=== PATIENT | female | born 1925 | race Caucasian/White ===

== ENCOUNTER 2016-11-10 02:08 | Inpatient (IN) | payer MEDICARE, BC ==
[2016-11-10] VITALS (24 sets, daily range): BP systolic 90–127; BP diastolic 39–74
[~2016-11-10] VITALS: Ht 172.7 cm; Wt 70.4 kg
[2016-11-10] MEDS ORDERED: MULT-974 PO (02:39)
[2016-11-10] MEDS ORDERED: ATOR40TA70 PO (02:39)
[2016-11-10] MEDS ORDERED: ASPI-586 PO (02:39)
[2016-11-10] MEDS ORDERED: METO-333 PO (02:39)
[2016-11-10] MEDS ORDERED: OMG1KC PO (02:39)
--- NOTE | 2016-11-10 02:42 | ED Cardiac General ---
History of Present Illness General Chief Complaint: Chest Pain Stated Complaint: SOB,LOW TEMP Nursing Triage Note: Patient c/o chest pain starting at 2200. Source: patient (SOMEWHAT LIMITED HISTORIAN), EMS, long-term records History of Present Illness Time seen by provider: 02:09 Initial Comments PT ARRIVES VIA EMS FROM [facility] PT IS FROM [place], [place], AND HAD STEMI AND EMERGENT 3 VESSEL CABG ON 11/03/16 AT [facility] IN [place]. PT WAS DISMISSED FROM THERE TODAY AND ADMITTED TO [facility], DAUGHTER LIVES HERE. PT STATES SHE BEGAN TO HAVE SHORTNESS OF BREATH "AND ALL THE SAME THINGS" WHEN SHE HAD [place] LAST WEEK C/O CHEST PRESSURE C/O GENERALIZED WEAKNESS NO SWEATS NO NAUSEA/VOMITING PER CARE HOME RECORDS/DISCHARGE SUMMARY FROM [facility], PT HAD INTERMITTENT EPISODES OF ATRIAL FIBRILLATION AND DOSE OF METOPROLOL WAS INCREASED. PT IS NOT ON ANTICOAGULANTS OR ANTI-ARRHYTHMICS. PT WAS ONLY ON 81 MG ASPIRIN, FISH OIL AND MULTIVITAMIN PRIOR TO STEMI. HAS HAD ATORVASTATIN AND METOPROLOL ADDED TO THOSE MEDICATIONS AT DISMISSAL FROM HOSPITAL. EMS GAVE NTG X 1 WITH DROP IN BP, FLUIDS GIVEN BY EMS PT STATES PAIN HAS EASED AFTER NTG. NTG SL ED TEACHER: Yes (0.4mg SL) ASA po ED TEACHER: Yes (324mg) Allergies and Home Medications Allergies Coded Allergies: No Known Drug Allergies (Unverified , 11/10/16) Home Medications Aspirin 81 Mg Tablet.dr, 81 MG PO, (Reported) Atorvastatin Calcium 40 Mg Tablet, 40 MG PO, (Reported) Metoprolol Tartrate 25 Mg Tablet, 25 MG PO BID, (Reported) Multivitamin 1 Each Tablet, 1 EACH PO, (Reported) [place] 3 Polyunsat Fatty Acids 1,000 Mg Cap, 1,000 MG PO, (Reported) Review of Systems Constitutional: No diaphoresis, malaise, weakness Respiratory: See HPI, Orthopnea, Shortness of Air Cardiovascular: See HPI, Chest Pain, Denies Edema, Denies Lightheadedness, Denies Palpitations, Denies Syncope Gastrointestinal: No Symptoms Reported Genitourinary: No Symptoms Reported Musculoskeletal: no symptoms reported Skin: no symptoms reported Psychiatric/Neurological: No Symptoms Reported Endocrine: No Symptoms Reported Hematologic/Lymphatic: No Symptoms Reported Past Zhhwshy-Vprxyo-Ntbeww Hx Patient Social History Alcohol Use: Denies Use Recreational Drug Use: No Smoking Status: Never a Smoker Recent Foreign Travel: No Contact w/Someone Who Travel: No Recent Infectious Disease Expo: No Recent Hopitalizations: No Surgeries HX Surgeries: Yes (RIGHT LUMPECTOMY FOR CANCER; CARDIAC CATH AND EMERGENT CABG 11/03/16) Surgeries: Breast, Cardiac, CABG Respiratory Hx Respiratory Disorders: No Cardiovascular Hx Cardiac Disorders: Yes Cardiac Disorders: Atrial Fibrillation, Coronary Artery Disease, Heart Attack, Hypertension Neurological Hx Neurological Disorders: No Genitourinary Hx Genitourinary Disorders: No Gastrointestinal Hx Gastrointestinal Disorders: No Musculoskeletal Hx Musculoskeletal Disorders: No Endocrine Hx Endocrine Disorders: No HEENT HX ENT Disorders: No Cancer Hx Cancer: Yes (RIGHT BREAST LUMPECTOMY) Cancer: Breast Psychosocial Hx Psychiatric Problems: No Integumentary HX Skin/Integumentary Disorder: No Blood Transfusions Hx Blood Disorders: No Physical Exam Vital Signs Vital Sign - Last 12Hours Capillary Refill : Less Than 3 Seconds General Appearance: Other (MILDLY DYSPNEIC AT REST) Neck: Normal Inspection Respiratory: Rales (IN BASES BILATERALLY), Other (MILDLY DYSPNEIC) Cardiovascular: No JVD, Normal Peripheral Pulses, Irregularly Irregular, Other (SURGICAL WOUND TO CHEST IS HEALING WITHOUT SIGNS IF INFECTION, IS CLEAN, DRY AND INTACT) Gastrointestinal: Non Tender, Soft Extremity: No Calf Tenderness, Other (SURGICAL WOUNDS TO RIGHT LEG HEALING WITHOUT SIGNS OF INFECTION AND ARE CLEAN, DRY AND INTACT. MODERATE BRUISING TO RIGHT LOWER LEG/CALF. TRACE EDEMA TO LEFT LOWER LEG. 1+ EDEMA TO RIGHT LOWER LEG. ) Neurologic/Psychiatric: Alert, Oriented x3 (LIMITED MEMORY), No Motor/Sensory Deficits, Normal Mood/Affect, dredge pipeman II-XII Norm as Tested Skin: Normal Color, Warm/Dry, Ecchymosis (AROUND SURGICAL SITES. ) Progress/Results/Core Measures Results/Orders Lab Results Laboratory Tests Test 11/10/16 02:57 Range/Units White Blood Count 10.3 4.3-11.0 10^3/uL Red Blood Count 3.17 L 4.35-5.85 10^6/uL Hemoglobin 9.7 L 11.5-16.0 G/DL Hematocrit 30 L 35-52 % Mean Corpuscular Volume 96 80-99 FL Mean Corpuscular Hemoglobin 31 25-34 PG Mean Corpuscular Hemoglobin Concent 32 32-36 G/DL Red Cell Distribution Width 14.7 H 10.0-14.5 % Platelet Count 239 130-400 10^3/uL Mean Platelet Volume 10.8 H 7.4-10.4 FL Neutrophils (%) (Auto) 73 42-75 % Lymphocytes (%) (Auto) 10 L 12-44 % Monocytes (%) (Auto) 13 H 0-12 % Eosinophils (%) (Auto) 4 0-10 % Basophils (%) (Auto) 0 0-10 % Neutrophils # (Auto) 7.5 1.8-7.8 X 10^3 Lymphocytes # (Auto) 1.0 1.0-4.0 X 10^3 Monocytes # (Auto) 1.4 H 0.0-1.0 X 10^3 Eosinophils # (Auto) 0.4 H 0.0-0.3 10^3/uL Basophils # (Auto) 0.0 0.0-0.1 10^3/uL Prothrombin Time 13.5 12.2-14.7 SEC INR Comment 1.1 0.8-1.4 Activated Partial Thromboplast Time 31 24-35 SEC Sodium Level 137 135-145 MMOL/L Potassium Level 4.2 3.6-5.0 MMOL/L Chloride Level 103 98-107 MMOL/L Carbon Dioxide Level 23 21-32 MMOL/L Anion Gap 11 5-14 MMOL/L Blood Urea Nitrogen 47 H 7-18 MG/DL Creatinine 1.07 0.60-1.30 MG/DL Estimat Glomerular Filtration Rate 48 BUN/Creatinine Ratio 44 Glucose Level 142 H 70-105 MG/DL Calcium Level 8.0 L 8.5-10.1 MG/DL Magnesium Level 2.1 1.8-2.4 MG/DL Total Bilirubin 1.2 H 0.1-1.0 MG/DL Aspartate Amino Transf (AST/SGOT) 46 H 5-34 U/L Alanine Aminotransferase (ALT/SGPT) 38 0-55 U/L Alkaline Phosphatase 69 40-136 U/L Total Creatine Kinase 136 29-168 U/L Creatine Kinase MB 3.2 <6.6 NG/ML Troponin I 6.59 *H <0.30 NG/ML B-Type Natriuretic Peptide 1868.9 H <100.0 PG/ML Total Protein 5.1 L 6.4-8.2 GM/DL Albumin 2.8 L 3.2-4.5 GM/DL Amylase Level 334 H 25-125 U/L Lipase 60 8-78 U/L TSH [place] Testing 2.65 0.35-4.94 UIU/ML My Orders Orders - MERCEDES PRICE DO Amylase (11/10/16 02:17) Cbc With Automated Diff (11/10/16 02:17) Comprehensive Metabolic Panel (11/10/16 02:17) Creatine Kinase (11/10/16 02:17) Creatine Kinase Mb (11/10/16 02:17) Lipase (11/10/16 02:17) Partial Thromboplastin Time (11/10/16 02:17) Protime With Inr (11/10/16 02:17) Troponin I (11/10/16 02:17) Chest 1 View, Ap/Pa Only (11/10/16 02:17) O2 (11/10/16 02:17) Ekg Tracing (11/10/16 02:17) BNP (11/10/16 02:17) Monitor-Rhythm Ecg Trace Only (11/10/16 02:17) Saline Lock/Iv-Start (11/10/16 02:17) Magnesium (11/10/16 02:17) Enoxaparin Injection (Lovenox Injection) (11/10/16 02:45) Thyroid Analyzer (11/10/16 02:34) Furosemide Injection (Lasix Injection) (11/10/16 03:30) Catheter(Urinary) Insert & Ass 03,15 (11/10/16 03:24) Medications Given in ED Current Medications Medications Dose Ordered Sig/Tanisha Route Start Time Stop Time Status Last Admin Dose Admin Enoxaparin Sodium 70 mg ONCE ONCE SC 11/10/16 02:45 11/10/16 02:46 DC 11/10/16 02:43 70 MG Furosemide 80 mg ONCE ONCE IVP 11/10/16 03:30 11/10/16 03:31 DC 11/10/16 04:15 80 MG Vital Signs/I&O Vital Sign - Last 12Hours 11/10/16 11/10/16 11/10/16 02:20 02:20 02:20 Temp 98.7 Pulse 108 Resp 19 B/P (MAP) 119/77 Pulse Ox 98 93 O2 Delivery Nasal Cannula Nasal Cannula Nasal Cannula O2 Flow Rate 2.00 2.00 2.0 Blood Pressure Mean: 91 Progress Note : Progress Note CHEST PAIN IS GONE AND SHORTNESS OF BREATH IS MUCH IMPROVED O2 SATS IN MID TO UPPER 90'S NO DETERIORATION IN PT'S CONDITION DURING ER STAY PT IN PERSISTENT ATRIAL FIBRILLATION, PT HAS NO SENSATION OF IRREGULAR HEART BEAT IN REVIEW OF CARE HOME RECORDS--ONLY THE H&P AND DISCHARGE SUMMARY FROM RECENT ADMIT AT [facility], THERE IS NO EKG PRESENT, AND ONLY LAB IS FROM HER FIRST TROPONIN WHEN SHE PRESENTED WITH ACUTE STEMI, WHICH WAS 0.04. FAMILY REPORTS THAT ON Sunday11/07/16 SHE HAD 3 LBS OF FLUID DRAWN OFF HER LUNGS AND WAS DOING BETTER ECG Initial ECG Impression Time: 02:24 Initial ECG Rate: 112 Initial ECG Rhythm: A Fib/Flutter (SLIGHT ST ELEVATION IN V2, V3) Initial ECG Comparisson: No Previous ECG Available Diagnostic Imaging Comments CXR --SIGNIFICANT CHF WITH BILATERAL EFFUSIONS Reviewed: Reviewed by Me Departure Communication Progress Notes [id number]--SPOKE WITH DR. DUDLEY, ADVISES JEAN FOWLER AND [facility], AND WILL SEE PT IN AM 0355--SPOKE WITH DR. Tereso CUI, ACCEPTS PT FOR ADMIT. Impression Impression: Primary Impression: CHF (congestive heart failure) Additional Impressions: Atrial fibrillation and flutter Recent heart attack RECENT CABG Disposition: 09 ADMITTED INPATIENT Condition: Improved Admissions Decision to Admit Reason: Admit from ER (General) Decision to Admit/Date: Nov 10, 2016 Time/Decision to Admit Time: 03:50 Departure-Patient Inst. Referrals: BELKYS CUI MD (PCP) Primary Care Physician MERCEDES PRICE DO Nov 10, 2016 02:42
[2016-11-10] MEDS ORDERED: ENOXAPARIN 80 MG/0.8 ML (LOVENOX) SYR SC ONE (02:45)
[2016-11-10 03:11] LABS: BASOPHILS % (AUTO) 0 % (0-10); EOSINOPHILS # (AUTO) 0.4 10^3/uL (0.0-0.3); EOSINOPHILS % (AUTO) 4 % (0-10); LYMPHOCYTES % (AUTO) 10 % (12-44); MEAN CORPUSCULAR HEMOGLOBIN 31 PG (25-34); MEAN CORPUSCULAR HGB CONC 32 G/DL (32-36); MEAN CORPUSCULAR VOLUME 96 FL (80-99); MEAN PLATELET VOLUME 10.8 FL (7.4-10.4); MONOCYTES # (AUTO) 1.4 X 10^3 (0.0-1.0); MONOCYTES % (AUTO) 13 % (0-12); NEUTROPHILS # (AUTO) 7.5 X 10^3 (1.8-7.8); NEUTROPHILS % (AUTO) 73 % (42-75); PLATELET COUNT 239 10^3/uL (130-400); RED BLOOD COUNT 3.17 10^6/uL (4.35-5.85); RED CELL DISTRIBUTION WIDTH 14.7 % (10.0-14.5); WHITE BLOOD COUNT 10.3 10^3/uL (4.3-11.0)
[2016-11-10 03:15] LABS: INR 1.1 (0.8-1.4); PROTHROMBIN TIME PATIENT 13.5 SEC (12.2-14.7)
[2016-11-10 03:26] LABS: CREATININE SERUM 1.07 MG/DL (0.60-1.30); POTASSIUM 4.2 MMOL/L (3.6-5.0)
[2016-11-10 03:27] LABS: ALBUMIN 2.8 GM/DL (3.2-4.5); BILIRUBIN,TOTAL 1.2 MG/DL (0.1-1.0); MAGNESIUM 2.1 MG/DL (1.8-2.4); TOTAL PROTEIN 5.1 GM/DL (6.4-8.2)
[2016-11-10] MEDS ORDERED: FUROSEMIDE 40 MG/4 ML INJ (LASIX) IVP ONE (03:30)
[2016-11-10 03:48] LABS: TROPONIN I 6.59 NG/ML (<0.30)
[2016-11-10] MEDS ORDERED: DILTIAZEM DRIP 100 MG in SODIUM CHLORIDE (ADD-VANTAGE) 100 ML IV SCH (04:15)
[2016-11-10] MEDS ORDERED: morphine INJ 4 MG/ML 1 ML (VIAL/SYRINGE) IV PRN (05:30)
[2016-11-10] MEDS ORDERED: NITROGLYCERIN SUBLINGUAL 0.4 MG TAB (NITROSTAT) SL PRN (05:30)
[2016-11-10] MEDS: DILTIAZEM DRIP 100 MG/NS 100 ML IV SCH ×4 (05:52→10:12)
--- NOTE | 2016-11-10 06:40 | Diagnostic Imaging Report ---
INDICATION: Congestive heart failure EXAMINATION: Portable chest 2:45 AM There are postop changes from a median sternotomy. There are small bilateral pleural effusions. There are no consolidating alveolar infiltrates. IMPRESSION: Postsurgical changes in the chest. There are small bilateral pleural effusions present. Dictated by: Dictated on workstation # [id number]
[2016-11-10 08:08] LABS: BASOPHILS % (AUTO) 0 % (0-10); EOSINOPHILS # (AUTO) 0.3 10^3/uL (0.0-0.3); EOSINOPHILS % (AUTO) 3 % (0-10); LYMPHOCYTES # (AUTO) 1.1 X 10^3 (1.0-4.0); LYMPHOCYTES % (AUTO) 11 % (12-44); MEAN CORPUSCULAR HEMOGLOBIN 31 PG (25-34); MEAN CORPUSCULAR HGB CONC 32 G/DL (32-36); MEAN CORPUSCULAR VOLUME 96 FL (80-99); MEAN PLATELET VOLUME 10.6 FL (7.4-10.4); MONOCYTES # (AUTO) 1.1 X 10^3 (0.0-1.0); MONOCYTES % (AUTO) 11 % (0-12); NEUTROPHILS # (AUTO) 7.2 X 10^3 (1.8-7.8); NEUTROPHILS % (AUTO) 74 % (42-75); PLATELET COUNT 267 10^3/uL (130-400); RED BLOOD COUNT 3.28 10^6/uL (4.35-5.85); RED CELL DISTRIBUTION WIDTH 14.8 % (10.0-14.5); WHITE BLOOD COUNT 9.7 10^3/uL (4.3-11.0)
[2016-11-10 08:24] LABS: ALBUMIN 2.9 GM/DL (3.2-4.5); BILIRUBIN,TOTAL 1.1 MG/DL (0.1-1.0); CALCIUM 8.1 MG/DL (8.5-10.1); CREATININE SERUM 1.07 MG/DL (0.60-1.30); POTASSIUM 4.1 MMOL/L (3.6-5.0); TOTAL PROTEIN 5.3 GM/DL (6.4-8.2)
[2016-11-10 08:31] LABS: MYOGLOBIN SERUM 214.2 NG/ML (10.0-92.0)
--- NOTE | 2016-11-10 09:13 | History & Physical ---
History of Present Illness History of Present Illness Reason for visit/HPI 89 yo F admitted overnight to ICU for acute chest pain and shortness of breath. She had just been admitted to [facility] earlier in the day from [facility] in [place]. She underwent a 3 vessel CABG- FAIRCHILD->LAD, saphenous vein graft aorta to 1st obtuse marginal and aorta to posterior descending artery on November 03, 2016 due to severe L main stenosis and severe RCA stenosis. Prior to arrival at [facility] pt was given 325mg ASA, NTG, IVF. Patient reports she was chest pain free from the time she left [facility] until last evening at [facility]. She feels like she felt when she had the initial heart attack on Nov 03. Leading up to these events pt denies any cardiac history. Pt was found to be in Afib with RVR, elevated BNP, ST elevation in V1-4, troponin 6.59 (repeat pending)- she was given 80mg lasix and cardizem gtts with pulse controlled down to 90s. Pt also started on therapeutic lovenox. Dr. Gomez was contacted for cardiology. This AM still has some chest discomfort across her chest- no radiation of pain or nausea or vomiting. She feels short of breath still. But overall pt reports she feels much better. Pt is DNR. Date of Admission Nov 10, 2016 at 03:50 Date Seen by Provider: Nov 10, 2016 Time Seen by Provider: 09:08 I consulted on this patient on 11/10/16 09:08 Attending Physician Fredy Gomez MD Admitting Physician Michele Cui MD Consult Allergies and Home Medications Allergies Coded Allergies: No Known Drug Allergies (Unverified , 11/10/16) Home Medications Aspirin 81 Mg Tablet.dr, 81 MG PO DAILY, (Reported) Atorvastatin Calcium 40 Mg Tablet, 40 MG PO HS, (Reported) Metoprolol Tartrate 25 Mg Tablet, 25 MG PO BID, (Reported) Multivitamin 1 Each Tablet, 1 TAB PO DAILY, (Reported) [place] 3 Polyunsat Fatty Acids 1,000 Mg Cap, 1,000 MG PO DAILY, (Reported) Past Xexntnn-Julkzb-Jsueov Hx Patient Social History Alcohol Use: Denies Use Recreational Drug Use: No Smoking Status: Never a Smoker Physical Abuse Screen: No Sexual Abuse: No Recent Foreign Travel: No Contact w/other who traveled: No Recent Hopitalizations: Yes (CABG) Recent Infectious Disease Expo: No Seasonal Allergies Seasonal Allergies: No Surgeries HX Surgeries: Yes (RIGHT LUMPECTOMY FOR CANCER; CARDIAC CATH AND EMERGENT CABG 11/03/16) Surgeries: Breast, Cardiac, CABG Respiratory Hx Respiratory Disorders: No Cardiovascular Hx Cardiovascular Disorders: Yes Cardiac Disorders: Atrial Fibrillation, Coronary Artery Disease, Heart Attack, Hypertension Neurological Hx Neurological Disorders: No Genitourinary Hx Genitourinary Disorders: No Gastrointestinal Hx Gastrointestinal Disorders: No Musculoskeletal Hx Musculoskeletal Disorders: No Endocrine Hx Endocrine Disorders: No HEENT HX ENT Disorders: No Loss of Vision: Denies Hearing Impairment: Hard of Hearing Cancer Hx Cancer: Yes (RIGHT BREAST LUMPECTOMY) Cancer: Breast Psychosocial Hx Psychiatric Problems: No Integumentary HX Skin/Integumentary Disorder: No Blood Transfusions Hx Blood Disorders: No Review of Systems Review of Systems General: No Chills, No Night Sweats HEENT: No Head Aches, No Visual Changes Pulmonary: Dyspnea, No Cough Cardiovascular: Chest Pain, No: Orthopnea, Palpitations Gastrointestinal: No: Abdominal Pain, Nausea, Vomiting Genitourinary: No Dysuria, No Frequency Musculoskeletal: No: neck pain, shoulder pain Neurological: Weakness Physical Exam Vital Signs Vital Sign - Last 12Hours General Appearance: WD/WN, Mild Distress HEENT: PERRL/EOMI Neck: Full Range of Motion Respiratory: Crackles (quiet in bases, wet upper lung bruno) Cardiovascular: Other (atrial fibrillation) Gastrointestinal: Normal Bowel Sounds, Non Tender, Soft Rectal: Deferred Back: Normal Inspection Extremity: Non Tender, No Calf Tenderness, No Pedal Edema, Other (bruising on legs- R>L due to saphenous vein removal) Neurologic/Psychiatric: Alert, Oriented x3, No Motor/Sensory Deficits, Normal Mood/Affect Skin: Warm/Dry Assessment/Plan Assessment/Plan Assessment/Plan 89 yo F Acute on chronic systolic congestive heart failure- diuresed with 80mg lasix Atrial fibrillation with RVR- normal rate currently on diltiazem gtts shortness of breath- due to cardiac etiology chest pain with CAD- s/p 3v CABG FAIRCHILD --> LAD, saphenous vein graft aorta to 1st obtuse marginal, posterior descending artery 11/03/16 ECHO prior to CABG- LVEF 30-35% HTN- on cardizem gtts Z95.1 presence of aortocoronary bypass graft- 11/03/16 chronic pain- monitor, has morphine ordered per chest pain protocol other hyperlipidemia- statin when not npo acute blood loss anemia- from CABG 11/03/16- stable hgb 10- needs to stay around 10 due to CAD DVT ppx: on therapeutic lovenox Dispo: repeating troponin, BNP elevated- diuresing- rate controlling Afib. ECHOcardiogram ordered. Dr. Gomez to see pt today. Problems: Clinical Quality Measures AMI/AHF: ASA po Prior to arrival: Yes (324mg) DVT/VTE Risk/Contraindication: Risk Factor Score Per Nursin RFS Level Per Nursing on Admit: 4+=Very High MICHELE CUI MD Nov 10, 2016 09:13
--- NOTE | 2016-11-10 12:14 | Consultation-Cardiology ---
HPI-Cardiology Cardiology Consultation Date of Consultation 11/10/16 Date of Admission Time Seen by Provider: 11:50 Indication: coronary artery disease, chest pain, shortness of breath HPI 89 years old lady with history of coronary artery disease, had a myocardial infarction last week in [facility], patient expressed that she had a cardiac catheterization done and then she underwent urgent CABG 3 using FAIRCHILD to LAD, vein graft to the first obtuse marginal branch and vein graft to the posterior descending artery on November 03, 2016 2 to severe left main coronary artery stenosis and severe right coronary artery stenosis, patient stayed in the hospital for about a week and she was transferred to [facility] she was felt better initially and then last night after arriving to [facility] she started having increasing shortness of breath and noted to have atrial fibrillation with rapid ventricular response with elevated troponin and BNP with signs of subacute myocardial infarction with persistent injury with Q waves in the anterior leads with residual ST elevation, her troponin is elevated probably due to the recent myocardial infarction and it is still trending down. Patient reporting improvement in her chest pain, feeling better at this time, she denied any palpitation, syncope or near syncopal episodes Home Medications & Allergies Allergies: Coded Allergies: No Known Drug Allergies (Unverified , 11/10/16) Home Medication List Reviewed: Yes LWH-Lolidw-Pcutas Hx Patient Social History Alcohol Use: Denies Use Recreational Drug Use: No Smoking Status: Never a Smoker Recent Foreign Travel: No Recent Infectious Disease Expo: No Recent Hopitalizations: Yes (CABG) Physical Abuse Screen: No Sexual Abuse: No Past Medical History past medical history as discussed below Family Medical History Family Medical Hx noncontributory to her current condition she is 89 years old with multiple comorbid condition Constitutional: see HPI, malaise, weakness EENTM: no symptoms reported, see HPI Respiratory: see HPI, No cough, dyspnea on exertion, No hemoptysis, orthopnea, No phlegm, short of breath, No stridor, No wheezing, No other Cardiovascular: see HPI, chest pain, edema, No Hx of Intervention, No palpitations, No syncope, No vascular heart diseas, No other Gastrointestinal: no symptoms reported, see HPI Genitourinary: no symptoms reported, see HPI Musculoskeletal: no symptoms reported, see HPI Skin: no symptoms reported, see HPI Psychiatric/Neurological: No Symptoms Reported, See HPI Reviewed Test Results Reviewed Test Results Lab Laboratory Tests Test 8/11/17 02:57 11/10/16 07:57 Range/Units White Blood Count 10.3 9.7 4.3-11.0 10^3/uL Red Blood Count 3.17 L 3.28 L 4.35-5.85 10^6/uL Hemoglobin 9.7 L 10.0 L 11.5-16.0 G/DL Hematocrit 30 L 31 L 35-52 % Mean Corpuscular Volume 96 96 80-99 FL Mean Corpuscular Hemoglobin 31 31 25-34 PG Mean Corpuscular Hemoglobin Concent 32 32 32-36 G/DL Red Cell Distribution Width 14.7 H 14.8 H 10.0-14.5 % Platelet Count 239 267 130-400 10^3/uL Mean Platelet Volume 10.8 H 10.6 H 7.4-10.4 FL Neutrophils (%) (Auto) 73 74 42-75 % Lymphocytes (%) (Auto) 10 L 11 L 12-44 % Monocytes (%) (Auto) 13 H 11 0-12 % Eosinophils (%) (Auto) 4 3 0-10 % Basophils (%) (Auto) 0 0 0-10 % Neutrophils # (Auto) 7.5 7.2 1.8-7.8 X 10^3 Lymphocytes # (Auto) 1.0 1.1 1.0-4.0 X 10^3 Monocytes # (Auto) 1.4 H 1.1 H 0.0-1.0 X 10^3 Eosinophils # (Auto) 0.4 H 0.3 0.0-0.3 10^3/uL Basophils # (Auto) 0.0 0.0 0.0-0.1 10^3/uL Prothrombin Time 13.5 12.2-14.7 SEC INR Comment 1.1 0.8-1.4 Activated Partial Thromboplast Time 31 24-35 SEC Sodium Level 137 138 135-145 MMOL/L Potassium Level 4.2 4.1 3.6-5.0 MMOL/L Chloride Level 103 102 98-107 MMOL/L Carbon Dioxide Level 23 25 21-32 MMOL/L Anion Gap 11 11 5-14 MMOL/L Blood Urea Nitrogen 47 H 45 H 7-18 MG/DL Creatinine 1.07 1.07 0.60-1.30 MG/DL Estimat Glomerular Filtration Rate 48 48 BUN/Creatinine Ratio 44 42 Glucose Level 142 H 134 H 70-105 MG/DL Calcium Level 8.0 L 8.1 L 8.5-10.1 MG/DL Magnesium Level 2.1 1.8-2.4 MG/DL Total Bilirubin 1.2 H 1.1 H 0.1-1.0 MG/DL Aspartate Amino Transf (AST/SGOT) 46 H 46 H 5-34 U/L Alanine Aminotransferase (ALT/SGPT) 38 38 0-55 U/L Alkaline Phosphatase 69 71 40-136 U/L Total Creatine Kinase 136 29-168 U/L Creatine Kinase MB 3.2 <6.6 NG/ML Troponin I 6.59 *H 5.85 *H <0.30 NG/ML B-Type Natriuretic Peptide 1868.9 H 2349.4 H <100.0 PG/ML Total Protein 5.1 L 5.3 L 6.4-8.2 GM/DL Albumin 2.8 L 2.9 L 3.2-4.5 GM/DL Amylase Level 334 H 25-125 U/L Lipase 60 8-78 U/L TSH [place] Testing 2.65 0.35-4.94 UIU/ML Myoglobin 214.2 H 10.0-92.0 NG/ML Physical Exam Vital Signs Vital Sign - Last 12Hours Capillary Refill : Less Than 3 Seconds General Appearance: WD/WN, Mild Distress Eyes: Bilateral Eye EOMI, Bilateral Eye Normal Inspection, Bilateral Eye PERRL HEENT: PERRL/EOMI, TMs Normal, Normal ENT Inspection, Pharynx Normal Neck: Full Range of Motion, Normal Inspection, Non Tender, Supple Respiratory: Chest Non Tender, No Accessory Muscle Use, No Respiratory Distress , Crackles, Decreased Breath Sounds Cardiovascular: Regular Rate, Rhythm, No Edema, No JVD, Normal Peripheral Pulses, Systolic Murmur, Gallop/S3, Irregularly Irregular Gastrointestinal: Normal Bowel Sounds, No Organomegaly, No Pulsatile Mass, Non Tender, Soft Back: Normal Inspection, No CVA Tenderness, No Vertebral Tenderness Extremity: Normal Capillary Refill, Normal Inspection, Normal Range of Motion, Non Tender, No Calf Tenderness, Pedal Edema Neurologic/Psychiatric: Alert, Oriented x3, No Motor/Sensory Deficits, Normal Mood/Affect Skin: Normal Color, Warm/Dry Lymphatic: No Adenopathy A/P-Cardiology Admission Diagnosis Atrial fibrillation Non-ST elevation myocardial infarction Congestive heart failure, acute left ventricular systolic dysfunction, ischemic cardiomyopathy Coronary artery disease hypotension Hyperlipidemia Assessment/Plan Atrial fibrillation with rapid ventricular response, unknown duration, started on Cardizem drip, borderline hypotensive at this time, I will add digoxin and monitor her closely. Evaluate 2-D echocardiogram, planning to evaluate MARION and electrical cardioversion in the morning if patient did not convert after digoxin. Subacute myocardial infarction, non-ST elevation myocardial infarction, patient had elevated troponin that is trending down. There is residual Q waves in the anterior leads suggestive of anterior wall injury, probably occurred during her myocardial infarction and her bypass surgery, I will obtain copy of the record and review it. Congestive heart failure, acute left ventricular systolic dysfunction, decompensated with pulmonary edema. Responded to Lasix, I will continue on gentle diuretics and monitor her blood pressure closely. Evaluate 2-D echocardiogram. Hyperlipidemia, restart statin and monitor Hypertension. Currently hypotensive. Monitor blood pressure Clinical Quality Measures AMI/AHF: ASA po Prior to arrival: Yes (324mg) DVT/VTE Risk/Contraindication: Risk Factor Score Per Nursin RFS Level Per Nursing on Admit: 4+=Very High CAROL DUDLEY MD Nov 10, 2016 12:13
[2016-11-10] MEDS ORDERED: DIGOXIN 0.25 MG/ML (LANOXIN) 2 ML AMP IV NR (12:15)
[2016-11-10] MEDS ORDERED: FUROSEMIDE 40 MG/4 ML INJ (LASIX) IVP NR (12:15)
[2016-11-10] MEDS: inSUlin (REGULAR) HUMAN 1 UNIT/0.01 ML (CHARGE PER UNIT) SC SCH ×2 (12:44→18:50)
[2016-11-10] MEDS: ASPIRIN E.C. 325 MG (ECOTRIN) TABLET PO SCH (12:49)
[2016-11-10] MEDS: ENOXAPARIN 80 MG/0.8 ML (LOVENOX) SYR SC SCH (16:49)
[2016-11-10] MEDS ORDERED: AMIODARONE FOR BOLUS 150 MG in D5W 100 ML IVPB 100 ML IV NR (18:32)
[2016-11-10] MEDS: AMIODARONE IV SOLUTION 200 ML IV SCH (18:45)
[2016-11-10] MEDS: ATORVASTATIN 40 MG (LIPITOR) TABLET PO SCH (20:34)
[2016-11-10] MEDS: meTOprolol TARTRATE 25 MG (LOPRESSOR) TABLET PO SCH (20:40)
[2016-11-11] VITALS (24 sets, daily range): BP systolic 90–138; BP diastolic 36–71
[2016-11-11] MEDS: inSUlin (REGULAR) HUMAN 1 UNIT/0.01 ML (CHARGE PER UNIT) SC SCH ×2 (01:11→05:41)
[2016-11-11] MEDS: AMIODARONE IV SOLUTION 200 ML IV SCH (01:12)
[2016-11-11 04:10] LABS: BASOPHILS % (AUTO) 0 % (0-10); EOSINOPHILS # (AUTO) 0.4 10^3/uL (0.0-0.3); EOSINOPHILS % (AUTO) 5 % (0-10); LYMPHOCYTES # (AUTO) 1.2 X 10^3 (1.0-4.0); LYMPHOCYTES % (AUTO) 13 % (12-44); MEAN CORPUSCULAR HEMOGLOBIN 30 PG (25-34); MEAN CORPUSCULAR HGB CONC 32 G/DL (32-36); MEAN CORPUSCULAR VOLUME 96 FL (80-99); MEAN PLATELET VOLUME 11.1 FL (7.4-10.4); MONOCYTES # (AUTO) 1.1 X 10^3 (0.0-1.0); MONOCYTES % (AUTO) 12 % (0-12); NEUTROPHILS # (AUTO) 6.5 X 10^3 (1.8-7.8); NEUTROPHILS % (AUTO) 70 % (42-75); PLATELET COUNT 251 10^3/uL (130-400); RED BLOOD COUNT 3.07 10^6/uL (4.35-5.85); RED CELL DISTRIBUTION WIDTH 14.9 % (10.0-14.5); WHITE BLOOD COUNT 9.2 10^3/uL (4.3-11.0)
[2016-11-11 04:53] LABS: ALBUMIN 2.7 GM/DL (3.2-4.5); BILIRUBIN,TOTAL 1.1 MG/DL (0.1-1.0); CREATININE SERUM 1.04 MG/DL (0.60-1.30); PHOSPHORUS 3.7 MG/DL (2.3-4.7); POTASSIUM 3.8 MMOL/L (3.6-5.0); TOTAL PROTEIN 4.9 GM/DL (6.4-8.2)
[2016-11-11 05:00] LABS: DIGOXIN 1.59 NG/ML (0.80-2.00)
[2016-11-11 05:05] LABS: TROPONIN I 4.11 NG/ML (<0.30)
[2016-11-11 05:22] LABS: CHOLESTEROL 86 MG/DL (< 200); DIRECT LDL 52 MG/DL (1-129); TRIGLYCERIDES 107 MG/DL (<150); VLDL CHOLESTEROL 21 MG/DL (5-40)
[2016-11-11] MEDS: ENOXAPARIN 80 MG/0.8 ML (LOVENOX) SYR SC SCH (05:41)
--- NOTE | 2016-11-11 07:41 | Progress Note (SOAP) ---
Subjective Time Seen by Provider: 07:30 Subjective/Events-last exam chest pain. CHF. A. fib with RVR. Coronary artery disease. Non-ST elevated SC. Weakness. Recent CABG. Patient feeling weak today. Patient in sinus rhythm. Patient age 89 nondiabetic . No history of diabetes Objective Exam Vital Signs Date Time Temp Pulse Resp B/P (MAP) Pulse Ox O2 Delivery O2 Flow Rate FiO2 11/11/16 06:00 83 30 121/57 97 Nasal Cannula 1.00 11/11/16 05:41 97.6 11/11/16 05:00 78 17 120/65 94 Nasal Cannula 1.00 11/11/16 04:00 79 26 121/56 98 Nasal Cannula 1.00 11/11/16 04:00 98 Nasal Cannula 1.00 11/11/16 03:00 77 18 121/57 96 Nasal Cannula 1.00 11/11/16 02:00 79 19 121/47 98 Nasal Cannula 1.00 11/11/16 01:00 79 24 111/44 97 Nasal Cannula 1.00 11/11/16 01:00 77 11/11/16 00:00 98 Nasal Cannula 1.00 11/11/16 00:00 79 20 110/45 97 Nasal Cannula 1.00 11/10/16 23:00 80 27 104/52 97 Nasal Cannula 1.00 11/10/16 22:00 80 35 103/48 96 Nasal Cannula 1.00 11/10/16 21:00 87 8 113/63 95 Nasal Cannula 1.00 11/10/16 20:00 98 Nasal Cannula 1.00 11/10/16 20:00 87 26 120/47 94 Nasal Cannula 1.00 11/10/16 19:30 Nasal Cannula 1.00 11/10/16 19:00 84 26 105/39 97 Nasal Cannula 1.00 11/10/16 19:00 87 11/10/16 19:00 97.6 11/10/16 18:00 93 20 108/45 98 Nasal Cannula 1.00 11/10/16 17:00 97 21 102/51 96 Nasal Cannula 1.00 11/10/16 16:40 98 Nasal Cannula 1.00 11/10/16 16:00 95 26 123/55 95 Nasal Cannula 1.00 11/10/16 15:00 99 23 111/47 96 Nasal Cannula 1.00 11/10/16 14:00 99 25 123/55 97 Nasal Cannula 1.00 11/10/16 13:00 92 11/10/16 13:00 93 21 124/49 97 Nasal Cannula 1.00 11/10/16 12:15 98 Nasal Cannula 1.00 11/10/16 12:00 98.1 Nasal Cannula 1.00 11/10/16 11:00 84 25 97/54 96 Nasal Cannula 1.00 11/10/16 10:12 85 21 109/70 97 1.00 11/10/16 10:00 80 28 95/47 96 Nasal Cannula 1.00 11/10/16 09:00 92 27 127/60 96 Nasal Cannula 1.00 11/10/16 08:07 98 Nasal Cannula 2.00 11/10/16 08:00 97.2 Nasal Cannula 1.00 11/10/16 08:00 89 22 90/44 97 Nasal Cannula 2.00 I & O 11/11/16 07:00 Intake Total 1048 ml Output Total 2060 ml Balance -1012 ml Capillary Refill : Less Than 3 Seconds General Appearance: No Apparent Distress, WD/WN HEENT: Normal ENT Inspection Neck: Full Range of Motion, Normal Inspection Respiratory: Chest Non Tender, Normal Breath Sounds, No Accessory Muscle Use, No Respiratory Distress Cardiovascular: Regular Rate, Rhythm, No Murmur Gastrointestinal: non tender, soft Results Lab Laboratory Tests 11/10/16 07:57 11/11/16 03:43 Laboratory Tests 11/10/16 07:57: White Blood Count 9.7, Red Blood Count 3.28L, Hemoglobin 10.0L, Hematocrit 31L, Mean Corpuscular Volume 96, Mean Corpuscular Hemoglobin 31, Mean Corpuscular Hemoglobin Concent 32, Red Cell Distribution Width 14.8H, Platelet Count 267, Mean Platelet Volume 10.6H, Neutrophils (%) (Auto) 74, Lymphocytes (%) (Auto) 11L, Monocytes (%) (Auto) 11, Eosinophils (%) (Auto) 3, Basophils (%) (Auto) 0, Neutrophils # (Auto) 7.2, Lymphocytes # (Auto) 1.1, Monocytes # (Auto) 1.1H, Eosinophils # (Auto) 0.3, Basophils # (Auto) 0.0, Sodium Level 138, Potassium Level 4.1, Chloride Level 102, Carbon Dioxide Level 25, Anion Gap 11, Blood Urea Nitrogen 45H, Creatinine 1.07, Estimat Glomerular Filtration Rate 48, BUN/ Creatinine Ratio 42, Glucose Level 134H, Calcium Level 8.1L, Total Bilirubin 1.1H, Aspartate Amino Transf (AST/SGOT) 46H, Alanine Aminotransferase (ALT/SGPT ) 38, Alkaline Phosphatase 71, Myoglobin 214.2H, Troponin I 5.85*H, B-Type Natriuretic Peptide 2349.4H, Total Protein 5.3L, Albumin 2.9L 11/10/16 12:42: Glucometer 142H 11/10/16 14:22: Troponin I 5.42*H 11/10/16 19:28: Glucometer 181H 11/11/16 03:43: White Blood Count 9.2, Red Blood Count 3.07L, Hemoglobin 9.3L, Hematocrit 30L, Mean Corpuscular Volume 96, Mean Corpuscular Hemoglobin 30, Mean Corpuscular Hemoglobin Concent 32, Red Cell Distribution Width 14.9H, Platelet Count 251, Mean Platelet Volume 11.1H, Neutrophils (%) (Auto) 70, Lymphocytes (%) (Auto) 13 , Monocytes (%) (Auto) 12, Eosinophils (%) (Auto) 5, Basophils (%) (Auto) 0, Neutrophils # (Auto) 6.5, Lymphocytes # (Auto) 1.2, Monocytes # (Auto) 1.1H, Eosinophils # (Auto) 0.4H, Basophils # (Auto) 0.0, Sodium Level 138, Potassium Level 3.8, Chloride Level 101, Carbon Dioxide Level 25, Anion Gap 12, Blood Urea Nitrogen 40H, Creatinine 1.04, Estimat Glomerular Filtration Rate 50, BUN/ Creatinine Ratio 38, Glucose Level 125H, Calcium Level 8.0L, Phosphorus Level 3.7, Magnesium Level 2.0, Total Bilirubin 1.1H, Aspartate Amino Transf (AST/SGOT ) 42H, Alanine Aminotransferase (ALT/SGPT) 33, Alkaline Phosphatase 69, Troponin I 4.11*H, B-Type Natriuretic Peptide 1244.4H, Total Protein 4.9L, Albumin 2.7L, Triglycerides Level 107, Cholesterol Level 86, LDL Cholesterol Direct 52, VLDL Cholesterol 21, HDL Cholesterol 23L, Digoxin Level 1.59 Radiology NAME: [facility] REC#: [id number] PT STATUS: ADM IN : 1925 PHYSICIAN: MERCEDES PRICE DO ADMIT DATE: 11/10/16/ICU Signed Date of Exam: 11/10/16 CHEST 1 VIEW, AP/PA ONLY INDICATION: Congestive heart failure EXAMINATION: Portable chest 2:45 AM There are postop changes from a median sternotomy. There are small bilateral pleural effusions. There are no consolidating alveolar infiltrates. IMPRESSION: Postsurgical changes in the chest. There are small bilateral pleural effusions present. Dictated by: Dictated on workstation # [id number] Dict: 11/10/16 0620 Trans: 11/10/16 1113 Interpreted by: HITESH BELTRAN Electronically signed by: HITESH BELTRAN 11/10/16 1113 Assessment/Plan Assessment/Plan Assess & Plan/Chief Complaint chest pain. CHF. A. fib with RVR. CAD. Recent history of CABG. Patient not having any chest pain. Patient in sinus rhythm. Patient improving Clinical Quality Measures AMI/AHF: ASA po Prior to arrival: Yes (324mg) DVT/VTE Risk/Contraindication: Risk Factor Score Per Nursin RFS Level Per Nursing on Admit: 4+=Very High MANOHAR BRIGHT DO Nov 11, 2016 07:41
[2016-11-11] MEDS: meTOprolol TARTRATE 25 MG (LOPRESSOR) TABLET PO SCH ×2 (08:21→20:06)
[2016-11-11] MEDS: OMEGA 3 (FISH OIL) 1000 MG CAP PO SCH (08:21)
[2016-11-11] MEDS: FUROSEMIDE 40 MG/4 ML INJ (LASIX) IVP SCH (08:21)
[2016-11-11] MEDS: ASPIRIN E.C. 325 MG (ECOTRIN) TABLET PO SCH (08:21)
--- NOTE | 2016-11-11 08:45 | Diagnostic Imaging Report ---
INDICATION: Shortness of breath. Comparison is made with prior examination from 11/10/16. FINDINGS: There is cardiomegaly. There is moderate central pulmonary venous congestion. There are bibasilar infiltrates and small bilateral pleural effusions. There is no pneumothorax. Mediastinum is unremarkable. There has been a previous median sternotomy. IMPRESSION: Bibasilar infiltrates and bilateral pleural effusions. Cardiomegaly and some central pulmonary venous congestion. Dictated by: Dictated on workstation # [id number]
--- NOTE | 2016-11-11 09:42 | Cardiology Progress Note ---
Subjective Date Seen by Provider: Nov 11, 2016 Time Seen by Provider: 09:37 Subjective/Events-last exam patient is laying down in bed, feeling better, denied any chest pain, having leg pain at the surgical site, denied any palpitation. Converted to sinus rhythm last night. Review of Systems General: No Chills, No Night Sweats, No Fatigue, No Malaise, No Appetite, No Other HEENT: No Head Aches, No Visual Changes, No Eye Pain, No Ear Pain, No Dysphasia , No Sinus Congestion, No Post Nasal Drip, No Sore Throat, No Other Pulmonary: Dyspnea, No Cough, No Pleuritic Chest Pain, No Other Cardiovascular: No: Chest Pain, Edema, Lt Headedness, Orthopnea, Other, Palpitations, Paroxysmal Noc. Dyspnea Objective-Cardiology Exam Last Set of Vital Signs Vital Signs 11/11/16 11/11/16 11/11/16 06:00 07:00 08:15 Temp 97.6 Pulse 80 Resp 30 B/P (MAP) 121/57 Pulse Ox 98 O2 Delivery Nasal Cannula O2 Flow Rate 1.00 Capillary Refill : Less Than 3 Seconds I&O Bad tableGeneral: Alert, Oriented X3, Cooperative HEENT: Atraumatic, PERRLA Neck: Supple, No JVD, No Thyromegaly Lungs: Normal Air Movement, Other (bilateral rhonchi) Heart: Regular Rate, Normal S1, Normal S2, No Murmurs, Other (S3 is present) Abdomen: Normal Bowel Sounds, Soft, No Tenderness, No Hepatosplenomegaly, No Masses Extremities: No Clubbing, No Cyanosis, No Edema, Normal Pulses, No Tenderness/ Swelling Skin: No Rashes, No Significant Lesion, Other (surgical site is healing well) Neuro: Normal Speech, Normal Tone, Sensation Intact Psych/Mental Status: Mental Status NL, Mood NL Results Lab Laboratory Tests 11/11/16 03:43 A/P-Cardiology Admission Diagnosis Atrial fibrillation Non-ST elevation myocardial infarction Congestive heart failure, acute left ventricular systolic dysfunction, ischemic cardiomyopathy Coronary artery disease hypotension Hyperlipidemia Assessment/Plan Paroxysmal atrial fibrillation, converted to sinus rhythm, review of her records from [facility] showed episode of atrial fibrillation and consideration for anticoagulation which was not done, currently converted to sinus rhythm after receiving Cardizem drip and digoxin, I stopped both medication and started her on amiodarone, I will continue on amiodarone and monitor her tolerance and response [id number] score of 7, yearly risk of stroke without oral anticoagulation is 9.6 percent, I will start on Eliquis 2.5 mg twice daily and evaluate her tolerance and response Subacute myocardial infarction, non-ST elevation myocardial infarction, patient had elevated troponin that is trending down, patient have acute ST elevation myocardial infarction last week at [facility] required CABG 3, probably trending down from the resulting injury, had massive anterior wall injury according to the record. Congestive heart failure, acute left ventricular systolic dysfunction, decompensated with pulmonary edema, echocardiogram showed anterior wall, anterior septum, anteroapex akinesia, diffuse left ventricular hypokinesia with ejection fraction 30-35 percent persistent compared to the echo from last week at [facility], started on beta blockers and I will add lisinopril and evaluate her tolerance and response Hyperlipidemia, continue on Lipitor 40 mg and monitor. Hypertension, was hypotensive on Cardizem, I will evaluate her tolerance to the current medication Diabetes mellitus, patient was on insulin drip at [facility] Clinical Quality Measures AMI/AHF: ASA po Prior to arrival: Yes (324mg) DVT/VTE Risk/Contraindication: Risk Factor Score Per Nursin RFS Level Per Nursing on Admit: 4+=Very High CAROL DUDLEY MD Nov 11, 2016 09:42
[2016-11-11] MEDS ORDERED: PANTOPRAZOLE 40 MG (PROTONIX) TAB PO ONE (09:45)
[2016-11-11] MEDS: lisINopril 5 MG (PRINIVIL) TABLET PO SCH (12:12)
[2016-11-11] MEDS: AMIODARONE 200 MG (CORDARONE) TAB PO SCH ×2 (13:10→20:06)
[2016-11-11] MEDS ORDERED: DIGOXIN 0.25 MG (LANOXIN) TAB PO SCH (18:00)
[2016-11-11] MEDS: DILTIAZEM DRIP 100 MG/NS 100 ML IV SCH ×2 (20:06)
[2016-11-11] MEDS: ATORVASTATIN 40 MG (LIPITOR) TABLET PO SCH (20:06)
[2016-11-11] MEDS: APIXABAN 2.5 MG (ELIQUIS) TABLET PO SCH (20:06)
[2016-11-12] VITALS (14 sets, daily range): BP systolic 96–129; BP diastolic 40–89
[2016-11-12 04:55] LABS: BASOPHILS % (AUTO) 0 % (0-10); EOSINOPHILS # (AUTO) 0.3 10^3/uL (0.0-0.3); EOSINOPHILS % (AUTO) 4 % (0-10); LYMPHOCYTES # (AUTO) 1.1 X 10^3 (1.0-4.0); LYMPHOCYTES % (AUTO) 14 % (12-44); MEAN CORPUSCULAR HEMOGLOBIN 31 PG (25-34); MEAN CORPUSCULAR HGB CONC 32 G/DL (32-36); MEAN CORPUSCULAR VOLUME 95 FL (80-99); MEAN PLATELET VOLUME 10.9 FL (7.4-10.4); MONOCYTES # (AUTO) 0.8 X 10^3 (0.0-1.0); MONOCYTES % (AUTO) 10 % (0-12); NEUTROPHILS # (AUTO) 5.4 X 10^3 (1.8-7.8); NEUTROPHILS % (AUTO) 71 % (42-75); PLATELET COUNT 258 10^3/uL (130-400); RED BLOOD COUNT 3.07 10^6/uL (4.35-5.85); RED CELL DISTRIBUTION WIDTH 14.8 % (10.0-14.5); WHITE BLOOD COUNT 7.6 10^3/uL (4.3-11.0)
[2016-11-12 05:12] LABS: CALCIUM 7.9 MG/DL (8.5-10.1); CREATININE SERUM 0.98 MG/DL (0.60-1.30); PHOSPHORUS 3.1 MG/DL (2.3-4.7); POTASSIUM 3.5 MMOL/L (3.6-5.0)
[2016-11-12 05:24] LABS: TROPONIN I 3.02 NG/ML (<0.30)
[2016-11-12] MEDS ORDERED: KCL 20 MEQ TAB (K-DUR) PO ONE (07:00)
--- NOTE | 2016-11-12 07:31 | Progress Note (SOAP) ---
Subjective Time Seen by Provider: 07:20 Subjective/Events-last exam patient feeling better today. Patient converted to sinus rhythm. Troponin trending down still elevated at 3.02. BNP 1210 trending down but not much. Proximal atrial fibrillation. Non-ST elevated [place]. CHF. CAD. Anemia. Hypotension. Hyperlipidemia Objective Exam Vital Signs Date Time Temp Pulse Resp B/P (MAP) Pulse Ox O2 Delivery O2 Flow Rate FiO2 11/12/16 06:00 83 25 101/48 98 Nasal Cannula 1.00 11/12/16 05:00 82 36 126/59 100 Nasal Cannula 1.00 11/12/16 04:00 97.0 Nasal Cannula 1.00 11/12/16 04:00 87 25 108/51 98 Nasal Cannula 1.00 11/12/16 04:00 98 Nasal Cannula 1.00 11/12/16 03:00 87 24 118/54 99 Nasal Cannula 1.00 11/12/16 02:00 91 28 129/60 98 Nasal Cannula 1.00 11/12/16 01:00 81 17 104/43 98 Nasal Cannula 1.00 11/12/16 01:00 81 11/12/16 00:00 83 20 96/40 97 Nasal Cannula 1.00 11/12/16 00:00 98 Nasal Cannula 1.00 11/12/16 00:00 97.0 20 94 Nasal Cannula 1.00 11/11/16 23:00 88 22 112/59 96 Room Air 11/11/16 22:00 88 20 115/54 97 Room Air 11/11/16 21:00 81 9 113/51 94 Room Air 11/11/16 20:00 98 Nasal Cannula 1.00 11/11/16 20:00 85 23 98/42 93 Room Air 11/11/16 19:00 82 11/11/16 19:00 82 20 90/36 93 Room Air 11/11/16 18:00 81 20 131/68 97 Room Air 11/11/16 17:00 73 17 138/71 97 Room Air 11/11/16 16:13 97.0 79 21 103/52 92 Room Air 11/11/16 16:11 98 Nasal Cannula 1.00 11/11/16 15:00 79 23 106/53 96 Nasal Cannula 1.00 11/11/16 14:00 79 27 104/51 97 Nasal Cannula 1.00 11/11/16 13:00 80 18 122/53 98 Nasal Cannula 1.00 11/11/16 13:00 80 11/11/16 12:10 98 Nasal Cannula 1.00 11/11/16 12:00 78 23 100/41 99 Nasal Cannula 1.00 11/11/16 11:00 75 28 122/51 99 Nasal Cannula 1.00 11/11/16 10:00 75 26 126/49 97 Nasal Cannula 1.00 11/11/16 09:00 93 29 103/49 97 Nasal Cannula 1.00 11/11/16 08:15 97.6 Nasal Cannula 1.00 11/11/16 08:15 98 Nasal Cannula 1.00 11/11/16 08:00 88 23 120/67 98 Nasal Cannula 1.00 I & O 11/12/16 07:00 Intake Total 865 ml Output Total 1035 ml Balance -170 ml Capillary Refill : Less Than 3 Seconds General Appearance: No Apparent Distress, WD/WN HEENT: Normal ENT Inspection Neck: Full Range of Motion, Normal Inspection, Non Tender Respiratory: Chest Non Tender, Normal Breath Sounds, No Accessory Muscle Use, No Respiratory Distress Cardiovascular: Regular Rate, Rhythm, No Murmur Gastrointestinal: normal bowel sounds, non tender Results Lab Laboratory Tests 11/12/16 04:25 11/12/16 04:46 Laboratory Tests 11/12/16 04:25: White Blood Count 7.6, Red Blood Count 3.07L, Hemoglobin 9.5L, Hematocrit 29L, Mean Corpuscular Volume 95, Mean Corpuscular Hemoglobin 31, Mean Corpuscular Hemoglobin Concent 32, Red Cell Distribution Width 14.8H, Platelet Count 258, Mean Platelet Volume 10.9H, Neutrophils (%) (Auto) 71, Lymphocytes (%) (Auto) 14 , Monocytes (%) (Auto) 10, Eosinophils (%) (Auto) 4, Basophils (%) (Auto) 0, Neutrophils # (Auto) 5.4, Lymphocytes # (Auto) 1.1, Monocytes # (Auto) 0.8, Eosinophils # (Auto) 0.3, Basophils # (Auto) 0.0, B-Type Natriuretic Peptide 1210.5H 11/12/16 04:46: Sodium Level 136, Potassium Level 3.5L, Chloride Level 99, Carbon Dioxide Level 25, Anion Gap 12, Blood Urea Nitrogen 32H, Creatinine 0.98, Estimat Glomerular Filtration Rate 53, BUN/Creatinine Ratio 33, Glucose Level 109H, Calcium Level 7.9L, Phosphorus Level 3.1, Magnesium Level 2.0, Troponin I 3.02*H Microbiology 11/10/16 MRSA Screen - Final, Complete MRSA not isolated Radiology NAME: ADDIE [facility]EROS [facility] REC#: [id number] PT STATUS: ADM IN : 1925 PHYSICIAN: CAROL DUDLEY MD ADMIT DATE: 11/10/16/ICU Signed Date of Exam: 11/11/16 CHEST 1 VIEW, AP/PA ONLY INDICATION: Shortness of breath. Comparison is made with prior examination from 11/10/16. FINDINGS: There is cardiomegaly. There is moderate central pulmonary venous congestion. There are bibasilar infiltrates and small bilateral pleural effusions. There is no pneumothorax. Mediastinum is unremarkable. There has been a previous median sternotomy. IMPRESSION: Bibasilar infiltrates and bilateral pleural effusions. Cardiomegaly and some central pulmonary venous congestion. Dictated by: Dictated on workstation # [id number] Dict: 11/11/16 0658 Trans: 11/11/16 1010 Interpreted by: KIARA DALLSA Electronically signed by: KIARA DALLAS 11/11/16 1010 Assessment/Plan Assessment/Plan Assess & Plan/Chief Complaint chest pain. CHF. A. fib with RVR. CAD. Recent history of CABG. Patient not having any chest pain. Patient in sinus rhythm. Patient improving. . 11/12/16. Chest pain no chest pain just has heaviness a little improved CHF BNP trending down. A. fib with RVR patient converted to sinus rhythm. Recent history of CABG. Patient feels better Patient constipated put on milk of magnesia and prune juice Clinical Quality Measures AMI/AHF: ASA po Prior to arrival: Yes (324mg) DVT/VTE Risk/Contraindication: Risk Factor Score Per Nursin RFS Level Per Nursing on Admit: 4+=Very High MANOHAR BRIGHT DO Nov 12, 2016 07:31
[2016-11-12] MEDS ORDERED: KCL 10 MEQ TAB (MICRO K) PO NR (08:45)
[2016-11-12] MEDS: meTOprolol TARTRATE 25 MG (LOPRESSOR) TABLET PO SCH (08:46)
[2016-11-12] MEDS: PANTOPRAZOLE 40 MG (PROTONIX) TAB PO SCH (08:46)
[2016-11-12] MEDS: AMIODARONE 200 MG (CORDARONE) TAB PO SCH ×2 (08:46→20:14)
[2016-11-12] MEDS: lisINopril 5 MG (PRINIVIL) TABLET PO SCH (08:46)
[2016-11-12] MEDS: OMEGA 3 (FISH OIL) 1000 MG CAP PO SCH (08:47)
[2016-11-12] MEDS: APIXABAN 2.5 MG (ELIQUIS) TABLET PO SCH ×2 (08:47→20:14)
[2016-11-12] MEDS: FUROSEMIDE 40 MG/4 ML INJ (LASIX) IVP SCH (08:47)
[2016-11-12] MEDS: MAGNESIUM 1 GM/D5W 100 ML IVPB IV SCH ×2 (08:47→08:48)
--- NOTE | 2016-11-12 10:07 | Diagnostic Imaging Report ---
EXAMINATION: Portable erect AP chest at 5:24 AM. INDICATION: Congestive failure. FINDINGS: The cardiomegaly, pulmonary congestion and bibasilar atelectasis/infiltrate and bilateral pleural effusions seen on the prior exam of 11/11/2016 are again evident. The density in the left lung base does seem somewhat greater than noted on the prior exam. The right lung base is essentially no different. The upper lungs remain clear. The mediastinum is not widened. The osseous structures are intact. IMPRESSION: The appearance of the chest has worsened somewhat since the prior exam as there has been a slight increase in the atelectasis/infiltrate and fluid involving the left lower lobe. A followup study would be recommended for continued evaluation. Dictated by: Dictated on workstation # [id number]
--- NOTE | 2016-11-12 10:53 | Cardiology Progress Note ---
Subjective Date Seen by Provider: Nov 12, 2016 Time Seen by Provider: 10:52 Subjective/Events-last exam patient is laying down in bed, feeling better, breathing better, denied any chest pain. Heart rate is stable. Review of Systems General: No Chills, No Night Sweats, No Fatigue, No Malaise, No Appetite, No Other HEENT: No Head Aches, No Visual Changes, No Eye Pain, No Ear Pain, No Dysphasia , No Sinus Congestion, No Post Nasal Drip, No Sore Throat, No Other Pulmonary: No Dyspnea, No Cough, No Pleuritic Chest Pain, No Other Cardiovascular: No: Chest Pain, Edema, Lt Headedness, Orthopnea, Other, Palpitations, Paroxysmal Noc. Dyspnea Objective-Cardiology Exam Last Set of Vital Signs Vital Signs 11/12/16 11/12/16 11/12/16 11/12/16 06:00 07:00 08:00 08:15 Temp 97.6 Pulse 84 Resp 25 B/P (MAP) 101/48 Pulse Ox 98 O2 Delivery Nasal Cannula O2 Flow Rate 1.00 Capillary Refill : Less Than 3 Seconds I&O Intake and Output 11/12/16 00:00 Intake Total 875 ml Output Total 985 ml Balance -110 ml Intake Oral 675 ml IV Total 200 ml Output Urine Total 985 ml General: Alert, Oriented X3, Cooperative HEENT: Atraumatic, PERRLA Neck: Supple, No JVD, No Thyromegaly Lungs: Clear to Auscultation, Normal Air Movement Heart: Regular Rate, Normal S1, Normal S2, No Murmurs, Other (S3 is present) Abdomen: Normal Bowel Sounds, Soft, No Tenderness, No Hepatosplenomegaly, No Masses Extremities: No Clubbing, No Cyanosis, No Edema, Normal Pulses, No Tenderness/ Swelling Skin: No Rashes, No Significant Lesion, Other (surgical site is healing well) Neuro: Normal Speech, Normal Tone, Sensation Intact Psych/Mental Status: Mental Status NL, Mood NL Results Lab Laboratory Tests 11/12/16 04:25 11/12/16 04:46 A/P-Cardiology Admission Diagnosis Atrial fibrillation Non-ST elevation myocardial infarction Congestive heart failure, acute left ventricular systolic dysfunction, ischemic cardiomyopathy Coronary artery disease hypotension Hyperlipidemia Assessment/Plan Paroxysmal atrial fibrillation, converted to sinus rhythm, review of her records from [facility] showed episode of atrial fibrillation and consideration for anticoagulation which was not done, currently converted to sinus rhythm after receiving Cardizem drip and digoxin, I stopped both medication and started her on amiodarone, I will continue on amiodarone and monitor her tolerance and response [id number] score of 7, yearly risk of stroke without oral anticoagulation is 9.6 percent, tolerating Eliquis 2.5 mg twice daily well. Continue to monitor Atelectasis, I'll start on incentive spirometry and encouraged deep breathing. Start physical therapy as soon as possible Subacute myocardial infarction, non-ST elevation myocardial infarction, patient had elevated troponin that is trending down, patient have acute ST elevation myocardial infarction last week at [facility] required CABG 3, probably trending down from the resulting injury, had massive anterior wall injury according to the record. Congestive heart failure, acute left ventricular systolic dysfunction, decompensated with pulmonary edema, echocardiogram showed anterior wall, anterior septum, anteroapex akinesia, diffuse left ventricular hypokinesia with ejection fraction 30-35 percent persistent compared to the echo from last week at [facility], tolerating beta blockers and AMOS inhibitor well. Continue to monitor Hyperlipidemia, continue on Lipitor 40 mg and monitor. Hypertension, was hypotensive on Cardizem, I will evaluate her tolerance to the current medication Diabetes mellitus, patient was on insulin drip at [facility] Clinical Quality Measures AMI/AHF: ASA po Prior to arrival: Yes (324mg) DVT/VTE Risk/Contraindication: Risk Factor Score Per Nursin RFS Level Per Nursing on Admit: 4+=Very High CAROL DUDLEY MD Nov 12, 2016 10:53
[2016-11-12] MEDS: DILTIAZEM DRIP 100 MG/NS 100 ML IV SCH ×2 (17:43)
[2016-11-12] MEDS: ATORVASTATIN 40 MG (LIPITOR) TABLET PO SCH (20:14)
[2016-11-13] VITALS (7 sets, daily range): BP systolic 98–120; BP diastolic 43–56
[2016-11-13 05:46] LABS: BASOPHILS % (AUTO) 0 % (0-10); EOSINOPHILS # (AUTO) 0.3 10^3/uL (0.0-0.3); EOSINOPHILS % (AUTO) 4 % (0-10); LYMPHOCYTES # (AUTO) 0.9 X 10^3 (1.0-4.0); LYMPHOCYTES % (AUTO) 13 % (12-44); MEAN CORPUSCULAR HEMOGLOBIN 30 PG (25-34); MEAN CORPUSCULAR HGB CONC 32 G/DL (32-36); MEAN CORPUSCULAR VOLUME 96 FL (80-99); MEAN PLATELET VOLUME 10.5 FL (7.4-10.4); MONOCYTES # (AUTO) 0.7 X 10^3 (0.0-1.0); MONOCYTES % (AUTO) 10 % (0-12); NEUTROPHILS # (AUTO) 4.8 X 10^3 (1.8-7.8); NEUTROPHILS % (AUTO) 72 % (42-75); PLATELET COUNT 290 10^3/uL (130-400); RED BLOOD COUNT 3.27 10^6/uL (4.35-5.85); WHITE BLOOD COUNT 6.6 10^3/uL (4.3-11.0)
[2016-11-13 05:58] LABS: CALCIUM 8.1 MG/DL (8.5-10.1); CREATININE SERUM 1.05 MG/DL (0.60-1.30); MAGNESIUM 2.3 MG/DL (1.8-2.4); PHOSPHORUS 2.9 MG/DL (2.3-4.7); POTASSIUM 3.8 MMOL/L (3.6-5.0)
--- NOTE | 2016-11-13 07:16 | Diagnostic Imaging Report ---
INDICATION: CHF. EXAMINATION: Chest, 11/13/16. COMPARISON: 11/12/16. FINDINGS: There is cardiomegaly and mild pulmonary venous congestion. Infiltrate at the bases left greater than right with left-sided pleural effusion similar to previous imaging. Tiny right effusion also noted. There is linear density in the right midlung which is stable perhaps calcified pleural plaque. Calcified granulomata is seen in both lungs as well. No pneumothorax is seen. There are clips in the right axilla or lateral chest region. There is mild pulmonary vascular congestion. IMPRESSION: 1. Mild pulmonary edema with bibasilar atelectasis or infiltrate as well as effusions left worse than right other changes as above. Dictated by: Dictated on workstation # [id number]
--- NOTE | 2016-11-13 08:50 | Progress Note (SOAP) ---
Subjective Subjective Date Seen by Provider: Nov 13, 2016 Time Seen by Provider: 08:44 89 yo F with CAD, afib with RVR- pt reports she is feeling better- chest pain is better- now just from her sternotomy. Her right ear feels full and decreased hearing - has history of wax build up. Denies nausea/vomiting Denies fever, thinks she may be getting a headache. Converted out of afib with diltiazem, digoxin. Review of Systems General: No Chills, No Night Sweats HEENT: No Head Aches, No Visual Changes Pulmonary: Dyspnea, No Cough Cardiovascular: Chest Pain, No: Orthopnea, Palpitations Gastrointestinal: No: Abdominal Pain, Nausea, Vomiting Genitourinary: No Dysuria, No Frequency Musculoskeletal: No: neck pain, shoulder pain Neurological: Weakness Objective Exam Vital Signs Vital Signs Date Time Temp Pulse Resp B/P (MAP) Pulse Ox O2 Delivery O2 Flow Rate FiO2 11/13/16 07:19 98 Nasal Cannula 1.00 11/13/16 07:00 86 11/13/16 04:00 98.0 94 18 120/54 99 Nasal Cannula 2.00 11/13/16 01:00 84 11/13/16 00:00 98.0 88 16 102/43 92 Room Air 11/12/16 21:00 92 Room Air 11/12/16 20:09 83 11/12/16 20:00 98.2 85 18 112/51 92 Room Air 11/12/16 19:19 94 Room Air 11/12/16 15:30 Nasal Cannula 1.00 11/12/16 13:00 74 11/12/16 12:00 76 30 110/51 98 Nasal Cannula 1.00 11/12/16 11:19 Nasal Cannula 1.00 11/12/16 11:00 71 29 99/46 99 Nasal Cannula 1.00 11/12/16 10:00 65 24 103/43 100 Nasal Cannula 1.00 11/12/16 09:00 85 26 113/51 99 Nasal Cannula 1.00 I & O 11/13/16 07:00 Intake Total 675 ml Output Total 900 ml Balance -225 ml General Appearance: No Apparent Distress, WD/WN Eyes: Bilateral Eye EOMI, Bilateral Eye Normal Inspection, Bilateral Eye PERRL HEENT: PERRL/EOMI, Other (right ear cerumen impaction) Neck: Full Range of Motion Respiratory: Crackles (improved), Decreased Breath Sounds (bases) Cardiovascular: Regular Rate, Rhythm (close to tachy in 90s) Gastrointestinal: Normal Bowel Sounds, Non Tender, Soft Rectal: Deferred Back: Normal Inspection Extremity: No Calf Tenderness, Pedal Edema (trace), Other (bruising on legs- R >L due to saphenous vein removal) Neurologic/Psychiatric: Alert, Oriented x3, No Motor/Sensory Deficits, Normal Mood/Affect Skin: Warm/Dry Lymphatic: No Adenopathy Results Lab Laboratory Tests 11/13/16 05:20: White Blood Count 6.6, Red Blood Count 3.27L, Hemoglobin 9.9L, Hematocrit 31L, Mean Corpuscular Volume 96, Mean Corpuscular Hemoglobin 30, Mean Corpuscular Hemoglobin Concent 32, Red Cell Distribution Width 15.0H, Platelet Count 290, Mean Platelet Volume 10.5H, Neutrophils (%) (Auto) 72, Lymphocytes (%) (Auto) 13 , Monocytes (%) (Auto) 10, Eosinophils (%) (Auto) 4, Basophils (%) (Auto) 0, Neutrophils # (Auto) 4.8, Lymphocytes # (Auto) 0.9L, Monocytes # (Auto) 0.7, Eosinophils # (Auto) 0.3, Basophils # (Auto) 0.0, Sodium Level 136, Potassium Level 3.8, Chloride Level 98, Carbon Dioxide Level 27, Anion Gap 11, Blood Urea Nitrogen 28H, Creatinine 1.05, Estimat Glomerular Filtration Rate 49, BUN/ Creatinine Ratio 27, Glucose Level 110H, Calcium Level 8.1L, Phosphorus Level 2.9, Magnesium Level 2.3 Microbiology 11/10/16 MRSA Screen - Final, Complete MRSA not isolated Assessment/Plan Assessment/Plan Assessment/Plan 89 yo F Acute on chronic systolic congestive heart failure- Echo 11/10/16- LVEF 30-35% - lisinopril, furosemide- Dr. Gomez consulted BNP trending down. Atrial fibrillation with RVR- NSR now- eliquis 2.5mg BID shortness of breath- improved due to cardiac etiology chest pain with CAD- improved- s/p 3v CABG FAIRCHILD --> LAD, saphenous vein graft aorta to 1st obtuse marginal, posterior descending artery 11/03/16 STEMI ECHO prior to CABG- LVEF 30-35% -Troponin trending down. HTN- normtensive to low BP - on low dose lisinopril daily, metoprolol BID Z95.1 presence of aortocoronary bypass graft- 11/03/16 chronic pain- monitor, has morphine ordered per chest pain protocol other hyperlipidemia- resume statin acute blood loss anemia- from CABG 11/03/16- stable hgb 10- needs to stay around 10 due to CAD DVT ppx: on eliquis 2.5mg BID Dispo: checking hga1c to evaluate if pt has diabetes. Pt close to returning to [facility]- will await cardiology recommendations. Problems: Clinical Quality Measures AMI/AHF: ASA po Prior to arrival: Yes (324mg) DVT/VTE Risk/Contraindication: Risk Factor Score Per Nursin RFS Level Per Nursing on Admit: 4+=Very High BELKYS CUI MD Nov 13, 2016 08:50
--- NOTE | 2016-11-13 08:54 | Cardiology Progress Note ---
Subjective Time Seen by Provider: 08:49 Subjective/Events-last exam Patient is in bed, complaining of some tailbone pain. Denies any CP or dyspnea. Review of Systems General: No Night Sweats, No Fatigue, No Malaise HEENT: No Visual Changes, No Dysphasia, No Sore Throat Pulmonary: No Dyspnea, No Cough, No Pleuritic Chest Pain Cardiovascular: Edema, No: Chest Pain, Palpitations, Paroxysmal Noc. Dyspnea Gastrointestinal: No: Abdominal Pain, Nausea, Vomiting Genitourinary: No Dysuria, No Frequency Musculoskeletal: No: back pain, neck pain Neurological: No: Change in speech, Confusion, Numbness, Weakness Objective-Cardiology Exam Last Set of Vital Signs Vital Signs 11/13/16 11/13/16 11/13/16 04:00 07:00 07:19 Temp 98.0 Pulse 86 Resp 18 B/P (MAP) 120/54 Pulse Ox 98 O2 Delivery Nasal Cannula O2 Flow Rate 1.00 Capillary Refill : Less Than 3 Seconds I&O Intake and Output 11/13/16 00:00 Intake Total 890 ml Output Total 960 ml Balance -70 ml Intake Oral 690 ml IV Total 200 ml Output Urine Total 960 ml # Bowel Movements 1 General: Alert, Oriented X3, Cooperative HEENT: Atraumatic, PERRLA Neck: Supple, No JVD, No Thyromegaly Lungs: Clear to Auscultation, Normal Air Movement Heart: Regular Rate, Normal S1, Normal S2, No Murmurs, Other (S3 is present) Abdomen: Normal Bowel Sounds, Soft, No Tenderness, No Hepatosplenomegaly, No Masses Extremities: No Clubbing, No Cyanosis, Normal Pulses, No Tenderness/Swelling, Other (trace edema BLE) Skin: No Rashes, No Significant Lesion, Other (surgical site is healing well) Neuro: Normal Speech, Normal Tone, Sensation Intact Psych/Mental Status: Mental Status NL, Mood NL Results Lab Laboratory Tests 11/13/16 05:20 A/P-Cardiology Admission Diagnosis Atrial fibrillation Non-ST elevation myocardial infarction Congestive heart failure, acute left ventricular systolic dysfunction, ischemic cardiomyopathy Coronary artery disease hypotension Hyperlipidemia Assessment/Plan Paroxysmal atrial fibrillation, converted to sinus rhythm, review of her records from [facility] showed episode of atrial fibrillation and consideration for anticoagulation which was not done, currently converted to sinus rhythm after receiving Cardizem drip and digoxin, started on amiodarone. I will continue on amiodarone and monitor her tolerance and response. Telemetry this morning reveals sinus rhythm. [id number] score of 7, yearly risk of stroke without oral anticoagulation is 9.6 percent, tolerating Eliquis 2.5 mg twice daily well. Continue to monitor Atelectasis, continue incentive spirometry and encouraged deep breathing. Start physical therapy as soon as possible Subacute myocardial infarction, non-ST elevation myocardial infarction, patient had elevated troponin that is trending down, patient have acute ST elevation myocardial infarction last week at [facility] required CABG 3, probably trending down from the resulting injury, had massive anterior wall injury according to the record. Congestive heart failure, acute left ventricular systolic dysfunction, decompensated with pulmonary edema, echocardiogram showed anterior wall, anterior septum, anteroapex akinesia, diffuse left ventricular hypokinesia with ejection fraction 30-35 percent persistent compared to the echo from last week at [facility], tolerating beta blockers and AMOS inhibitor well. Continue to monitor Hyperlipidemia, continue on Lipitor 40 mg and monitor. Hypertension, was hypotensive on Cardizem, tolerating current medication. Continue to monitor BP/HR Diabetes mellitus, patient was on insulin drip at [facility], management per PCP. Clinical Quality Measures AMI/AHF: ASA po Prior to arrival: Yes (324mg) DVT/VTE Risk/Contraindication: Risk Factor Score Per Nursin RFS Level Per Nursing on Admit: 4+=Very High SERENA LEE Nov 13, 2016 08:54
--- NOTE | 2016-11-13 09:10 | Cardiology Progress Note ---
Subjective Date Seen by Provider: Nov 13, 2016 Time Seen by Provider: 09:08 Subjective/Events-last exam Patient is in bed, no new complaint, feeling better, still in sinus rhythm, no chest pain Review of Systems General: No Chills, No Night Sweats, No Fatigue, No Malaise, No Appetite, No Other HEENT: No Head Aches, No Visual Changes, No Eye Pain, No Ear Pain, No Dysphasia , No Sinus Congestion, No Post Nasal Drip, No Sore Throat, No Other Pulmonary: No Dyspnea, No Cough, No Pleuritic Chest Pain, No Other Cardiovascular: No: Chest Pain, Edema, Lt Headedness, Orthopnea, Other, Palpitations, Paroxysmal Noc. Dyspnea Objective-Cardiology Exam Last Set of Vital Signs Vital Signs 11/13/16 11/13/16 11/13/16 04:00 07:00 07:19 Temp 98.0 Pulse 86 Resp 18 B/P (MAP) 120/54 Pulse Ox 98 O2 Delivery Nasal Cannula O2 Flow Rate 1.00 Capillary Refill : Less Than 3 Seconds I&O Intake and Output 11/13/16 00:00 Intake Total 890 ml Output Total 960 ml Balance -70 ml Intake Oral 690 ml IV Total 200 ml Output Urine Total 960 ml # Bowel Movements 1 General: Alert, Oriented X3, Cooperative HEENT: Atraumatic, PERRLA Neck: Supple, No JVD, No Thyromegaly Lungs: Clear to Auscultation, Normal Air Movement Heart: Regular Rate, Normal S1, Normal S2, No Murmurs, Other (S3 is present) Abdomen: Normal Bowel Sounds, Soft, No Tenderness, No Hepatosplenomegaly, No Masses Extremities: No Clubbing, No Cyanosis, Normal Pulses, No Tenderness/Swelling, Other (trace edema BLE) Skin: No Rashes, No Significant Lesion, Other (surgical site is healing well) Neuro: Normal Speech, Normal Tone, Sensation Intact Psych/Mental Status: Mental Status NL, Mood NL Results Lab Laboratory Tests 11/13/16 05:20 A/P-Cardiology Admission Diagnosis Atrial fibrillation Non-ST elevation myocardial infarction Congestive heart failure, acute left ventricular systolic dysfunction, ischemic cardiomyopathy Coronary artery disease hypotension Hyperlipidemia Assessment/Plan Paroxysmal atrial fibrillation, converted to sinus rhythm, review of her records from [facility] showed episode of atrial fibrillation and consideration for anticoagulation which was not done, currently converted to sinus rhythm after receiving Cardizem drip and digoxin, tolerating oral amiodarone. Continue to monitor [id number] score of 7, yearly risk of stroke without oral anticoagulation is 9.6 percent, tolerating Eliquis 2.5 mg twice daily well. Continue to monitor Atelectasis, continue incentive spirometry and encouraged deep breathing, starting physical therapy. Subacute myocardial infarction, non-ST elevation myocardial infarction, patient had elevated troponin that is trending down, patient have acute ST elevation myocardial infarction last week at [facility] required CABG 3, probably trending down from the resulting injury, had massive anterior wall injury according to the record. Congestive heart failure, acute left ventricular systolic dysfunction, decompensated with pulmonary edema, echocardiogram showed anterior wall, anterior septum, anteroapex akinesia, diffuse left ventricular hypokinesia with ejection fraction 30-35 percent persistent compared to the echo from last week at [facility], tolerating beta blockers and AMOS inhibitor well. Continue to monitor Hyperlipidemia, continue on Lipitor 40 mg and monitor. Hypertension, was hypotensive on Cardizem, tolerating current medication. Continue to monitor BP/HR Diabetes mellitus, patient was on insulin drip at [facility], management per PCP. Clinical Quality Measures AMI/AHF: ASA po Prior to arrival: Yes (324mg) DVT/VTE Risk/Contraindication: Risk Factor Score Per Nursin RFS Level Per Nursing on Admit: 4+=Very High CAROL DUDLEY MD Nov 13, 2016 09:10
[2016-11-13] MEDS: OMEGA 3 (FISH OIL) 1000 MG CAP PO SCH (09:30)
[2016-11-13] MEDS: lisINopril 5 MG (PRINIVIL) TABLET PO SCH (09:30)
[2016-11-13] MEDS: PANTOPRAZOLE 40 MG (PROTONIX) TAB PO SCH (09:30)
[2016-11-13] MEDS: meTOprolol TARTRATE 25 MG (LOPRESSOR) TABLET PO SCH ×2 (09:31→20:43)
[2016-11-13] MEDS: AMIODARONE 200 MG (CORDARONE) TAB PO SCH ×2 (09:31→20:43)
[2016-11-13] MEDS: FUROSEMIDE 20 MG (LASIX) TAB PO SCH (09:31)
[2016-11-13] MEDS: APIXABAN 2.5 MG (ELIQUIS) TABLET PO SCH ×2 (09:31→20:42)
--- NOTE | 2016-11-13 12:51 | Physical Therapy Evaluation ---
PT Evaluation-General Medical Diagnosis Admission Date Nov 10, 2016 at 03:50 Medical Diagnosis: CHF/AFib Onset Date: Nov 10, 2016 Therapy Diagnosis Therapy Diagnosis: general debility/weakness Height/Weight Height (Feet): 5 Height (Inches): 8.00 Weight (Pounds): 155 Weight (Ounces): 9.0 Precautions Precautions/Isolations: Fall Prevention, Standard Precautions Referral Physician: Matheus Reason for Referral: Evaluation/Treatment Medical History Pertinent Medical History: Atrial Fib, CABG, CAD, HTN, CT Additional Medical History s/p CABG 11/03/16 Current History to ED from [place] with c/o SOB and CP recent dismissal from a hospital in [place] s/o CABG will return to [place] per family and patient Reviewed History: Yes Social History Home: [facility] Prior/[facility] Prior Level of Function Functional [place] Measure 0=Not Assessed/NA 4=Minimal Assistance 1=Total Assistance 5=Supervision or Setup 2=Maximal Assistance 6=Modified [place] 3=Moderate Assistance 7=Complete [place] Bed Mobility: 6 Transfers (B,C,W/C) (FIM): 6 Gait: 7 PT Evaluation-Current Subjective Patient agrees to PT. Patient c/o fatigue. Pain Numeric Pain Scale: 5-Moderate Pain Location: Medial Location Body Site: Chest (s/p CABG) Pain Description: Pressure, Acute Pt/Family Goals return to [place] Objective Patient Orientation: Normal For Age Problem Solving: Good Attachments: Rollins Catheter ROM/Strength ROM Lower Extremities bilateral LE WNL Strenght Lower Extremities bilateral LE WNL Integumentary/Posture Integumentary refer to nursing notes Bowel Incontinence: No Bladder Incontinence: Rollins Cath Posture kyphotic Neuromuscular (Tone, Coordination, Reflexes) grossly diminished due to weakness Sensory Vision: Functional Hearing: Functional Sensation Right Lower Extremit: Intact Sensation Left Lower Extremity: Intact Transfers Functional [place] Measure 0=Not Assessed/NA 4=Minimal Assistance 1=Total Assistance 5=Supervision or Setup 2=Maximal Assistance 6=Modified [place] 3=Moderate Assistance 7=Complete [place] Transfers (B, C, W/C) (FIM): 5 Scootin Sit to/from Stand: 5 Gait Mode of Locomotion: Walk Anticipated Mode of Locomotion: Walk Gait (FIM): 2 Distance (FIM): 7=653-08 ft Distance: 75' Gait Level of Assist: 5 Gait Persons Needed: 1 Gait Assistive Device: FWW Comments/Gait Description slow, steady 2 recovery periods due to SOA Balance Sitting Static: Normal Sitting Dynamic: Normal Standing Static: Normal Standing Dynamic: Normal Assessment/Needs 89 y.o. female, will benefit from short term skilled PT to address functional strength and mobility to improve current LOF and to safely return to [place] at maximum LOF for continued care. Rehab Potential: Fair Post Rehab Potential-Barriers: medical issues PT Alf Goals Fire Chief Deputy Goals PT Alf Goals Time Frame: Nov 17, 2016 Transfers (B,C,W/C) (FIM): 6 Gait (FIM): 2 Gait distance (FIM): 5=400-14 ft Distance: 125' Gait Level of Assist: 5 Gait Assistive Device: FWW PT Plan Problem List Problem List: Activity Tolerance, Functional Strength Treatment/Plan Treatment Plan: Continue Plan of Care Treatment Plan: Bed Mobility, Education, Functional Activity Florinda, Functional Strength, Gait, Safety, Therapeutic Exercise, Transfers Treatment Duration: Nov 17, 2016 Frequency: 5 times per week Estimated Hrs Per Day: .25 hour per day Patient and/or Family Agrees t: Yes Discharge Recommendations Therapy D/C Recommendations: Usp Placement Time/GCodes Time In: 1135 Time Out: 1145 Total Billed Treatment Time: 10 Total Billed Treatment 1 visit EVLowC 10 min G Codes Necessary: No ROX KAYE PT Nov 13, 2016 12:51
[2016-11-13] MEDS: ATORVASTATIN 40 MG (LIPITOR) TABLET PO SCH (20:42)
[2016-11-14 04:00] VITALS: BP 104/61
[2016-11-14 05:23] LABS: BASOPHILS % (AUTO) 0 % (0-10); EOSINOPHILS # (AUTO) 0.4 10^3/uL (0.0-0.3); EOSINOPHILS % (AUTO) 4 % (0-10); LYMPHOCYTES # (AUTO) 1.2 X 10^3 (1.0-4.0); LYMPHOCYTES % (AUTO) 13 % (12-44); MEAN CORPUSCULAR HEMOGLOBIN 31 PG (25-34); MEAN CORPUSCULAR HGB CONC 32 G/DL (32-36); MEAN CORPUSCULAR VOLUME 95 FL (80-99); MEAN PLATELET VOLUME 10.8 FL (7.4-10.4); MONOCYTES # (AUTO) 0.9 X 10^3 (0.0-1.0); MONOCYTES % (AUTO) 10 % (0-12); NEUTROPHILS # (AUTO) 6.4 X 10^3 (1.8-7.8); NEUTROPHILS % (AUTO) 73 % (42-75); PLATELET COUNT 289 10^3/uL (130-400); RED BLOOD COUNT 3.18 10^6/uL (4.35-5.85); WHITE BLOOD COUNT 8.9 10^3/uL (4.3-11.0)
[2016-11-14 05:42] LABS: CALCIUM 7.8 MG/DL (8.5-10.1); MAGNESIUM 2.2 MG/DL (1.8-2.4); PHOSPHORUS 3.3 MG/DL (2.3-4.7)
[2016-11-14] MEDS: PANTOPRAZOLE 40 MG (PROTONIX) TAB PO SCH (06:51)
[2016-11-14 08:00] VITALS: BP 110/40
[2016-11-14] MEDS: OMEGA 3 (FISH OIL) 1000 MG CAP PO SCH (08:19)
[2016-11-14] MEDS: APIXABAN 2.5 MG (ELIQUIS) TABLET PO SCH (08:19)
[2016-11-14] MEDS: FUROSEMIDE 20 MG (LASIX) TAB PO SCH (08:19)
[2016-11-14] MEDS: lisINopril 5 MG (PRINIVIL) TABLET PO SCH (08:19)
[2016-11-14] MEDS: meTOprolol TARTRATE 25 MG (LOPRESSOR) TABLET PO SCH (08:19)
[2016-11-14] MEDS: AMIODARONE 200 MG (CORDARONE) TAB PO SCH (08:21)
--- NOTE | 2016-11-14 08:29 | Cardiology Progress Note ---
Subjective Time Seen by Provider: 08:25 Subjective/Events-last exam Patient up in chair. Complaining of generalized fatigue.Denies any CP or dyspnea. Review of Systems General: No Night Sweats, Fatigue, Malaise HEENT: No Visual Changes, No Dysphasia, No Sore Throat Pulmonary: No Dyspnea, No Cough Cardiovascular: No: Chest Pain, Edema, Palpitations, Paroxysmal Noc. Dyspnea Gastrointestinal: No: Abdominal Pain, Nausea, Vomiting Genitourinary: No Dysuria, No Frequency Musculoskeletal: No: back pain, neck pain Neurological: No: Change in speech, Confusion, Numbness, Weakness Objective-Cardiology Exam Last Set of Vital Signs Vital Signs 11/14/16 11/14/16 04:00 06:27 Temp 97.6 Pulse 82 Resp 22 B/P (MAP) 104/61 Pulse Ox 98 O2 Delivery Nasal Cannula O2 Flow Rate 2.00 Capillary Refill : Less Than 3 Seconds I&O Intake and Output 11/14/16 00:00 Intake Total 600 ml Output Total 850 ml Balance -250 ml Intake Oral 600 ml Output Urine Total 850 ml # Bowel Movements 3 General: Alert, Oriented X3, Cooperative HEENT: Atraumatic, PERRLA Neck: Supple, No JVD, No Thyromegaly Lungs: Clear to Auscultation, Normal Air Movement Heart: Regular Rate, Normal S1, Normal S2, No Murmurs, Other (S3 is present) Abdomen: Normal Bowel Sounds, Soft, No Tenderness, No Hepatosplenomegaly, No Masses Extremities: No Clubbing, No Cyanosis, Normal Pulses, No Tenderness/Swelling, Other (trace edema BLE) Skin: No Rashes, No Significant Lesion, Other (surgical site is healing well) Neuro: Normal Speech, Normal Tone, Sensation Intact Psych/Mental Status: Mental Status NL, Mood NL Results Lab Laboratory Tests 11/14/16 04:40 A/P-Cardiology Admission Diagnosis Atrial fibrillation Non-ST elevation myocardial infarction Congestive heart failure, acute left ventricular systolic dysfunction, ischemic cardiomyopathy Coronary artery disease hypotension Hyperlipidemia Assessment/Plan Paroxysmal atrial fibrillation, converted to sinus rhythm, review of her records from [facility] showed episode of atrial fibrillation and consideration for anticoagulation which was not done, currently converted to sinus rhythm after receiving Cardizem drip and digoxin, tolerating oral amiodarone. Continue to monitor. Continue on Amiodarone 200mg BID x 2 weeks, then planning to decrease to 200mg daily. [id number] score of 7, yearly risk of stroke without oral anticoagulation is 9.6 percent, tolerating Eliquis 2.5 mg twice daily well. Continue to monitor Atelectasis, continue incentive spirometry and encouraged deep breathing, starting physical therapy. Subacute myocardial infarction, non-ST elevation myocardial infarction, patient had elevated troponin that is trending down, patient have acute ST elevation myocardial infarction last week at [facility] required CABG 3, probably trending down from the resulting injury, had massive anterior wall injury according to the record. Congestive heart failure, acute left ventricular systolic dysfunction, decompensated with pulmonary edema, echocardiogram showed anterior wall, anterior septum, anteroapex akinesia, diffuse left ventricular hypokinesia with ejection fraction 30-35 percent persistent compared to the echo from last week at [facility], tolerating beta blockers and AMOS inhibitor well. Continue to monitor Hyperlipidemia, continue on Lipitor 40 mg and monitor. Hypertension, was hypotensive on Cardizem, tolerating current medication. Continue to monitor BP/HR Diabetes mellitus, patient was on insulin drip at [facility], management per PCP. Clinical Quality Measures AMI/AHF: ASA po Prior to arrival: Yes (324mg) DVT/VTE Risk/Contraindication: Risk Factor Score Per Nursin RFS Level Per Nursing on Admit: 4+=Very High SERENA LEE Nov 14, 2016 08:29
--- NOTE | 2016-11-14 09:05 | Physical Therapy Daily Note ---
PT Daily Note-Current Subjective Pt was seated in recliner upon arrival to room. Pt was agreeable to therapy. Pt was left with all needs in reach post-tx. Pain Numeric Pain Scale: 0-No Pain Location: No Pain Reported Mental Status Patient Orientation: Normal For Age Attachments: Oxygen, Rollins Catheter Transfers Functional [place] Measure 0=Not Assessed/NA 4=Minimal Assistance 1=Total Assistance 5=Supervision or Setup 2=Maximal Assistance 6=Modified [place] 3=Moderate Assistance 7=Complete IndependenceIRFPAI Quality Coding Scale 6 Independent with activity with or without an assistive device 5 Patient requires set up or clean up by helper. Patient completes activity by themselves 4 Supervision or touching assist (CGA). [place] provide cues , steadying assist 3 The helper provides less than half the effort to complete the activity 2 The helper provides more than half the effort to complete the activity 1 Dependent. The helper does all the effort to complete an activity 7 Patient refused to complete or attempt activity 9 The patient did not perform the activity before the current illness or injury 88 Not attempted due to Medical conditions or safety concerns Transfers (B, C, W/C) (FIM): 4 Scootin Sit to/from Stand: 4 required minimal assist with use of gait belt for safety with sit to stand transfers Gait Training Gait (FIM): 2 Distance (FIM): 4=965-53 ft Distance: 80 ft Gait Level of Assist: 4 Gait Persons Needed: 1 Gait Assistive Device: FWW slow, steady, close CGA for safety due to weakness Exercises Seated Therapy Exercises: Ankle pumps, Long arc quads Seated Reps: 20 Assessment Pt had slow delma and hunched posture with gait training. Pt was instructed to straighten back and look forward. Pt reports weakness. Patient appears fatigues with minimal activity. Exercise and ambulation to improve functional mobility to return to maximum LOF. Patient returning to [facility] for continued care. PT Jail Goals Blow Up Operator Goals PT Blow Up Operator Goals Time Frame: Nov 17, 2016 Transfers (B,C,W/C) (FIM): 6 Gait (FIM): 2 Gait distance (FIM): 3=250-13 ft Distance: 125' Gait Level of Assist: 5 Gait Assistive Device: FWW PT Plan Problem List Problem List: Activity Tolerance, Functional Strength, Safety, Balance, Gait, Transfer, Bed Mobility Treatment/Plan Treatment Plan: Discontinue PT (to NH) Treatment Plan: Bed Mobility, Education, Functional Activity Florinda, Functional Strength, Gait, Safety, Therapeutic Exercise, Transfers Treatment Duration: Nov 17, 2016 Frequency: 5 times per week Estimated Hrs Per Day: .25 hour per day Patient and/or Family Agrees t: Yes Safety Risks/Education Patient Education: Transfer Techniques Teaching Recipient: Patient Teaching Methods: Demonstration Response to Teaching: Verbalize Understanding, Reinforcement Needed Pt was instructed not to "plop" down into seat on stand<>sit transfer. Discharge Recommendations Therapy D/C Recommendations: Fdc (TCU/NH) Time/GCodes Time In: 831 Time Out: 846 Total Billed Treatment Time: 15 Total Billed Treatment 1 visit FA 15min ROX KAYE PT Nov 14, 2016 09:05
--- NOTE | 2016-11-14 09:07 | Diagnostic Imaging Report ---
Portable erect AP chest at 5:51 AM. INDICATION: Respiratory distress. The appearance of the chest has worsened somewhat since 11/13/2016, as there does seem to be slightly greater involvement of both lung bases by atelectasis/infiltrate and fluid. The heart remains enlarged, and the central pulmonary vascularity also seems somewhat more conspicuous than on the prior exam. The lung apices are clear. The mediastinum is not widened. The osseous structures are intact. IMPRESSION: The appearance of the chest has worsened somewhat since the prior study as there is slightly greater involvement of both lung bases by atelectasis/infiltrate and fluid. There also appears to be somewhat greater pulmonary congestion than noted on the prior exam. A followup study would be recommended for continued evaluation. Dictated by: Dictated on workstation # [id number]
[2016-11-14 12:00] VITALS: BP 104/41
[2016-11-14] MEDS ORDERED: APIX2.5T PO (12:51)
[2016-11-14] MEDS ORDERED: AMIO200T2 PO ×2 (12:51)
[2016-11-14] MEDS ORDERED: FURO20TA4 PO (12:51)
--- NOTE | 2016-11-14 12:59 | Discharge Inst-Skilled Nursing ---
Discharge Inst-Skilled NF Patient Instructions Patient Problems: CAD s/p 3v CABG atrial fibrillation HTN hypoxia Consult/Follow Up/Orders Follow Up Appt.: Contact Dr. Gomez office for follow up Follow up at [facility] in 2 weeks Skilled NF Admit to: [facility] ([facility]) I certify that SNF services are required to be given on an inpatient basis because of the above named patient's need for retirement care on a continuing basis for the conditions(s) for which he/she was receiving inpatient hospital services prior to his/her transfer to the SNF. [facility] Facility Order: Nursing Services, Preventive Maintenance Coordinator-Evaluate & Treat, Physical Therapy-Evaluate & Treat Discharge Diet: Cardiac Diet Daily Activity as Tolerated: Yes New & Resume Previous Orders New & Resume Previous Orders Resume previous orders - starting eliquis -starting amiodarone- will be on 200mg BID for 2 weeks then 200mg daily thereafter -PT/OT ordered and are significant in her care. -Oxygen 2L via Nasal Cannula Michele Jarvis Nov 14, 2016 12:53 MICHELE JARVIS MD Nov 14, 2016 12:59
--- NOTE | 2016-11-14 13:06 | Discharge Summary ---
Diagnosis/Chief Complaint Date of Admission Nov 10, 2016 at 03:50 Date of Discharge Nov 14, 2016 Admission Diagnosis Admission Diagnosis Acute on chronic systolic congestive heart failure- Atrial fibrillation with RVR- shortness of breath- chest pain with CAD- HTN- Z95.1 presence of aortocoronary bypass graft- chronic pain- other hyperlipidemia- acute blood loss anemia Discharge Diagnosis Acute on chronic systolic congestive heart failure- Atrial fibrillation with RVR- shortness of breath- chest pain with CAD- HTN- Z95.1 presence of aortocoronary bypass graft- chronic pain- other hyperlipidemia- acute blood loss anemia hypoxia- acute respiratory failure Reason Hospital Visit 89 yo F admitted overnight to ICU for acute chest pain and shortness of breath. She had just been admitted to [facility] earlier in the day from [facility] in [place]. She underwent a 3 vessel CABG- FAIRCHILD->LAD, saphenous vein graft aorta to 1st obtuse marginal and aorta to posterior descending artery on November 03, 2016 due to severe L main stenosis and severe RCA stenosis. Prior to arrival at [facility] pt was given 325mg ASA, NTG, IVF. Patient reports she was chest pain free from the time she left [facility] until last evening at [facility]. She feels like she felt when she had the initial heart attack on Nov 03. Leading up to these events pt denies any cardiac history. Pt was found to be in Afib with RVR, elevated BNP, ST elevation in V1-4, troponin 6.59 (repeat pending)- she was given 80mg lasix and cardizem gtts with pulse controlled down to 90s. Pt also started on therapeutic lovenox. Dr. Gomez was contacted for cardiology. This AM still has some chest discomfort across her chest- no radiation of pain or nausea or vomiting. She feels short of breath still. But overall pt reports she feels much better. Pt is DNR. Discharge Summary Hospital Course Hospital Course 89 yo F admitted for acute onset chest pain- Acute on chronic systolic congestive heart failure- Echo 11/10/16- LVEF 30-35% - continue lisinopril, furosemide- Dr. Gomez consulted BNP trending down. Atrial fibrillation with RVR- NSR now- eliquis 2.5mg BID shortness of breath- improved due to cardiac etiology chest pain with CAD- improved- s/p 3v CABG FAIRCHILD --> LAD, saphenous vein graft aorta to 1st obtuse marginal, posterior descending artery 11/03/16 STEMI ECHO prior to CABG- LVEF 30-35% -Troponin trending down. HTN- normtensive to low BP - on low dose lisinopril daily, metoprolol BID Z95.1 presence of aortocoronary bypass graft- 11/03/16 chronic pain- monitor, has morphine ordered per chest pain protocol other hyperlipidemia- resumed patient's statin acute blood loss anemia- from CABG 11/03/16- stable hgb 10- needs to stay around 10 due to CAD DVT ppx: on eliquis 2.5mg BID Patient was deemed stable for discharge on October-as her chest pain resolved with conversion back into normal sinus rhythm- as for new medications she was started on eliquis 2.5mg BID for her Afib and lisinopril for her congestive heart failure. She will follow up with Dr. Gomez as well as DANIELM. Labs Procedures None. Consultations Dr. Gomez Discharge Physical Examination Allergies: Coded Allergies: No Known Drug Allergies (Unverified , 11/10/16) Vitals & I&Os Vital Signs Date Time Temp Pulse Resp B/P (MAP) Pulse Ox O2 Delivery O2 Flow Rate FiO2 11/14/16 14:35 11/14/16 13:00 73 11/14/16 12:00 98.4 16 98 Nasal Cannula 2.00 General Appearance: Alert, Oriented X3, Cooperative HEENT: Atraumatic, PERRLA Respiratory: Clear to Auscultation, Other (decreased in bases- pt using IS) Cardiovascular: Regular Rate Abdominal: Normal Bowel Sounds, Soft Extremities: No Clubbing, No Cyanosis Skin: Other (bruises on legs) Neuro: Normal Speech, Sensation Intact, Other (strength 4/5) Psych/Mental Status: Mental Status NL, Mood NL Discharge Home Medications Reviewed and agree with Discharge Medication list on patient's Discharge Instruction sheet Condition at Discharge stable Instructions to Patient/Family Please see electronic discharge instructions given to patient. Clinical Quality Measures AMI/AHF: ASA po Prior to arrival: Yes (324mg) DVT/VTE Risk/Contraindication: Risk Factor Score Per Nursin RFS Level Per Nursing on Admit: 4+=Very High BELKYS CUI MD Nov 14, 2016 13:06
[2016-11-14] MEDS ORDERED: LISI-556 PO (14:18)
--- NOTE | 2016-11-16 08:33 | Physician Query Clarification ---
PQ-Further Specificity Admission/Discharge Admission Date: Nov 10, 2016 at 03:50 Discharge Date: Nov 14, 2016 at 14:35 The medical record reflects the following clinical scenario: History/Risk Factors: IN 11/03/16, Acute on chronic systolic CHF, Paroxysmal Atrial Fibrillation Clinical Findings: Chest Pain, Troponin 6.59, BNP 2349.4 Treatment: 80 mg IV lasix, Diltiazem HCL 100 ml @ 5 mls/her IV Question: Can you further specify if the patient had a recurrent IN (IN not listed in your final discharge summary) per the clinical indicators above? Please document below. 1. subsequent NSTEMI 2. Acute on chronic systolic CHF 3. Other, with explanation of the clinical findings. 4. Clinically undetermined, no explanation for the clinical findings. PHYSICIAN RESPONSE Can you specify per above: 2 Explanation/Clinical Findings I do not think she had a subsequent NSTEMI- the elevated troponin is likely trending down from her recent hospitalization for a STEMI- we do not have a troponin to compare to though. her chest pain/discomfort resolved once she went back into normal sinus rhythm. In responding to this query, please exercise your independent professional judgment. The purpose of this communication is to more accurately reflect the complexity of your patients condition. The fact that a question is asked does not imply that any particular answer is desired or expected. Thank you for your timely response to this clarification. Requestors name: Cesilia THIS PHYSICIAN QUERY FORM IS A PERMANENT PART OF THE MEDICAL RECORD CESILIA MUNSON Nov 16, 2016 08:33 BELKYS CUI MD Nov 18, 2016 16:11
--- NOTE | 2016-11-20 08:16 | Physician Query Clarification ---
PQ-Uncertain Diagnosis Admission/Discharge Admission Date: Nov 10, 2016 at 03:50 Discharge Date: Nov 14, 2016 at 14:35 The medical record reflects the following clinical scenario: History/Risk Factors: Paroxysmal Atrial Fibrillation Acute on chronic systolic congestive heart failure Recent STEMI Clinical Findings: Resp 19 on arrival and up to 27 at 04:48 in ED. Respirations fluctuated during stay up to 35 on 11/10. Treatment: Oxygen on 2 liters nasal cannula Question: Is Acute Respiratory Failure with hypoxia a clinically valid diagnosis? Acute Respiratory Failure with hypoxia was documented in the Discharge Summary with no further documentation in the medical record. Please document a response below. If it is a clinically valid diagnosis, please indicate whether the condition was present on admission or developed later during the stay. Thank you! PHYSICIAN RESPONSE Diagnosis clinically valid: No, conditon ruled out Explanation of clincal finding It should be : hypoxia- chronic respiratory failure- due to chronic congestive heart failure -present on admission. In responding to this query, please exercise your independent professional judgment. The purpose of this communication is to more accurately reflect the complexity of your patients condition. The fact that a question is asked does not imply that any particular answer is desired or expected. Thank you for your timely response to this clarification. Requestors name: Abi Mathis [facility] Phone # [phone] or [phone] THIS PHYSICIAN QUERY FORM IS A PERMANENT PART OF THE MEDICAL RECORD ABI MATHIS Nov 20, 2016 08:16 BELKYS CUI MD Nov 23, 2016 08:27
== END 2016-11-14 14:35 | DRG 280 ==
LOC: ER 02:14 → ICU 03:50
PROVIDERS: ADMIT Family Medicine; ATTEND Family Medicine
DX: I48.0 Paroxysmal atrial fibrillation (principal); I21.09 ST elevation (STEMI) myocardial infarction involving other coronary artery of anterior wall; I11.0 Hypertensive heart disease with heart failure; I50.23 Acute on chronic systolic (congestive) heart failure; J96.11 Chronic respiratory failure with hypoxia; J98.11 Atelectasis; D62 Acute posthemorrhagic anemia; I25.10 Atherosclerotic heart disease of native coronary artery without angina pectoris; Z66 Do not resuscitate; I25.5 Ischemic cardiomyopathy; E11.9 Type 2 diabetes mellitus without complications; E78.5 Hyperlipidemia, unspecified; I95.9 Hypotension, unspecified; G89.29 Other chronic pain; K59.00 Constipation, unspecified; Z95.1 Presence of aortocoronary bypass graft; Z85.3 Personal history of malignant neoplasm of breast
CPT/HCPCS: 36415; 71010; 80048; 80053; 80061; 80162; 82150; 82550; 82553; 82962; 83036; 83690; 83735; 83874; 83880; 84100; 84443; 84484; 85025; 85027; 85610; 85730; 87081; 93005; 93041; 93306; 94640; 94664; 96365; 96372; 96375

== ENCOUNTER 2016-11-24 | Inpatient (IN) | payer MEDICARE ==
[~2016-11-24] VITALS: Ht 172.7 cm; Wt 54.9 kg
[~2016-11-24] MED LIST: AMIO200T2 PO; APIX2.5T PO; ASPI-586 PO; ATOR40TA70 PO; FURO20TA4 PO; LISI-556 PO; METO-333 PO; MULT-974 PO; OMG1KC PO
--- NOTE | 2016-11-24 01:19 | ED Respiratory ---
General Chief Complaint: Respiratory Problems Stated Complaint: SOB Nursing Triage Note: PT WAS BROUGHT INTO ROOM BY WHEELCHAIR. PT COMPLAINS OF SOB FOR A COUPLE DAYS NOW. PT STATES SHE JUST HAD A TRIPLE BIPASS SURGERY October. Source: patient Exam Limitations: no limitations History of Present Illness Time seen by provider: 01:13 Initial Comments Patient presents ER with chief complaint of shortness of breath. She says she's been short of breath ever since her CABG on the and she's been in rehabilitation that the past 2 days has gotten progressively worse. She has had also some right leg swelling and pain with some weeping for which they have wrapped her leg. She says she had to take Tylenol for the pain last night but is okay right now. The right leg is also the site where she had her vein grafts. She says she was told her latest echocardiogram showed an ejection fraction of 30%. She is had a very rare cough that is nonproductive. She's used oxygen at about 2-3 L/m by nasal cannula and rehabilitation still feels very dry and short of breath. 2 days ago she said she was told she had fluid backing up around her heart so they increased her Lasix dose. She has not had any fevers or chills or rash. She denies nausea numbness or chest pain or palpitations. Allergies and Home Medications Allergies Coded Allergies: No Known Drug Allergies (Unverified , 11/10/16) Home Medications Amiodarone HCl 200 Mg Tablet, 200 MG PO BID for 12 Days, #24 Prescribed by: MICHELE CUI on 11/14/16 1251 Amiodarone HCl 200 Mg Tablet, 200 MG PO DAILY, #30 Ref 5 to start after she completes 2 weeks of 200mg BID Prescribed by: MICHELE CUI on 11/14/16 1251 Apixaban 2.5 Mg Tablet, 2.5 MG PO BID for 30 Days, #60 Prescribed by: MICHELE CUI on 11/14/16 1251 Aspirin 81 Mg Tablet.dr, 81 MG PO DAILY, (Reported) Atorvastatin Calcium 40 Mg Tablet, 40 MG PO HS, (Reported) Furosemide 20 Mg Tablet, 20 MG PO DAILY for 30 Days, #30 Prescribed by: MICHELE CUI on 11/14/16 1251 Lisinopril 5 Mg Tablet, 5 MG PO DAILY, #30 Prescribed by: MICHELE CUI on 11/14/16 1418 Metoprolol Tartrate 25 Mg Tablet, 25 MG PO BID, (Reported) Multivitamin 1 Each Tablet, 1 TAB PO DAILY, (Reported) [place] 3 Polyunsat Fatty Acids 1,000 Mg Cap, 1,000 MG PO DAILY, (Reported) Constitutional: No chills, No diaphoresis, No fever, No malaise, weakness EENTM: No hearing loss, No ear pain Respiratory: see HPI, cough (occasional), dyspnea on exertion, orthopnea, short of breath, No wheezing Cardiovascular: No chest pain, Hx of Intervention Gastrointestinal: No abdominal pain, No nausea, No vomiting Genitourinary: No dysuria, No frequency Musculoskeletal: No back pain, No joint pain Skin: No pruritus, No rash Psychiatric/Neurological: Denies Headache, Denies Numbness, Denies Paresthesia Past Vngmysm-Rmgtsc-Nejsty Hx Patient Social History Alcohol Use: Denies Use Recreational Drug Use: No Smoking Status: Never a Smoker 2nd Hand Smoke Exposure: No Recent Foreign Travel: No Contact w/Someone Who Travel: No Recent Infectious Disease Expo: No Recent Hopitalizations: Yes (TRIPLE BIPASS SURGERY October) Physical Abuse: No Sexual Abuse: No Immunizations Up To Date PED Vaccines UTD: No Seasonal Allergies Seasonal Allergies: No Surgeries History of Surgeries: Yes (RIGHT LUMPECTOMY FOR CANCER; CARDIAC CATH AND EMERGENT CABG 11/03/16) Surgeries: Breast, Cardiac, CABG Respiratory History of Respiratory Disorde: No Cardiovascular History of Cardiac Disorders: Yes Cardiac Disorders: Atrial Fibrillation, Coronary Artery Disease, Heart Attack, Hypertension Neurological History of Neurological Disord: No Genitourinary History of Genitourinary Disor: No Gastrointestinal History of Gastrointestinal Di: No Musculoskeletal History of Musculoskeletal Dis: No Endocrine History of Endocrine Disorders: No HEENT History of HEENT Disorders: Yes Loss of Vision: Denies Hearing Impairment: Hard of Hearing Cancer History 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 Did You Recieve Any Treatments: Yes Type of Tx Receive: Surgical Intervention Psychosocial History of Psychiatric Problem: No Suicide Risk Score: 0 Integumentary History of Skin or Integumenta: No Blood Transfusions History of Blood Disorders: No Physical Exam Vital Signs Vital Sign - Last 12Hours 11/24/16 00:30 Temp 96.7 Pulse 85 Resp 20 B/P (MAP) 114/51 Pulse Ox 100 O2 Delivery Nasal Cannula O2 Flow Rate 3.00 FiO2 100 Capillary Refill : Less Than 3 Seconds General Appearance: WD/WN, mild distress Eyes: Bilateral Eye Normal Inspection, Bilateral Eye PERRL, Bilateral Eye EOMI HEENT: PERRL/EOMI, normal ENT inspection, pharynx normal Neck: supple, normal inspection Respiratory: no respiratory distress, no accessory muscle use, crackles ( bilateral) Cardiovascular: normal peripheral pulses, regular rate, rhythm Gastrointestinal: normal bowel sounds, non tender, soft Extremities: normal range of motion, normal capillary refill, other (right leg is red, hot, swollen, tender left calf tenderness) Neurologic/Psychiatric: alert, oriented x 3 Skin: normal color, warm/dry, other (C right leg) Focused Exam Evaluation Lactate Level Laboratory Tests 11/24/16 01:35: Lactic Acid Level 1.10 Lactic Acid Level Laboratory Tests Test 11/24/16 01:35 Lactic Acid Level 1.10 MMOL/L (0.50-2.00) Progress/Results/Core Measures Results/Orders Lab Results Laboratory Tests Test 11/24/16 01:35 11/24/16 02:24 Range/Units White Blood Count 9.3 4.3-11.0 10^3/uL Red Blood Count 3.35 L 4.35-5.85 10^6/uL Hemoglobin 9.8 L 11.5-16.0 G/DL Hematocrit 33 L 35-52 % Mean Corpuscular Volume 97 80-99 FL Mean Corpuscular Hemoglobin 29 25-34 PG Mean Corpuscular Hemoglobin Concent 30 L 32-36 G/DL Red Cell Distribution Width 14.9 H 10.0-14.5 % Platelet Count 267 130-400 10^3/uL Mean Platelet Volume 10.2 7.4-10.4 FL Neutrophils (%) (Auto) 83 H 42-75 % Lymphocytes (%) (Auto) 7 L 12-44 % Monocytes (%) (Auto) 9 0-12 % Eosinophils (%) (Auto) 2 0-10 % Basophils (%) (Auto) 0 0-10 % Neutrophils # (Auto) 7.7 1.8-7.8 X 10^3 Lymphocytes # (Auto) 0.6 L 1.0-4.0 X 10^3 Monocytes # (Auto) 0.8 0.0-1.0 X 10^3 Eosinophils # (Auto) 0.2 0.0-0.3 10^3/uL Basophils # (Auto) 0.0 0.0-0.1 10^3/uL Prothrombin Time 17.2 H 12.2-14.7 SEC INR Comment 1.4 0.8-1.4 Activated Partial Thromboplast Time 36 H 24-35 SEC Sodium Level 139 135-145 MMOL/L Potassium Level 4.2 3.6-5.0 MMOL/L Chloride Level 99 98-107 MMOL/L Carbon Dioxide Level 28 21-32 MMOL/L Anion Gap 12 5-14 MMOL/L Blood Urea Nitrogen 57 H 7-18 MG/DL Creatinine 1.59 H 0.60-1.30 MG/DL Estimat Glomerular Filtration Rate 31 BUN/Creatinine Ratio 36 Glucose Level 116 H 70-105 MG/DL Lactic Acid Level 1.10 0.50-2.00 MMOL/L Calcium Level 8.6 8.5-10.1 MG/DL Phosphorus Level 4.0 2.3-4.7 MG/DL Magnesium Level 2.2 1.8-2.4 MG/DL Total Bilirubin 0.9 0.1-1.0 MG/DL Aspartate Amino Transf (AST/SGOT) 77 H 5-34 U/L Alanine Aminotransferase (ALT/SGPT) 47 0-55 U/L Alkaline Phosphatase 102 40-136 U/L Troponin I < 0.30 <0.30 NG/ML C-Reactive Protein High Sensitivity 13.05 H 0.00-0.50 MG/DL B-Type Natriuretic Peptide 2018.9 H <100.0 PG/ML Total Protein 6.0 L 6.4-8.2 GM/DL Albumin 3.0 L 3.2-4.5 GM/DL My Orders Orders - MEKA KIM BNP (11/24/16 01:14) Cbc With Automated Diff (11/24/16 01:14) Comprehensive Metabolic Panel (11/24/16 01:14) Hs C Reactive Protein (11/24/16 01:14) Lactic Acid Analyzer (11/24/16 01:14) Magnesium (11/24/16 01:14) Troponin I (11/24/16 01:14) Ua Culture If Indicated (11/24/16 01:14) Phosphorus (11/24/16 01:14) Chest 1 View, Ap/Pa Only (11/24/16 01:14) Us Venous Lower Ext Rt (11/24/16 01:14) Ekg Tracing (11/24/16 01:14) Saline Lock/Iv-Start (11/24/16 01:14) Monitor-Rhythm Ecg Trace Only (11/24/16 01:14) O2 (11/24/16 01:14) Protime With Inr (11/24/16 01:19) Partial Thromboplastin Time (11/24/16 01:19) Vital Signs/I&O Vital Sign - Last 12Hours 11/24/16 11/24/16 00:30 00:30 Temp 96.7 Pulse 85 Resp 20 B/P (MAP) 114/51 Pulse Ox 100 100 O2 Delivery Nasal Cannula Nasal Cannula O2 Flow Rate 3.00 3.00 FiO2 100 Blood Pressure Mean: 72 Progress Note : Time: 02:36 Progress Note Despite the patient being on Eliquis she has a hot red swollen right calf so we' ll get a ultrasound of the leg. She appears to have a CHF exacerbation given the recent history of increased Lasix. ECG Initial ECG Impression Date: Nov 24, 2016 Initial ECG Impression Time: 01:43 Initial ECG Rate: 73 Initial ECG Rhythm: Normal Sinus Initial ECG Intervals: CA (220) Initial ECG Impression: 1st Degree AV Block Initial ECG Comparisson: No Previous ECG Available Comment No ST elevation or depression Diagnostic Imaging Diagonstic Imaging: Xray Plain Films/CT/US/NM/MRI: chest Comments Bilateral pleural effusion right worse than left. This is progressively worse than the last x-ray on 11/14/2016. Reviewed: Reviewed by Me Diagonstic Imaging: Ultrasound Plain Films/CT/US/NM/MRI: leg (right) Comments No evidence of a deep vein thrombosis. Reviewed: [facility], Reviewed by Me Departure Communication Time/Spoke to Admitting Phy: 03:[address] Michele Cui and discussed the case as well as the plan to treat her with 20 mg IV Lasix twice a day. Patient is stable and will have her consult Dr. Gomez in the morning. Impression Impression: Primary Impression: Acute congestive heart failure Qualified Codes: I50.21 - Acute systolic (congestive) heart failure Additional Impressions: Acute kidney injury Pressure ulcer of sacral region, stage 3 Cellulitis of right lower extremity Disposition: ADMITTED INPATIENT Condition: Stable Admissions Decision to Admit Reason: Admit from ER (General) Decision to Admit/Date: Nov 24, 2016 Time/Decision to Admit Time: 03:05 Departure-Patient Inst. Referrals: MICHELE CIU MD (PCP/Family) Primary Care Physician Copy Copies To 1: MICHELE CUI MD, TITUS J Nov 24, 2016 01:19
[2016-11-24 01:44] LABS: BASOPHILS % (AUTO) 0 % (0-10); EOSINOPHILS # (AUTO) 0.2 10^3/uL (0.0-0.3); EOSINOPHILS % (AUTO) 2 % (0-10); LYMPHOCYTES # (AUTO) 0.6 X 10^3 (1.0-4.0); LYMPHOCYTES % (AUTO) 7 % (12-44); MEAN CORPUSCULAR HEMOGLOBIN 29 PG (25-34); MEAN CORPUSCULAR HGB CONC 30 G/DL (32-36); MEAN CORPUSCULAR VOLUME 97 FL (80-99); MEAN PLATELET VOLUME 10.2 FL (7.4-10.4); MONOCYTES # (AUTO) 0.8 X 10^3 (0.0-1.0); MONOCYTES % (AUTO) 9 % (0-12); NEUTROPHILS # (AUTO) 7.7 X 10^3 (1.8-7.8); NEUTROPHILS % (AUTO) 83 % (42-75); PLATELET COUNT 267 10^3/uL (130-400); RED BLOOD COUNT 3.35 10^6/uL (4.35-5.85); RED CELL DISTRIBUTION WIDTH 14.9 % (10.0-14.5); WHITE BLOOD COUNT 9.3 10^3/uL (4.3-11.0)
[2016-11-24 01:54] LABS: INR 1.4 (0.8-1.4); PROTHROMBIN TIME PATIENT 17.2 SEC (12.2-14.7)
[2016-11-24 02:03] LABS: ALANINE AMINOTRANSFERASE 47 U/L (0-55); ANION GAP 12 MMOL/L (5-14); ASPARTATE AMINO TRANSFERASE 77 U/L (5-34); BILIRUBIN,TOTAL 0.9 MG/DL (0.1-1.0); BLOOD UREA NITROGEN 57 MG/DL (7-18); BUN/CREATININE RATIO 36; CALCIUM 8.6 MG/DL (8.5-10.1); CARBON DIOXIDE 28 MMOL/L (21-32); CHLORIDE 99 MMOL/L (98-107); CREATININE SERUM 1.59 MG/DL (0.60-1.30); GFR ESTIMATED 31; GLUCOSE 116 MG/DL (70-105); MAGNESIUM 2.2 MG/DL (1.8-2.4); POTASSIUM 4.2 MMOL/L (3.6-5.0); SODIUM 139 MMOL/L (135-145); hs C REACTIVE PROTEIN 13.05 MG/DL (0.00-0.50)
[2016-11-24 02:09] LABS: TROPONIN I < 0.30 NG/ML (<0.30)
[2016-11-24 02:37] LABS: BILIRUBIN,URINE NEGATIVE (NEGATIVE); KETONES,URINE NEGATIVE (NEGATIVE); LEUKOCYTE ESTERASE ,URINE 3+ (NEGATIVE); NITRITE,URINE NEGATIVE (NEGATIVE); PH,URINE 5 (5-9); PROTEIN,URINE 1+ (NEGATIVE); UROBILINOGEN,URINE NORMAL (NORMAL)
[2016-11-24] MEDS ORDERED: FUROSEMIDE 40 MG/4 ML INJ (LASIX) IVP ONE (03:15)
[2016-11-24] MEDS ORDERED: morphine INJ 10 MG/ML 1ML (SYR OR VIAL) IVP PRN (04:45)
[2016-11-24] MEDS ORDERED: NITROGLYCERIN SUBLINGUAL 0.4 MG TAB (NITROSTAT) SL PRN (04:45)
[2016-11-24] MEDS ORDERED: morphine INJ 4 MG/ML 1 ML (VIAL/SYRINGE) IV PRN (05:15)
[2016-11-24 07:04] LABS: BASOPHILS % (AUTO) 0 % (0-10); EOSINOPHILS # (AUTO) 0.2 10^3/uL (0.0-0.3); EOSINOPHILS % (AUTO) 2 % (0-10); LYMPHOCYTES # (AUTO) 0.7 X 10^3 (1.0-4.0); LYMPHOCYTES % (AUTO) 11 % (12-44); MEAN CORPUSCULAR HEMOGLOBIN 29 PG (25-34); MEAN CORPUSCULAR HGB CONC 30 G/DL (32-36); MEAN CORPUSCULAR VOLUME 98 FL (80-99); MEAN PLATELET VOLUME 10.1 FL (7.4-10.4); MONOCYTES # (AUTO) 0.6 X 10^3 (0.0-1.0); MONOCYTES % (AUTO) 9 % (0-12); NEUTROPHILS # (AUTO) 5.4 X 10^3 (1.8-7.8); NEUTROPHILS % (AUTO) 78 % (42-75); PLATELET COUNT 232 10^3/uL (130-400); RED BLOOD COUNT 3.09 10^6/uL (4.35-5.85); RED CELL DISTRIBUTION WIDTH 14.9 % (10.0-14.5); WHITE BLOOD COUNT 6.9 10^3/uL (4.3-11.0)
[2016-11-24 07:25] LABS: ALANINE AMINOTRANSFERASE 44 U/L (0-55); ALBUMIN 2.9 GM/DL (3.2-4.5); ANION GAP 10 MMOL/L (5-14); ASPARTATE AMINO TRANSFERASE 71 U/L (5-34); BILIRUBIN,TOTAL 0.9 MG/DL (0.1-1.0); BLOOD UREA NITROGEN 55 MG/DL (7-18); BUN/CREATININE RATIO 36; CALCIUM 8.4 MG/DL (8.5-10.1); CARBON DIOXIDE 30 MMOL/L (21-32); CHLORIDE 100 MMOL/L (98-107); CREATININE SERUM 1.54 MG/DL (0.60-1.30); GFR ESTIMATED 32; GLUCOSE 114 MG/DL (70-105); POTASSIUM 4.1 MMOL/L (3.6-5.0); SODIUM 140 MMOL/L (135-145); TOTAL PROTEIN 5.7 GM/DL (6.4-8.2)
[2016-11-24 07:31] LABS: TROPONIN I < 0.30 NG/ML (<0.30)
[2016-11-24 08:00] VITALS: BP 111/51
--- NOTE | 2016-11-24 08:25 | Diagnostic Imaging Report ---
INDICATION: Shortness of breath Frontal chest obtained at 1:39 hours am, and compared to 11/14/16. There is cardiomegaly and post sternotomy change. There is central vascular congestion. There is a large amount of pleural fluid on the right side which is increased compared to the prior study. There is decreased left pleural fluid compared to the prior study. IMPRESSION: Cardiomegaly and post sternotomy change with central vascular congestion. Bilateral pleural effusions are present, increased on the right-side and decreased on the left side compared to the prior study. There is some passive atelectasis versus infiltrate in both lung bases. Dictated by: Dictated on workstation # [id number]
--- NOTE | 2016-11-24 08:36 | Diagnostic Imaging Report ---
PROCEDURE: US right lower extremity venous. TECHNIQUE: Multiple real-time grayscale images were obtained over the right lower extremity in various projections. Additional duplex Doppler and color Doppler images were also obtained. INDICATION: Right leg pain and swelling, recent knee surgery. COMPARISON: None. TECHNIQUE: The right lower extremity deep venous system was interrogated from the common femoral vein through the popliteal vein. These images were assessed for grayscale appearance, color and spectral Doppler blood flow, compression, and augmentation. FINDINGS: There is no evidence of intraluminal filling defect. Normal compression and augmentation is noted throughout. Soft tissues are unremarkable. IMPRESSION: 1. No sonographic evidence of deep venous thrombosis in the right lower extremity. 2. Agree with preliminary report. Dictated by: Dictated on workstation # [id number]
[2016-11-24] MEDS ORDERED: MULT-166 PO (08:39)
[2016-11-24] MEDS ORDERED: LISI2.5T PO (08:39)
[2016-11-24] MEDS ORDERED: HYDR-3812 PO (08:39)
[2016-11-24] MEDS ORDERED: BUSP5TAB59 PO (08:39)
[2016-11-24] MEDS ORDERED: FURO40TA4 PO (08:39)
[2016-11-24] MEDS ORDERED: NITR-68 PO (08:39)
[2016-11-24] MEDS ORDERED: AMIO200T2 PO (08:39)
[2016-11-24] MEDS ORDERED: APIX2.5T PO (08:39)
[2016-11-24] MEDS ORDERED: ACET-2267 PO (08:39)
[2016-11-24] MEDS ORDERED: CEPHALEXIN 250 MG (KEFLEX) CAP PO SCH (09:00)
[2016-11-24] MEDS ORDERED: ASPIRIN E.C. 81 MG (ECOTRIN) TAB PO SCH (09:00)
[2016-11-24] MEDS ORDERED: lisINopril 5 MG (PRINIVIL) TABLET PO SCH (09:00)
[2016-11-24] MEDS ORDERED: meTOprolol TARTRATE 25 MG (LOPRESSOR) TABLET PO SCH (09:00)
[2016-11-24] MEDS ORDERED: ASPIRIN E.C. 325 MG (ECOTRIN) TABLET PO SCH (09:00)
[2016-11-24] MEDS ORDERED: AMIODARONE 200 MG (CORDARONE) TAB PO SCH ×2 (09:00→09:25)
[2016-11-24] MEDS ORDERED: APIXABAN 2.5 MG (ELIQUIS) TABLET PO SCH (09:25)
--- NOTE | 2016-11-24 09:31 | History & Physical ---
History of Present Illness History of Present Illness Reason for visit/HPI 89 yo F admitted for congestive heart failure exacerbation- onset: yesterday per nursing staff at [facility]- pt reports her breathing has been an issue for the last week and she has not ate as much. She feels weak. She denies any fevers. She thinks she has been more anxious at [facility] and I started her on buspar but she does not think it is helping much. She is on 3L oxygen- her baseline oxygen need is 2L. Pt is status post 3v CABG 11/03/2016; denies chest pain. Pt also reports a blister on her right lower foot. Date of Admission Nov 24, 2016 at 03:00 Date Seen by Provider: Nov 24, 2016 Time Seen by Provider: 09:20 I consulted on this patient on 11/24/16 09:21 Attending Physician Michele Cui MD Admitting Physician Michele Cui MD Consult Dr. Gomez Allergies and Home Medications Allergies Coded Allergies: No Known Drug Allergies (Unverified , 11/10/16) Home Medications Acetaminophen 500 Mg Tablet, 500 MG PO Q8H PRN for PAIN-MILD, (Reported) Amiodarone HCl 200 Mg Tablet, 200 MG PO DAILY, (Reported) Apixaban 2.5 Mg Tablet, 2.5 MG PO BID for 30 Days, (Reported) START DATE 11-14-16 STOP DATE 12-17-16 Aspirin 81 Mg Tablet.dr, 81 MG PO DAILY, (Reported) Atorvastatin Calcium 40 Mg Tablet, 40 MG PO HS, (Reported) Buspirone HCl 5 Mg Tablet, 5 MG PO HS, (Reported) Furosemide 40 Mg Tablet, 40 MG PO DAILY, (Reported) Furosemide 40 Mg Tablet, 40 MG PO DAILY PRN for SWELLING/SOB, (Reported) 1 TABLET MAY BE TAKING IN ADDITION TO DAILY SCHEDULED DOSE NEEDED FOR INCREASED SWELLING AND SOB. Hydrocodone/Acetaminophen 1 Each Tablet, 1 TAB PO Q8H PRN for PAIN-MODERATE, ( Reported) Lisinopril 2.5 Mg Tablet, 2.5 MG PO DAILY, (Reported) Metoprolol Tartrate 25 Mg Tablet, 12.5 MG PO BID, (Reported) TAKES 1/2 (25MG) TABLET Multivitamin with Minerals 1 Each Tablet, 1 TAB PO DAILY, (Reported) Nitrofurantoin Macrocrystal 100 Mg Capsule, 100 MG PO BID for 7 Days, (Reported) 7 DAY THERAPY START DATE 11-18-16 END DATE 11-25-16 [place] 3 Polyunsat Fatty Acids 1,000 Mg Cap, 1,000 MG PO DAILY, (Reported) Past [id number]-Hlgrll Hx Patient Social History Alcohol Use: Denies Use Recreational Drug Use: No Smoking Status: Never a Smoker 2nd Hand Smoke Exposure: No Physical Abuse Screen: No Sexual Abuse: No Recent Foreign Travel: No Contact w/other who traveled: No Recent Hopitalizations: Yes Recent Infectious Disease Expo: No Immunizations Up To Date Pediatric: No Seasonal Allergies Seasonal Allergies: No Surgeries Yes Breast, Cardiac, CABG Respiratory No Cardiovascular Yes Atrial Fibrillation, Coronary Artery Disease, Heart Attack, Hypertension Neurological No Genitourinary No Gastrointestinal No Musculoskeletal No Endocrine History of Endocrine Disorders: No HEENT History of HEENT Disorders: Yes Loss of Vision: Denies Hearing Impairment: Hard of Hearing Cancer No Breast Did You Recieve Any Treatments: Yes Type of Treatment: Surgical Intervention Psychosocial History of Psychiatric Problem: No Integumentary History of Skin or Integumenta: No Blood Transfusions History of Blood Disorders: No Adverse Reaction to a Blood Tr: No Family Medical History Family Hx: Patient reports no known family medical history. Review of Systems Review of Systems General: No Chills, No Night Sweats, Fatigue HEENT: No Head Aches, No Visual Changes Pulmonary: Dyspnea, No Cough Cardiovascular: No: Chest Pain, Palpitations, Orthopnea Gastrointestinal: No: Nausea, Vomiting, Abdominal Pain Genitourinary: No Dysuria Musculoskeletal: No: neck pain, shoulder pain Neurological: Weakness Physical Exam Vital Signs Vital Sign - Last 12Hours 11/24/16 00:30 Temp 96.7 Pulse 85 Resp 20 B/P (MAP) 114/51 Pulse Ox 100 O2 Delivery Nasal Cannula O2 Flow Rate 3.00 FiO2 100 Capillary Refill : Less Than 3 Seconds General Appearance: No Apparent Distress HEENT: PERRL/EOMI Neck: Full Range of Motion, Non Tender Respiratory: Chest Non Tender, Lungs Clear (left lung bruno), Crackles (wet sounding right lung) Cardiovascular: Regular Rate, Rhythm Gastrointestinal: Non Tender, Soft Rectal: Deferred Back: No Vertebral Tenderness Extremity: No Calf Tenderness, Pedal Edema Neurologic/Psychiatric: Alert, Oriented x3, Depressed Affect (anxious, sad) Skin: Warm/Dry, Other Assessment/Plan Assessment/Plan Assessment/Plan 89 yo F Acute on chronic systolic congestive heart failure- diuresing with lasix- Dr. Gomez consulted; checking BNP in AM. acute on chronic respiratory distress- on 3L oxygen , baseline 2L - due to CHF, CXR pleural effusion right worse than left - on rocephin for now- - consider right side pneumonia- CAD- s/p 3v CABG [facility] --> LAD, saphenous vein graft aorta to 1st obtuse marginal, posterior descending artery 11/03/16 ECHO prior to CABG- LVEF 30-35% Acute kidney failure- improved- will repeat bmp in am. HTN- normotensive ,continue lisinopril 2.5mg chronic pain- monitor other hyperlipidemia- stati Chronic Anemia- due to multiple co-morbidities- monitor hgb currently 9 Right lower leg cellulitis- cover with rocephin Paroxysmal Atrial fibrillation - occurred status post CABG - continue eliquis, asa DVT ppx: on eliquis, aspirin Dispo: diuresing, repeat CXR tomorrow- Problems: Clinical Quality Measures DVT/VTE Risk/Contraindication: Risk Factor Score Per Nursin RFS Level Per Nursing on Admit: 4+=Very High MICHELE CUI MD Nov 24, 2016 09:31
[2016-11-24] MEDS: FUROSEMIDE 40 MG/4 ML INJ (LASIX) IV SCH ×2 (11:10→21:45)
[2016-11-24] MEDS: APIXABAN 2.5 MG (ELIQUIS) TABLET PO SCH ×2 (11:11→21:46)
[2016-11-24] MEDS: LACTOBACILLUS Acidoph/Bulgar (LACTINEX/FLORANEX) TAB PO SCH ×2 (11:11→21:45)
[2016-11-24] MEDS: OMEGA 3 (FISH OIL) 1000 MG CAP PO SCH (11:11)
[2016-11-24] MEDS: lisINopril 5 MG (PRINIVIL) TABLET PO SCH (11:11)
[2016-11-24] MEDS: cefTRIAXone INJECTION 1,000 MG in NS (IVPB) 50 ML IV SCH (11:12)
[2016-11-24 12:00] VITALS: BP 108/53
--- NOTE | 2016-11-24 12:58 | Consultation-Cardiology ---
HPI-Cardiology Cardiology Consultation Date of Consultation 11/24/16 Date of Admission Time Seen by Provider: 12:55 Indication: shortness of breath HPI 89 years old lady with history of coronary artery disease had myocardial infarction and CABG, anterior wall infarction, postop had atrial fibrillation, admitted to our facility recently for atrial fibrillation with left ventricular response and congestive heart failure. Patient was discharged to the halfway, she started having worsening pedal edema and shortness of breath which progressed to the point that she came to the emergency room for evaluation. Upper my evaluation she was feeling better, still having rhonchi. Still having shortness of breath while laying down in bed using oxygen. Denied any chest pain. Home Medications & Allergies Allergies: Coded Allergies: No Known Drug Allergies (Unverified , 11/10/16) Home Medication List Reviewed: Yes EFM-Hnsulm-Vpsyjs Hx Patient Social History Marital Status: Employed/Student: retired Alcohol Use: Denies Use Recreational Drug Use: No Smoking Status: Never a Smoker 2nd Hand Smoke Exposure: No Recent Foreign Travel: No Recent Infectious Disease Expo: No Recent Hopitalizations: Yes Physical Abuse Screen: No Sexual Abuse: No Past Medical History family history is discussed below Family Medical History Family Medical Hx noncontributory to her current condition Family History: Patient reports no known family medical history. Constitutional: see HPI, malaise, weakness EENTM: see HPI, no symptoms reported Respiratory: see HPI, No cough, dyspnea on exertion, No hemoptysis, orthopnea, No phlegm, short of breath, No stridor, No wheezing, No other Cardiovascular: see HPI, No chest pain, edema, No Hx of Intervention, No palpitations, No syncope, No vascular heart diseas, No other Gastrointestinal: no symptoms reported, see HPI Genitourinary: no symptoms reported, see HPI Musculoskeletal: see HPI, back pain, joint pain Skin: no symptoms reported, see HPI Psychiatric/Neurological: No Symptoms Reported, See HPI Reviewed Test Results Reviewed Test Results Lab Laboratory Tests Test 11/24/16 01:35 11/24/16 02:24 11/24/16 06:56 Range/Units White Blood Count 9.3 6.9 4.3-11.0 10^3/uL Red Blood Count 3.35 L 3.09 L 4.35-5.85 10^6/uL Hemoglobin 9.8 L 9.1 L 11.5-16.0 G/DL Hematocrit 33 L 30 L 35-52 % Mean Corpuscular Volume 97 98 80-99 FL Mean Corpuscular Hemoglobin 29 29 25-34 PG Mean Corpuscular Hemoglobin Concent 30 L 30 L 32-36 G/DL Red Cell Distribution Width 14.9 H 14.9 H 10.0-14.5 % Platelet Count 267 232 130-400 10^3/uL Mean Platelet Volume 10.2 10.1 7.4-10.4 FL Neutrophils (%) (Auto) 83 H 78 H 42-75 % Lymphocytes (%) (Auto) 7 L 11 L 12-44 % Monocytes (%) (Auto) 9 9 0-12 % Eosinophils (%) (Auto) 2 2 0-10 % Basophils (%) (Auto) 0 0 0-10 % Neutrophils # (Auto) 7.7 5.4 1.8-7.8 X 10^3 Lymphocytes # (Auto) 0.6 L 0.7 L 1.0-4.0 X 10^3 Monocytes # (Auto) 0.8 0.6 0.0-1.0 X 10^3 Eosinophils # (Auto) 0.2 0.2 0.0-0.3 10^3/uL Basophils # (Auto) 0.0 0.0 0.0-0.1 10^3/uL Prothrombin Time 17.2 H 12.2-14.7 SEC INR Comment 1.4 0.8-1.4 Activated Partial Thromboplast Time 36 H 24-35 SEC Sodium Level 139 140 135-145 MMOL/L Potassium Level 4.2 4.1 3.6-5.0 MMOL/L Chloride Level 99 100 98-107 MMOL/L Carbon Dioxide Level 28 30 21-32 MMOL/L Anion Gap 12 10 5-14 MMOL/L Blood Urea Nitrogen 57 H 55 H 7-18 MG/DL Creatinine 1.59 H 1.54 H 0.60-1.30 MG/DL Estimat Glomerular Filtration Rate 31 32 BUN/Creatinine Ratio 36 36 Glucose Level 116 H 114 H 70-105 MG/DL Lactic Acid Level 1.10 0.50-2.00 MMOL/L Calcium Level 8.6 8.4 L 8.5-10.1 MG/DL Phosphorus Level 4.0 2.3-4.7 MG/DL Magnesium Level 2.2 1.8-2.4 MG/DL Total Bilirubin 0.9 0.9 0.1-1.0 MG/DL Aspartate Amino Transf (AST/SGOT) 77 H 71 H 5-34 U/L Alanine Aminotransferase (ALT/SGPT) 47 44 0-55 U/L Alkaline Phosphatase 102 96 40-136 U/L Troponin I < 0.30 < 0.30 <0.30 NG/ML C-Reactive Protein High Sensitivity 13.05 H 0.00-0.50 MG/DL B-Type Natriuretic Peptide 2018.9 H <100.0 PG/ML Total Protein 6.0 L 5.7 L 6.4-8.2 GM/DL Albumin 3.0 L 2.9 L 3.2-4.5 GM/DL Urine Color YELLOW Urine Clarity CLEAR Urine pH 5 5-9 Urine Specific [place] 1.020 1.016-1.022 Urine Protein 1+ H NEGATIVE Urine Glucose (UA) NEGATIVE NEGATIVE Urine Ketones NEGATIVE NEGATIVE Urine Nitrite NEGATIVE NEGATIVE Urine Bilirubin NEGATIVE NEGATIVE Urine Urobilinogen NORMAL NORMAL MG/DL Urine Leukocyte Esterase 3+ H NEGATIVE Urine RBC (Auto) 1+ H NEGATIVE Urine RBC 0-2 /HPF Urine WBC 10-25 H /HPF Urine Crystals NONE /LPF Urine Bacteria LARGE H /HPF Urine Casts NONE /LPF Urine Mucus NEGATIVE /LPF Urine Culture Indicated YES Physical Exam Vital Signs Vital Sign - Last 12Hours 11/24/16 00:30 Temp 96.7 Pulse 85 Resp 20 B/P (MAP) 114/51 Pulse Ox 100 O2 Delivery Nasal Cannula O2 Flow Rate 3.00 FiO2 100 Capillary Refill : Less Than 3 Seconds General Appearance: WD/WN, Moderate Distress Eyes: Bilateral Eye Normal Inspection, Bilateral Eye PERRL, Bilateral Eye EOMI HEENT: PERRL/EOMI, TMs Normal, Normal ENT Inspection, Pharynx Normal Neck: Full Range of Motion, Normal Inspection, Non Tender, Supple Respiratory: Chest Non Tender, No Accessory Muscle Use, No Respiratory Distress , Crackles, Decreased Breath Sounds Cardiovascular: Regular Rate, Rhythm, Normal Peripheral Pulses, Systolic Murmur , Gallop/S3, JVD Gastrointestinal: Normal Bowel Sounds, No Organomegaly, No Pulsatile Mass, Non Tender, Soft Back: Normal Inspection, No CVA Tenderness, Other (pain in the lower back) Extremity: Normal Capillary Refill, Pedal Edema, Other (blister on the right foot) Neurologic/Psychiatric: Alert, Oriented x3, No Motor/Sensory Deficits, Normal Mood/Affect Skin: Normal Color, Warm/Dry, Damp, Erythema Lymphatic: No Adenopathy A/P-Cardiology Admission Diagnosis Shortness of breath Congestive heart failure Acute renal insufficiency Coronary artery disease Assessment/Plan Shortness of breath, increasing dyspnea, pulmonary edema, started on Lasix and reporting improvement. Next Congestive heart failure, acute on chronic left ventricular systolic dysfunction , ischemic cardiomyopathy, peripheral edema, ejection fraction 30-35 percent per echocardiogram done earlier this month. Patient was in halfway, compliant with medication but deterioration in condition. Paroxysmal atrial fibrillation, converted to sinus rhythm, mainly postoperatively, I will decrease amiodarone to 200 mg once daily. [id number] score of 7, yearly risk of stroke without oral anticoagulation is 9.6 percent, tolerating Eliquis 2.5 mg twice daily well. Continue to monitor Coronary artery disease, had acute ST elevation myocardial infarction at [facility] required CABG 3, continue to monitor Worsening renal function, acute renal insufficiency, continue to monitor renal function while on diuretics. Hyperlipidemia, continue on Lipitor 40 mg and monitor. Hypertension, was hypotensive on Cardizem, tolerating current medication. Continue to monitor BP/HR Diabetes mellitus, patient was on insulin drip at [facility], management per PCP. Clinical Quality Measures DVT/VTE Risk/Contraindication: Risk Factor Score Per Nursin RFS Level Per Nursing on Admit: 4+=Very High CAROL DUDLEY MD Nov 24, 2016 12:58
[2016-11-24 16:00] VITALS: BP 115/56
--- NOTE | 2016-11-24 16:03 | Physical Therapy Progress Note ---
Therapy Progress Note Order received, chart reviewed. Evaluation attempted but patient states she is extremely tired and that her doctor today had told her that she would be getting up tomorrow. She agrees to participate in the evaluation tomorrow. JOSELITO PERRIN PT Nov 24, 2016 16:03
[2016-11-24 20:00] VITALS: BP 102/54
[2016-11-24] MEDS ORDERED: ATORVASTATIN 40 MG (LIPITOR) TABLET PO SCH (21:00)
[2016-11-24] MEDS: busPIRone 5 MG (BUSPAR) TAB PO SCH (21:45)
[2016-11-24] MEDS: ATORVASTATIN 40 MG (LIPITOR) TABLET PO SCH (21:45)
[2016-11-25 00:01] VITALS: BP 102/55
[2016-11-25 04:00] VITALS: BP 113/62
[2016-11-25 06:14] LABS: BASOPHILS % (AUTO) 0 % (0-10); EOSINOPHILS # (AUTO) 0.2 10^3/uL (0.0-0.3); EOSINOPHILS % (AUTO) 5 % (0-10); LYMPHOCYTES # (AUTO) 0.7 X 10^3 (1.0-4.0); LYMPHOCYTES % (AUTO) 14 % (12-44); MEAN CORPUSCULAR HEMOGLOBIN 30 PG (25-34); MEAN CORPUSCULAR HGB CONC 30 G/DL (32-36); MEAN CORPUSCULAR VOLUME 99 FL (80-99); MEAN PLATELET VOLUME 9.9 FL (7.4-10.4); MONOCYTES # (AUTO) 0.5 X 10^3 (0.0-1.0); MONOCYTES % (AUTO) 10 % (0-12); NEUTROPHILS # (AUTO) 3.6 X 10^3 (1.8-7.8); NEUTROPHILS % (AUTO) 71 % (42-75); PLATELET COUNT 212 10^3/uL (130-400); RED BLOOD COUNT 2.98 10^6/uL (4.35-5.85); RED CELL DISTRIBUTION WIDTH 14.9 % (10.0-14.5)
[2016-11-25 06:39] LABS: ALANINE AMINOTRANSFERASE 38 U/L (0-55); ALBUMIN 2.7 GM/DL (3.2-4.5); ANION GAP 12 MMOL/L (5-14); ASPARTATE AMINO TRANSFERASE 56 U/L (5-34); BILIRUBIN,TOTAL 0.7 MG/DL (0.1-1.0); BLOOD UREA NITROGEN 41 MG/DL (7-18); BUN/CREATININE RATIO 33; CALCIUM 8.5 MG/DL (8.5-10.1); CARBON DIOXIDE 28 MMOL/L (21-32); CHLORIDE 102 MMOL/L (98-107); CREATININE SERUM 1.26 MG/DL (0.60-1.30); GFR ESTIMATED 40; GLUCOSE 97 MG/DL (70-105); SODIUM 142 MMOL/L (135-145); TOTAL PROTEIN 5.5 GM/DL (6.4-8.2)
[2016-11-25 06:45] LABS: TROPONIN I < 0.30 NG/ML (<0.30)
[2016-11-25 08:20] VITALS: BP 106/55
--- NOTE | 2016-11-25 08:56 | Diagnostic Imaging Report ---
EXAM: CHEST 1 VIEW, AP/PA ONLY INDICATION: Pleural effusion COMPARISON: Chest radiograph 11/24/2016. FINDINGS: Increasing large right pleural effusion. The cardiac silhouette is obscured but appears enlarged. There is nodular consolidation in the right lateral lung along the edge of the pleural effusion. Sternotomy. Small left pleural effusion. No acute osseous findings. IMPRESSION: Interval progression of the large right pleural effusion. Nodular consolidation in the lateral right lung may be due to atelectasis. Persistent small left pleural effusion. Dictated by: Dictated on workstation # [id number]
--- NOTE | 2016-11-25 08:57 | Cardiology Progress Note ---
Subjective Date Seen by Provider: Nov 25, 2016 Time Seen by Provider: 08:54 Subjective/Events-last exam patient is laying down in bed, breathing better, feeling better, denied any chest pain, still using oxygen but overall reporting improvement. Review of Systems General: No Chills, No Night Sweats, No Fatigue, No Malaise, No Appetite, No Other HEENT: No Head Aches, No Visual Changes, No Eye Pain, No Ear Pain, No Dysphasia , No Sinus Congestion, No Post Nasal Drip, No Sore Throat, No Other Pulmonary: Dyspnea, No Cough, No Pleuritic Chest Pain, No Other Cardiovascular: Edema, No: Chest Pain, Palpitations, Orthopnea, Paroxysmal Noc. Dyspnea, Lt Headedness, Other Objective-Cardiology Exam Last Set of Vital Signs Vital Signs 11/24/16 11/25/16 00:30 08:20 Temp 97.3 Pulse 88 Resp 18 B/P (MAP) 106/55 Pulse Ox 100 O2 Delivery Nasal Cannula O2 Flow Rate 2.00 FiO2 100 Capillary Refill : Less Than 3 Seconds I&O Intake and Output 11/26/16 00:00 Intake Total 120 ml Output Total 500 ml Balance -380 ml Intake Oral 120 ml Output Urine Total 500 ml General: Alert, Oriented X3, Cooperative HEENT: Atraumatic, PERRLA Neck: Supple, No JVD, No Thyromegaly Lungs: Normal Air Movement, Other (diminished breathing sounds, with rales at the bases) Heart: Regular Rate, Normal S1, Normal S2, No Murmurs Abdomen: Normal Bowel Sounds, Soft, No Tenderness, No Hepatosplenomegaly, No Masses Extremities: No Clubbing, No Cyanosis, Normal Pulses, No Tenderness/Swelling, Other (mild pedal edema) Skin: No Rashes, No Significant Lesion, Other (blister on the right ankle) Neuro: Normal Speech, Normal Tone, Sensation Intact Psych/Mental Status: Mental Status NL, Mood NL Results Lab Laboratory Tests 11/25/16 06:00 A/P-Cardiology Admission Diagnosis Shortness of breath Congestive heart failure Acute renal insufficiency Coronary artery disease Assessment/Plan Shortness of breath, pulmonary edema, reporting improvement, on Lasix and antibiotics. Congestive heart failure, acute on chronic left ventricular systolic dysfunction , ischemic cardiomyopathy, peripheral edema, ejection fraction 30-35 percent per echocardiogram done earlier this month, continue with diuretics and monitor. Paroxysmal atrial fibrillation, converted to sinus rhythm, mainly postoperatively, continue on amiodarone 200 mg daily and monitor [id number] score of 7, yearly risk of stroke without oral anticoagulation is 9.6 percent, tolerating Eliquis 2.5 mg twice daily well, anemia is worse. Monitor H&H Coronary artery disease, had acute ST elevation myocardial infarction at [facility] required CABG 3, continue to monitor Acute renal insufficiency, creatinine level is better today. Continue to monitor Hyperlipidemia, continue on Lipitor 40 mg and monitor. Hypertension, was hypotensive on Cardizem, tolerating current medication. Continue to monitor BP/HR Diabetes mellitus, patient was on insulin drip at [facility], management per PCP. Clinical Quality Measures DVT/VTE Risk/Contraindication: Risk Factor Score Per Nursin RFS Level Per Nursing on Admit: 4+=Very High CAROL DUDLEY MD Nov 25, 2016 08:56
[2016-11-25] MEDS: OMEGA 3 (FISH OIL) 1000 MG CAP PO SCH (09:52)
[2016-11-25] MEDS: LACTOBACILLUS Acidoph/Bulgar (LACTINEX/FLORANEX) TAB PO SCH ×2 (09:52→21:32)
[2016-11-25] MEDS: lisINopril 5 MG (PRINIVIL) TABLET PO SCH (09:53)
[2016-11-25] MEDS: cefTRIAXone INJECTION 1,000 MG in NS (IVPB) 50 ML IV SCH (09:53)
[2016-11-25] MEDS: APIXABAN 2.5 MG (ELIQUIS) TABLET PO SCH ×2 (09:53→21:32)
[2016-11-25] MEDS: AMIODARONE 200 MG (CORDARONE) TAB PO SCH (09:53)
[2016-11-25] MEDS: FUROSEMIDE 40 MG/4 ML INJ (LASIX) IV SCH ×2 (09:53→21:33)
--- NOTE | 2016-11-25 09:53 | Progress Note (SOAP) ---
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 SHE REPORTS THAT SHE FEELS IF SHE IS BREATHING BETTER EVERY DAY. SHE REPORTS THAT HER LEG SWELLING IS IMPROVED. Review of Systems General: Fatigue HEENT: No Head Aches Pulmonary: No Dyspnea, No Cough Cardiovascular: Edema, No: Chest Pain, Palpitations Gastrointestinal: No: Nausea, Abdominal Pain Neurological: Weakness, No: Confusion Objective Exam Vital Signs Date Time Temp Pulse Resp B/P (MAP) Pulse Ox O2 Delivery O2 Flow Rate FiO2 11/25/16 08:20 97.3 88 18 106/55 100 Nasal Cannula 2.00 11/25/16 07:00 86 11/25/16 04:00 97.6 86 20 113/62 96 Nasal Cannula 2.00 11/25/16 01:00 83 11/25/16 00:01 97.4 84 22 102/55 99 Nasal Cannula 3.00 11/24/16 20:00 97.5 84 22 102/54 99 Nasal Cannula 3.00 11/24/16 20:00 Nasal Cannula 3.00 11/24/16 19:00 87 11/24/16 16:00 97.9 85 18 115/56 98 Nasal Cannula 3.00 11/24/16 12:00 96.3 82 20 108/53 100 Nasal Cannula 3.00 Capillary Refill : Less Than 3 Seconds General Appearance: No Apparent Distress, WD/WN HEENT: PERRL/EOMI, Pharynx Normal Neck: Full Range of Motion, Supple Respiratory: Chest Non Tender, Crackles (FAINT), Decreased Breath Sounds (IN BASES BILATERALLY) Cardiovascular: Regular Rate, Rhythm Gastrointestinal: normal bowel sounds, non tender, soft, no organomegaly Extremity: Pedal Edema Neurologic/Psychiatric: Alert, Oriented x3, No Motor/Sensory Deficits, Normal Mood/Affect Lymphatic: No Adenopathy Results Lab Laboratory Tests 11/24/16 14:00: Troponin I < 0.30 11/25/16 06:00: Troponin I < 0.30, White Blood Count 5.0, Red Blood Count 2.98L, Hemoglobin 8.8L , Hematocrit 29L, Mean Corpuscular Volume 99, Mean Corpuscular Hemoglobin 30, Mean Corpuscular Hemoglobin Concent 30L, Red Cell Distribution Width 14.9H, Platelet Count 212, Mean Platelet Volume 9.9, Neutrophils (%) (Auto) 71, Lymphocytes (%) (Auto) 14, Monocytes (%) (Auto) 10, Eosinophils (%) (Auto) 5, Basophils (%) (Auto) 0, Neutrophils # (Auto) 3.6, Lymphocytes # (Auto) 0.7L, Monocytes # (Auto) 0.5, Eosinophils # (Auto) 0.2, Basophils # (Auto) 0.0, Sodium Level 142, Potassium Level 4.0, Chloride Level 102, Carbon Dioxide Level 28, Anion Gap 12, Blood Urea Nitrogen 41H, Creatinine 1.26, Estimat Glomerular Filtration Rate 40, BUN/Creatinine Ratio 33, Glucose Level 97, Calcium Level 8.5 , Magnesium Level 2.0, Total Bilirubin 0.7, Aspartate Amino Transf (AST/SGOT) 56H, Alanine Aminotransferase (ALT/SGPT) 38, Alkaline Phosphatase 98, B-Type Natriuretic Peptide 1111.0H, Total Protein 5.5L, Albumin 2.7L Microbiology 11/24/16 Urine Culture - Final, Complete Klebsiella Pneumoniae Assessment/Plan Assessment/Plan Assess & Plan/Chief Complaint ACUTE ON CHRONIC SYSTOLIC CONGESTIVE HEART FAILURE ACUTE ON CHRONIC RESPIRATORY DISTRESS CORONARY ARTERY DISEASE ARF HYPERTENSION CHRONIC PAIN SYNDROME PAROXYSMAL ATRIAL FIBRILLATION CHRONIC ANEMIA - DUE TO CHRONIC DISEASE, RENAL INSUFFICIENCY RIGHT LEG CELLULITIS HYPERLIPIDEMIA ACUTE ON CHRONIC SYSTOLIC CONGESTIVE HEART FAILURE - DIURESIS WITH LASIX - MONITOR SYMPTOMS- CONTINUE WITH CURRENT THERAPY SINCE LASIX IS IMPROVING HER SYMPTOMS. - SERIAL BNP'S. ACUTE ON CHRONIC RESPIRATORY DISTRESS - IMPROVED WITH LASIX CORONARY ARTERY DISEASE - RECENT CABG - ECHO SHOWED EF OF 30-35% - SUPPORTIVE CARE - BNP IS IMPROVED. ARF - IMPROVING - CONTINUE TO MONITOR WHILE PT IS ON LASIX HYPERTENSION - ON LISINOPRIL CHRONIC PAIN SYNDROME - MONITOR SYMPTOMS PAROXYSMAL ATRIAL FIBRILLATION - ON ELIQUIS, ASPIRIN, RATE CONTROLLED CHRONIC ANEMIA - DUE TO CHRONIC DISEASE, RENAL INSUFFICIENCY - MONITOR H AND H RIGHT LEG CELLULITIS - ON ROCEPHIN HYPERLIPIDEMIA - ON STATIN THERAPY, CONTINUE WITH TREATMENT. DVT PROPHYLAXIS - ON ELIQUIS AND ASPIRIN - NO SCD'S DUE TO CELLULITIS GI PROPHYLAXIS - Clinical Quality Measures DVT/VTE Risk/Contraindication: Risk Factor Score Per Nursin RFS Level Per Nursing on Admit: 4+=Very High NEISHA ORLANDO MD Nov 25, 2016 09:53
[2016-11-25 12:00] VITALS: BP 105/50
--- NOTE | 2016-11-25 14:19 | Physical Therapy Evaluation ---
PT Evaluation-General Medical Diagnosis Admission Date Nov 24, 2016 at 03:00 Medical Diagnosis: CHF Onset Date: Nov 24, 2016 Therapy Diagnosis Therapy Diagnosis: weakness Height/Weight Height (Feet): 5 Height (Inches): 8.00 Weight (Pounds): 159 Weight (Ounces): 0.0 Precautions Precautions/Isolations: Fall Prevention, Standard Precautions Referral Physician: Michele Suarez Reason for Referral: Evaluation/Treatment Medical History Pertinent Medical History: Atrial Fib, CABG, CAD, HTN, MO Current History Patient currently resides a [facility] retirement. She was admitted through the ER with SOB and progressive weakness. Reviewed History: Yes Social History Home: Long Term Pt plans to return to living with her children. Prior/Core FIM Prior Level of Function Functional Mcdonald Measure 0=Not Assessed/NA 4=Minimal Assistance 1=Total Assistance 5=Supervision or Setup 2=Maximal Assistance 6=Modified Mcdonald 3=Moderate Assistance 7=Complete Mcdonald Bed Mobility: 6 Transfers (B,C,W/C) (FIM): 6 Gait: 6 Locomotion: 6 Since having open heart surgery October of 2016 she has required assist with all mobility. PT Evaluation-Current Subjective Pt reports she is weak and is having trouble regaining her strength since open heart surgery earlier this month. Pt/Family Goals Gain sufficient strength to return to living with her daughter. Objective Patient Orientation: Normal For Age Problem Solving: Good Attachments: Oxygen ROM/Strength ROM Upper Extremities normal ROM ROM Lower Extremities WFL Strength Upper Extremities gross 4/5 throughout the UEs Strenght Lower Extremities 3+/5 throughout Integumentary/Posture Integumentary pressure ulcer on the coccyx Sensory Vision: Functional Hearing: Functional Sensation Right Lower Extremit: Impaired Sensation Left Lower Extremity: Impaired Sensation Lower Extremities altered sense of light and deep pressure; c/o her feet feeling "thick" Transfers Functional Mcdonald Measure 0=Not Assessed/NA 4=Minimal Assistance 1=Total Assistance 5=Supervision or Setup 2=Maximal Assistance 6=Modified Mcdonald 3=Moderate Assistance 7=Complete Mcdonald Transfers (B, C, W/C) (FIM): 3 Scootin Rollin Supine to/from Sit: 3 Sit to/from Stand: 3 Needs assist to move both legs into and out of bed and assist to scoot to the edge of bed. Pt motor plans accordingly but has insufficient strength to complete tasks. Gait Mode of Locomotion: Walk Distance (FIM): 0=780-22 ft Distance: 50 Gait Level of Assist: 4 Gait Persons Needed: 1 Gait Assistive Device: FWW Comments/Gait Description slow gait with forward flexed posture Balance Sitting Static: Good Sitting Dynamic: Good Standing Static: Fair Standing Dynamic: Fair Special Test Comments needs hands on walker or other furniture for standing balance Assessment/Needs Pt has weakness in the LEs and trunk from prolonged bed rest and illness. Her primary limitation is weakness followed by SOB. She has good ROM and initiation of task. She has potential to improve function through skilled therapy intervention. 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 Goals Time Frame: Nov 30, 2016 Transfers (B,C,W/C) (FIM): 5 Gait (FIM): 4 Gait distance (FIM): 3=150 ft Distance: 150 Gait Level of Assist: 4 Gait Assistive Device: FWW PT Plan Problem List Problem List: Activity Tolerance, Functional Strength, Safety, Gait, Bed Mobility Treatment/Plan Treatment Plan: Continue Plan of Care Treatment Plan: Bed Mobility, Functional Activity Florinda, Functional Strength, Gait, Therapeutic Exercise, Transfers Treatment Duration: Nov 30, 2016 Frequency: Twice Daily Estimated Hrs Per Day: .25 hour per day Patient and/or Family Agrees t: Yes Safety Risks/Education Patient Education: Gait Training, Safety Issues Teaching Recipient: Patient Teaching Methods: Demonstration, Discussion Discharge Recommendations Therapy D/C Recommendations: Acute Rehab, Residential (TCU/NH) Time/GCodes Time In: 1215 Time Out: 1245 Total Billed Treatment Time: 30 Total Billed Treatment visit, eval high complexity 30 minutes G Codes Necessary: No ANUPAMA JIMENEZ PT Nov 25, 2016 14:19
[2016-11-25] MEDS: ACETAMINOPHEN 500 MG TAB (TYLENOL) PO PRN ×2 (15:42→23:52)
[2016-11-25 17:40] VITALS: BP 99/46
[2016-11-25 19:35] VITALS: BP 110/55
[2016-11-25] MEDS: busPIRone 5 MG (BUSPAR) TAB PO SCH (21:32)
[2016-11-25] MEDS: ATORVASTATIN 40 MG (LIPITOR) TABLET PO SCH (21:32)
[2016-11-26] VITALS (7 sets, daily range): BP systolic 95–121; BP diastolic 49–70
[2016-11-26 05:14] LABS: MEAN PLATELET VOLUME 10.4 FL (7.4-10.4); RED BLOOD COUNT 3.03 10^6/uL (4.35-5.85); RED CELL DISTRIBUTION WIDTH 14.8 % (10.0-14.5); WHITE BLOOD COUNT 5.2 10^3/uL (4.3-11.0)
[2016-11-26 05:33] LABS: CALCIUM 8.1 MG/DL (8.5-10.1); CREATININE SERUM 1.28 MG/DL (0.60-1.30); POTASSIUM 3.9 MMOL/L (3.6-5.0)
[2016-11-26] MEDS: PANTOPRAZOLE 40 MG (PROTONIX) TAB PO SCH (06:22)
--- NOTE | 2016-11-26 08:55 | Progress Note (SOAP) ---
Subjective Date Seen by Provider: Nov 26, 2016 Time Seen by Provider: 09:00 Subjective/Events-last exam PT REPORTS THAT SHE IS FEELING BETTER TODAY. SHE STATES THAT SHE HAS NOT HAD A BOWEL MOVEMENT AND WOULD LIKE SOMETHING TO HELP HER HAVE A BOWEL MOVEMENT TODAY. SHE ALSO COMPLAINS OF PAIN ON HER RIGHT FOOT ON THE TOP DUE TO A BLISTER. Review of Systems General: No Chills HEENT: No Head Aches Pulmonary: No Dyspnea, No Cough Cardiovascular: Edema, No: Chest Pain Gastrointestinal: Constipation, No: Nausea Genitourinary: No Dysuria Musculoskeletal: leg pain (ON RIGHT) Neurological: Weakness, No: Confusion Objective Exam Vital Signs Date Time Temp Pulse Resp B/P (MAP) Pulse Ox O2 Delivery O2 Flow Rate FiO2 11/26/16 04:10 97.8 74 22 95/56 96 Nasal Cannula 2.00 11/26/16 01:00 85 11/25/16 23:50 Nasal Cannula 2.00 11/25/16 19:35 98.8 83 18 110/55 97 Nasal Cannula 2.00 11/25/16 19:01 86 11/25/16 17:40 97.6 88 18 99/46 97 Nasal Cannula 2.00 11/25/16 14:53 Nasal Cannula 2.00 11/25/16 12:00 97.7 85 22 105/50 98 Nasal Cannula 2.00 11/25/16 09:00 Nasal Cannula 2.00 Capillary Refill : Less Than 3 Seconds General Appearance: No Apparent Distress, WD/WN HEENT: PERRL/EOMI Neck: Full Range of Motion, Supple Respiratory: Chest Non Tender, Lungs Clear, Normal Breath Sounds Cardiovascular: Regular Rate, Rhythm Gastrointestinal: normal bowel sounds, non tender, soft Extremity: Pedal Edema (BILATERAL LOWER LEGS - WITH A BLISTER ON DORSUM OF FOOT ON RIGHT) Neurologic/Psychiatric: Alert, Oriented x3, No Motor/Sensory Deficits, Normal Mood/Affect Skin: Erythema, Other (BLISTER ON DORSUM OF FOOT ON RIGHT) Lymphatic: No Adenopathy Results Lab Laboratory Tests 11/26/16 03:55: White Blood Count 5.2, Red Blood Count 3.03L, Hemoglobin 8.9L, Hematocrit 30L, Mean Corpuscular Volume 98, Mean Corpuscular Hemoglobin 29, Mean Corpuscular Hemoglobin Concent 30L, Red Cell Distribution Width 14.8H, Platelet Count 191, Mean Platelet Volume 10.4, Sodium Level 142, Potassium Level 3.9, Chloride Level 102, Carbon Dioxide Level 29, Anion Gap 11, Blood Urea Nitrogen 37H, Creatinine 1.28, Estimat Glomerular Filtration Rate 39, BUN/Creatinine Ratio 29 , Glucose Level 91, Calcium Level 8.1L, Magnesium Level 2.0 Microbiology 11/24/16 Urine Culture - Final, Complete Klebsiella Pneumoniae Assessment/Plan Assessment/Plan Assess & Plan/Chief Complaint ACUTE ON CHRONIC SYSTOLIC CONGESTIVE HEART FAILURE URINARY TRACT INFECTION ACUTE ON CHRONIC RESPIRATORY DISTRESS CORONARY ARTERY DISEASE ARF HYPERTENSION CHRONIC PAIN SYNDROME PAROXYSMAL ATRIAL FIBRILLATION CHRONIC ANEMIA - DUE TO CHRONIC DISEASE, RENAL INSUFFICIENCY RIGHT LEG CELLULITIS BLISTER ON DORSUM OF FOOT ON RIGHT HYPERLIPIDEMIA ACUTE ON CHRONIC SYSTOLIC CONGESTIVE HEART FAILURE - DIURESIS WITH LASIX - MONITOR SYMPTOMS- CONTINUE WITH CURRENT THERAPY SINCE LASIX IS IMPROVING HER SYMPTOMS. - SERIAL BNP'S. URINARY TRACT INFECTION - KLEBSIELLA PNEUMONIAE - ON ROCEPHIN, CONTINUE WITH TREATMENT. ACUTE ON CHRONIC RESPIRATORY DISTRESS - IMPROVED WITH LASIX CORONARY ARTERY DISEASE - RECENT CABG - ECHO SHOWED EF OF 30-35% - SUPPORTIVE CARE - BNP IS IMPROVED. ARF - IMPROVING - CONTINUE TO MONITOR WHILE PT IS ON LASIX HYPERTENSION - ON LISINOPRIL CHRONIC PAIN SYNDROME - MONITOR SYMPTOMS PAROXYSMAL ATRIAL FIBRILLATION - ON ELIQUIS, ASPIRIN, RATE CONTROLLED CHRONIC ANEMIA - DUE TO CHRONIC DISEASE, RENAL INSUFFICIENCY - MONITOR H AND H RIGHT LEG CELLULITIS - ON ROCEPHIN BLISTER ON DORSUM OF FOOT ON RIGHT - SUPPORTIVE CARE HYPERLIPIDEMIA - ON STATIN THERAPY, CONTINUE WITH TREATMENT. DVT PROPHYLAXIS - ON ELIQUIS AND ASPIRIN - NO SCD'S DUE TO CELLULITIS GI PROPHYLAXIS - Clinical Quality Measures DVT/VTE Risk/Contraindication: Risk Factor Score Per Nursin RFS Level Per Nursing on Admit: 4+=Very High NEISHA ORLANDO MD Nov 26, 2016 08:54
[2016-11-26] MEDS: AMIODARONE 200 MG (CORDARONE) TAB PO SCH (09:23)
[2016-11-26] MEDS: FUROSEMIDE 40 MG/4 ML INJ (LASIX) IV SCH ×2 (09:23→21:57)
[2016-11-26] MEDS: APIXABAN 2.5 MG (ELIQUIS) TABLET PO SCH ×2 (09:24→21:56)
[2016-11-26] MEDS: lisINopril 5 MG (PRINIVIL) TABLET PO SCH (09:24)
[2016-11-26] MEDS: cefTRIAXone INJECTION 1,000 MG in NS (IVPB) 50 ML IV SCH (09:24)
[2016-11-26] MEDS: LACTOBACILLUS Acidoph/Bulgar (LACTINEX/FLORANEX) TAB PO SCH ×2 (09:24→21:56)
[2016-11-26] MEDS: OMEGA 3 (FISH OIL) 1000 MG CAP PO SCH (09:24)
--- NOTE | 2016-11-26 09:50 | Cardiology Progress Note ---
Subjective Date Seen by Provider: Nov 26, 2016 Time Seen by Provider: 09:48 Subjective/Events-last exam patient is laying down in bed, still having mild dyspnea but overall reporting improvement. Denied any chest pain. Denied any palpitation. Review of Systems General: No Chills, No Night Sweats, No Fatigue, No Malaise, No Appetite, No Other HEENT: No Head Aches, No Visual Changes, No Eye Pain, No Ear Pain, No Dysphasia , No Sinus Congestion, No Post Nasal Drip, No Sore Throat, No Other Pulmonary: Dyspnea, No Cough, No Pleuritic Chest Pain, No Other Cardiovascular: No: Chest Pain, Palpitations, Orthopnea, Paroxysmal Noc. Dyspnea, Edema, Lt Headedness, Other Objective-Cardiology Exam Last Set of Vital Signs Vital Signs 11/24/16 11/26/16 00:30 08:00 Temp 98.8 Pulse 89 Resp 18 B/P (MAP) 118/55 Pulse Ox 99 O2 Delivery Nasal Cannula O2 Flow Rate 2.00 FiO2 100 Capillary Refill : Less Than 3 Seconds I&O Intake and Output 11/27/16 00:00 Intake Total 200 ml Output Total 600 ml Balance -400 ml Intake Oral 200 ml Output Urine Total 600 ml General: Alert, Oriented X3, Cooperative HEENT: Atraumatic, PERRLA Neck: Supple, No JVD, No Thyromegaly Lungs: Normal Air Movement, Other (diminished breathing sounds, with rales at the bases) Heart: Regular Rate, Normal S1, Normal S2, No Murmurs Abdomen: Normal Bowel Sounds, Soft, No Tenderness, No Hepatosplenomegaly, No Masses Extremities: No Clubbing, No Cyanosis, Normal Pulses, No Tenderness/Swelling, Other (mild pedal edema) Skin: No Rashes, No Significant Lesion, Other (blister on the right ankle) Neuro: Normal Speech, Normal Tone, Sensation Intact Psych/Mental Status: Mental Status NL, Mood NL Results Lab Laboratory Tests 11/26/16 03:55 A/P-Cardiology Admission Diagnosis Shortness of breath Congestive heart failure Acute renal insufficiency Coronary artery disease Assessment/Plan Shortness of breath, pulmonary edema, reporting improvement, chest x-ray showed moderate to large right-sided pleural effusion, I will continue diuretics, repeat chest x-ray PA and lateral in the morning. Congestive heart failure, acute on chronic left ventricular systolic dysfunction , ischemic cardiomyopathy, peripheral edema, ejection fraction 30-35 percent per echocardiogram done earlier this month, continue with diuretics and monitor. Paroxysmal atrial fibrillation, converted to sinus rhythm, mainly postoperatively, continue on amiodarone 200 mg daily and monitor [id number] score of 7, yearly risk of stroke without oral anticoagulation is 9.6 percent, tolerating Eliquis 2.5 mg twice daily well, anemia is stable. Continue to monitor Coronary artery disease, had acute ST elevation myocardial infarction at [facility] required CABG 3, continue to monitor Acute renal insufficiency, creatinine level improved, continue to monitor Hyperlipidemia, continue on Lipitor 40 mg and monitor. Hypertension, was hypotensive on Cardizem, tolerating current medication. Continue to monitor BP/HR Diabetes mellitus, patient was on insulin drip at [facility], management per PCP. Clinical Quality Measures DVT/VTE Risk/Contraindication: Risk Factor Score Per Nursin RFS Level Per Nursing on Admit: 4+=Very High CAROL DUDLEY MD Nov 26, 2016 09:50
[2016-11-26] MEDS ORDERED: BISACODYL 10 MG SUPP (DULCOLAX) PR ONE (10:15)
[2016-11-26] MEDS ORDERED: BISACODYL 10 MG SUPP (DULCOLAX) PR PRN (10:15)
[2016-11-26] MEDS: ATORVASTATIN 40 MG (LIPITOR) TABLET PO SCH (21:56)
[2016-11-26] MEDS: busPIRone 5 MG (BUSPAR) TAB PO SCH (21:56)
[2016-11-27 03:45] VITALS: BP 104/54
[2016-11-27 06:30] LABS: CALCIUM 8.2 MG/DL (8.5-10.1); CREATININE SERUM 1.25 MG/DL (0.60-1.30); POTASSIUM 3.6 MMOL/L (3.6-5.0)
[2016-11-27] MEDS: PANTOPRAZOLE 40 MG (PROTONIX) TAB PO SCH (06:41)
[2016-11-27 08:02] VITALS: BP 110/74
--- NOTE | 2016-11-27 08:28 | Cardiology Progress Note ---
Subjective Time Seen by Provider: 08:10 Subjective/Events-last exam Patient is sitting up in chair, eating breakfast. Reports dyspnea has improved. Denies any CP or dizziness. Review of Systems General: No Night Sweats, No Fatigue, No Malaise HEENT: No Visual Changes, No Dysphasia, No Sore Throat Pulmonary: No Dyspnea, No Cough Cardiovascular: Orthopnea, Edema, No: Chest Pain, Palpitations, Paroxysmal Noc. Dyspnea Gastrointestinal: No: Nausea, Vomiting, Abdominal Pain Genitourinary: No Dysuria, No Frequency Musculoskeletal: No: neck pain, back pain Neurological: No: Weakness, Numbness, Change in speech, Confusion Objective-Cardiology Exam Last Set of Vital Signs Vital Signs 11/24/16 11/27/16 00:30 03:45 Temp 98.1 Pulse 89 Resp 20 B/P (MAP) 104/54 Pulse Ox 97 O2 Delivery Nasal Cannula O2 Flow Rate 2.00 FiO2 100 Capillary Refill : Less Than 3 Seconds I&O Intake and Output 11/28/16 00:00 Intake Total 300 ml Output Total 450 ml Balance -150 ml Intake Oral 300 ml Output Urine Total 450 ml General: Alert, Oriented X3, Cooperative HEENT: Atraumatic, PERRLA Neck: Supple, No JVD, No Thyromegaly Lungs: Normal Air Movement, Other (diminished breathing sounds, with rales at the bases) Heart: Regular Rate, Normal S1, Normal S2, No Murmurs Abdomen: Normal Bowel Sounds, Soft, No Tenderness, No Hepatosplenomegaly, No Masses Extremities: No Clubbing, No Cyanosis, Normal Pulses, No Tenderness/Swelling, Other (mild pedal edema) Skin: No Rashes, No Significant Lesion, Other (blister on the right dorsal foot ) Neuro: Normal Speech, Normal Tone, Sensation Intact Psych/Mental Status: Mental Status NL, Mood NL Results Lab Laboratory Tests 11/27/16 06:00 A/P-Cardiology Admission Diagnosis Shortness of breath Congestive heart failure Acute renal insufficiency Coronary artery disease Assessment/Plan Shortness of breath, pulmonary edema, reporting improvement, chest x-ray showed moderate to large right-sided pleural effusion, continue diuretics, repeat chest x-ray PA and lateral this morning. Congestive heart failure, acute on chronic left ventricular systolic dysfunction , ischemic cardiomyopathy, peripheral edema, ejection fraction 30-35 percent per echocardiogram done earlier this month, continue with diuretics and monitor. Maintained on lisinopril. Lopressor currently on hold secondary to hypotension. I will restart Lopressor 12.5mg BID with parameters. Continue to monitor. Paroxysmal atrial fibrillation, converted to sinus rhythm, mainly postoperatively, continue on amiodarone 200 mg daily and monitor [id number] score of 7, yearly risk of stroke without oral anticoagulation is 9.6 percent, tolerating Eliquis 2.5 mg twice daily well, anemia is stable. Continue to monitor Coronary artery disease, had acute ST elevation myocardial infarction at [facility] required CABG 3, continue to monitor Acute renal insufficiency, creatinine level improved, continue to monitor Hyperlipidemia, continue on Lipitor 40 mg and monitor. Hypertension, was hypotensive on Cardizem, tolerating current medication. Restart Lopressor and continue to monitor. Diabetes mellitus, patient was on insulin drip at [facility], management per PCP. Clinical Quality Measures DVT/VTE Risk/Contraindication: Risk Factor Score Per Nursin RFS Level Per Nursing on Admit: 4+=Very High SERENA LEE Nov 27, 2016 08:28
[2016-11-27] MEDS: FUROSEMIDE 40 MG/4 ML INJ (LASIX) IV SCH (08:57)
[2016-11-27] MEDS: LACTOBACILLUS Acidoph/Bulgar (LACTINEX/FLORANEX) TAB PO SCH (08:57)
[2016-11-27] MEDS: cefTRIAXone INJECTION 1,000 MG in NS (IVPB) 50 ML IV SCH (08:57)
[2016-11-27] MEDS: OMEGA 3 (FISH OIL) 1000 MG CAP PO SCH (08:58)
[2016-11-27] MEDS: AMIODARONE 200 MG (CORDARONE) TAB PO SCH (08:58)
[2016-11-27] MEDS: lisINopril 5 MG (PRINIVIL) TABLET PO SCH (08:58)
[2016-11-27] MEDS: APIXABAN 2.5 MG (ELIQUIS) TABLET PO SCH (08:58)
--- NOTE | 2016-11-27 09:09 | Diagnostic Imaging Report ---
INDICATION: Dyspnea. CHF. COMPARISON: 11/25/2016 FINDINGS: Single frontal and lateral radiographic views of the chest were obtained and again demonstrate bilateral effusions, right greater than left. Effusion on the right may be slightly improved. There is suggestion of a 3.4 x 3.7 cm masslike opacity in the lateral right midlung field. Rounded atelectasis is favored, as corresponding opacity is not identified on recent exams. No pneumothorax is seen on either side. Cardiac silhouette is partially obscured, but does appear to be stable. Pulmonary vasculature is slightly prominent. Sternotomy wires are noted. Osseous structures are stable. IMPRESSION: 1. Perhaps slight improvement of right-sided pleural effusion. 2. Persistent bibasilar effusions, right greater than left. 3. Probable rounded atelectasis in the lateral right midlung. Round pneumonia cannot be excluded. Mass is felt to be less likely. Continued followup to resolution is recommended. Dictated by: Dictated on workstation # [id number]
--- NOTE | 2016-11-27 09:26 | Cardiology Progress Note ---
Subjective Date Seen by Provider: Nov 27, 2016 Time Seen by Provider: 09:23 Subjective/Events-last exam Patient is in bed, feeling better, BNP is worse, no chest pain, still co fatigue Review of Systems General: No Chills, No Night Sweats, Fatigue, Malaise, No Appetite, No Other HEENT: No Head Aches, No Visual Changes, No Eye Pain, No Ear Pain, No Dysphasia , No Sinus Congestion, No Post Nasal Drip, No Sore Throat, No Other Pulmonary: Dyspnea, Cough, No Pleuritic Chest Pain, No Other Cardiovascular: No: Chest Pain, Palpitations, Orthopnea, Paroxysmal Noc. Dyspnea, Edema, Lt Headedness, Other Objective-Cardiology Exam Last Set of Vital Signs Vital Signs 11/24/16 11/27/16 00:30 03:45 Temp 98.1 Pulse 89 Resp 20 B/P (MAP) 104/54 Pulse Ox 97 O2 Delivery Nasal Cannula O2 Flow Rate 2.00 FiO2 100 Capillary Refill : Less Than 3 Seconds I&O Intake and Output 11/28/16 00:00 Intake Total 300 ml Output Total 450 ml Balance -150 ml Intake Oral 300 ml Output Urine Total 450 ml General: Alert, Oriented X3, Cooperative HEENT: Atraumatic, PERRLA Neck: Supple, No JVD, No Thyromegaly Lungs: Normal Air Movement, Other (diminished breathing sounds, with rales at the bases) Heart: Regular Rate, Normal S1, Normal S2, No Murmurs Abdomen: Normal Bowel Sounds, Soft, No Tenderness, No Hepatosplenomegaly, No Masses Extremities: No Clubbing, No Cyanosis, Normal Pulses, No Tenderness/Swelling, Other (mild pedal edema) Skin: No Rashes, No Significant Lesion, Other (blister on the right dorsal foot ) Neuro: Normal Speech, Normal Tone, Sensation Intact Psych/Mental Status: Mental Status NL, Mood NL Results Lab Laboratory Tests 11/27/16 06:00 A/P-Cardiology Admission Diagnosis Shortness of breath Congestive heart failure Acute renal insufficiency Coronary artery disease Assessment/Plan Shortness of breath, pulmonary edema, reporting improvement, chest x-ray showed moderate to large right-sided pleural effusion, continue diuretics, repeat chest x-ray showed persistent pleural effusion, suspicious area on the right middle lobe, awaiting official radiology report. Consider pulmonary consultation. Congestive heart failure, acute on chronic left ventricular systolic dysfunction , ischemic cardiomyopathy, peripheral edema, ejection fraction 30-35 percent per echocardiogram done earlier this month, continue with diuretics and monitor. Maintained on lisinopril. I will increase Lasix to 40 mg twice a day and monitor BNP. Lopressor currently on hold secondary to hypotension. I will restart Lopressor 6.25mg BID with parameters, continue to monitor blood pressure closely Paroxysmal atrial fibrillation, converted to sinus rhythm, mainly postoperatively, continue on amiodarone 200 mg daily and monitor [id number] score of 7, yearly risk of stroke without oral anticoagulation is 9.6 percent, tolerating Eliquis 2.5 mg twice daily well, anemia is stable. Continue to monitor Coronary artery disease, had acute ST elevation myocardial infarction at [facility] required CABG 3, continue to monitor Acute renal insufficiency, creatinine level improved, continue to monitor Hyperlipidemia, continue on Lipitor 40 mg and monitor. Hypertension, was hypotensive on Cardizem, tolerating current medication. Restart Lopressor and continue to monitor. Diabetes mellitus, patient was on insulin drip at [facility], management per PCP. Clinical Quality Measures DVT/VTE Risk/Contraindication: Risk Factor Score Per Nursin RFS Level Per Nursing on Admit: 4+=Very High CAROL DUDLEY MD Nov 27, 2016 09:26
[2016-11-27] MEDS ORDERED: CEFDINIR 300 MG (OMNICEF) CAP PO SCH (09:30)
--- NOTE | 2016-11-27 09:33 | Pulmonary Consultation ---
History of Present Illness History of Present Illness Date of Consultation 11/27/16 09:31 Date of Admission Reason for Visit: shortness of breath Allergies and Home Medications Allergies Coded Allergies: No Known Drug Allergies (Unverified , 11/10/16) Home Medications Acetaminophen 500 Mg Tablet, 500 MG PO Q8H PRN for PAIN-MILD, (Reported) Amiodarone HCl 200 Mg Tablet, 200 MG PO DAILY, (Reported) Apixaban 2.5 Mg Tablet, 2.5 MG PO BID for 30 Days, (Reported) START DATE 11-14-16 STOP DATE 12-17-16 Aspirin 81 Mg Tablet.dr, 81 MG PO DAILY, (Reported) Atorvastatin Calcium 40 Mg Tablet, 40 MG PO HS, (Reported) Buspirone HCl 5 Mg Tablet, 5 MG PO HS, (Reported) Furosemide 40 Mg Tablet, 40 MG PO DAILY, (Reported) Furosemide 40 Mg Tablet, 40 MG PO DAILY PRN for SWELLING/SOB, (Reported) 1 TABLET MAY BE TAKING IN ADDITION TO DAILY SCHEDULED DOSE NEEDED FOR INCREASED SWELLING AND SOB. Hydrocodone/Acetaminophen 1 Each Tablet, 1 TAB PO Q8H PRN for PAIN-MODERATE, ( Reported) Lisinopril 2.5 Mg Tablet, 2.5 MG PO DAILY, (Reported) Metoprolol Tartrate 25 Mg Tablet, 12.5 MG PO BID, (Reported) TAKES 1/2 (25MG) TABLET Multivitamin with Minerals 1 Each Tablet, 1 TAB PO DAILY, (Reported) Nitrofurantoin Macrocrystal 100 Mg Capsule, 100 MG PO BID for 7 Days, (Reported) 7 DAY THERAPY START DATE 11-18-16 END DATE 11-25-16 Starlight 3 Polyunsat Fatty Acids 1,000 Mg Cap, 1,000 MG PO DAILY, (Reported) Past [id number] Hx Patient Social History Alcohol Use: Denies Use Recreational Drug Use: No Smoking Status: Never a Smoker 2nd Hand Smoke Exposure: No Recent Foreign Travel: No Contact w/Someone Who Travel: No Recent Infectious Disease Expo: No Recent Hopitalizations: Yes Physical Abuse: No Sexual Abuse: No Immunizations Up To Date PED Vaccines UTD: No Seasonal Allergies Seasonal Allergies: No Surgeries History of Surgeries: Yes Surgeries: Breast, Cardiac, CABG Respiratory History of Respiratory Disorde: No Cardiovascular History of Cardiac Disorders: Yes Cardiac Disorders: Atrial Fibrillation, Coronary Artery Disease, Heart Attack, Hypertension Neurological History of Neurological Disord: No Genitourinary History of Genitourinary Disor: No Gastrointestinal History of Gastrointestinal Di: No Musculoskeletal History of Musculoskeletal Dis: No Endocrine History of Endocrine Disorders: No HEENT History of HEENT Disorders: Yes Loss of Vision: Denies Hearing Impairment: Hard of Hearing Cancer History of Cancer: No Cancer: Breast Did You Recieve Any Treatments: Yes Type of Tx Receive: Surgical Intervention Psychosocial History of Psychiatric Problem: No Suicide Risk Score: 0 Integumentary History of Skin or Integumenta: No Blood Transfusions History of Blood Disorders: No Adverse Reaction to a Blood Tr: No Family Medical History Family Medial History: Patient reports no known family medical history. Exam Exam Vital Signs Date Time Temp Pulse Resp B/P (MAP) Pulse Ox O2 Delivery O2 Flow Rate FiO2 11/27/16 03:45 98.1 89 20 104/54 97 Nasal Cannula 2.00 11/27/16 01:00 91 11/26/16 23:25 98.7 86 18 101/49 99 Nasal Cannula 2.00 11/26/16 20:20 Nasal Cannula 2.00 11/26/16 19:43 98.5 88 18 112/66 95 Nasal Cannula 2.00 11/26/16 19:00 85 11/26/16 16:00 98.0 85 20 120/64 92 Nasal Cannula 2.00 11/26/16 14:37 Nasal Cannula 2.00 11/26/16 12:00 97.8 90 20 121/70 Nasal Cannula 2.00 General Appearance: No Apparent Distress, WD/WN HEENT: PERRL/EOMI Neck: Full Range of Motion, Supple Respiratory: Chest Non Tender, Lungs Clear, Normal Breath Sounds Cardiovascular: Regular Rate, Rhythm Capillary Refill: Less Than 3 Seconds Gastrointestinal: normal bowel sounds, non tender, soft Extremity: Pedal Edema (BILATERAL LOWER LEGS - WITH A BLISTER ON DORSUM OF FOOT ON RIGHT) Neurologic/Psychiatric: Alert, Oriented x3, No Motor/Sensory Deficits, Normal Mood/Affect Skin: Erythema, Other (BLISTER ON DORSUM OF FOOT ON RIGHT) Lymphatic: No Adenopathy Results Lab Laboratory Tests 11/26/16 03:55 11/27/16 06:00 Assessment/Plan Assessment/Plan CHF with pulmonary edema and pleural effusion R>L -CXR and labs reviewed -Continue and increase lasix SOB Paroxysmal Afib SUSHANT - monitor Clinical Quality Measures DVT/VTE Risk/Contraindication: Risk Factor Score Per Nursin RFS Level Per Nursing on Admit: 4+=Very High JACQUELINE AMBROCIO DO Nov 27, 2016 09:33
[2016-11-27] MEDS ORDERED: FUROSEMIDE 40 MG (LASIX) TAB PO SCH (10:30)
--- NOTE | 2016-11-27 10:57 | Physical Therapy Daily Note ---
PT Daily Note-Current Subjective Patient agrees to PT. Patient continues to c/o fatigue. Pain Numeric Pain Scale: 5-Moderate Pain Location: Soft Tissue Location Body Site: Sacrum Pain Description: Pressure Mental Status Patient Orientation: Normal For Age Attachments: Oxygen (2L) Transfers Functional [place] Measure 0=Not Assessed/NA 4=Minimal Assistance 1=Total Assistance 5=Supervision or Setup 2=Maximal Assistance 6=Modified [place] 3=Moderate Assistance 7=Complete IndependenceIRFPAI Quality Coding Scale 6 Independent with activity with or without an assistive device 5 Patient requires set up or clean up by helper. Patient completes activity by themselves 4 Supervision or touching assist (CGA). [place] provide cues , steadying assist 3 The helper provides less than half the effort to complete the activity 2 The helper provides more than half the effort to complete the activity 1 Dependent. The helper does all the effort to complete an activity 7 Patient refused to complete or attempt activity 9 The patient did not perform the activity before the current illness or injury 88 Not attempted due to Medical conditions or safety concerns Transfers (B, C, W/C) (FIM): 3 Scootin Rollin Supine to/from Sit: 3 Sit to/from Stand: 4 Bed to/from Chair: 4 patient required assistance due to weakness. Gait Training Gait (FIM): 2 Distance (FIM): 9=031-15 ft Distance: 100' Gait Level of Assist: 4 Gait Persons Needed: 1 Gait Assistive Device: FWW kyphotic posture with FWW use; slow gait sequence with 1 episode of LOB with assist to correct Exercises Supine Ex: Ankle pumps, Quad Set, Heel Slides, Straight leg raise Supine Reps: 20 (recovery periods between exercises due to increase SOA) Seated Therapy Exercises: Long arc quads Seated Reps: 20 Assessment Patient requires time to complete all functional tasks due to weakness and SOA. Patient will benefit from continued therapy to address needs. PT Assisted Goals Inspector Casing Goals PT Inspector Casing Goals Time Frame: Nov 30, 2016 Transfers (B,C,W/C) (FIM): 5 Gait (FIM): 4 Gait distance (FIM): 3=150 ft Distance: 150 Gait Level of Assist: 4 Gait Assistive Device: FWW PT Plan Treatment/Plan Treatment Plan: Continue Plan of Care Treatment Plan: Bed Mobility, Functional Activity Florinda, Functional Strength, Gait, Therapeutic Exercise, Transfers Treatment Duration: Nov 30, 2016 Frequency: Twice Daily Estimated Hrs Per Day: .25 hour per day Patient and/or Family Agrees t: Yes Time/GCodes Time In: 1025 Time Out: 1050 Total Billed Treatment Time: 25 Total Billed Treatment 1 visit EX 15 min GT 10 min ROX KAYE PT Nov 27, 2016 10:57
[2016-11-27 12:00] VITALS: BP 108/65
[2016-11-27] MEDS ORDERED: CEFD300C3 PO (13:50)
[2016-11-27] MEDS ORDERED: LISI-556 PO (13:50)
[2016-11-27] MEDS ORDERED: FURO10VI IV (13:50)
--- NOTE | 2016-11-27 13:53 | Discharge Inst-Simple/Standard ---
Discharge Inst-Standard Discharge Medications New, Converted or Re-Newed RX: RX on Chart Patient Instructions/Follow Up Plan of Care/Instructions/FU: Transfer to second Floor Inpatient Rehab Unit -pt to complete cefdinir for her Klebsiella UTI -increased lasix to 40mg IV BID Activity as Tolerated: Yes Discharge Diet: Cardiac Diet BELKYS CUI MD Nov 27, 2016 13:53
[2016-11-27 14:17] VITALS: BP 108/65
[2016-11-27] MEDS ORDERED: FURO40TA4 PO (15:33)
[2016-11-27] MEDS ORDERED: LISI2.5T PO (15:33)
[2016-11-27] MEDS ORDERED: FUROSEMIDE 40 MG/4 ML INJ (LASIX) IV SCH (21:00)
--- NOTE | 2016-11-28 14:37 | Discharge Summary ---
Diagnosis/Chief Complaint Date of Admission Nov 24, 2016 at 03:00 Date of Discharge Nov 27, 2016 at 14:05 Admission Diagnosis Admission Diagnosis Acute on chronic systolic congestive heart failure- acute on chronic respiratory distress- CAD- Acute kidney failure HTN- chronic pain other hyperlipidemia- Chronic Anemia- Right lower leg cellulitis- Paroxysmal Atrial fibrillation - Discharge Diagnosis Acute on chronic systolic congestive heart failure- urinary tract infection without hematuria- due to klebsiella. acute on chronic respiratory distress- CAD- Acute kidney failure HTN- chronic pain other hyperlipidemia- Chronic Anemia- Right lower leg cellulitis- Paroxysmal Atrial fibrillation - Right pleural effusion Reason Hospital Visit 89 yo F admitted for congestive heart failure exacerbation- onset: yesterday per nursing staff at [facility]- pt reports her breathing has been an issue for the last week and she has not ate as much. She feels weak. She denies any fevers. She thinks she has been more anxious at [facility] and I started her on buspar but she does not think it is helping much. She is on 3L oxygen- her baseline oxygen need is 2L. Pt is status post 3v CABG 11/03/2016; denies chest pain. Pt also reports a blister on her right lower foot. Discharge Summary Hospital Course Hospital Course 89 yo F admitted for Acute on chronic systolic congestive heart failure- diuresed with lasix- Dr. Gomez consulted; BNP improved urinary tract infection without hematuria- due to klebsiella was treated with rocephin and transitioned to po cefdinir. As for her acute on chronic respiratory distress- on 3L oxygen , baseline 2L - due to CHF,CXR pleural effusion right worse than left - Her oxygen requirement was stable. She also has CAD- s/p 3v CABG [facility] --> LAD, saphenous vein graft aorta to 1st obtuse marginal, posterior descending artery 11/03/16 ECHO prior to CABG and 2 weeks ago- LVEF 30-35% Acute kidney failure- resolved with fluid rehydration HTN- normotensive ,continued on lisinopril 2.5mg Chronic Anemia- due to multiple co-morbidities- monitor hgb- stable Right lower leg cellulitis- cover with rocephin- now on cefdinir. Paroxysmal Atrial fibrillation - occurred status post CABG - continue eliquis, asa- Normal sinus rhythm during this hospitalization. Dr. Mckeon was consulted for recommendation on her right pleural effusion. [facility]/27/16- as she is declining from a physical standpoint of not rehabilitating status post the CABG. She will benefit a great deal from the 3hour of therapy. It will be difficult task but worth the effort. Patient agreeable. She may return to [facility] on discharge or assisted living vs home with her daughter. DVT ppx: on eliquis, aspirin Labs Laboratory Tests 11/26/16 03:55: Red Blood Count 3.03L, Hemoglobin 8.9L, Hematocrit 30L, Mean Corpuscular Hemoglobin Concent 30L, Red Cell Distribution Width 14.8H, Blood Urea Nitrogen 37H, Calcium Level 8.1L, B-Type Natriuretic Peptide 824.8H 11/27/16 06:00: Blood Urea Nitrogen 31H, Calcium Level 8.2L, B-Type Natriuretic Peptide 1075.2H Procedures None. Consultations Dr. Patricia Mckeon Discharge Physical Examination Allergies: Coded Allergies: No Known Drug Allergies (Unverified , 11/27/16) Vitals & I&Os Vital Signs Date Time Temp Pulse Resp B/P (MAP) Pulse Ox O2 Delivery O2 Flow Rate FiO2 11/27/16 14:17 67 18 108/65 93 Nasal Cannula 2.00 100 11/27/16 12:00 96.4 General Appearance: Alert, Oriented X3, Cooperative HEENT: Atraumatic, PERRLA Respiratory: Clear to Auscultation Cardiovascular: Regular Rate Abdominal: Normal Bowel Sounds, Soft Psych/Mental Status: Mental Status NL, Mood NL Discharge Home Medications Reviewed and agree with Discharge Medication list on patient's Discharge Instruction sheet Condition at Discharge improved Instructions to Patient/Family Please see electronic discharge instructions given to patient- Pt transferred to inpatient Rehab Clinical Quality Measures DVT/VTE Risk/Contraindication: Risk Factor Score Per Nursin RFS Level Per Nursing on Admit: 4+=Very High BELKYS CUI MD Nov 28, 2016 2:37 pm
== END 2016-11-27 14:05 | DRG 291 ==
LOC: EDUNIT# → ER 00:02 → 4TH 03:00
PROVIDERS: ADMIT Family Medicine; ATTEND Family Medicine
DX: I11.0 Hypertensive heart disease with heart failure (principal); I50.23 Acute on chronic systolic (congestive) heart failure; N17.9 Acute kidney failure, unspecified; L89.153 Pressure ulcer of sacral region, stage 3; L03.116 Cellulitis of left lower limb; N39.0 Urinary tract infection, site not specified; I25.10 Atherosclerotic heart disease of native coronary artery without angina pectoris; E78.5 Hyperlipidemia, unspecified; Z66 Do not resuscitate; D64.9 Anemia, unspecified; I48.0 Paroxysmal atrial fibrillation; I25.2 Old myocardial infarction; H91.90 Unspecified hearing loss, unspecified ear; G89.29 Other chronic pain; B96.1 Klebsiella pneumoniae [K. pneumoniae] as the cause of diseases classified elsewhere; Z95.1 Presence of aortocoronary bypass graft; Z85.3 Personal history of malignant neoplasm of breast
CPT/HCPCS: 36415; 71010; 71020; 80048; 80053; 81000; 83605; 83735; 83880; 84100; 84484; 85025; 85027; 85610; 85730; 86141; 87088; 87186; 93005; 93041; 96374

== ENCOUNTER 2016-11-27 10:58 | Inpatient (IN) | payer MEDICARE, BC ==
[~2016-11-27] VITALS: Ht 172.7 cm; Wt 63.0 kg
[~2016-11-27 10:58] MED LIST changes: +ACET-2267 PO; +BUSP5TAB59 PO; +FURO40TA4 PO; +HYDR-3812 PO; +LISI2.5T PO; +MULT-166 PO; +NITR-68 PO
[2016-11-27] MEDS ORDERED: CEFD300C3 PO (13:50)
[2016-11-27] MEDS ORDERED: FURO10VI IV (13:50)
[2016-11-27] MEDS ORDERED: LISI-556 PO (13:50)
[2016-11-27 14:10] VITALS: BP 109/67
--- NOTE | 2016-11-27 15:23 | Physical Therapy Evaluation ---
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 She was transferred to ARU for aggressive therapy services Reviewed History: Yes Social History Pt has most recently been living at [facility]. Prior to that, she was home alone living in [place]. She was planning to move to [place] to be closer to her daughter when she had the [place] and subsequent CABG. She was at [facility] receiving skilled PT intervention. Prior/Core FIM Prior Level of Function Functional [place] Measure 0=Not Assessed/NA 4=Minimal Assistance 1=Total Assistance 5=Supervision or Setup 2=Maximal Assistance 6=Modified [place] 3=Moderate Assistance 7=Complete [place] Prior to the [place] and CABG, she was indep with self care and mobility. She has not driven for some time. PT Evaluation-Current Subjective Pt and daughter report she will either discharge to an assisted living or return to [facility]. They both verbalize the the Dr told them that after the [place], "too much damage had been done" and she "would not be able to live alone". Pt agreeable to PT services this date. Pt expressed at initiation of evaluation, "I'm tired." Pain Numeric Pain Scale: 2 Location: Right Location Body Site: Calf (lower leg) Pain Description: Heavy Pt/Family Goals Her goal is to get stronger and be able to walk better Objective Patient Orientation: Person, Place, Time, Situation Problem Solving: Fair Attachments: Oxygen (2 l/min) ROM/Strength ROM Lower Extremities wFL Strenght Lower Extremities B LE strength is grossly 4-/5 throughout. Integumentary/Posture Integumentary refer to nursing notes. A few areas have been identified. Bladder Incontinence: Yes (stress; uses depends) Posture Tends to stand and sit with rounded shoulders. Able to come upright with skilled cues. Neuromuscular (Tone, Coordination, Reflexes) functional Sensory Vision: Functional Hearing: Impaired Sensation Right Lower Extremit: Impaired (reports her skin feels "thick" on the lower leg) Sensation Left Lower Extremity: Intact Transfers Functional [place] Measure 0=Not Assessed/NA 4=Minimal Assistance 1=Total Assistance 5=Supervision or Setup 2=Maximal Assistance 6=Modified [place] 3=Moderate Assistance 7=Complete IndependenceIRFPAI Quality Coding Scale 6 Independent with activity with or without an assistive device 5 Patient requires set up or clean up by helper. Patient completes activity by themselves 4 Supervision or touching assist (CGA). [place] provide cues , steadying assist 3 The helper provides less than half the effort to complete the activity 2 The helper provides more than half the effort to complete the activity 1 Dependent. The helper does all the effort to complete an activity 7 Patient refused to complete or attempt activity 9 The patient did not perform the activity before the current illness or injury 88 Not attempted due to Medical conditions or safety concerns Transfers (B, C, W/C) (FIM): 2 Scootin Rollin Roll Left to Right (QC): 4 Supine to/from Sit: 3 (assist with both legs into bed; assist to lift trunk to sit up) Sit to/from Stand: 3 (mod asssit to stand with verbal cues for sequencing. ) bed t/f WC(FIM only if WC use): 4 Sit to Lying (QC): 3 Lying to Sitting/Side of Bed(Q: 3 Sit to Stand (QC): 3 Chair/Hvv-ni-Tkwrv Xfer(QC): 4 Car Transfer (QC): 88 slow with transfers and needs extra time to complete Gait Does the Patient Walk?: Yes Mode of Locomotion: Walk Anticipated Mode of Locomotion: Walk Gait (FIM): 2 Distance (FIM): 9=213-56 ft Walk 10 feet (QC): 4 Walk 50 ft with 2 Turns(QC): 4 Walk 150 ft (QC): 88 (unable to ambulate that distance) Walking 10ft/uneven surface-QC: 88 Gait Assistive Device: FWW Comments/Gait Description rounded shoulders with head down, decreased step length and foot clearance. Wheelchair Training Does the Pt Use a Wheelchair?: No Stairs Stairs (FIM): 1 #of Steps: 1 Level of Assist: 4 1 Step (curb) (QC): 4 4 Steps (QC): 88 Assistive Device: Walker 12 Steps (QC): 88 Balance Sitting Static: Fair Sitting Dynamic: Fair Standing Static: Fair Standing Dynamic: Fair Picking up an Object (QC): 88 (unsafe to attempt) Treatment Co treat with OT; worked on functional tasks such as toileting--OT addressed clothing management and sean care while PT addressed functional transfers with sequencing and safety; seated EOB and standing EOB functional dynamic balance activity while OT addressed dressing tasks PT worked on safe trunk control, hand placement with transfers and maintaing balance/safety while completing the skill. Monitored oxygen saturation level as well. Pt maintained 95% saturation with activity and even completed a trial without oxygen for 5 minutes with light activity and she still remained at 95%. However, oxygen was replaced due to recent medical issues. Assessment/Needs Pt presents with a significant decline in her overall functional mobility primarily since her [place] and post CABG. She was indep prior to these events and now requires significant asssit with transfers, bed mobility , functional gait and activity tolerance. She will benefit from skilled PT to work on her functional strength, mobility and activity tolerance to allow her to care for herself and participate in the environment as her highest possible level. Initial evaluation, pt presentation as well as patient age, we will strive to achieve a level of function appropriate for JAIL placement, however, noting the recent decline and recent medical complications, I feel it may be likely that she discharges to a prison. She is pleasant and cooperative with therapy this date. Rehab Potential: Guarded Post Rehab Potential-Barriers: age; recent medical issues PT Short Term Goals Short Term Goals Time Frame: Dec 06, 2016 Transfers (B,C,W/C) (FIM): 4 Gait (FIM): 4 Distance (FIM): 3=150 ft Gait Assistive Device: FWW PT Senior Living Goals Senior Living Goals PT Senior Living Goals Time Frame: Dec 22, 2016 Transfers (B,C,W/C) (FIM): 6 Sit to Lying (QC): 6 Lying-Sitting on Side/Bed(QC): 6 Sit to Stand (QC): 6 Roll Left to Right (QC): 6 Chair/Mol-yt-Lrtxn Xfer(QC): 6 Car Transfer (QC): 5 Does the Patient Walk: Yes Gait (FIM): 6 Gait distance (FIM): 3=150 ft Walk 10 feet (QC): 6 Walk 10ft-Uneven Surface(QC): 6 Walk 50ft with 2 Turns (QC): 6 Walk 150 ft (QC): 6 Gait Level of Assist: 6 Gait Assistive Device: FWW Stairs (FIM): 2 # of Steps: 4 1 Step (curb) (QC): 4 4 Steps (QC): 4 12 Steps (QC): 88 Picking up an Object (QC): 88 All goals set so that patient is at maximum potential to interact as she desires with her environment. PT Plan Problem List Problem List: Activity Tolerance, Functional Strength, Safety, Balance, Gait, Transfer, Bed Mobility Treatment/Plan Treatment Plan: Continue Plan of Care Treatment Plan: Bed Mobility, Education, Functional Activity Florinda, Functional Strength, Group Therapy, Gait, Safety, Therapeutic Exercise, Transfers Treatment Duration: Dec 22, 2016 Frequency: At least 5 to 7 days/Wk (IRF) Estimated Hrs Per Day: 1.5 hours per day Patient and/or Family Agrees t: Yes Safety Risks/Education Patient Education: Transfer Techniques, Safety Issues Teaching Recipient: Patient Teaching Methods: Demonstration, Discussion Response to Teaching: Verbalize Understanding Discharge Recommendations Plan Progress functional strength and mobility as able. Time/GCodes Time In: 1405 (1430) Time Out: 1420 (1505) Total Billed Treatment Time: 50 Total Billed Treatment visit x 2 EVM 15 FA 35 DARIANA CASPER PT Nov 27, 2016 15:23
[2016-11-27] MEDS ORDERED: LISI2.5T PO (15:33)
[2016-11-27] MEDS ORDERED: FURO40TA4 PO ×2 (15:33)
--- NOTE | 2016-11-27 15:53 | Physical Therapy Daily Note ---
PT Daily Note-Current Subjective Patient c/o fatigue with minimal activity. Pain Numeric Pain Scale: 3 Location: Right Location Body Site: Foot Pain Description: Pressure Mental Status Patient Orientation: Normal For Age Transfers Functional [place] Measure 0=Not Assessed/NA 4=Minimal Assistance 1=Total Assistance 5=Supervision or Setup 2=Maximal Assistance 6=Modified [place] 3=Moderate Assistance 7=Complete IndependenceIRFPAI Quality Coding Scale 6 Independent with activity with or without an assistive device 5 Patient requires set up or clean up by helper. Patient completes activity by themselves 4 Supervision or touching assist (CGA). [place] provide cues , steadying assist 3 The helper provides less than half the effort to complete the activity 2 The helper provides more than half the effort to complete the activity 1 Dependent. The helper does all the effort to complete an activity 7 Patient refused to complete or attempt activity 9 The patient did not perform the activity before the current illness or injury 88 Not attempted due to Medical conditions or safety concerns Transfers (B, C, W/C) (FIM): 4 Scootin Sit to/from Stand: 4 Sit to Stand (QC): 3 minimal assist from low surface with patient utilizing bilateral arm rests on chair Gait Training Does the Patient Walk?: Yes Gait (FIM): 2 Distance (FIM): 6=203-20 ft Distance: 50' x 2; 75' x 2 Walk 10 feet (QC): 3 Walk 50 ft with 2 Turns(QC): 3 Gait Level of Assist: 4 Gait Persons Needed: 1 Gait Assistive Device: FWW slow, shuffle gait sequence requires recovery periods due to SOA and fatigue Exercises Seated Therapy Exercises: Ankle pumps, Long arc quads, Hip flexion, Hip abd/add Seated Reps: 20 Treatments Co Treat with OT to monitor HR and SAO2 on RA and with O2. Patient SAO2 with O2 is 95% with HR in the 80's Assessment Patient tolerated treatment well and is up in recliner with needs met. PT to increase activity as tolerated by patient. PT Short Term Goals Short Term Goals Time Frame: Dec 06, 2016 Transfers (B,C,W/C) (FIM): 4 Gait (FIM): 4 Distance (FIM): 3=150 ft Gait Assistive Device: FWW PT Fruit Harvester Machine Operator Goals Fruit Harvester Machine Operator Goals PT Fruit Harvester Machine Operator Goals Time Frame: Dec 22, 2016 Transfers (B,C,W/C) (FIM): 6 Sit to Lying (QC): 6 Lying-Sitting on Side/Bed(QC): 6 Sit to Stand (QC): 6 Rollin Roll Left to Right (QC): 6 Chair/Sqs-rm-Ygujh Xfer(QC): 6 Car Transfer (QC): 5 Does the Patient Walk: Yes Gait (FIM): 6 Gait distance (FIM): 3=150 ft Walk 10 feet (QC): 6 Walk 10ft-Uneven Surface(QC): 6 Walk 50ft with 2 Turns (QC): 6 Walk 150 ft (QC): 6 Gait Level of Assist: 6 Gait Assistive Device: FWW Stairs (FIM): 2 # of Steps: 4 1 Step (curb) (QC): 4 4 Steps (QC): 4 12 Steps (QC): 88 Picking up an Object (QC): 88 PT Plan Treatment/Plan Treatment Plan: Continue Plan of Care Treatment Plan: Bed Mobility, Education, Functional Activity Florinda, Functional Strength, Group Therapy, Gait, Safety, Therapeutic Exercise, Transfers Treatment Duration: Dec 22, 2016 Frequency: At least 5 to 7 days/Wk (IRF) Estimated Hrs Per Day: 1.5 hours per day Patient and/or Family Agrees t: Yes Time/GCodes Time In: 1505 Time Out: 1540 Total Billed Treatment Time: 35 Total Billed Treatment 1 visit 10 min (cotreat with OT) EX 10 min GT 15 min ROX KAYE PT Nov 27, 2016 15:53
--- NOTE | 2016-11-27 16:01 | ST Cognitive Linguistic Eval ---
Speech Evaluation-General Medical Diagnosis CHF exac Onset Date: Nov 24, 2016 Therapy Diagnosis Therapy Diagnosis: Cognitive Linguistic Skills WNL Precautions Precautions/Isolations: Standard Precautions Referral Referring Physician: Dr. Colton Main Reason for Referral: Evaluation/Treatment Cognitive Evaluation Medical History Pertinent Medical History: Atrial Fib, CABG, CAD, HTN, [place] Reviewed History: Yes Speech PLF-Current Status Prior Level of Function The patient denied challenges with cognition, speech, or language prior to admission. Subjective The patient was recently admitted to [facility] Floor with exacerbation of COPD. The patient greeted the clinician appropriately and was agreeable to participation in the cognitive assessment. Language Eval: Auditory Comprehends Simple Yes/No Ques: Functional Indent/Objects Multiple Mehta: Functional Ident/Pics in Multiple Mehta: Functional Follows 1-Step Commands: Functional Follows Complex Directions: Functional Follows General Conversations: Functional Language Eval: Verbal Language Completes Spontaneous Greeting: Functional Produces Auto, Serial Info: Functional Imitates Simple Words/Phrases: Functional Word Finding: Functional Requests Basic Needs: Functional States Basic Personal Info: Functional Expresses Complex Ideas: Functional Cognitive Patient Orientation The patient was independently oriented to month, day of week, date, and year. Objective Cognitive Domain Attention: WNL Memory: WNL Problem Solving: Functional Objective Impression The patient displayed cognitive linguistic skills WNL and appropriate for completion of ADL's. Communication/Social Cognition Comprehension: 5 Expression: 6 Social Interaction: 6 Problem Solvin Memory: 5 Speech Patient Assess Expression of Ideas/Wants: Expression (4) Understanding [place] Content: Understands (4) Brief Interview-Mental Status: Yes Repetition of Three Words: Three (3) Temporal Orientation: Year: Correct (3) Temporal Orientation: Month: Accurate within 5 days(2) Temporal Orientation: Day: Correct (1) Recall : Wear to say "Sock": Yes, no cue required (2) Recall : Color: Yes, no cue required (2) Recall : Bed: Yes, no cue required (2) Speech-Plan Treatment Plan Speech Therapy Treatment Plan: Discontinue ST Evaluation, only. Frequency: Modified Program (IRF) Estimated Hrs Per Day: Other (Evaluation, only.) Rehab Potential: Guarded Safety Risks/Education Teaching Recipient: Patient Teaching Methods: Discussion Response to Teaching: Verbalize Understanding Education Topics Provided: Results, Recommendations, Plan of Care Time Speech Therapy Time In: 15:40 Speech Therapy Time Out: 15:55 Total Billed Time: 15 Billed Treatment Time 1, NADIRA DC Nov 27, 2016 16:01
[2016-11-27] MEDS ORDERED: HYDROcodone/APAP 5 MG/325 MG (LORTAB) TAB PO PRN (16:15)
[2016-11-27] MEDS ORDERED: NITROGLYCERIN SUBLINGUAL 0.4 MG TAB (NITROSTAT) SL PRN (16:15)
[2016-11-27] MEDS ORDERED: BISACODYL 10 MG SUPP (DULCOLAX) PR PRN (16:15)
--- NOTE | 2016-11-27 16:46 | Occupational Therapy Eval ---
OT Evaluation-General/PLF Medical Diagnosis Admission Date Nov 27, 2016 at 14:05 Medical Diagnosis: CHF exac Onset Date: Nov 24, 2016 Therapy Diagnosis Therapy Diagnosis: weakness, decr activity tolerance, decr self care, decr funct mobility Height/Weight Height (Feet): 5 Height (Inches): 8.00 Weight (Pounds): 156 Weight (Ounces): 6.0 Precautions Precautions/Isolations: Standard Precautions Comments sternal precautions Referral Physician: Jose David Referral Reason: Evaluation/Treatment Medical History Pertinent Medical History: Atrial Fib, Arthritis, CABG, CAD, HTN, LA Additional Medical History Chronic anemia, chronic pain syndrome, lumpectomy on R for breast CA. Hard of hearing Current History Pt was admitted to acute care with acute CHF and respiratory distress. She has a stage 3 small sacral pressure ulcer that her daughter said was present when she moved to [place]. Pt was scheduled to move here to live near her daughter when she had an LA and subsequent CABG x 3 on 11-03-16. She has been a recent resident at [facility] and has been receiving skilled OT there. Reviewed History: Yes Social History Home: Group Home Entry Into Home: Level Entry ADL-Prior Level of Function ADL PLOF Comments Pt reported that, prior to her LA and CABG, she was independent or modified independent with her basic ADLs and work around the house. She gave up driving last fall. 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 Pain rated 2/10 and in her R lower leg - she reported it throbbed. Mental Status/Objective Patient Orientation: Person, Place, Time (knew year and month and close on date ), Situation Attachments: Oxygen, Telemetry Current Glasses/Contacts: Yes Hearing Aids: No Dentures/Partials: Yes Hand Dominance: Right Upper Extremity ROM Grossly WFL bilat except L index has limited flexion (pt reported from arthritis ). Does not raise arms above about 90 degrees shoulder flex/abd due to sternal precautions Upper Extremity Sensation Pt reported no problems Upper Extremity Strength Grossly 3+/5 bilat and did not apply resistance at shoulders due to sternal precautions ADL-Treatment ADL-Current Co tx with PT due to decreased activity tolerance and monitoring O2 sats. PT looked at transfers and trunk control while OT looked at ADLs. Pt stood CGA, FWW at sink to wash hands. O2 sats were difficult to measure because her fingers were cold. Sats generally ran about 95%. Trial with oxygen off during activity showed sats about 95% but hear rate fluctuating. Sats may also have recovered after activity but not identified due to long time to get sats to register on pulse oximeter. Functional [place] Measure 0=Not Assessed/NA 4=Minimal Assistance 1=Total Assistance 5=Supervision or Setup 2=Maximal Assistance 6=Modified [place] 3=Moderate Assistance 7=Complete IndependenceIRFPAI Quality Coding Scale 6 Independent with activity with or without an assistive device 5 Patient requires set up or clean up by helper. Patient completes activity by themselves 4 Supervision or touching assist (CGA). [place] provide cues , steadying assist 3 The helper provides less than half the effort to complete the activity 2 The helper provides more than half the effort to complete the activity 1 Dependent. The helper does all the effort to complete an activity 7 Patient refused to complete or attempt activity 9 The patient did not perform the activity before the current illness or injury 88 Not attempted due to Medical conditions or safety concerns Eating (FIM): 5 (Setup. Pt reported that there are foods she cannot eat unless she has her dentures in. Able to get drink of water.) Eating (QC): 5 (setup) Upper Body Dressing (FIM): 4 (Help to manage oxygen tubing) Upper Body Dressing (QC): 4 Lower Body Dressing (FIM): 2 (Help to get feet into Depends and pajama bottoms. Min assist sit to stand to pull pants up from EOB that is raised up. CGA to SBA when standing with FWW to pull pants up. Unable to reach feet to get slipper socks off or on. ) Lower Body Dressing (QC): 2 On/Off Footwear (QC): 1 Toileting (FIM): 4 (CGA standing to manage clothing. Able to wipe with setup. BSC over toilet so that she has arm resist on both sides to help with getting on /off toilet) Toileting Hygiene (QC): 4 Toilet/Commode Transfer (FIM): 3 (Mod-min assist to get off BSC, with arm rests , FWW. Skilled cues for hand placement) Toilet Transfer (QC): 3 Other Treatments Pt was able to walk to bathroom and out in abdul, then sats measured. Care transferred to PT. Education OT Patient Education: Modified ADL techniques, Purpose of tx/functional activities, Rehab process, Safety issues, Transfer techniques, Use of adapted equipment Teaching Recipient: Patient Teaching Methods: Demonstration, Discussion Response to Teaching: Verbalize Understanding, Return Demonstration, Reinforcement Needed OT Short Term Goals Short Term Goals Time Frame: Dec 08, 2016 Grooming(FIM): 5 Lower Body Dressing(FIM): 3 Toileting(FIM): 5 Toilet/Commode Transfer(FIM): 4 Additional Short Term Goals: 2-Verbalize Understanding, 3-ImproveStrength/Florinda 1=Demonstrate adherence to instructed precautions during ADL tasks. 2=Patient will verbalize/demonstrate understanding of assistive devices/ modifications for ADL. 3=Patient will improve strength/tolerance for activity to enable patient to perform ADL's. OT Smog Technician Goals Smog Technician Goals Time Frame: Dec 22, 2016 Eating (FIM): 6 Eating (QC): 6 Groomin Oral Hygiene (QC): 6 Bathing(FIM): 5 Shower/Bathe Self (QC): 5 Upper Body Dressing(FIM): 6 Upper Body Dressing (QC): 6 Lower Body Dressing(FIM): 6 Lower Body Dressing (QC): 6 On/Off Footwear (QC): 6 Toileting(FIM): 6 Toileting Hygiene (QC): 6 Toilet/Commode Transfer(FIM): 6 Toilet/Commode Transfer (QC): 6 Shower Transfer(FIM): 5 Additional Goals: 2-Verbalize Understanding, 3-ImproveStrength/Florinda 1=Demonstrate adherence to instructed precautions during ADL tasks. 2=Patient will verbalize/demonstrate understanding of assistive devices/ modifications for ADL. 3=Patient will improve strength/tolerance for activity to enable patient to perform ADL's. OT Education/Plan Problem List/Assessment Assessment: Decreased Activ Tolerance, Decreased UE Strength, Dependent Transfers, Impaired Funct Balance, Impaired Self-Care Skills Pt would benefit from skilled OT to increase her independence and activity tolerance for basic ADLs to allow her to return to an USP or skilled care and to decrease caregiver burden Discharge Recommendations Plan/Recommendations: Continue POC Target Placement Depending on progress, pt's daughter said that her mother could be discharged to residential or assisted living but physician had said her mother's heart was too damaged for her to live on her own. Treatment Plan/Plan of Care Treatment,Training & Education: Yes Patient would benefit from OT for education, treatment and training to promote independence in ADL's, mobility, safety and/or upper extremity function for ADL' s. Plan of Care: ADL Retraining, Functional Mobility, Group Exercise/Act as Ind ( education, exercise, activty tolerance, funct mobility, socialization), UE Funct Exercise/Act, UE Neuromus Re-Ed/Coord Treatment Duration: Dec 22, 2016 Frequency: At least 5 to 7 days/Wk (IRF) Estimated Hrs Per Day: 1.5 hours per day Agreement: Yes Rehab Potential: Fair Time/GCodes Start Time: 14:20 Stop Time: 15:15 Total Time Billed (hr/min): 55 Billed Treatment Time visit, 10 minutes evaluation moderate intensity (1420 to 1430), 45 minutes ADL ( co tx with PT 1430 to 1515) SOPHIE WARE OT Nov 27, 2016 16:46
[2016-11-27] MEDS: FUROSEMIDE 20 MG (LASIX) TAB PO SCH (16:51)
--- NOTE | 2016-11-27 17:15 | Occupational Ther Daily Note ---
OT Current Status-Daily Note Subjective Pt seen in room, up in recliner, agreeable to OT but fatigued. Mental Status/Objective Functional [place] Measure 0=Not Assessed/NA 4=Minimal Assistance 1=Total Assistance 5=Supervision or Setup 2=Maximal Assistance 6=Modified [place] 3=Moderate Assistance 7=Complete [place] ADL-Treatment Functional [place] Measure 0=Not Assessed/NA 4=Minimal Assistance 1=Total Assistance 5=Supervision or Setup 2=Maximal Assistance 6=Modified [place] 3=Moderate Assistance 7=Complete IndependenceIRFPAI Quality Coding Scale 6 Independent with activity with or without an assistive device 5 Patient requires set up or clean up by helper. Patient completes activity by themselves 4 Supervision or touching assist (CGA). [place] provide cues , steadying assist 3 The helper provides less than half the effort to complete the activity 2 The helper provides more than half the effort to complete the activity 1 Dependent. The helper does all the effort to complete an activity 7 Patient refused to complete or attempt activity 9 The patient did not perform the activity before the current illness or injury 88 Not attempted due to Medical conditions or safety concerns Other Treatment Pt was able to get up from recliner with mod assist and walk a few feet to sit EOB. She needed mod assist to left both legs into bed. Once in bed, she was able to do 10 reps bilat UE AROM with no additional resistance applied to her arms, working on shoulders, elbows, forearms, wrists and fingers, as needed to help with transfers and ADLs. She self limited at about 90 degrees shoulder flex/abd to follow sternal precautions. She was also reluctant to pull herself up in bed with her arms but did bend at knees and hips to help lift bottom up in bed. Pt was left with 4 rails up, jacket on, blankets on, all needs met. Education OT Patient Education: Exercise program, Purpose of tx/functional activities OT Short Term Goals Short Term Goals Time Frame: Dec 08, 2016 Grooming(FIM): 5 Lower Body Dressing(FIM): 3 Toileting(FIM): 5 Toilet/Commode Transfer(FIM): 4 Additional Short Term Goals: 2-Verbalize Understanding, 3-ImproveStrength/Florinda 1=Demonstrate adherence to instructed precautions during ADL tasks. 2=Patient will verbalize/demonstrate understanding of assistive devices/ modifications for ADL. 3=Patient will improve strength/tolerance for activity to enable patient to perform ADL's. OT Form Worker Goals Form Worker Goals Time Frame: Dec 22, 2016 Eating (FIM): 6 Eating (QC): 6 Groomin Oral Hygiene (QC): 6 Bathing(FIM): 5 Shower/Bathe Self (QC): 5 Upper Body Dressing(FIM): 6 Upper Body Dressing (QC): 6 Lower Body Dressing(FIM): 6 Lower Body Dressing (QC): 6 On/Off Footwear (QC): 6 Toileting(FIM): 6 Toileting Hygiene (QC): 6 Toilet/Commode Transfer(FIM): 6 Toilet/Commode Transfer (QC): 6 Shower Transfer(FIM): 5 Additional Goals: 2-Verbalize Understanding, 3-ImproveStrength/Florinda 1=Demonstrate adherence to instructed precautions during ADL tasks. 2=Patient will verbalize/demonstrate understanding of assistive devices/ modifications for ADL. 3=Patient will improve strength/tolerance for activity to enable patient to perform ADL's. OT Education/Plan Problem List/Assessment Pt would benefit from skilled OT to increase her independence and activity tolerance for basic ADLs to allow her to return to an USP or skilled care and to decrease caregiver burden Discharge Recommendations Plan/Recommendations: Continue POC Treatment Plan/Plan of Care Patient would benefit from OT for education, treatment and training to promote independence in ADL's, mobility, safety and/or upper extremity function for ADL' s. Plan of Care: ADL Retraining, Functional Mobility, Group Exercise/Act as Ind ( education, exercise, activty tolerance, funct mobility, socialization), UE Funct Exercise/Act, UE Neuromus Re-Ed/Coord Treatment Duration: Dec 22, 2016 Frequency: At least 5 to 7 days/Wk (IRF) Estimated Hrs Per Day: 1.5 hours per day Agreement: Yes Rehab Potential: Fair Time/GCodes Start Time: 15:55 Stop Time: 16:20 Total Time Billed (hr/min): 25 Billed Treatment Time visit, 25 minutes exercise SOPHIE WARE OT Nov 27, 2016 17:15
[2016-11-27 17:59] VITALS: BP 115/62
[2016-11-27] MEDS: busPIRone 5 MG (BUSPAR) TAB PO SCH (20:41)
[2016-11-27] MEDS: CEFDINIR 300 MG (OMNICEF) CAP PO SCH (20:41)
[2016-11-27] MEDS: LACTOBACILLUS Acidoph/Bulgar (LACTINEX/FLORANEX) TAB PO SCH (20:41)
[2016-11-27] MEDS: APIXABAN 2.5 MG (ELIQUIS) TABLET PO SCH (20:41)
[2016-11-27] MEDS: meTOprolol TARTRATE 25 MG (LOPRESSOR) TABLET PO SCH (20:41)
[2016-11-27] MEDS: ATORVASTATIN 40 MG (LIPITOR) TABLET PO SCH (20:41)
[2016-11-28 05:44] VITALS: BP 93/53
[2016-11-28 05:50] LABS: MEAN PLATELET VOLUME 9.9 FL (7.4-10.4); RED BLOOD COUNT 3.03 10^6/uL (4.35-5.85); RED CELL DISTRIBUTION WIDTH 14.7 % (10.0-14.5); WHITE BLOOD COUNT 4.6 10^3/uL (4.3-11.0)
[2016-11-28 06:10] LABS: ALBUMIN 2.6 GM/DL (3.2-4.5); BILIRUBIN,TOTAL 0.6 MG/DL (0.1-1.0); CALCIUM 8.1 MG/DL (8.5-10.1); CREATININE SERUM 1.29 MG/DL (0.60-1.30); POTASSIUM 3.7 MMOL/L (3.6-5.0); TOTAL PROTEIN 4.9 GM/DL (6.4-8.2)
[2016-11-28] MEDS: MULTIVIT W/MINERALS TAB (THERAGRAN M) PO SCH (06:16)
[2016-11-28] MEDS: PANTOPRAZOLE 40 MG (PROTONIX) TAB PO SCH (06:16)
[2016-11-28] MEDS: FUROSEMIDE 20 MG (LASIX) TAB PO SCH (06:16)
--- NOTE | 2016-11-28 08:31 | PM&R Post Admission Assessment ---
Post Admission Physician Asses The preadmission screen agrees with the post admission assessment that the patient is a good candidate for inpatient rehabilitation. The patient will have a comprehensive program of inpatient rehabilitation with a goal of maximizing level of functional independence prior to discharge home with family or to an INTERMEDIATE. The patient will have PT/OT ninety minutes per day , each discipline, five days a week for gait, strengthening, conditioning, balance, ADLs, any patient/family/caregiver training as necessary. Speech therapy to do cognitive assessment and treat as indicated. Rehabilitation nursing to assist with bowel, bladder, skin, wound care, medication administration, pain management. Computer Networker to assist with discharge planning, community reentry. SCD's contraindicatedfor DVT prophylaxis due to Cellulitis Left leg. She appears to be well motivated to participate in three hours of therapy a day. She should be able to tolerate three hours of therapy a day from a medical and surgical standpoint. She should benefit from the three hours of therapy a day. She has a reasonable discharge plan, reasonable discharge rehabilitation goals and a supportive family. She has various comorbidities that need to be closely monitored with medications and treatments adjusted on a daily basis as needed. These include: Cellulitis PAF HLP CHF HTN Respiratory failure Barriers to discharge for this patient who had been independent prior to this are for her to be modified independent to supervision for ADLs and mobility skills prior to discharge home with [family], so as to lessen the burden of the caregivers. Risks for this patient include: 1. Fall 2. Fracture 3. DVT 4. Pulmonary embolism 5. Wound infection 6. Skin breakdown 7. Contractures 8. Poorly controlled pain 9. Urinary retention 10. UTI 11. Respiratory infection 12. Aspiration 13. Recurrent CHF 14. Poorly controlled HTN 15. Recurrent Cellulitis 16. Worsening respiratory insufficency Estimated Length of Stay: 17 days Prognosis: Rehab prognosis appears good for goal of discharge home with family or to an [place] modified independent to supervision for ADLs and mobility skills. [facility] code-03.9 Etiologic Dx: Disuse myopathy DORIS QUIGLEY MD Nov 28, 2016 08:31
[2016-11-28] MEDS: OMEGA 3 (FISH OIL) 1000 MG CAP PO SCH (08:43)
[2016-11-28] MEDS: meTOprolol TARTRATE 25 MG (LOPRESSOR) TABLET PO SCH ×2 (08:43→20:10)
[2016-11-28] MEDS: LACTOBACILLUS Acidoph/Bulgar (LACTINEX/FLORANEX) TAB PO SCH ×2 (08:44→20:58)
[2016-11-28] MEDS: ASPIRIN 81 MG CHEW (CHILDREN'S ASA) PO SCH (08:44)
[2016-11-28] MEDS: APIXABAN 2.5 MG (ELIQUIS) TABLET PO SCH ×2 (08:44→20:58)
[2016-11-28] MEDS: CEFDINIR 300 MG (OMNICEF) CAP PO SCH ×2 (08:44→20:58)
[2016-11-28] MEDS: AMIODARONE 200 MG (CORDARONE) TAB PO SCH (08:44)
[2016-11-28] MEDS ORDERED: lisINopril 5 MG (PRINIVIL) TABLET PO SCH (09:00)
--- NOTE | 2016-11-28 09:14 | Occupational Ther Daily Note ---
OT Current Status-Daily Note Subjective Pt seen in room, up in bed, agreeable to OT. No pain mentioned Appearance Alert, cooperative "I might as well get started". Flat affect Mental Status/Objective Functional [place] Measure 0=Not Assessed/NA 4=Minimal Assistance 1=Total Assistance 5=Supervision or Setup 2=Maximal Assistance 6=Modified [place] 3=Moderate Assistance 7=Complete [place] ADL-Treatment She needed just a little help to get up out of bed (elevated) and then walked CGA, FWW to bathroom to groom. Needed mod help to get out of chair with arms to walk back to recliner in room, Pt was left up in recliner, O2 in place at 2L/min , all needs met. Functional [place] Measure 0=Not Assessed/NA 4=Minimal Assistance 1=Total Assistance 5=Supervision or Setup 2=Maximal Assistance 6=Modified [place] 3=Moderate Assistance 7=Complete IndependenceIRFPAI Quality Coding Scale 6 Independent with activity with or without an assistive device 5 Patient requires set up or clean up by helper. Patient completes activity by themselves 4 Supervision or touching assist (CGA). [place] provide cues , steadying assist 3 The helper provides less than half the effort to complete the activity 2 The helper provides more than half the effort to complete the activity 1 Dependent. The helper does all the effort to complete an activity 7 Patient refused to complete or attempt activity 9 The patient did not perform the activity before the current illness or injury 88 Not attempted due to Medical conditions or safety concerns Grooming (FIM): 5 (Pt was able to sit at sink and wash face and hands, soak and brush dentures, brush hair, all with SBA, with some verbal requests for what to do next. ) Transfers (B, C, W/C) (FIM): 3 (Min assist lifting help to get out of chair with arms. ) Education OT Patient Education: Modified ADL techniques, Progress toward Goal/Update tx plan, Safety issues, Transfer techniques Teaching Recipient: Patient Teaching Methods: Discussion Response to Teaching: Verbalize Understanding OT Short Term Goals Short Term Goals Time Frame: Dec 08, 2016 Grooming(FIM): 5 Lower Body Dressing(FIM): 3 Toileting(FIM): 5 Toilet/Commode Transfer(FIM): 4 Additional Short Term Goals: 2-Verbalize Understanding, 3-ImproveStrength/Florinda 1=Demonstrate adherence to instructed precautions during ADL tasks. 2=Patient will verbalize/demonstrate understanding of assistive devices/ modifications for ADL. 3=Patient will improve strength/tolerance for activity to enable patient to perform ADL's. OT Mcc Goals Keyboard Instrument Tuner Goals Time Frame: Dec 22, 2016 Eating (FIM): 6 Eating (QC): 6 Groomin Oral Hygiene (QC): 6 Bathing(FIM): 5 Shower/Bathe Self (QC): 5 Upper Body Dressing(FIM): 6 Upper Body Dressing (QC): 6 Lower Body Dressing(FIM): 6 Lower Body Dressing (QC): 6 On/Off Footwear (QC): 6 Toileting(FIM): 6 Toileting Hygiene (QC): 6 Toilet/Commode Transfer(FIM): 6 Toilet/Commode Transfer (QC): 6 Shower Transfer(FIM): 5 Additional Goals: 2-Verbalize Understanding, 3-ImproveStrength/Florinda 1=Demonstrate adherence to instructed precautions during ADL tasks. 2=Patient will verbalize/demonstrate understanding of assistive devices/ modifications for ADL. 3=Patient will improve strength/tolerance for activity to enable patient to perform ADL's. OT Education/Plan Problem List/Assessment Pt would benefit from skilled OT to increase her independence and activity tolerance for basic ADLs to allow her to return to an INTERMEDIATE or skilled care and to decrease caregiver burden Discharge Recommendations Plan/Recommendations: Continue POC Treatment Plan/Plan of Care Patient would benefit from OT for education, treatment and training to promote independence in ADL's, mobility, safety and/or upper extremity function for ADL' s. Plan of Care: ADL Retraining, Functional Mobility, Group Exercise/Act as Ind ( education, exercise, activty tolerance, funct mobility, socialization), UE Funct Exercise/Act, UE Neuromus Re-Ed/Coord Treatment Duration: Dec 22, 2016 Frequency: At least 5 to 7 days/Wk (IRF) Estimated Hrs Per Day: 1.5 hours per day Agreement: Yes Rehab Potential: Fair Time/GCodes Start Time: 08:40 Stop Time: 09:10 Total Time Billed (hr/min): 30 Billed Treatment Time visit, 30 min ADL SOPHIE WARE OT Nov 28, 2016 09:14
--- NOTE | 2016-11-28 12:03 | Physical Therapy Daily Note ---
PT Daily Note-Current Subjective Pt was sitting in recliner prior to tx and agreeable to tx. Pt was lying on side with nurse call, tray, phone, all needs in reach post tx. Pain Numeric Pain Scale: 0-No Pain Location: No Pain Reported Mental Status Patient Orientation: Normal For Age Attachments: Oxygen Pt on 2L of oxygen Transfers Functional [place] Measure 0=Not Assessed/NA 4=Minimal Assistance 1=Total Assistance 5=Supervision or Setup 2=Maximal Assistance 6=Modified [place] 3=Moderate Assistance 7=Complete IndependenceIRFPAI Quality Coding Scale 6 Independent with activity with or without an assistive device 5 Patient requires set up or clean up by helper. Patient completes activity by themselves 4 Supervision or touching assist (CGA). [place] provide cues , steadying assist 3 The helper provides less than half the effort to complete the activity 2 The helper provides more than half the effort to complete the activity 1 Dependent. The helper does all the effort to complete an activity 7 Patient refused to complete or attempt activity 9 The patient did not perform the activity before the current illness or injury 88 Not attempted due to Medical conditions or safety concerns Transfers (B, C, W/C) (FIM): 4 Scootin Rollin Roll Left to Right (QC): 4 Supine to/from Sit: 4 Sit to/from Stand: 4 Sit to Lying (QC): 3 Sit to Stand (QC): 3 Pt is min assist with supine to sit transfer and needs support with lifting legs to bed. Pt requires min assist with sit to stand transfers and requires verbal cues for hand and walker placement and safety. Patient also required assist with toileting due to weakness and fatigue. Gait Training Does the Patient Walk?: Yes Gait (FIM): 1 Distance (FIM): 1=up to 49 ft Distance: 30'x4 Walk 10 feet (QC): 3 Gait Level of Assist: 4 Gait Persons Needed: 1 Gait Assistive Device: FWW Pt ambulates with FWW and CGA for safety. Pt walks with a hunched posture and is verbally cued to bring shoulders and head up and look ahead. Exercises Standing: Hamstring curls, 3 way Ex=Flex, Abd, Ext, Marching Standing Reps: 10 Treatments Pt completes standing exercises to increase functional LE strengthening and gait training to increase functional mobility. Assessment Current Status: Good Progress Pt fatigues quickly with tx and reports shortness of breath and requires multiple recovery periods due to SOA. Pt's O2 saturation was monitored throughout treatment and was measured at 95% consistently. PT Short Term Goals Short Term Goals Time Frame: Dec 06, 2016 Gait (FIM): 4 Distance (FIM): 3=150 ft Gait Assistive Device: FWW PT Fpc Goals Nurse Sitter Goals PT Nurse Sitter Goals Time Frame: Dec 22, 2016 Transfers (B,C,W/C) (FIM): 6 Sit to Lying (QC): 6 Lying-Sitting on Side/Bed(QC): 6 Sit to Stand (QC): 6 Rollin Roll Left to Right (QC): 6 Chair/Cog-ar-Sovky Xfer(QC): 6 Car Transfer (QC): 5 Does the Patient Walk: Yes Gait (FIM): 6 Gait distance (FIM): 3=150 ft Walk 10 feet (QC): 6 Walk 10ft-Uneven Surface(QC): 6 Walk 50ft with 2 Turns (QC): 6 Walk 150 ft (QC): 6 Gait Level of Assist: 6 Gait Assistive Device: FWW Stairs (FIM): 2 # of Steps: 4 1 Step (curb) (QC): 4 4 Steps (QC): 4 12 Steps (QC): 88 Picking up an Object (QC): 88 PT Plan Problem List Problem List: Activity Tolerance, Functional Strength, Safety, Balance, Gait, Transfer, Bed Mobility, ROM Treatment/Plan Treatment Plan: Continue Plan of Care Treatment Plan: Bed Mobility, Education, Functional Activity Flor[place], Functional Strength, Group Therapy, Gait, Safety, Therapeutic Exercise, Transfers Treatment Duration: Dec 22, 2016 Frequency: At least 5 to 7 days/Wk (IRF) Estimated Hrs Per Day: 1.5 hours per day Patient and/or Family Agrees t: Yes Safety Risks/Education Patient Education: Gait Training, Transfer Techniques, Reviewed Precautions, Correct Positioning, Safety Issues Teaching Recipient: Patient Teaching Methods: Demonstration, Discussion Response to Teaching: Verbalize Understanding, Reinforcement Needed Time/GCodes Time In: 1100 Time Out: 1200 Total Billed Treatment Time: 60 Total Billed Treatment 1 visit GT x 2 30 min EX 15 min FA 15 min ROX KAYE PT Nov 28, 2016 12:03
--- NOTE | 2016-11-28 12:32 | Cardiology Progress Note ---
Subjective Date Seen by Provider: Nov 28, 2016 Time Seen by Provider: 12:30 Subjective/Events-last exam Patient is in bed, feeling better. Breathing better. Receiving rehabilitation. Denied any chest pain. Review of Systems General: No Chills, No Night Sweats, No Fatigue, No Malaise, No Appetite, No Other HEENT: No Head Aches, No Visual Changes, No Eye Pain, No Ear Pain, No Dysphasia , No Sinus Congestion, No Post Nasal Drip, No Sore Throat, No Other Pulmonary: No Dyspnea, No Cough, No Pleuritic Chest Pain, No Other Cardiovascular: No: Chest Pain, Palpitations, Orthopnea, Paroxysmal Noc. Dyspnea, Edema, Lt Headedness, Other Objective-Cardiology Exam Last Set of Vital Signs Vital Signs 11/28/16 11/28/16 05:44 09:00 Temp 97.9 Pulse 89 Resp 18 B/P (MAP) 93/53 Pulse Ox 93 O2 Delivery Nasal Cannula O2 Flow Rate 2.00 Capillary Refill : I&O Intake and Output 11/29/16 00:00 Intake Total 150 ml Balance 150 ml Intake Oral 150 ml # Voids 10 General: Alert, Oriented X3, Cooperative HEENT: Atraumatic, PERRLA Neck: Supple, No JVD, No Thyromegaly Lungs: Normal Air Movement, Other Heart: Regular Rate, Normal S1, Normal S2, Gallops (bilateral rhonchi), Other ( systolic murmur at the left sternal border) Abdomen: Normal Bowel Sounds, Soft, No Tenderness, No Hepatosplenomegaly, No Masses Extremities: No Clubbing, No Cyanosis, No Edema, Normal Pulses, No Tenderness/ Swelling Skin: No Rashes, No Breakdown, No Significant Lesion Neuro: Normal Gait, Normal Speech, Strength at 5/5 X4 Ext, Normal Tone, Sensation Intact Psych/Mental Status: Mental Status NL, Mood NL Results Lab Laboratory Tests 11/28/16 05:30 A/P-Cardiology Admission Diagnosis CHF CAD HTN PAF Assessment/Plan Shortness of breath, pulmonary edema, reporting improvement, chest x-ray showed moderate to large right-sided pleural effusion, improving slowly, borderline hypotensive, I we'll decrease Lasix to 40 mg twice a day and consider decreasing the dose to 20 mg twice a day if patient continued to tolerate the dose. Congestive heart failure, acute on chronic left ventricular systolic dysfunction , ischemic cardiomyopathy, peripheral edema, ejection fraction 30-35 percent per echocardiogram done earlier this month, continue with diuretics and monitor. Maintained on lisinopril, lopressor. Continue to monitor. Paroxysmal atrial fibrillation, converted to sinus rhythm, mainly postoperatively, continue on amiodarone 200 mg daily and monitor [id number] score of 7, yearly risk of stroke without oral anticoagulation is 9.6 percent, tolerating Eliquis 2.5 mg twice daily well, anemia is stable. Continue to monitor Coronary artery disease, had acute ST elevation myocardial infarction at [facility] required CABG 3, continue to monitor Acute renal insufficiency, creatinine level improved, continue to monitor Hyperlipidemia, continue on Lipitor 40 mg and monitor. Hypertension, borderline hypotensive, I will decrease lisinopril to 2.5 mg daily and continue to monitor blood pressure Diabetes mellitus, patient was on insulin drip at [facility], management per PCP. Clinical Quality Measures DVT/VTE Risk/Contraindication: Risk Factor Score Per Nursin RFS Level Per Nursing on Admit: 4+=Very High Contraindications-Mechi: Other *list below* Other: CELLULITIS OF RIGHT LEG CAROL DUDLEY MD Nov 28, 2016 12:32
--- NOTE | 2016-11-28 13:47 | Occupational Ther Daily Note ---
OT Current Status-Daily Note Subjective Pt seen in room, up in recliner, agreeable to OT. No pain mentioned. Appearance Alert, cooperative, flat affect Mental Status/Objective Functional [place] Measure 0=Not Assessed/NA 4=Minimal Assistance 1=Total Assistance 5=Supervision or Setup 2=Maximal Assistance 6=Modified [place] 3=Moderate Assistance 7=Complete [place] ADL-Treatment O2 was in place throughout ADLs unless pt took it off to don shirt or wash hair. Foam ear protectors taped so that they would stay on tubing. Functional [place] Measure 0=Not Assessed/NA 4=Minimal Assistance 1=Total Assistance 5=Supervision or Setup 2=Maximal Assistance 6=Modified [place] 3=Moderate Assistance 7=Complete IndependenceIRFPAI Quality Coding Scale 6 Independent with activity with or without an assistive device 5 Patient requires set up or clean up by helper. Patient completes activity by themselves 4 Supervision or touching assist (CGA). [place] provide cues , steadying assist 3 The helper provides less than half the effort to complete the activity 2 The helper provides more than half the effort to complete the activity 1 Dependent. The helper does all the effort to complete an activity 7 Patient refused to complete or attempt activity 9 The patient did not perform the activity before the current illness or injury 88 Not attempted due to Medical conditions or safety concerns Grooming (FIM): 5 (Brushed hair with setup. Washed face and hands in shower) Bathing (FIM): 4 (Pt washed and dried all parts except back but needed CGA when standing. SHower bench, grab bars, hand held shower. help needed to turn water on and off, some skilled cues for process. Pt washed her own hair) Shower/Bathe Self (QC): 4 (CGA) Upper Body (FIM): 5 (Pt donned shirt with setup, recalling to take O2 off first.) Lower Body Dressing (FIM): 3 (Lifting help needed to get up out of recliner. Pt educ modified techniques for dressing lower body. Used dressing stick and sock aid and was able to get pants on over feet with just a little help and dressing stick. Able to pull pants up when standing with FWW for balance, CGA) Toileting (FIM): 4 (CGA when standing to pull pants up and down. Initiation cues to manage clothing. Managed hygiene. BSC over toilet, grab bar, FWW) Toilet/Commode Transfer (FIM): 4 (CGA, getting on and off BSC. BSC was tall enough that she was able to push off with CGA for safety. Grab bar, FWW) Shower Transfer(FIM): 3 (Lifting help from shower seat, min-mod assist. Also used grab bar. CGA when transitioning from grab bars to FWW. ) At end of tx, pt left up in recliner, sitting on pillow. Adjusted foot rest so that she didn't have pressure on sore on sacrum. Blister on top if R foot oozing so nursing notified and covered it, All needs met, O2 in place Education OT Patient Education: Modified ADL techniques, Purpose of tx/functional activities, Safety issues, Transfer techniques, Use of adapted equipment Teaching Recipient: Patient Teaching Methods: Demonstration, Discussion Response to Teaching: Verbalize Understanding, Return Demonstration, Reinforcement Needed OT Short Term Goals Short Term Goals Time Frame: Dec 08, 2016 Grooming(FIM): 5 Lower Body Dressing(FIM): 3 Toileting(FIM): 5 Toilet/Commode Transfer(FIM): 4 Additional Short Term Goals: 2-Verbalize Understanding, 3-ImproveStrength/Florinda 1=Demonstrate adherence to instructed precautions during ADL tasks. 2=Patient will verbalize/demonstrate understanding of assistive devices/ modifications for ADL. 3=Patient will improve strength/tolerance for activity to enable patient to perform ADL's. OT Fpc Goals Fpc Goals Time Frame: Dec 22, 2016 Eating (FIM): 6 Eating (QC): 6 Groomin Oral Hygiene (QC): 6 Bathing(FIM): 5 Shower/Bathe Self (QC): 5 Upper Body Dressing(FIM): 6 Upper Body Dressing (QC): 6 Lower Body Dressing(FIM): 6 Lower Body Dressing (QC): 6 On/Off Footwear (QC): 6 Toileting(FIM): 6 Toileting Hygiene (QC): 6 Toilet/Commode Transfer(FIM): 6 Toilet/Commode Transfer (QC): 6 Shower Transfer(FIM): 5 Additional Goals: 2-Verbalize Understanding, 3-ImproveStrength/Florinda 1=Demonstrate adherence to instructed precautions during ADL tasks. 2=Patient will verbalize/demonstrate understanding of assistive devices/ modifications for ADL. 3=Patient will improve strength/tolerance for activity to enable patient to perform ADL's. OT Education/Plan Problem List/Assessment Pt would benefit from skilled OT to increase her independence and activity tolerance for basic ADLs to allow her to return to an SNF or skilled care and to decrease caregiver burden Discharge Recommendations Plan/Recommendations: Continue POC Treatment Plan/Plan of Care Patient would benefit from OT for education, treatment and training to promote independence in ADL's, mobility, safety and/or upper extremity function for ADL' s. Plan of Care: ADL Retraining, Functional Mobility, Group Exercise/Act as Ind ( education, exercise, activty tolerance, funct mobility, socialization), UE Funct Exercise/Act, UE Neuromus Re-Ed/Coord Treatment Duration: Dec 22, 2016 Frequency: At least 5 to 7 days/Wk (IRF) Estimated Hrs Per Day: 1.5 hours per day Agreement: Yes Rehab Potential: Fair Time/GCodes Start Time: 10:00 Stop Time: 11:00 Total Time Billed (hr/min): 60 Billed Treatment Time visit, 60 minutes ADL SOPHIE WARE OT Nov 28, 2016 13:47
--- NOTE | 2016-11-28 15:21 | Physical Therapy Daily Note ---
PT Daily Note-Current Subjective Patient agrees to PT. She does c/o fatigue. Pain Numeric Pain Scale: 5-Moderate Pain Location Body Site: Sacrum Pain Description: Throbbing Mental Status Patient Orientation: Normal For Age Attachments: Oxygen Transfers Functional [place] Measure 0=Not Assessed/NA 4=Minimal Assistance 1=Total Assistance 5=Supervision or Setup 2=Maximal Assistance 6=Modified [place] 3=Moderate Assistance 7=Complete IndependenceIRFPAI Quality Coding Scale 6 Independent with activity with or without an assistive device 5 Patient requires set up or clean up by helper. Patient completes activity by themselves 4 Supervision or touching assist (CGA). [place] provide cues , steadying assist 3 The helper provides less than half the effort to complete the activity 2 The helper provides more than half the effort to complete the activity 1 Dependent. The helper does all the effort to complete an activity 7 Patient refused to complete or attempt activity 9 The patient did not perform the activity before the current illness or injury 88 Not attempted due to Medical conditions or safety concerns Transfers (B, C, W/C) (FIM): 5 Scootin Rollin Roll Left to Right (QC): 4 Supine to/from Sit: 5 Sit to/from Stand: 5 Sit to Lying (QC): 4 Sit to Stand (QC): 4 Gait Training Does the Patient Walk?: Yes Gait (FIM): 2 Distance (FIM): 7=687-83 ft Distance: 50' x 6 Walk 10 feet (QC): 4 Walk 50 ft with 2 Turns(QC): 4 Gait Level of Assist: 5 Gait Persons Needed: 1 Gait Assistive Device: FWW skilled verbal instruction for body placement in FWW Assessment Current Status: Good Progress Patient progressing with treatment plan. PT to increase activity as tolerated by patient. Gait training with FWW to increase cardiopulmonary function. PT Short Term Goals Short Term Goals Time Frame: Dec 06, 2016 Gait (FIM): 4 Distance (FIM): 3=150 ft Gait Assistive Device: FWW PT Director Of Undergraduate Admissions Goals Director Of Undergraduate Admissions Goals PT Assisted Goals Time Frame: Dec 22, 2016 Transfers (B,C,W/C) (FIM): 6 Sit to Lying (QC): 6 Lying-Sitting on Side/Bed(QC): 6 Sit to Stand (QC): 6 Rollin Roll Left to Right (QC): 6 Chair/Psg-tw-Joezj Xfer(QC): 6 Car Transfer (QC): 5 Does the Patient Walk: Yes Gait (FIM): 6 Gait distance (FIM): 3=150 ft Walk 10 feet (QC): 6 Walk 10ft-Uneven Surface(QC): 6 Walk 50ft with 2 Turns (QC): 6 Walk 150 ft (QC): 6 Gait Level of Assist: 6 Gait Assistive Device: FWW Stairs (FIM): 2 # of Steps: 4 1 Step (curb) (QC): 4 4 Steps (QC): 4 12 Steps (QC): 88 Picking up an Object (QC): 88 PT Plan Treatment/Plan Treatment Plan: Continue Plan of Care Treatment Plan: Bed Mobility, Education, Functional Activity Florinda, Functional Strength, Group Therapy, Gait, Safety, Therapeutic Exercise, Transfers Treatment Duration: Dec 22, 2016 Frequency: At least 5 to 7 days/Wk (IRF) Estimated Hrs Per Day: 1.5 hours per day Patient and/or Family Agrees t: Yes Time/GCodes Time In: 1445 Time Out: 1515 Total Billed Treatment Time: 30 Total Billed Treatment 1 visit GT x 2 30 min ROX KAYE PT Nov 28, 2016 15:21
[2016-11-28] MEDS: FUROSEMIDE 40 MG (LASIX) TAB PO SCH (16:41)
--- NOTE | 2016-11-28 16:50 | Wound Care Progress Note ---
Subjective Subjective Subjective/Events-last exam The patient is a pleasant 89-year-old female, with an unstageable pressure ulcer of the sacral area and cellulitis of the right lower leg. 3 weeks previously the patient was admitted with acute myocardial infarction, underwent open heart surgery with bypass grafting, and has developed a pressure ulcer and cellulitis as noted consequent to the previous operation. The patient was admitted with the ulcer on her sacrum. It is improving. The cellulitis of the right leg developed in the last week. The patient states her leg is been much more swollen than it currently is. The patient has a large blister on the dorsum of the right foot. Past Medical History: History of congestive heart failure, coronary artery disease, recent myocardial infarction, hypertension, paroxysmal atrial fibrillation, chronic renal failure. During the perioperative period, and [place] when she had the surgery, the patient was on an insulin drip. She however denies a history of diabetes mellitus. Family History: Noncontributory. 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 Review of Systems Date Seen by Provider: Nov 28, 2016 Time Seen by Provider: 16:00 General: No Chills, Fatigue Pulmonary: No Dyspnea Cardiovascular: No: Chest Pain Objective Exam Last Set of Vital Signs Vital Signs Date Time Temp Pulse Resp B/P (MAP) Pulse Ox O2 Delivery O2 Flow Rate FiO2 11/28/16 09:00 Nasal Cannula 2.00 11/28/16 05:44 97.9 89 18 93/53 93 Capillary Refill : I&O Intake and Output 11/29/16 00:00 Intake Total 150 ml Balance 150 ml Intake Oral 150 ml # Voids 10 General: Alert, Mild Distress Lungs: Normal Air Movement Extremities: Other (cellulitis with warmth and erythema of the right calf extending from ankle to upper calf. No open area associated with this.) Skin: Other (Sacral wound0.7 x 0.4 x 0.3 cm. Base 100% slough. Drainage moderate serosanguineous.Clear blister dorsum right foot 3.8 x 6.8 cm. This is not ruptured.) Results Lab Laboratory Tests 11/28/16 05:30: White Blood Count 4.6, Red Blood Count 3.03L, Hemoglobin 9.0L, Hematocrit 29L, Mean Corpuscular Volume 97, Mean Corpuscular Hemoglobin 30, Mean Corpuscular Hemoglobin Concent 31L, Red Cell Distribution Width 14.7H, Platelet Count 200, Mean Platelet Volume 9.9, Sodium Level 141, Potassium Level 3.7, Chloride Level 99, Carbon Dioxide Level 32, Anion Gap 10, Blood Urea Nitrogen 26H, Creatinine 1.29, Estimat Glomerular Filtration Rate 39, BUN/Creatinine Ratio 20, Glucose Level 105, Calcium Level 8.1L, Total Bilirubin 0.6, Aspartate Amino Transf (AST/ SGOT) 43H, Alanine Aminotransferase (ALT/SGPT) 33, Alkaline Phosphatase 86, Total Protein 4.9L, Albumin 2.6L Assessment/Plan Assessment/Plan Assessment/Plan 1. Pressure ulcer, sacral area, unstageable. 2. Blister of dorsum of right foot. 3. Decreased mobility. 4. Cellulitis of right calf. Plan: Bordered foam dressing to sacral area. Dry dressing to right foot. Oral cephalosporins for cellulitis. BELINDA BURNHAM MD Nov 28, 2016 16:50
[2016-11-28 18:04] VITALS: BP 96/61
--- NOTE | 2016-11-28 19:46 | PM & R (SOAP) Progress Note ---
Subjective Time Seen by Provider: 07:50 Subjective/Events-last exam Patient was seen in her room this AM Adjusting well to unit Patient with large paINFUL FLUID FILLED BLISTER ON DORSUM OF RT FOOT dr Alejo CONSULTED aPPRECIATE HIS NOTE AND ORDERS rT lEG TENDER AND ERYTHEMATOUS -IS UNDER TRTEATMENT FOR CELLULITIS WITH ANTIBIOTIC. aPPRECIATE THERAPY NOTES AND LABS. Review of Systems Musculoskeletal: leg pain Neurological: Weakness Objective Exam Last Set of Vital Signs Vital Signs Date Time Temp Pulse Resp B/P (MAP) Pulse Ox O2 Delivery O2 Flow Rate FiO2 11/28/16 18:04 97.1 87 14 96/61 94 Nasal Cannula 2.00 Capillary Refill : I&O Intake and Output 11/28/16 23:59 Intake Total 790 ml Balance 790 ml Intake Oral 790 ml # Voids 13 # Bowel Movements 1 General: Alert, Mild Distress HEENT: Atraumatic, PERRLA Neck: Supple, No JVD, No Thyromegaly Lungs: Normal Air Movement Heart: Regular Rate, Normal S1, Normal S2, Gallops (bilateral rhonchi), Other ( systolic murmur at the left sternal border) Abdomen: Normal Bowel Sounds, Soft, No Tenderness, No Hepatosplenomegaly, No Masses Extremities: Other (cellulitis with warmth and erythema of the right calf extending from ankle to upper calf. No open area associated with this.) Skin: Other (Sacral wound0.7 x 0.4 x 0.3 cm. Base 100% slough. Drainage moderate serosanguineous.Clear blister dorsum right foot 3.8 x 6.8 cm. This is not ruptured.) Neuro: Normal Gait, Normal Speech, Strength at 5/5 X4 Ext, Normal Tone, Sensation Intact Psych/Mental Status: Mental Status NL, Mood NL Results Lab Laboratory Tests 11/28/16 05:30: White Blood Count 4.6, Red Blood Count 3.03L, Hemoglobin 9.0L, Hematocrit 29L, Mean Corpuscular Volume 97, Mean Corpuscular Hemoglobin 30, Mean Corpuscular Hemoglobin Concent 31L, Red Cell Distribution Width 14.7H, Platelet Count 200, Mean Platelet Volume 9.9, Sodium Level 141, Potassium Level 3.7, Chloride Level 99, Carbon Dioxide Level 32, Anion Gap 10, Blood Urea Nitrogen 26H, Creatinine 1.29, Estimat Glomerular Filtration Rate 39, BUN/Creatinine Ratio 20, Glucose Level 105, Calcium Level 8.1L, Total Bilirubin 0.6, Aspartate Amino Transf (AST/ SGOT) 43H, Alanine Aminotransferase (ALT/SGPT) 33, Alkaline Phosphatase 86, Total Protein 4.9L, Albumin 2.6L Assessment/Plan Assessment 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 TREATED- BEING FOLLOWED BY cARDIOLOGY cELLULITIS RT LEG UNDER TREATMENT bLISTER dORSUM RT FOOT dr Alejo MANAGING sACRAL PRESSURE SORE dr Alejo MANAGING htn WITH hYPOTENSION AT THIS TIME cARDIOLOGY MANAGING a fib CONTROLLED WITH MEDS RESP INSUFFICIENCY dr Morocho pULM FOLLOWING Plan cONTINUE pt/ot/wOUND CARE cOMPLETE COURSE OF aNTIBIOTIC FOR CELLULITIS f/u WITH pcp dr david Cast AND dr Alejo AND dr Morocho AND CARDIOLOGY PER [facility] SCHEDULE aPPRECIATE cARDIOLOGY AND dr Cannon NOTES AND ORDERS teAM cONFERENCE TOMORROW 11-29-16 DORIS QUIGLEY MD Nov 28, 2016 19:46
[2016-11-28 20:04] VITALS: BP 94/55
[2016-11-28] MEDS: busPIRone 5 MG (BUSPAR) TAB PO SCH (20:58)
[2016-11-28] MEDS: ATORVASTATIN 40 MG (LIPITOR) TABLET PO SCH (20:58)
[2016-11-28] MEDS: ACETAMINOPHEN 500 MG TAB (TYLENOL) PO PRN (23:19)
[2016-11-29 04:00] VITALS: BP 103/54
[2016-11-29 06:08] LABS: MEAN PLATELET VOLUME 10.1 FL (7.4-10.4); RED BLOOD COUNT 2.81 10^6/uL (4.35-5.85); RED CELL DISTRIBUTION WIDTH 14.7 % (10.0-14.5); WHITE BLOOD COUNT 3.8 10^3/uL (4.3-11.0)
[2016-11-29] MEDS: FUROSEMIDE 40 MG (LASIX) TAB PO SCH ×2 (06:09→17:49)
[2016-11-29] MEDS: MULTIVIT W/MINERALS TAB (THERAGRAN M) PO SCH (06:09)
[2016-11-29] MEDS: PANTOPRAZOLE 40 MG (PROTONIX) TAB PO SCH (06:09)
[2016-11-29 06:31] LABS: CALCIUM 7.9 MG/DL (8.5-10.1); CREATININE SERUM 1.56 MG/DL (0.60-1.30); MAGNESIUM 1.9 MG/DL (1.8-2.4); POTASSIUM 3.8 MMOL/L (3.6-5.0)
--- NOTE | 2016-11-29 08:10 | Consultation ---
History of Present Illness History of Present Illness Patient Consulted On(aundrea/time) 11/28/16 08:05 Date Seen by Provider: Nov 28, 2016 Time Seen by Provider: 20:00 Reason for Visit: medical management of comorbidities History of Present Illness 89 yo F admitted 11/23/16 for acute on chronic congestive heart failure, with recent 3v CABG 11/03/16, also found to have a UTI due to klebsiella. She is completing a course of cefdinir to treat the UTI and RLE cellulitis. Dr. Gomez is consulted for cardiology and Dr. Gotti is on board for wound care as she has a sacral wound and a RLE blister. Pt is now in inpatient rehab transferred on from 4th floor on 11/27/16. Patient needs aggressive rehab to get back to prior level of function. Allergies and Home Medications Allergies Coded Allergies: No Known Drug Allergies (Unverified , 11/27/16) Home Medications Acetaminophen 500 Mg Tablet, 500 MG PO Q8H PRN for PAIN-MILD, (Reported) Amiodarone HCl 200 Mg Tablet, 200 MG PO DAILY, (Reported) Apixaban 2.5 Mg Tablet, 2.5 MG PO BID for 30 Days, (Reported) START DATE 11-14-16 STOP DATE 12-17-16 Aspirin 81 Mg Tablet.dr, 81 MG PO DAILY, (Reported) Atorvastatin Calcium 40 Mg Tablet, 40 MG PO HS, (Reported) Buspirone HCl 5 Mg Tablet, 5 MG PO HS, (Reported) Furosemide 40 Mg Tablet, 40 MG PO DAILY, (Reported) Furosemide 40 Mg Tablet, 40 MG PO DAILY PRN for SWELLING/SOB, (Reported) 1 TABLET MAY BE TAKEN IN ADDITION TO DAILY SCHEDULED DOSE NEEDED FOR INCREASED SWELLING AND SOB. Hydrocodone/Acetaminophen 1 Each Tablet, 1 TAB PO Q8H PRN for PAIN-MODERATE, ( Reported) Lisinopril 2.5 Mg Tablet, 2.5 MG PO DAILY, (Reported) Metoprolol Tartrate 25 Mg Tablet, 12.5 MG PO BID, (Reported) TAKES 1/2 (25MG) TABLET Multivitamin with Minerals 1 Each Tablet, 1 TAB PO DAILY, (Reported) [place] 3 Polyunsat Fatty Acids 1,000 Mg Cap, 1,000 MG PO DAILY, (Reported) Past [place]-Rufgpa-Fbrqei Hx Patient Social History Alcohol Use: Denies Use Recreational Drug Use: No Smoking Status: Never a Smoker 2nd Hand Smoke Exposure: No Recent Foreign Travel: No Contact w/Someone Who Travel: No Recent Infectious Disease Expo: No Recent Hopitalizations: Yes Immunizations Up To Date PED Vaccines UTD: No Seasonal Allergies Seasonal Allergies: No Surgeries History of Surgeries: Yes Surgeries: Breast, Cardiac, CABG Respiratory History of Respiratory Disorde: Yes (wears home o2@2l since cabg) Cardiovascular History of Cardiac Disorders: Yes Cardiac Disorders: Atrial Fibrillation, Coronary Artery Disease, Heart Attack, Hypertension Neurological History of Neurological Disord: No Genitourinary History of Genitourinary Disor: No Gastrointestinal History of Gastrointestinal Di: No Musculoskeletal History of Musculoskeletal Dis: No Endocrine History of Endocrine Disorders: No HEENT History of HEENT Disorders: Yes Loss of Vision: Denies Hearing Impairment: Hard of Hearing Cancer History of Cancer: Yes Cancer: Breast Did You Recieve Any Treatments: Yes Type of Tx Receive: Surgical Intervention Psychosocial History of Psychiatric Problem: No Integumentary History of Skin or Integumenta: No Blood Transfusions History of Blood Disorders: No Adverse Reaction to a Blood Tr: No Family Medical History Family Medial History: Myocardial infarction 19 FATHER Neoplasm 19 MOTHER Review of Systems Review of Systems General: No Chills, Fatigue HEENT: No Head Aches, No Visual Changes, No Eye Pain, No Ear Pain, No Dysphasia , No Sinus Congestion, No Post Nasal Drip, No Sore Throat, No Other Pulmonary: No Dyspnea Cardiovascular: No: Chest Pain Gastrointestinal: No: Nausea, Vomiting, Abdominal Pain Genitourinary: No Dysuria Musculoskeletal: leg pain Neurological: Weakness (worked hard in therapy yesterday) Physical Exam Vital Signs Vital Signs Date Time Temp Pulse Resp B/P (MAP) Pulse Ox O2 Delivery O2 Flow Rate FiO2 11/29/16 04:00 97.2 91 18 103/54 96 Nasal Cannula 2.00 11/28/16 21:00 Nasal Cannula 2.00 11/28/16 20:04 87 94/55 11/28/16 18:04 97.1 87 14 96/61 94 Nasal Cannula 2.00 11/28/16 09:00 Nasal Cannula 2.00 General Appearance: No Apparent Distress HEENT: PERRL/EOMI Neck: Supple Respiratory: Chest Non Tender, Lungs Clear, Normal Breath Sounds, No Accessory Muscle Use, No Respiratory Distress Cardiovascular: Regular Rate, Rhythm Gastrointestinal: Soft Rectal: Deferred Back: No CVA Tenderness Extremity: Pedal Edema, Other (RLE blister on dorsum of foot.) Neurologic/Psychiatric: Alert, Oriented x3, Normal Mood/Affect Skin: Warm/Dry Assessment/Plan Assessment/Plan Assessment/Plan Weakness/deconditioning due to comorbidities- Inpatient Rehab Acute on chronic systolic congestive heart failure- Dr. Gomez consulted- diuresing lasix 40mg BID ECHO 11/12/16 30-35% LVEF urinary tract infection without hematuria- due to klebsiella. will complete cefdinir acute on chronic respiratory distress- stable CAD- s/p 3v CABG 11/03/16, no chest pain- needs PT, OT Acute kidney failure- Cr elevated again-likely due to low fluid, lower blood pressures- adjusting BP meds, encourage po hydration HTN- lower BP recently- holding coreg, decreased lisinopril to 2.5mg chronic pain- stable, has hydrocodone available other hyperlipidemia- cont statin Chronic Anemia- has been stable will recheck in AM Right lower leg cellulitis- on cedfdinir, Dr. Gotti consulted Paroxysmal Atrial fibrillation - NSR, continue eliquis Right pleural effusion- Diuresing- Dr. Mckeon consulted Dispo: encourage po hydration- blood pressure needs to come back up. BP meds adjusted- recheck BMP in AM Problems: Clinical Quality Measures DVT/VTE Risk/Contraindication: Risk Factor Score Per Nursin RFS Level Per Nursing on Admit: 4+=Very High Contraindications-Mechi: Other *list below* Other: CELLULITIS OF RIGHT LEG BELKYS CUI MD Nov 29, 2016 08:10
--- NOTE | 2016-11-29 08:39 | Cardiology Progress Note ---
Subjective Time Seen by Provider: 08:15 Subjective/Events-last exam Patient complains of increased dyspnea. Denies any CP, dizziness, or lightheadedness. Review of Systems General: No Night Sweats, No Fatigue, No Malaise HEENT: No Visual Changes, No Dysphasia, No Sore Throat Pulmonary: Dyspnea, No Cough Cardiovascular: No: Chest Pain, Palpitations, Paroxysmal Noc. Dyspnea, Edema Gastrointestinal: No: Nausea, Vomiting, Constipation Genitourinary: No Dysuria, No Frequency Musculoskeletal: No: neck pain, back pain Neurological: Weakness, No: Numbness, Change in speech, Confusion Objective-Cardiology Exam Last Set of Vital Signs Vital Signs 11/29/16 04:00 Temp 97.2 Pulse 91 Resp 18 B/P (MAP) 103/54 Pulse Ox 96 O2 Delivery Nasal Cannula O2 Flow Rate 2.00 Capillary Refill : I&O Intake and Output 11/30/16 00:00 Intake Total 500 ml Balance 500 ml Intake Oral 500 ml # Voids 6 General: Alert, Mild Distress HEENT: Atraumatic, PERRLA Neck: Supple, No JVD, No Thyromegaly Lungs: Normal Air Movement, Other (decreased breath sounds bibasilar) Heart: Regular Rate, Normal S1, Normal S2, Gallops (bilateral rhonchi), Other ( systolic murmur at the left sternal border) Abdomen: Normal Bowel Sounds, Soft, No Tenderness, No Hepatosplenomegaly, No Masses Extremities: Other (cellulitis with warmth and erythema of the right calf extending from ankle to upper calf. No open area associated with this.) Skin: Other (Sacral wound0.7 x 0.4 x 0.3 cm. Base 100% slough. Drainage moderate serosanguineous.Clear blister dorsum right foot 3.8 x 6.8 cm. This is not ruptured.) Neuro: Normal Gait, Normal Speech, Strength at 5/5 X4 Ext, Normal Tone, Sensation Intact Psych/Mental Status: Mental Status NL, Mood NL Results Lab Laboratory Tests 11/29/16 05:30 A/P-Cardiology Admission Diagnosis CHF CAD HTN PAF Assessment/Plan Shortness of breath, pulmonary edema, reporting improvement, chest x-ray showed moderate to large right-sided pleural effusion, complaining of increased dyspnea this morning. I will reevaluate CXR. Lasix decreased yesterday secondary to worsening renal function. Congestive heart failure, acute on chronic left ventricular systolic dysfunction , ischemic cardiomyopathy, peripheral edema, ejection fraction 30-35 percent per echocardiogram done earlier this month, continue with diuretics and monitor. Maintained on lisinopril, lopressor. Continue to monitor. Paroxysmal atrial fibrillation, converted to sinus rhythm, mainly postoperatively, continue on amiodarone 200 mg daily and monitor [id number] score of 7, yearly risk of stroke without oral anticoagulation is 9.6 percent, tolerating Eliquis 2.5 mg twice daily well, anemia is stable. Continue to monitor Coronary artery disease, had acute ST elevation myocardial infarction at [facility] required CABG 3, continue to monitor Acute renal insufficiency, woresening renal function, continue to monitor Hyperlipidemia, continue on Lipitor 40 mg and monitor. Hypertension, borderline hypotensive, continue to monitor blood pressure Diabetes mellitus, patient was on insulin drip at [facility], management per PCP. Clinical Quality Measures DVT/VTE Risk/Contraindication: Risk Factor Score Per Nursin RFS Level Per Nursing on Admit: 4+=Very High Contraindications-Mechi: Other *list below* Other: CELLULITIS OF RIGHT LEG SERENA LEE Nov 29, 2016 08:39
[2016-11-29 09:27] VITALS: BP 101/67
[2016-11-29] MEDS: CEFDINIR 300 MG (OMNICEF) CAP PO SCH ×2 (09:31→20:08)
[2016-11-29] MEDS: LACTOBACILLUS Acidoph/Bulgar (LACTINEX/FLORANEX) TAB PO SCH ×2 (09:31→20:08)
[2016-11-29] MEDS: ASPIRIN 81 MG CHEW (CHILDREN'S ASA) PO SCH (09:32)
[2016-11-29] MEDS: APIXABAN 2.5 MG (ELIQUIS) TABLET PO SCH ×2 (09:32→20:08)
[2016-11-29] MEDS: AMIODARONE 200 MG (CORDARONE) TAB PO SCH (09:32)
[2016-11-29] MEDS: OMEGA 3 (FISH OIL) 1000 MG CAP PO SCH (09:32)
[2016-11-29] MEDS: meTOprolol TARTRATE 25 MG (LOPRESSOR) TABLET PO SCH ×2 (09:48→20:08)
[2016-11-29] MEDS: lisINopril 5 MG (PRINIVIL) TABLET PO SCH (09:48)
[2016-11-29 10:25] VITALS: BP 97/61
--- NOTE | 2016-11-29 10:45 | Occupational Ther Daily Note ---
OT Current Status-Daily Note Subjective Pt seen in room, up in bed, agreeable to OT. No pain mentioned except some tightness in chest at end of tx, addressed by nursing Appearance Alert, cooperative Mental Status/Objective Functional [place] Measure 0=Not Assessed/NA 4=Minimal Assistance 1=Total Assistance 5=Supervision or Setup 2=Maximal Assistance 6=Modified [place] 3=Moderate Assistance 7=Complete [place] ADL-Treatment Pt was able to move from supine to sit EOB with head of bed elevated and using rail. Sit to stand with CGA, FWW, cues to scoot to edge of bed. Walked with CGA , FWW to bathroom. Pt toileted and sat to do sponge bath and groom. Functional [place] Measure 0=Not Assessed/NA 4=Minimal Assistance 1=Total Assistance 5=Supervision or Setup 2=Maximal Assistance 6=Modified [place] 3=Moderate Assistance 7=Complete IndependenceIRFPAI Quality Coding Scale 6 Independent with activity with or without an assistive device 5 Patient requires set up or clean up by helper. Patient completes activity by themselves 4 Supervision or touching assist (CGA). [place] provide cues , steadying assist 3 The helper provides less than half the effort to complete the activity 2 The helper provides more than half the effort to complete the activity 1 Dependent. The helper does all the effort to complete an activity 7 Patient refused to complete or attempt activity 9 The patient did not perform the activity before the current illness or injury 88 Not attempted due to Medical conditions or safety concerns Grooming (FIM): 5 (setup at sink, seated. Washed face and hands, brushed dentures and hair. No makeup) Bathing (FIM): 4 (Pt washed and dried all parts except back with CGA when she stood to wash her bottom, sponge bath at sink, seated. ) Upper Body (FIM): 5 (Doffed and donned shirt, remembering to take O2 off before dressing. Setup) Lower Body Dressing (FIM): 4 (Min assist sit to stand to pull pants up. Able to reach forward to get Depends and slacks on over feet. Did not need dressing stick. FWW for balance.) Toileting (FIM): 5 (Pt was able to manage clothing with SBA and hygiene but needed skilled initiation cues to pull her pants down and to try to wipe herself. Pt encouraged to ask to do these things for herself when she is discharged. BSC over toilet, FWW, grab bar) Transfers (B, C, W/C) (FIM): 3 (Min assist lifting help from chair with arms, during bathing. ) Toilet/Commode Transfer (FIM): 5 (SBA getting on and off BSC over toilet ( which is relatively high). Pushes up on armrests. ) Pt sat u p in recliner to do bilat UE exercise using yellow theraband (gentle resistance). She was able to do 10 reps of several different exercises, focusing on shoulders and elbows and muscles needed to help with transfers. Pt education on the different exercises and verlab and visual cues provided to do them correctly. At end of reps, pt was doing pursed lip breathing and commented to nurse on tightness in chest. Vitals were checked and O2 sats varied quickly from 87% to 100%. Nursing present. Pt's fingers get cold and it is hard to get accurate pulse ox measurements. Pt was left up in recliner, O2 in place at 2L/min, all needs met. Education OT Patient Education: Exercise program, Modified ADL techniques, Progress toward Goal/Update tx plan, Purpose of tx/functional activities, Transfer techniques, Use of adapted equipment Teaching Recipient: Patient Teaching Methods: Demonstration, Discussion Response to Teaching: Verbalize Understanding, Return Demonstration, Reinforcement Needed OT Short Term Goals Short Term Goals Time Frame: Dec 08, 2016 Grooming(FIM): 5 Lower Body Dressing(FIM): 3 Toileting(FIM): 5 Toilet/Commode Transfer(FIM): 4 Additional Short Term Goals: 2-Verbalize Understanding, 3-ImproveStrength/Florinda 1=Demonstrate adherence to instructed precautions during ADL tasks. 2=Patient will verbalize/demonstrate understanding of assistive devices/ modifications for ADL. 3=Patient will improve strength/tolerance for activity to enable patient to perform ADL's. OT Assisted Goals Mental Health Nurse Practitioner Goals Time Frame: Dec 22, 2016 Eating (FIM): 6 Eating (QC): 6 Groomin Oral Hygiene (QC): 6 Bathing(FIM): 5 Shower/Bathe Self (QC): 5 Upper Body Dressing(FIM): 6 Upper Body Dressing (QC): 6 Lower Body Dressing(FIM): 6 Lower Body Dressing (QC): 6 On/Off Footwear (QC): 6 Toileting(FIM): 6 Toileting Hygiene (QC): 6 Toilet/Commode Transfer(FIM): 6 Toilet/Commode Transfer (QC): 6 Shower Transfer(FIM): 5 Additional Goals: 2-Verbalize Understanding, 3-ImproveStrength/Florinda 1=Demonstrate adherence to instructed precautions during ADL tasks. 2=Patient will verbalize/demonstrate understanding of assistive devices/ modifications for ADL. 3=Patient will improve strength/tolerance for activity to enable patient to perform ADL's. OT Education/Plan Problem List/Assessment Pt would benefit from skilled OT to increase her independence and activity tolerance for basic ADLs to allow her to return to an [place] or skilled care and to decrease caregiver burden Discharge Recommendations Plan/Recommendations: Continue POC Treatment Plan/Plan of Care Patient would benefit from OT for education, treatment and training to promote independence in ADL's, mobility, safety and/or upper extremity function for ADL' s. Plan of Care: ADL Retraining, Functional Mobility, Group Exercise/Act as Ind ( education, exercise, activty tolerance, funct mobility, socialization), UE Funct Exercise/Act, UE Neuromus Re-Ed/Coord Treatment Duration: Dec 22, 2016 Frequency: At least 5 to 7 days/Wk (IRF) Estimated Hrs Per Day: 1.5 hours per day Agreement: Yes Rehab Potential: Fair Time/GCodes Start Time: 08:30 Stop Time: 09:30 Total Time Billed (hr/min): 60 Billed Treatment Time visit, 50 minutes ADL, 10 minutes exercise SOPHIE WARE OT Nov 29, 2016 10:45
--- NOTE | 2016-11-29 11:34 | PM & R (SOAP) Progress Note ---
Subjective Time Seen by Provider: 08:10 Subjective/Events-last exam Patient was seen in her room this AM Patient min assist for transfers Blood pressure trending down last evening Discussed with RN last night DR Gomez held one of meds Appreciate Cardiology notes and orders Appreciate current labs Repeat CXR pending. Review of Systems Pulmonary: Dyspnea Musculoskeletal: foot pain Objective Exam Last Set of Vital Signs Vital Signs Date Time Temp Pulse Resp B/P (MAP) Pulse Ox O2 Delivery O2 Flow Rate FiO2 11/29/16 09:45 Nasal Cannula 2.00 11/29/16 09:27 96.3 87 20 101/67 99 Capillary Refill : I&O Intake and Output 11/30/16 00:00 Intake Total 500 ml Balance 500 ml Intake Oral 500 ml # Voids 6 General: Alert, Mild Distress HEENT: Atraumatic, PERRLA Neck: Supple, No JVD, No Thyromegaly Lungs: Normal Air Movement, Other (decreased breath sounds bibasilar) Heart: Regular Rate, Normal S1, Normal S2, Gallops (bilateral rhonchi), Other ( systolic murmur at the left sternal border) Abdomen: Normal Bowel Sounds, Soft, No Tenderness, No Hepatosplenomegaly, No Masses Extremities: Other (cellulitis with warmth and erythema of the right calf extending from ankle to upper calf. No open area associated with this.) Skin: Other (Sacral wound0.7 x 0.4 x 0.3 cm. Base 100% slough. Drainage moderate serosanguineous.Clear blister dorsum right foot 3.8 x 6.8 cm. This is not ruptured.) Neuro: Normal Gait, Normal Speech, Strength at 5/5 X4 Ext, Normal Tone, Sensation Intact Psych/Mental Status: Mental Status NL, Mood NL Results Lab Laboratory Tests 11/28/16 05:30: White Blood Count 4.6, Red Blood Count 3.03L, Hemoglobin 9.0L, Hematocrit 29L, Mean Corpuscular Volume 97, Mean Corpuscular Hemoglobin 30, Mean Corpuscular Hemoglobin Concent 31L, Red Cell Distribution Width 14.7H, Platelet Count 200, Mean Platelet Volume 9.9, Sodium Level 141, Potassium Level 3.7, Chloride Level 99, Carbon Dioxide Level 32, Anion Gap 10, Blood Urea Nitrogen 26H, Creatinine 1.29, Estimat Glomerular Filtration Rate 39, BUN/Creatinine Ratio 20, Glucose Level 105, Calcium Level 8.1L, Total Bilirubin 0.6, Aspartate Amino Transf (AST/ SGOT) 43H, Alanine Aminotransferase (ALT/SGPT) 33, Alkaline Phosphatase 86, Total Protein 4.9L, Albumin 2.6L 11/29/16 05:30: White Blood Count 3.8L, Red Blood Count 2.81L, Hemoglobin 8.3L, Hematocrit 27L, Mean Corpuscular Volume 97, Mean Corpuscular Hemoglobin 30, Mean Corpuscular Hemoglobin Concent 30L, Red Cell Distribution Width 14.7H, Platelet Count 177, Mean Platelet Volume 10.1, Sodium Level 141, Potassium Level 3.8, Chloride Level 98, Carbon Dioxide Level 33H, Anion Gap 10, Blood Urea Nitrogen 28H, Creatinine 1.56H, Estimat Glomerular Filtration Rate 31, BUN/Creatinine Ratio 18 , Glucose Level 102, Calcium Level 7.9L, Magnesium Level 1.9 Assessment/Plan Assessment 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 TREATED- BEING FOLLOWED BY cARDIOLOGY cELLULITIS RT LEG UNDER TREATMENT bLISTER dORSUM RT FOOT dr Alejo MANAGING sACRAL PRESSURE SORE dr Alejo MANAGING htn WITH hYPOTENSION AT THIS TIME cARDIOLOGY MANAGING a fib CONTROLLED WITH MEDS RESP INSUFFICIENCY dr Morocho pUL FOLLOWING Plan cONTINUE pt/ot/wOUND CARE cOMPLETE COURSE OF aNTIBIOTIC FOR CELLULITIS f/u WITH pcp dr david Cast AND dr Alejo AND dr Morocho AND CARDIOLOGY PER [facility] SCHEDULE aPPRECIATE cARDIOLOGY AND dr Cannon NOTES AND ORDERS Appreciate DR Hill notes and orders BUN/CR going up and H&H decreasing Meds being adjusted. Team CONFERENCE later today-See report for full functional update and POC and DORIS BURNETT MD Nov 29, 2016 11:34
--- NOTE | 2016-11-29 11:36 | Diagnostic Imaging Report ---
INDICATION: Shortness of breath. TECHNIQUE: PA and lateral films of the chest were obtained at 1048 hours. COMPARISON: 11/27/2016. FINDINGS: There is post sternotomy change and cardiomegaly. There are bilateral pleural effusions which appear about the same as on the prior study. There is some passive atelectasis versus infiltrate in the right base. There are diffuse degenerative changes in the thoracic spine. There are small calcified granulomas in the right midlung. IMPRESSION: Unchanged bilateral pleural effusions, right greater than left, with cardiomegaly and post sternotomy change. Unchanged passive atelectasis in the right lung base. No new abnormality. Dictated by: Dictated on workstation # [id number]
--- NOTE | 2016-11-29 11:58 | Physical Therapy Daily Note ---
PT Daily Note-Current Subjective Pt. states she had some left sided chest pain earlier this morning and had a nitro but feels better now. Pt. states she fatigues quickly but is willing to work Pain Numeric Pain Scale: 0-No Pain Mental Status Patient Orientation: Normal For Age Attachments: Oxygen (2L) Transfers Functional [place] Measure 0=Not Assessed/NA 4=Minimal Assistance 1=Total Assistance 5=Supervision or Setup 2=Maximal Assistance 6=Modified [place] 3=Moderate Assistance 7=Complete IndependenceIRFPAI Quality Coding Scale 6 Independent with activity with or without an assistive device 5 Patient requires set up or clean up by helper. Patient completes activity by themselves 4 Supervision or touching assist (CGA). [place] provide cues , steadying assist 3 The helper provides less than half the effort to complete the activity 2 The helper provides more than half the effort to complete the activity 1 Dependent. The helper does all the effort to complete an activity 7 Patient refused to complete or attempt activity 9 The patient did not perform the activity before the current illness or injury 88 Not attempted due to Medical conditions or safety concerns Transfers (B, C, W/C) (FIM): 5 Scootin Rollin Supine to/from Sit: 5 (with HOB up) Sit to/from Stand: 5 Gait Training Does the Patient Walk?: Yes Gait (FIM): 2 Distance (FIM): 8=107-17 ft (50x2, 25x2) Gait Level of Assist: 5 Gait Persons Needed: 1 Gait Assistive Device: FWW pt. fatigues and requests rest breaks frequently Exercises Supine Ex: Ankle pumps, Quad Set, Rolling, Glut sets, Heel Slides, Short Arc Quads, Scooting (scooted self up in bed from hooklying but cant tolerate bed flat position very long, gets SOB), Hip abd/add Supine Reps: 12 NuStep Minutes: 5 NuStep Workload: 1 Treatments toileted with mod assist to change wet brief, cleans self and managed pants indep Assessment Current Status: Good Progress unable to register O2 sat reading PT Short Term Goals Short Term Goals Time Frame: Dec 06, 2016 Gait (FIM): 4 Distance (FIM): 3=150 ft Gait Assistive Device: FWW PT Trash Collector Truck Driver Goals Trash Collector Truck Driver Goals PT [facility]cf Goals Time Frame: Dec 22, 2016 Transfers (B,C,W/C) (FIM): 6 Sit to Lying (QC): 6 Lying-Sitting on Side/Bed(QC): 6 Sit to Stand (QC): 6 Rollin Roll Left to Right (QC): 6 Chair/[id number]-[id number]-[id number] Xfer(QC): 6 Car Transfer (QC): 5 Does the Patient Walk: Yes Gait (FIM): 6 Gait distance (FIM): 3=150 ft Walk 10 feet (QC): 6 Walk 10ft-Uneven Surface(QC): 6 Walk 50ft with 2 Turns (QC): 6 Walk 150 ft (QC): 6 Gait Level of Assist: 6 Gait Assistive Device: FWW Stairs (FIM): 2 # of Steps: 4 1 Step (curb) (QC): 4 4 Steps (QC): 4 12 Steps (QC): 88 Picking up an Object (QC): 88 PT Plan Treatment/Plan Treatment Plan: Continue Plan of Care Treatment Plan: Bed Mobility, Education, Functional Activity Florinda, Functional Strength, Group Therapy, Gait, Safety, Therapeutic Exercise, Transfers Treatment Duration: Dec 22, 2016 Frequency: At least 5 to 7 days/Wk (IRF) Estimated Hrs Per Day: 1.5 hours per day Patient and/or Family Agrees t: Yes Safety Risks/Education Patient Education: Gait Training, Transfer Techniques, Correct Positioning ( position in FWW), Safety Issues Teaching Recipient: Patient Teaching Methods: Demonstration, Discussion Response to Teaching: Verbalize Understanding, Return Demonstration, Reinforcement Needed Time/GCodes Time In: 1100 Time Out: 1200 Total Billed Treatment Time: 60 Total Billed Treatment 1,EX25m,GT20m,FA15m G Codes Necessary: RUFUS Garner CLOTHING PATTERNMAKER Nov 29, 2016 11:58
[2016-11-29 12:01] VITALS: BP 98/64
--- NOTE | 2016-11-29 12:59 | Cardiology Progress Note ---
Subjective Date Seen by Provider: Nov 29, 2016 Time Seen by Provider: 12:57 Subjective/Events-last exam patient is laying down in bed, had an episode of chest pain and shortness of breath early this morning improved after one sublingual nitroglycerin, currently laying down comfortably, denied any chest pain, denied any shortness of breath, palpitation, syncope. Review of Systems General: No Chills, No Night Sweats, No Fatigue, No Malaise, No Appetite, No Other HEENT: No Head Aches, No Visual Changes, No Eye Pain, No Ear Pain, No Dysphasia , No Sinus Congestion, No Post Nasal Drip, No Sore Throat, No Other Pulmonary: Dyspnea, No Cough, No Pleuritic Chest Pain, No Other Cardiovascular: Chest Pain, No: Palpitations, Orthopnea, Paroxysmal Noc. Dyspnea, Edema, Lt Headedness, Other Objective-Cardiology Exam Last Set of Vital Signs Vital Signs 11/29/16 11/29/16 09:27 12:01 Temp 96.3 Pulse 89 Resp 20 B/P (MAP) 98/64 Pulse Ox 99 O2 Delivery Nasal Cannula O2 Flow Rate 2.00 Capillary Refill : I&O Intake and Output 11/30/16 00:00 Intake Total 500 ml Balance 500 ml Intake Oral 500 ml # Voids 6 General: Alert, Oriented X3, Mild Distress HEENT: Atraumatic, PERRLA Neck: Supple, No JVD, No Thyromegaly Lungs: Normal Air Movement, Other (decreased breath sounds bibasilar) Heart: Regular Rate, Normal S1, Normal S2, Gallops (bilateral rhonchi), Other ( systolic murmur at the left sternal border) Abdomen: Normal Bowel Sounds, Soft, No Tenderness, No Hepatosplenomegaly, No Masses Extremities: Other (cellulitis with warmth and erythema of the right calf extending from ankle to upper calf. No open area associated with this.) Skin: No Rashes, Other (Sacral wound0.7 x 0.4 x 0.3 cm. Base 100% slough. Drainage moderate serosanguineous.Clear blister dorsum right foot 3.8 x 6.8 cm. This is not ruptured.) Neuro: Normal Gait, Normal Speech, Strength at 5/5 X4 Ext, Normal Tone, Sensation Intact Psych/Mental Status: Mental Status NL, Mood NL Results Lab Laboratory Tests 11/29/16 05:30 A/P-Cardiology Admission Diagnosis CHF CAD HTN PAF Assessment/Plan Shortness of breath, pulmonary edema, reporting improvement, chest x-ray showed moderate to large right-sided pleural effusion, had an episode of chest pain and shortness of breath this morning, planning to repeat chest x-ray, felt better after one sublingual nitroglycerin, I will continue on current medications and monitor Congestive heart failure, acute on chronic left ventricular systolic dysfunction , ischemic cardiomyopathy, peripheral edema, ejection fraction 30-35 percent per echocardiogram done earlier this month, continue with diuretics and monitor. Maintained on lisinopril, lopressor. Continue to monitor. Paroxysmal atrial fibrillation, converted to sinus rhythm, mainly postoperatively, continue on amiodarone 200 mg daily and monitor [id number] score of 7, yearly risk of stroke without oral anticoagulation is 9.6 percent, tolerating Eliquis 2.5 mg twice daily well, anemia is slightly worse. Continue to monitor Coronary artery disease, had acute ST elevation myocardial infarction at [facility] required CABG 3, continue to monitor Acute renal insufficiency, woresening renal function, continue to monitor Hyperlipidemia, continue on Lipitor 40 mg and monitor. Hypertension, currently borderline hypotensive, I will add parameter to hold Lopressor and lisinopril for systolic blood pressure less than 100 Diabetes mellitus, patient was on insulin drip at [facility], management per PCP. Clinical Quality Measures DVT/VTE Risk/Contraindication: Risk Factor Score Per Nursin RFS Level Per Nursing on Admit: 4+=Very High Contraindications-Mechi: Other *list below* Other: CELLULITIS OF RIGHT LEG CAROL DUDLEY MD Nov 29, 2016 12:59
--- NOTE | 2016-11-29 13:59 | Occupational Ther Daily Note ---
OT Current Status-Daily Note Subjective Pt asleep, lying in bed. Pt woke to name. Pt agreed to therapy, stating that she felt better now than this morning. No c/o pain. Mental Status/Objective Patient Orientation: Person, Place, Time, Situation Functional [place] Measure 0=Not Assessed/NA 4=Minimal Assistance 1=Total Assistance 5=Supervision or Setup 2=Maximal Assistance 6=Modified [place] 3=Moderate Assistance 7=Complete [place] Attachments: Oxygen ADL-Treatment Functional [place] Measure 0=Not Assessed/NA 4=Minimal Assistance 1=Total Assistance 5=Supervision or Setup 2=Maximal Assistance 6=Modified [place] 3=Moderate Assistance 7=Complete IndependenceIRFPAI Quality Coding Scale 6 Independent with activity with or without an assistive device 5 Patient requires set up or clean up by helper. Patient completes activity by themselves 4 Supervision or touching assist (CGA). [place] provide cues , steadying assist 3 The helper provides less than half the effort to complete the activity 2 The helper provides more than half the effort to complete the activity 1 Dependent. The helper does all the effort to complete an activity 7 Patient refused to complete or attempt activity 9 The patient did not perform the activity before the current illness or injury 88 Not attempted due to Medical conditions or safety concerns Other Treatment Supine to sitting EOB with min A. Sit to stand with SBA then SBA using FWW to ambulate into bathroom. SBA for toilet transfer and pt completed toileting with SBA. Pt ambulated back to room and sat in w/c. Pt then completed fine motor strengthening and coordination task for daily functional tasks. Pt was able to complete the resistive pegs 36 pegs with one hand then the other. Pt then demonstrated ability to open cracker package by self, min A to open small peanut butter container. After therapy, pt sitting in w/c with call light/ phone in reach. All needs met in room. OT Short Term Goals Short Term Goals Time Frame: Dec 08, 2016 Grooming(FIM): 5 Lower Body Dressing(FIM): 3 Toileting(FIM): 5 Toilet/Commode Transfer(FIM): 4 Additional Short Term Goals: 2-Verbalize Understanding, 3-ImproveStrength/Florinda 1=Demonstrate adherence to instructed precautions during ADL tasks. 2=Patient will verbalize/demonstrate understanding of assistive devices/ modifications for ADL. 3=Patient will improve strength/tolerance for activity to enable patient to perform ADL's. OT Usp Goals Sixth Grade Teacher Goals Time Frame: Dec 22, 2016 Eating (FIM): 6 Eating (QC): 6 Groomin Oral Hygiene (QC): 6 Bathing(FIM): 5 Shower/Bathe Self (QC): 5 Upper Body Dressing(FIM): 6 Upper Body Dressing (QC): 6 Lower Body Dressing(FIM): 6 Lower Body Dressing (QC): 6 On/Off Footwear (QC): 6 Toileting(FIM): 6 Toileting Hygiene (QC): 6 Toilet/Commode Transfer(FIM): 6 Toilet/Commode Transfer (QC): 6 Shower Transfer(FIM): 5 Additional Goals: 2-Verbalize Understanding, 3-ImproveStrength/Florinda 1=Demonstrate adherence to instructed precautions during ADL tasks. 2=Patient will verbalize/demonstrate understanding of assistive devices/ modifications for ADL. 3=Patient will improve strength/tolerance for activity to enable patient to perform ADL's. OT Education/Plan Problem List/Assessment Pt would benefit from skilled OT to increase her independence and activity tolerance for basic ADLs to allow her to return to an [facility] or skilled care and to decrease caregiver burden Discharge Recommendations Plan/Recommendations: Continue POC Treatment Plan/Plan of Care Patient would benefit from OT for education, treatment and training to promote independence in ADL's, mobility, safety and/or upper extremity function for ADL' s. Plan of Care: ADL Retraining, Functional Mobility, Group Exercise/Act as Ind ( education, exercise, activty tolerance, funct mobility, socialization), UE Funct Exercise/Act, UE Neuromus Re-Ed/Coord Treatment Duration: Dec 22, 2016 Frequency: At least 5 to 7 days/Wk (IRF) Estimated Hrs Per Day: 1.5 hours per day Agreement: Yes Rehab Potential: Fair Time/GCodes Start Time: 13:30 Stop Time: 14:00 Total Time Billed (hr/min): 30 Billed Treatment Time 1 visit-FA 1 (20 min) EX 1 (10 min) DARIANA PINA Nov 29, 2016 13:59
--- NOTE | 2016-11-29 14:56 | Physical Therapy Daily Note ---
PT Daily Note-Current Subjective Pt. speaks of her recent health history, her late and her mariano. States she is so grateful and has ad a wonderful life with many blessings. Feels she has to take this rehab slow "just like this morning when I had that chest pain" Pain Numeric Pain Scale: 0-No Pain Transfers Functional [place] Measure 0=Not Assessed/NA 4=Minimal Assistance 1=Total Assistance 5=Supervision or Setup 2=Maximal Assistance 6=Modified [place] 3=Moderate Assistance 7=Complete IndependenceIRFPAI Quality Coding Scale 6 Independent with activity with or without an assistive device 5 Patient requires set up or clean up by helper. Patient completes activity by themselves 4 Supervision or touching assist (CGA). [place] provide cues , steadying assist 3 The helper provides less than half the effort to complete the activity 2 The helper provides more than half the effort to complete the activity 1 Dependent. The helper does all the effort to complete an activity 7 Patient refused to complete or attempt activity 9 The patient did not perform the activity before the current illness or injury 88 Not attempted due to Medical conditions or safety concerns sup to sit to sup min to CGA Exercises Supine Ex: Ankle pumps, Quad Set, Rolling, Glut sets, Heel Slides, Scooting, Straight leg raise, Hip abd/add Supine Reps: 15 Assessment Current Status: Good Progress fatigued PT Short Term Goals Short Term Goals Time Frame: Dec 06, 2016 Gait (FIM): 4 Distance (FIM): 3=150 ft Gait Assistive Device: FWW PT Alf Goals Alf Goals PT [employer] Ax Consultant Goals Time Frame: Dec 22, 2016 Transfers (B,C,W/C) (FIM): 6 Sit to Lying (QC): 6 Lying-Sitting on Side/Bed(QC): 6 Sit to Stand (QC): 6 Rollin Roll Left to Right (QC): 6 Chair/Pyh-pu-Bljcz Xfer(QC): 6 Car Transfer (QC): 5 Does the Patient Walk: Yes Gait (FIM): 6 Gait distance (FIM): 3=150 ft Walk 10 feet (QC): 6 Walk 10ft-Uneven Surface(QC): 6 Walk 50ft with 2 Turns (QC): 6 Walk 150 ft (QC): 6 Gait Level of Assist: 6 Gait Assistive Device: FWW Stairs (FIM): 2 # of Steps: 4 1 Step (curb) (QC): 4 4 Steps (QC): 4 12 Steps (QC): 88 Picking up an Object (QC): 88 PT Plan Treatment/Plan Treatment Plan: Continue Plan of Care Treatment Plan: Bed Mobility, Education, Functional Activity Florinda, Functional Strength, Group Therapy, Gait, Safety, Therapeutic Exercise, Transfers Treatment Duration: Dec 22, 2016 Frequency: At least 5 to 7 days/Wk (IRF) Estimated Hrs Per Day: 1.5 hours per day Patient and/or Family Agrees t: Yes Safety Risks/Education Patient Education: Transfer Techniques Teaching Recipient: Patient Teaching Methods: Demonstration, Discussion Response to Teaching: Verbalize Understanding, Return Demonstration, Reinforcement Needed Time/GCodes Time In: 1430 Time Out: 1500 Total Billed Treatment Time: 30 Total Billed Treatment 1,FA10m,EX20m G Codes Necessary: RUFUS Garner HUMAN RESOURCES RECEPTIONIST Nov 29, 2016 14:56
[2016-11-29 17:26] VITALS: BP 101/56
[2016-11-29] MEDS: ACETAMINOPHEN 500 MG TAB (TYLENOL) PO PRN (18:24)
--- NOTE | 2016-11-29 19:17 | Individualized Plan of Care ---
Individualized Plan of Care Rehab Nursing IPOC Order Admission Date Nov 27, 2016 at 14:05 Current Orders Orders Pt Evaluate/Treat Request (11/27/16 10:59) Request Ot Evaluate & Treat (11/27/16 10:59) Request For Cognitive Services (11/27/16 10:59) Admission Arrival Bed Request (11/27/16 14:05) Admission-Acute Rehab Unit (11/27/16 14:05) Heart Healthy (11/27/16 Dinner) Patient Visit (11/27/16 ) Pt Eval Moderate Complexity (11/27/16 ) Functional Activities, Ea 15 (11/27/16 ) Ambulate TID (11/27/16 15:33) Dvt/Vte Risk - Notifiy Physici (11/27/16 15:33) Vte Contraindication (11/27/16 15:33) Patient Visit (11/27/16 ) Exercise Therap, Ea 15 Min (11/27/16 ) Gait Training, Ea 15 Min (11/27/16 ) Patient Visit (11/27/16 ) Patient Visit (11/27/16 ) Speech Sound Lang Comp (11/27/16 ) Code/Resuscitation (11/27/16 16:06) Daily Weight 06 (11/27/16 16:06) Initiate Admission Nursing Pro .admission (11/27/16 16:06) Oxygen-Administer 07,19 (11/27/16 16:06) Consult Physician (11/27/16 16:06) Rt Request For Service (11/27/16 16:06) Consult Physician (11/27/16 16:06) Cbc No Diff (11/28/16 06:00) Comprehensive Metabolic Panel (11/28/16 06:00) Apixaban Tablet (Eliquis Tablet) (11/27/16 21:00) Lactobacillus/Bulgaricus Tab (Lactinex (11/27/16 21:00) Lisinopril Tablet (Zestril Tablet) (11/28/16 09:00) Metoprolol Tartrate (Ir) Tab (Lopressor (11/27/16 21:00) [place] 3 Capsule (Fish Oil Capsule) (11/28/16 09:00) Acetaminophen Tablet (Tylenol Tablet) (11/27/16 16:15) Atorvastatin Tablet (Lipitor) (11/27/16 21:00) Buspirone Tablet (Buspar Tablet) (11/27/16 21:00) Amiodarone Tablet (Cordarone Tablet) (11/28/16 09:00) Pantoprazole Tablet (Protonix Tablet) (11/28/16 07:00) Cefdinir Capsule (Omnicef Capsule) (11/27/16 21:00) Furosemide Tablet (Lasix Tablet) (11/27/16 17:00) Bisacodyl Suppository (Dulcolax Supposit (11/27/16 16:15) Nitroglycerin Sublingual (Nitrostat Sub (11/27/16 16:15) Aspirin Chewable Tablet (Baby Aspirin Ch (11/28/16 09:00) Hydrocodone/Apap 5/325 Tablet (Lortab 5 (11/27/16 16:15) Therapeutic Multivitamin Tab (Vitamins, (11/28/16 07:00) Admission-Acute Rehab Unit (11/27/16 19:01) Cut Off Tender Glass-Inpt Rehab (11/27/16 19:01) Consult Physician (11/28/16 10:08) Consult Physician (11/28/16 10:09) Furosemide Tablet (Lasix Tablet) (11/28/16 17:00) Lisinopril Tablet (Zestril Tablet) (11/29/16 09:00) Cbc No Diff (11/29/16 05:00) Basic Metabolic Panel (11/29/16 05:00) Magnesium (11/29/16 05:00) Patient Visit (11/28/16 ) Exercise Therap, Ea 15 Min (11/28/16 ) Functional Activities, Ea 15 (11/28/16 ) Gait Training, Ea 15 Min (11/28/16 ) Advanced Wound Care Dressing O Q48H (11/28/16 17:14) Advanced Wound Care Dressing O DAILY PRN (11/28/16 17:14) Cbc With Automated Diff (11/30/16 05:00) Basic Metabolic Panel (11/30/16 05:00) Chest Pa/Lat (2 View) (11/29/16 08:33) Patient Visit (11/29/16 ) Exercise Therap, Ea 15 Min (11/29/16 ) Gait Training, Ea 15 Min (11/29/16 ) Functional Activities, Ea 15 (11/29/16 ) Functional Activities, Ea 15 (11/29/16 ) Other Nursing Orders: Monitor for urinary retention and constipation Intensity of Therapy to be met Patient to be seen: Min.3h per day/5 of 7d PT IPOC Problem List: Activity Tolerance, Functional Strength, Safety, Balance, Gait, Transfer, Bed Mobility, ROM Treatment Plan: Continue Plan of Care Bed Mobility, Education, Functional Activity Florinda, Functional Strength, Group Therapy, Gait, Safety, Therapeutic Exercise, Transfers Treatment Duration: Dec 22, 2016 Frequency: At least 5 to 7 days/Wk (IRF) Estimated Hrs Per Day: 1.5 hours per day OT IPOC Problems: Decreased Activ Tolerance, Decreased UE Strength, Dependent Transfers , Impaired Funct Balance, Impaired Self-Care Skills OT Treatment, Training and Edu: Yes OT Problems Pt would benefit from skilled OT to increase her independence and activity tolerance for basic ADLs to allow her to return to an [facility] or skilled care and to decrease caregiver burden Plan of Care: ADL Retraining, Functional Mobility, Group Exercise/Act as Ind ( education, exercise, activty tolerance, funct mobility, socialization), UE Funct Exercise/Act, UE Neuromus Re-Ed/Coord Treatment Duration: Dec 22, 2016 Frequency: At least 5 to 7 days/Wk (IRF) Estimated Hrs Per Day: 1.[address] IPOC Speech Therapy Treatment Plan: Discontinue ST Frequency: Modified Program (IRF) Estimated Hrs Per Day: Other (Evaluation, only.) Cut Off Tender Glass/Case Mgmt Cut Off Tender Glass/Case Managemen: Discharge Planning, Patient/Family Counseling Physician IPOC Medical Issues being managed closely and that require the 24 hour availability of a physician: cellulitis skin breakdown on sacrum and blister dorsum rt foot, CHF, HTN with episode of hypotension Acute on CRI, A FIB controlled with meds Resp insufficiency Dr Mckeon following Medical Issues: Bowel/Bladder Function, DVT Prophylaxis, Falls Precautions, Fluid/Electrolyte/Nutrition Balance, Infection Protection, Pain Management, Wound Care, Other (List) (as per above) Brief Synthesis of Preadmission Screen, Post-Admission Evaluation, and Therapy Evaluations: 89 yo female s/p Cabg with resulting weakness BLes and debility consistent with Critical care illness Treated on medical floor for CHF with DR Jarvis and Cardiology and Pulm following DR Gotti following skin and wound care Has cellulitis rt leg and on antibiotic Has HX of A FIB on meds and HTN.Cardiology adjusting meds Moved to [place] form [place] to be near her family in [place] Had been Independent prior to this cardiac event which was treated at OSH in [place] but was packing with kamla of moving to [place] Most recently on [facility] for ongoing care postop but developed CHF and cellulitis resulting in hospitalization at this facility Medical Prognosis: good Anticipated Length of Stay: 12-22-2016 Rehab Goals Modified Independent to supervision for adl and mobility skills with good wound healing Anticipated discharge destinat: to [facility] vs back to SNU for ongoing care DORIS QUIGLEY MD Nov 29, 2016 19:17
[2016-11-29] MEDS: ATORVASTATIN 40 MG (LIPITOR) TABLET PO SCH (20:08)
[2016-11-29] MEDS: busPIRone 5 MG (BUSPAR) TAB PO SCH (20:08)
--- NOTE | 2016-11-29 21:56 | HISTORY AND PHYSICAL ---
DATE OF SERVICE: CHIEF COMPLAINT: Difficulty with walking. HISTORY OF PRESENT ILLNESS: Karlene Mehta is an 89-year-old female who had been living in [place] who had CABG x3 on 11/03/16 in [place] and was then transferred up to a half-way facility in the [place] so that she would be close to her children. She is a recent and indicates she wanter to move to this area. She, unfortunately, developed a bout of congestive heart failure. The patient was admitted to the hospitalist service, and seen in consultation by cardiology. Medications were adjusted. 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 Chest x-ray on 11/27 shows persistent pleural effusions, suspicious area on her right middle lobe. Pulmonology was consulted and [place] suggested. BNP will be monitored. The patient is now referred to inpatient rehabilitation with a goal of discharging to an assisted living facility in this community to be closer to home. She indicates that she cannot go back to [place] and live alone. At this time, she is currently O2 dependent and requires assistance for ADLs and mobility skills. She states before all this she was independent without a gait aid.She is min assist for transfers and mod assist for gait with walker. She c/o painful blister dorsum of rt foot secondary to cellulitis which is being treated. She is setup for eating and grooming Mod assist for upper body dressing Max assist fo lower body dressing PAST MEDICAL HISTORY: Atrial fibrillation, coronary artery disease, presbycusis, [place], hypertension, congestive heart failure. PAST SURGICAL HISTORY: No prior hip, knee, lumbar spine or cervical spine surgery. ALLERGIES: No known medication allergies. FAMILY HISTORY: Noncontributory. SOCIAL HISTORY: Essentially as per above. She states that she took care of her in [place] for 2 years prior to his . PCP: Michele Jarvis in [place]. CLINICAL FACULTY: Dr. Gomez. She is retired and has children in [place]. REVIEW OF SYSTEMS: A 10-point review of systems significant for weakness in legs, fatigue, shortness of breath.Also painful rt blister. MEDICATIONS: Lisinopril 5 mg p.o. daily, fish oil 1000 mg p.o. daily, amiodarone 200 mg p.o. daily, ASA 81 mg p.o. daily, Protonix 40 mg p.o. daily, multivitamins and minerals 1 tablet p.o. daily, Eliquis 2.5 mg p.o. b.i.d., Lactinex 1 tablet p.o. b.i.d., metoprolol 6.25 mg p.o. b.i.d., labetalol 40 mg p.o. each day at bedtime, BuSpar 5 mg p.o. each day at bedtime, cefdinir 300 mg p.o. b.i.d., furosemide 80 mg p.o. b.i.d., Tylenol 500 mg p.o. q.8 hours p.r.n. mild pain, nitroglycerin 0.4 mg sublingual p.r.n chest pain, hydrocodone/apap 5 one tablet p.o. q.8 hours p.r.n. moderate pain. PHYSICAL EXAMINATION: Significant for a pleasant female appearing her stated age, lying in bed, in no acute distress, appearing quite fatigued. VITAL SIGNS: She is afebrile. Pulse is 89, respirations 16, blood pressure 109/67, O2 sat 98% on 2 liters of O2 by nasal cannula. HEENT: Vision, speech, hearing grossly intact. O2 by nasal cannula in place. No oral lesion is noted. NECK: Supple, without mass. HEART: Regular rhythm. LUNGS: Clear anteriorly. ABDOMEN: Soft, nontender. Bowel sounds present. EXTREMITIES: No local edema. No calf tenderness. MUSCULOSKELETAL: The patient has functional active range of motion in all 4 extremities. NEUROLOGICAL: Sensation is grossly intact to touch. Cognition grossly intact. Strength in lower extremities generally 4-/5. Both upper extremities 4/5. SKIN: Erythema and tenderness rt leg and foot Large unbroken fluid filled blister dorsum rt foor egg shaped approx 2 by 2.5 CM in size. IMPRESSION: 1. 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 2. Postop congestive heart failure treated by cardiology. 3. Atrial fibrillation, controlled with medication. 4. Coronary artery disease status post [place]. 5. Hypertension controlled with medication. 6. Respiratory insufficiency on O2 by nasal cannula. 7. Cellulitis of right leg on antibiotics. 8. Painful blister dorsum rt foot PLAN: The patient will have a comprehensive program with inpatient rehabilitation with goal of maximizing level of functional Independencewith end result of discharge hopefully to an assisted living facility rather than back to a half-way facility. The patient will have PT/OT 90 minutes per day, each discipline 5 days a week for 2 weeks for gait strengthening, conditioning, balance, ADLs, any patient or family caregiver training necessary. Any adaptive equipment and training necessary. Speech therapy to do cognitive assessment and treat as indicated. Rehabilitation nursing to assist with bowel, bladder, skin, wound care, medication, administration, pain management. financial services agent to assist with discharge planning, community reentry, respiratory therapy to assist with monitoring O2 sats and administering O2 as needed. Follow up with PCP DR Jarvis,Pulmonology and cardiology as per their schedule. Therapy with cardiac and fall precautions. Consult Dr. Gotti for wound care. ESTIMATED LENGTH OF STAY: 17 days. PROGNOSIS: Rehab prognosis appears good for goal of discharging to an assisted living facility, hopefully at the modified independence to supervision level for ADLs and mobility skills. DIET: Heart healthy. CODE STATUS: Do not resuscitate. Daily weights. SCDS contraindicated at this time due to cellulitis of her right leg on antibiotic. Job ID: [id number] DocumentID: [id number] Dictated Date: 11/27/2016 19:03:08 Engraver Machine Date: 11/27/2016 19:40:30 Dictated By: DORIS QUIGLEY MD <Dictated by DORIS QUIGLEY MD> <Electronically signed by DORIS QUIGLEY MD> 11/28/16 1003
[2016-11-30 05:33] VITALS: BP 103/57
[2016-11-30 05:40] LABS: BASOPHILS % (AUTO) 1 % (0-10); EOSINOPHILS # (AUTO) 0.4 10^3/uL (0.0-0.3); EOSINOPHILS % (AUTO) 9 % (0-10); LYMPHOCYTES # (AUTO) 0.8 X 10^3 (1.0-4.0); LYMPHOCYTES % (AUTO) 20 % (12-44); MEAN CORPUSCULAR HEMOGLOBIN 29 PG (25-34); MEAN CORPUSCULAR HGB CONC 30 G/DL (32-36); MEAN CORPUSCULAR VOLUME 97 FL (80-99); MEAN PLATELET VOLUME 10.1 FL (7.4-10.4); MONOCYTES # (AUTO) 0.4 X 10^3 (0.0-1.0); MONOCYTES % (AUTO) 10 % (0-12); NEUTROPHILS # (AUTO) 2.6 X 10^3 (1.8-7.8); NEUTROPHILS % (AUTO) 61 % (42-75); PLATELET COUNT 186 10^3/uL (130-400); RED BLOOD COUNT 2.96 10^6/uL (4.35-5.85); RED CELL DISTRIBUTION WIDTH 14.8 % (10.0-14.5); WHITE BLOOD COUNT 4.2 10^3/uL (4.3-11.0)
[2016-11-30 05:59] LABS: CALCIUM 8.2 MG/DL (8.5-10.1); CREATININE SERUM 1.61 MG/DL (0.60-1.30); POTASSIUM 3.8 MMOL/L (3.6-5.0)
[2016-11-30] MEDS: FUROSEMIDE 40 MG (LASIX) TAB PO SCH ×2 (06:08→17:07)
[2016-11-30] MEDS: PANTOPRAZOLE 40 MG (PROTONIX) TAB PO SCH (06:08)
[2016-11-30] MEDS: MULTIVIT W/MINERALS TAB (THERAGRAN M) PO SCH (06:08)
--- NOTE | 2016-11-30 08:09 | Cardiology Progress Note ---
Subjective Time Seen by Provider: 08:06 Subjective/Events-last exam Patient in bed. Denies any further episodes of CP. Denies any dizziness or lightheadedness. Review of Systems General: No Night Sweats, Fatigue, No Malaise HEENT: No Visual Changes, No Dysphasia, No Sore Throat Pulmonary: No Dyspnea, No Cough Cardiovascular: No: Chest Pain, Palpitations, Orthopnea, Paroxysmal Noc. Dyspnea, Edema Gastrointestinal: No: Nausea, Vomiting, Abdominal Pain Genitourinary: No Dysuria, No Frequency Musculoskeletal: No: neck pain, back pain Neurological: No: Weakness, Numbness, Change in speech, Confusion Objective-Cardiology Exam Last Set of Vital Signs Vital Signs 11/30/16 05:33 Temp 97.2 Pulse 85 Resp 20 B/P (MAP) 103/57 Pulse Ox 93 O2 Delivery Nasal Cannula O2 Flow Rate 2.00 Capillary Refill : I&O Intake and Output 12/01/16 00:00 Intake Total 600 ml Balance 600 ml Intake Oral 600 ml # Voids 9 # Bowel Movements 1 General: Alert, Oriented X3, Mild Distress HEENT: Atraumatic, PERRLA Neck: Supple, No JVD, No Thyromegaly Lungs: Normal Air Movement, Other (decreased breath sounds bibasilar) Heart: Regular Rate, Normal S1, Normal S2, Gallops (bilateral rhonchi), Other ( systolic murmur at the left sternal border) Abdomen: Normal Bowel Sounds, Soft, No Tenderness, No Hepatosplenomegaly, No Masses Extremities: Other (cellulitis with warmth and erythema of the right calf extending from ankle to upper calf. No open area associated with this.) Skin: No Rashes, Other (Sacral wound0.7 x 0.4 x 0.3 cm. Base 100% slough. Drainage moderate serosanguineous.Clear blister dorsum right foot 3.8 x 6.8 cm. This is not ruptured.) Neuro: Normal Gait, Normal Speech, Strength at 5/5 X4 Ext, Normal Tone, Sensation Intact Psych/Mental Status: Mental Status NL, Mood NL Results Lab Laboratory Tests 11/30/16 05:01 A/P-Cardiology Admission Diagnosis CHF CAD HTN PAF Assessment/Plan Shortness of breath, pulmonary edema, reporting improvement, chest x-ray showed bilateral pleural effusion and atelectasis, slowly improving. Continue to monitor. CP, nonspecific etiology- had one episode of CP yesterday with dyspnea, relieved by SL nitro. Denies any further episode. Continue to monitor. Congestive heart failure, acute on chronic left ventricular systolic dysfunction , ischemic cardiomyopathy, peripheral edema, ejection fraction 30-35 percent per echocardiogram done earlier this month, continue with diuretics and monitor. Maintained on lisinopril, lopressor. Continue to monitor. Paroxysmal atrial fibrillation, converted to sinus rhythm, mainly postoperatively, continue on amiodarone 200 mg daily and monitor [id number] score of 7, yearly risk of stroke without oral anticoagulation is 9.6 percent, tolerating Eliquis 2.5 mg twice daily well, anemia is slightly worse. Continue to monitor Coronary artery disease, had acute ST elevation myocardial infarction at [facility] required CABG 3, continue to monitor Acute renal insufficiency, worsening renal function, continue to monitor closely. Reevaluate BMP in a.m. Hyperlipidemia, continue on Lipitor 40 mg and monitor. Hypertension, currently borderline hypotensive, I will add parameter to hold Lopressor and lisinopril for systolic blood pressure less than 100 Diabetes mellitus, patient was on insulin drip at [facility], management per PCP. Clinical Quality Measures DVT/VTE Risk/Contraindication: Risk Factor Score Per Nursin RFS Level Per Nursing on Admit: 4+=Very High Contraindications-Mechi: Other *list below* Other: CELLULITIS OF RIGHT LEG SERENA LEE Nov 30, 2016 08:09
[2016-11-30 08:40] VITALS: BP 105/61
[2016-11-30] MEDS: ASPIRIN 81 MG CHEW (CHILDREN'S ASA) PO SCH (08:43)
[2016-11-30] MEDS: OMEGA 3 (FISH OIL) 1000 MG CAP PO SCH (08:43)
[2016-11-30] MEDS: CEFDINIR 300 MG (OMNICEF) CAP PO SCH ×2 (08:43→20:07)
[2016-11-30] MEDS: LACTOBACILLUS Acidoph/Bulgar (LACTINEX/FLORANEX) TAB PO SCH ×2 (08:43→20:07)
[2016-11-30] MEDS: AMIODARONE 200 MG (CORDARONE) TAB PO SCH (08:43)
[2016-11-30] MEDS: APIXABAN 2.5 MG (ELIQUIS) TABLET PO SCH ×2 (08:43→20:07)
--- NOTE | 2016-11-30 08:43 | Cardiology Progress Note ---
Subjective Date Seen by Provider: Nov 30, 2016 Time Seen by Provider: 08:41 Subjective/Events-last exam Patient is in bed, feeling better, still complaining of pain in Rt leg with erythema. Breathing is better. Review of Systems General: No Chills, No Night Sweats, No Fatigue, No Malaise, No Appetite, No Other HEENT: No Head Aches, No Visual Changes, No Eye Pain, No Ear Pain, No Dysphasia , No Sinus Congestion, No Post Nasal Drip, No Sore Throat, No Other Pulmonary: No Dyspnea, No Cough, No Pleuritic Chest Pain, No Other Cardiovascular: No: Chest Pain, Palpitations, Orthopnea, Paroxysmal Noc. Dyspnea, Edema, Lt Headedness, Other Objective-Cardiology Exam Last Set of Vital Signs Vital Signs 11/30/16 05:33 Temp 97.2 Pulse 85 Resp 20 B/P (MAP) 103/57 Pulse Ox 93 O2 Delivery Nasal Cannula O2 Flow Rate 2.00 Capillary Refill : I&O Intake and Output 12/01/16 00:00 Intake Total 600 ml Balance 600 ml Intake Oral 600 ml # Voids 9 # Bowel Movements 1 General: Alert, Oriented X3, Mild Distress HEENT: Atraumatic, PERRLA Neck: Supple, No JVD, No Thyromegaly Lungs: Normal Air Movement, Other (decreased breath sounds bibasilar) Heart: Regular Rate, Normal S1, Normal S2, Gallops (bilateral rhonchi), Other ( systolic murmur at the left sternal border) Abdomen: Normal Bowel Sounds, Soft, No Tenderness, No Hepatosplenomegaly, No Masses Extremities: Other (cellulitis with warmth and erythema of the right calf extending from ankle to upper calf. No open area associated with this.) Skin: No Rashes, Other (Sacral wound0.7 x 0.4 x 0.3 cm. Base 100% slough. Drainage moderate serosanguineous.Clear blister dorsum right foot 3.8 x 6.8 cm. This is not ruptured.) Neuro: Normal Gait, Normal Speech, Strength at 5/5 X4 Ext, Normal Tone, Sensation Intact Psych/Mental Status: Mental Status NL, Mood NL Results Lab Laboratory Tests 11/30/16 05:01 A/P-Cardiology Admission Diagnosis CHF CAD HTN PAF Assessment/Plan Shortness of breath, pulmonary edema, reporting improvement, chest x-ray showed bilateral pleural effusion and atelectasis, slowly improving. Continue to monitor. Cellulitis of the right lower extremity, has been on Omnicef, does not appear to be improving, still warm to touch. managed by primary care physician CP, nonspecific etiology- had one episode of CP yesterday with dyspnea, relieved by SL nitro. Denies any further episode. Continue to monitor. Congestive heart failure, acute on chronic left ventricular systolic dysfunction , ischemic cardiomyopathy, peripheral edema, ejection fraction 30-35 percent per echocardiogram done earlier this month, continue with diuretics and monitor. Maintained on lisinopril, Lopressor. Continue to monitor. Paroxysmal atrial fibrillation, converted to sinus rhythm, mainly postoperatively, continue on amiodarone 200 mg daily and monitor [id number] score of 7, yearly risk of stroke without oral anticoagulation is 9.6 percent, tolerating Eliquis 2.5 mg twice daily well, anemia is slightly worse. Continue to monitor Coronary artery disease, had acute ST elevation myocardial infarction at [facility] required CABG 3, continue to monitor Acute renal insufficiency, worsening renal function, continue to monitor closely. Reevaluate BMP in a.m. Hyperlipidemia, continue on Lipitor 40 mg and monitor. Hypertension, currently borderline hypotensive, I will add parameter to hold Lopressor and lisinopril for systolic blood pressure less than 100 Diabetes mellitus, patient was on insulin drip at [facility], management per PCP. Clinical Quality Measures DVT/VTE Risk/Contraindication: Risk Factor Score Per Nursin RFS Level Per Nursing on Admit: 4+=Very High Contraindications-Mechi: Other *list below* Other: CELLULITIS OF RIGHT LEG CAROL DUDLEY MD Nov 30, 2016 08:43
--- NOTE | 2016-11-30 10:43 | Occupational Ther Daily Note ---
OT Current Status-Daily Note Subjective Pt seen in room, up in bed, agreeable to OT. "I think I'm a little better today. " No pain mentioned throughout tx except sore R ear (nursing notified). Appearance Alert, cooperative Mental Status/Objective Functional [place] Measure 0=Not Assessed/NA 4=Minimal Assistance 1=Total Assistance 5=Supervision or Setup 2=Maximal Assistance 6=Modified [place] 3=Moderate Assistance 7=Complete [place] ADL-Treatment Pt was able to come to sit EOB with HOB elevated but no assistance. Sit to stand with SBA, FWW, with bed raised up a little. Walked to and from bathroom with SBA for safety, FWW and OT managing O2 tubing. Pt was also able to get out of chair with arms with SBA, FWW and on/off BSC over toilet with SBA. Functional [place] Measure 0=Not Assessed/NA 4=Minimal Assistance 1=Total Assistance 5=Supervision or Setup 2=Maximal Assistance 6=Modified [place] 3=Moderate Assistance 7=Complete IndependenceIRFPAI Quality Coding Scale 6 Independent with activity with or without an assistive device 5 Patient requires set up or clean up by helper. Patient completes activity by themselves 4 Supervision or touching assist (CGA). [place] provide cues , steadying assist 3 The helper provides less than half the effort to complete the activity 2 The helper provides more than half the effort to complete the activity 1 Dependent. The helper does all the effort to complete an activity 7 Patient refused to complete or attempt activity 9 The patient did not perform the activity before the current illness or injury 88 Not attempted due to Medical conditions or safety concerns Grooming (FIM): 5 (Pt was able to wash face and hands, brush hair while seated at sink, setup. ) Bathing (FIM): 5 (Pt did sponge bath at sink, washing all parts except back. She stood SBA for safety at sink, balancing on counter, to wash sean and bottom. ) Upper Body (FIM): 5 (Undressed and dressed upper body, with cues for managing oxygen tubing.) Lower Body Dressing (FIM): 5 (Pt was able to take pants off with SBA and don clean Depends and pants, following modified techniques without cues. Also doffed and donned slipper socks using dressing stick and sock aid, recalling techniques. Stood with SBA, FWW to pull her pants up herself.) Toileting (FIM): 5 (Managed clothing and hygiene with SBA. Did not need initiation cues for clothing management or hygiene. BSC over toilet, FWW) Toilet/Commode Transfer (FIM): 5 (SBA, getting on and off BSC over toilet, FWW , grab bar) Other Treatment Pt did 10 reps bilat UE exercise with yellow theraband, to strengthen muscles used for transfers and walking. Skilled cues to do each exercise but she was able to track reps and switch sides without difficulty. Pt left up in recliner, O2 in place at 2L/min nc, legs elevated, all needs met. Education OT Patient Education: Progress toward Goal/Update tx plan, Purpose of tx/ functional activities Teaching Recipient: Patient Teaching Methods: Discussion Response to Teaching: Verbalize Understanding OT Short Term Goals Short Term Goals Time Frame: Dec 08, 2016 Grooming(FIM): 5 Lower Body Dressing(FIM): 3 Toileting(FIM): 5 Toilet/Commode Transfer(FIM): 4 Additional Short Term Goals: 2-Verbalize Understanding, 3-ImproveStrength/Florinda 1=Demonstrate adherence to instructed precautions during ADL tasks. 2=Patient will verbalize/demonstrate understanding of assistive devices/ modifications for ADL. 3=Patient will improve strength/tolerance for activity to enable patient to perform ADL's. OT Usp Goals Usp Goals Time Frame: Dec 22, 2016 Eating (FIM): 6 Eating (QC): 6 Groomin Oral Hygiene (QC): 6 Bathing(FIM): 5 Shower/Bathe Self (QC): 5 Upper Body Dressing(FIM): 6 Upper Body Dressing (QC): 6 Lower Body Dressing(FIM): 6 Lower Body Dressing (QC): 6 On/Off Footwear (QC): 6 Toileting(FIM): 6 Toileting Hygiene (QC): 6 Toilet/Commode Transfer(FIM): 6 Toilet/Commode Transfer (QC): 6 Shower Transfer(FIM): 5 Additional Goals: 2-Verbalize Understanding, 3-ImproveStrength/Florinda 1=Demonstrate adherence to instructed precautions during ADL tasks. 2=Patient will verbalize/demonstrate understanding of assistive devices/ modifications for ADL. 3=Patient will improve strength/tolerance for activity to enable patient to perform ADL's. OT Education/Plan Problem List/Assessment Pt would benefit from skilled OT to increase her independence and activity tolerance for basic ADLs to allow her to return to an [place] or skilled care and to decrease caregiver burden Discharge Recommendations Plan/Recommendations: Continue POC Treatment Plan/Plan of Care Patient would benefit from OT for education, treatment and training to promote independence in ADL's, mobility, safety and/or upper extremity function for ADL' s. Plan of Care: ADL Retraining, Functional Mobility, Group Exercise/Act as Ind ( education, exercise, activty tolerance, funct mobility, socialization), UE Funct Exercise/Act, UE Neuromus Re-Ed/Coord Treatment Duration: Dec 22, 2016 Frequency: At least 5 to 7 days/Wk (IRF) Estimated Hrs Per Day: 1.5 hours per day Agreement: Yes Rehab Potential: Fair Time/GCodes Start Time: 08:30 Stop Time: 09:30 Total Time Billed (hr/min): 60 Billed Treatment Time visit, 50 minutes ADL, 10 minutes exercise SOPHIE WARE OT Nov 30, 2016 10:43
[2016-11-30 10:54] VITALS: BP 98/60
[2016-11-30] MEDS: meTOprolol TARTRATE 25 MG (LOPRESSOR) TABLET PO SCH ×2 (10:57→20:07)
[2016-11-30] MEDS: lisINopril 5 MG (PRINIVIL) TABLET PO SCH (10:57)
--- NOTE | 2016-11-30 11:01 | Physical Therapy Daily Note ---
PT Daily Note-Current Subjective Pt was sitting in recliner prior to tx and agreeable to PT. Pt was lying on side in bed with nurse call, richie, all needs met post tx. Pain Numeric Pain Scale: 0-No Pain Location: No Pain Reported Mental Status Patient Orientation: Normal For Age Transfers Functional [place] Measure 0=Not Assessed/NA 4=Minimal Assistance 1=Total Assistance 5=Supervision or Setup 2=Maximal Assistance 6=Modified [place] 3=Moderate Assistance 7=Complete IndependenceIRFPAI Quality Coding Scale 6 Independent with activity with or without an assistive device 5 Patient requires set up or clean up by helper. Patient completes activity by themselves 4 Supervision or touching assist (CGA). [place] provide cues , steadying assist 3 The helper provides less than half the effort to complete the activity 2 The helper provides more than half the effort to complete the activity 1 Dependent. The helper does all the effort to complete an activity 7 Patient refused to complete or attempt activity 9 The patient did not perform the activity before the current illness or injury 88 Not attempted due to Medical conditions or safety concerns Transfers (B, C, W/C) (FIM): 4 Scootin Rollin Supine to/from Sit: 4 Gait Training Does the Patient Walk?: Yes Gait (FIM): 2 Distance (FIM): 6=487-24 ft Distance: 50'x8 Gait Persons Needed: 4 Gait Assistive Device: FWW Pt ambulates with FWW and CGA for safety. Pt ambulates slowly and with hunched posture, requires frequent breaks due to fatigue. Exercises Seated Therapy Exercises: Ankle pumps, Long arc quads, Hip flexion, Hip abd/add , Glut set Seated Reps: 20 Treatments Pt completes gait training to improve functional mobility and independence. Pt completes seated exercises to increase LE functional strengthening. Assessment Current Status: Good Progress Pt is improving with ambulation and endurance. 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 Time Frame: Dec 22, 2016 Transfers (B,C,W/C) (FIM): 6 Sit to Lying (QC): 6 Lying-Sitting on Side/Bed(QC): 6 Sit to Stand (QC): 6 Rollin Roll Left to Right (QC): 6 Chair/Fui-my-Zsmyn Xfer(QC): 6 Car Transfer (QC): 5 Does the Patient Walk: Yes Gait (FIM): 6 Gait distance (FIM): 3=150 ft Walk 10 feet (QC): 6 Walk 10ft-Uneven Surface(QC): 6 Walk 50ft with 2 Turns (QC): 6 Walk 150 ft (QC): 6 Gait Level of Assist: 6 Gait Assistive Device: FWW Stairs (FIM): 2 # of Steps: 4 1 Step (curb) (QC): 4 4 Steps (QC): 4 12 Steps (QC): 88 Picking up an Object (QC): 88 PT Plan Problem List Problem List: Activity Tolerance, Functional Strength, Safety, Balance, Gait, Transfer, Bed Mobility, ROM Treatment/Plan Treatment Plan: Continue Plan of Care Treatment Plan: Bed Mobility, Education, Functional Activity Florinda, Functional Strength, Group Therapy, Gait, Safety, Therapeutic Exercise, Transfers Treatment Duration: Dec 22, 2016 Frequency: At least 5 to 7 days/Wk (IRF) Estimated Hrs Per Day: 1.5 hours per day Patient and/or Family Agrees t: Yes Safety Risks/Education Patient Education: Gait Training, Transfer Techniques, Reviewed Precautions, Correct Positioning, Safety Issues Teaching Recipient: Patient Teaching Methods: Demonstration, Discussion Response to Teaching: Verbalize Understanding, Reinforcement Needed Time/GCodes Time In: 1000 Time Out: 1100 Total Billed Treatment Time: 60 Total Billed Treatment 1 visit GT 30 EX 30 DARIANA CASPER PT Nov 30, 2016 11:01
--- NOTE | 2016-11-30 13:35 | PM & R (SOAP) Progress Note ---
Subjective Time Seen by Provider: 07:45 Subjective/Events-last exam Patient was seen in her room this AM Sitting in chair c/o reenaque CXR appreciated Bilateral pleural effusions unchanged rt >left.Patient min assist for transfers Objective Exam Last Set of Vital Signs Vital Signs Date Time Temp Pulse Resp B/P (MAP) Pulse Ox O2 Delivery O2 Flow Rate FiO2 11/30/16 10:54 86 20 98/60 100 Nasal Cannula 2.00 11/30/16 05:33 97.2 Capillary Refill : I&O Intake and Output 12/01/16 00:00 Intake Total 600 ml Balance 600 ml Intake Oral 600 ml # Voids 9 # Bowel Movements 1 General: Alert, Oriented X3, Mild Distress HEENT: Atraumatic, PERRLA Neck: Supple, No JVD, No Thyromegaly Lungs: Normal Air Movement, Other (decreased breath sounds bibasilar) Heart: Regular Rate, Normal S1, Normal S2, Gallops (bilateral rhonchi), Other ( systolic murmur at the left sternal border) Abdomen: Normal Bowel Sounds, Soft, No Tenderness, No Hepatosplenomegaly, No Masses Extremities: Other (cellulitis with warmth and erythema of the right calf extending from ankle to upper calf. No open area associated with this.) Skin: No Rashes, Other (Sacral wound0.7 x 0.4 x 0.3 cm. Base 100% slough. Drainage moderate serosanguineous.Clear blister dorsum right foot 3.8 x 6.8 cm. This is not ruptured.) Neuro: Normal Gait, Normal Speech, Strength at 5/5 X4 Ext, Normal Tone, Sensation Intact Psych/Mental Status: Mental Status NL, Mood NL Results Lab Laboratory Tests 11/28/16 05:30: White Blood Count 4.6, Red Blood Count 3.03L, Hemoglobin 9.0L, Hematocrit 29L, Mean Corpuscular Volume 97, Mean Corpuscular Hemoglobin 30, Mean Corpuscular Hemoglobin Concent 31L, Red Cell Distribution Width 14.7H, Platelet Count 200, Mean Platelet Volume 9.9, Sodium Level 141, Potassium Level 3.7, Chloride Level 99, Carbon Dioxide Level 32, Anion Gap 10, Blood Urea Nitrogen 26H, Creatinine 1.29, Estimat Glomerular Filtration Rate 39, BUN/Creatinine Ratio 20, Glucose Level 105, Calcium Level 8.1L, Total Bilirubin 0.6, Aspartate Amino Transf (AST/ SGOT) 43H, Alanine Aminotransferase (ALT/SGPT) 33, Alkaline Phosphatase 86, Total Protein 4.9L, Albumin 2.6L 11/29/16 05:30: White Blood Count 3.8L, Red Blood Count 2.81L, Hemoglobin 8.3L, Hematocrit 27L, Mean Corpuscular Volume 97, Mean Corpuscular Hemoglobin 30, Mean Corpuscular Hemoglobin Concent 30L, Red Cell Distribution Width 14.7H, Platelet Count 177, Mean Platelet Volume 10.1, Sodium Level 141, Potassium Level 3.8, Chloride Level 98, Carbon Dioxide Level 33H, Anion Gap 10, Blood Urea Nitrogen 28H, Creatinine 1.56H, Estimat Glomerular Filtration Rate 31, BUN/Creatinine Ratio 18 , Glucose Level 102, Calcium Level 7.9L, Magnesium Level 1.9 11/30/16 05:01: White Blood Count 4.2L, Red Blood Count 2.96L, Hemoglobin 8.5L, Hematocrit 29L, Mean Corpuscular Volume 97, Mean Corpuscular Hemoglobin 29, Mean Corpuscular Hemoglobin Concent 30L, Red Cell Distribution Width 14.8H, Platelet Count 186, Mean Platelet Volume 10.1, Sodium Level 140, Potassium Level 3.8, Chloride Level 96L, Carbon Dioxide Level 34H, Anion Gap 10, Blood Urea Nitrogen 28H, Creatinine 1.61H, Estimat Glomerular Filtration Rate 30, BUN/Creatinine Ratio 17 , Glucose Level 100, Calcium Level 8.2L, Neutrophils (%) (Auto) 61, Lymphocytes (%) (Auto) 20, Monocytes (%) (Auto) 10, Eosinophils (%) (Auto) 9, Basophils (%) (Auto) 1, Neutrophils # (Auto) 2.6, Lymphocytes # (Auto) 0.8L, Monocytes # (Auto ) 0.4, Eosinophils # (Auto) 0.4H, Basophils # (Auto) 0.0 Assessment/Plan Assessment 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 TREATED- BEING FOLLOWED BY cARDIOLOGY cELLULITIS RT LEG UNDER TREATMENT bLISTER dORSUM RT FOOT dr Alejo MANAGING sACRAL PRESSURE SORE dr Alejo MANAGING htn WITH hYPOTENSION AT THIS TIME cARDIOLOGY MANAGING a fib CONTROLLED WITH MEDS RESP INSUFFICIENCY dr Bailee Stafford FOLLOWING Bilateral Pleural effusions Plan cONTINUE pt/ot/wOUND CARE cOMPLETE COURSE OF aNTIBIOTIC FOR CELLULITIS f/u WITH pcp dr david Cast AND dr Alejo AND dr Morocho AND CARDIOLOGY PER [facility] SCHEDULE aPPRECIATE cARDIOLOGY AND dr Cannon NOTES AND ORDERS Appreciate DR Hill notes and orders BUN/CR going up and H&H decreasing Meds being adjusted. Team CONFERENCE held yesterday-See report for full functional update and POC and DORIS BURNETT MD Nov 30, 2016 13:35
--- NOTE | 2016-11-30 13:54 | Physical Therapy Daily Note ---
PT Daily Note-Current Subjective Pt was lying in bed prior to tx and agreeable to PT. Pt reports no pain. Pt was lying in bed on side with nurse call, tray, phone, all needs in reach post tx. Pain Numeric Pain Scale: 0-No Pain Location: No Pain Reported Mental Status Patient Orientation: Normal For Age Attachments: Oxygen Pt on 2L oxygen. Transfers Functional [place] Measure 0=Not Assessed/NA 4=Minimal Assistance 1=Total Assistance 5=Supervision or Setup 2=Maximal Assistance 6=Modified [place] 3=Moderate Assistance 7=Complete IndependenceIRFPAI Quality Coding Scale 6 Independent with activity with or without an assistive device 5 Patient requires set up or clean up by helper. Patient completes activity by themselves 4 Supervision or touching assist (CGA). [place] provide cues , steadying assist 3 The helper provides less than half the effort to complete the activity 2 The helper provides more than half the effort to complete the activity 1 Dependent. The helper does all the effort to complete an activity 7 Patient refused to complete or attempt activity 9 The patient did not perform the activity before the current illness or injury 88 Not attempted due to Medical conditions or safety concerns Transfers (B, C, W/C) (FIM): 4 Scootin Supine to/from Sit: 4 Sit to/from Stand: 4 Pt completes sit to stand with CGA for safety. Pt requires min assist with sit to supine, requires verbal cues and support with bringing legs to bed and positioning in bed. Gait Training Does the Patient Walk?: Yes Gait (FIM): 2 Distance (FIM): 1=671-72 ft Distance: 50'x4 Gait Level of Assist: 4 Gait Persons Needed: 1 Gait Assistive Device: FWW Pt ambulates with FWW and hunched posture, requires CGA for safety. Exercises NuStep Minutes: 8 NuStep Workload: 5 Treatments Pt completes tx on NuStep for LE functional strengthening and to increase endurance. Pt completes gait training to increase independence with functional mobility. Assessment Current Status: Good Progress Pt is improving with bed mobility, transfers, and ambulation. PT Short Term Goals Short Term Goals Time Frame: Dec 06, 2016 Gait (FIM): 4 Distance (FIM): 3=150 ft Gait Assistive Device: FWW PT Mcfp Goals Lye Treater Goals PT Lye Treater Goals Time Frame: Dec 22, 2016 Transfers (B,C,W/C) (FIM): 6 Sit to Lying (QC): 6 Lying-Sitting on Side/Bed(QC): 6 Sit to Stand (QC): 6 Rollin Roll Left to Right (QC): 6 Chair/Nab-bb-Tgmhv Xfer(QC): 6 Car Transfer (QC): 5 Does the Patient Walk: Yes Gait (FIM): 6 Gait distance (FIM): 3=150 ft Walk 10 feet (QC): 6 Walk 10ft-Uneven Surface(QC): 6 Walk 50ft with 2 Turns (QC): 6 Walk 150 ft (QC): 6 Gait Level of Assist: 6 Gait Assistive Device: FWW Stairs (FIM): 2 # of Steps: 4 1 Step (curb) (QC): 4 4 Steps (QC): 4 12 Steps (QC): 88 Picking up an Object (QC): 88 PT Plan Problem List Problem List: Activity Tolerance, Functional Strength, Safety, Balance, Gait, Transfer, Bed Mobility Treatment/Plan Treatment Plan: Continue Plan of Care Treatment Plan: Bed Mobility, Education, Functional Activity Florinda, Functional Strength, Group Therapy, Gait, Safety, Therapeutic Exercise, Transfers Treatment Duration: Dec 22, 2016 Frequency: At least 5 to 7 days/Wk (IRF) Estimated Hrs Per Day: 1.5 hours per day Patient and/or Family Agrees t: Yes Safety Risks/Education Patient Education: Gait Training, Transfer Techniques, Reviewed Precautions, Correct Positioning, Safety Issues Teaching Recipient: Patient Teaching Methods: Demonstration, Discussion Response to Teaching: Verbalize Understanding, Reinforcement Needed Time/GCodes Time In: 1230 Time Out: 1300 Total Billed Treatment Time: 30 Total Billed Treatment 1 visit GT 22 EX 8 DARIANA CASPER PT Nov 30, 2016 13:54
--- NOTE | 2016-11-30 15:09 | Occupational Ther Daily Note ---
OT Current Status-Daily Note Subjective Nrsg present in room getting ready to take pt to bathroom. LAMBERT took over care. Pt agreed to therapy. No c/o pain. Mental Status/Objective Patient Orientation: Person, Place, Time, Situation Functional [place] Measure 0=Not Assessed/NA 4=Minimal Assistance 1=Total Assistance 5=Supervision or Setup 2=Maximal Assistance 6=Modified [place] 3=Moderate Assistance 7=Complete [place] Attachments: Oxygen ADL-Treatment Functional [place] Measure 0=Not Assessed/NA 4=Minimal Assistance 1=Total Assistance 5=Supervision or Setup 2=Maximal Assistance 6=Modified [place] 3=Moderate Assistance 7=Complete IndependenceIRFPAI Quality Coding Scale 6 Independent with activity with or without an assistive device 5 Patient requires set up or clean up by helper. Patient completes activity by themselves 4 Supervision or touching assist (CGA). [place] provide cues , steadying assist 3 The helper provides less than half the effort to complete the activity 2 The helper provides more than half the effort to complete the activity 1 Dependent. The helper does all the effort to complete an activity 7 Patient refused to complete or attempt activity 9 The patient did not perform the activity before the current illness or injury 88 Not attempted due to Medical conditions or safety concerns With HOB raised, pt was able to go from supine to sitting EOB by self. Pt then ambulated to bathroom with SBA using FWW. Pt was able to transfer to toilet with SBA using FWW and grabbars. Pt manipulated clothing with SBA using FWW and cleansed self while sitting on toilet. Then ambulated to sink to wash hands with SBA. Ambulated to room and sat on EOB. Min A to lift L LE into bed. With encouragement pt able to scoot shldrs over in bed, min A to scoot hips toward middle of bed. After therapy, pt lying in bed on R side. Call light/phone in reach. All needs met in room. OT Short Term Goals Short Term Goals Time Frame: Dec 08, 2016 Grooming(FIM): 5 Lower Body Dressing(FIM): 3 Toileting(FIM): 5 Toilet/Commode Transfer(FIM): 4 Additional Short Term Goals: 2-Verbalize Understanding, 3-ImproveStrength/Florinda 1=Demonstrate adherence to instructed precautions during ADL tasks. 2=Patient will verbalize/demonstrate understanding of assistive devices/ modifications for ADL. 3=Patient will improve strength/tolerance for activity to enable patient to perform ADL's. OT Fdc Goals Fdc Goals Time Frame: Dec 22, 2016 Eating (FIM): 6 Eating (QC): 6 Groomin Oral Hygiene (QC): 6 Bathing(FIM): 5 Shower/Bathe Self (QC): 5 Upper Body Dressing(FIM): 6 Upper Body Dressing (QC): 6 Lower Body Dressing(FIM): 6 Lower Body Dressing (QC): 6 On/Off Footwear (QC): 6 Toileting(FIM): 6 Toileting Hygiene (QC): 6 Toilet/Commode Transfer(FIM): 6 Toilet/Commode Transfer (QC): 6 Shower Transfer(FIM): 5 Additional Goals: 2-Verbalize Understanding, 3-ImproveStrength/Florinda 1=Demonstrate adherence to instructed precautions during ADL tasks. 2=Patient will verbalize/demonstrate understanding of assistive devices/ modifications for ADL. 3=Patient will improve strength/tolerance for activity to enable patient to perform ADL's. OT Education/Plan Problem List/Assessment Pt would benefit from skilled OT to increase her independence and activity tolerance for basic ADLs to allow her to return to an NURSING HOME or skilled care and to decrease caregiver burden Discharge Recommendations Plan/Recommendations: Continue POC Treatment Plan/Plan of Care Patient would benefit from OT for education, treatment and training to promote independence in ADL's, mobility, safety and/or upper extremity function for ADL' s. Plan of Care: ADL Retraining, Functional Mobility, Group Exercise/Act as Ind ( education, exercise, activty tolerance, funct mobility, socialization), UE Funct Exercise/Act, UE Neuromus Re-Ed/Coord Treatment Duration: Dec 22, 2016 Frequency: At least 5 to 7 days/Wk (IRF) Estimated Hrs Per Day: 1.5 hours per day Agreement: Yes Rehab Potential: Fair Time/GCodes Start Time: 14:30 Stop Time: 15:00 Total Time Billed (hr/min): 30 Billed Treatment Time 1 visit-FA 2 (30 min) DARIANA PINA Nov 30, 2016 15:09
[2016-11-30 18:20] VITALS: BP 100/59
--- NOTE | 2016-11-30 18:48 | Progress Note (SOAP) ---
Subjective Subjective Date Seen by Provider: Nov 30, 2016 Time Seen by Provider: 18:45 Pt reports she is Breathing better- the PT/OT rehab has done a great deal for her - she reports she is tired and exhausted but feels better. cellulitis is not cleared in RLE. Erythema noted. Blister deflated Review of Systems General: No Chills, No Night Sweats, No Fatigue, No Malaise, No Appetite, No Other HEENT: No Head Aches, No Visual Changes, No Eye Pain, No Ear Pain, No Dysphasia , No Sinus Congestion, No Post Nasal Drip, No Sore Throat, No Other Pulmonary: No Dyspnea, No Cough, No Pleuritic Chest Pain, No Other Cardiovascular: No: Chest Pain, Palpitations, Orthopnea, Paroxysmal Noc. Dyspnea, Edema, Lt Headedness, Other Gastrointestinal: No: Nausea, Vomiting, Abdominal Pain Genitourinary: No Dysuria, No Frequency Musculoskeletal: No: neck pain, back pain Neurological: Weakness, No: Numbness, Change in speech, Confusion Objective Exam Vital Signs Vital Signs Date Time Temp Pulse Resp B/P (MAP) Pulse Ox O2 Delivery O2 Flow Rate FiO2 11/30/16 18:20 99.4 94 20 100/59 99 Nasal Cannula 2.50 11/30/16 10:54 86 20 98/60 100 Nasal Cannula 2.00 11/30/16 08:40 88 20 105/61 96 Nasal Cannula 2.00 11/30/16 08:33 Nasal Cannula 2.00 11/30/16 05:33 97.2 85 20 103/57 93 Nasal Cannula 2.00 11/29/16 20:31 Nasal Cannula 2.00 I & O 12/01/16 07:00 Intake Total 860 ml Balance 860 ml General Appearance: No Apparent Distress HEENT: PERRL/EOMI Neck: Supple Respiratory: Chest Non Tender, Lungs Clear, Normal Breath Sounds, No Accessory Muscle Use, No Respiratory Distress Cardiovascular: Regular Rate, Rhythm Gastrointestinal: Soft Rectal: Deferred Back: No CVA Tenderness Extremity: Pedal Edema, Other (RLE blister on dorsum of foot. Erythema of right lower extremity) Neurologic/Psychiatric: Alert, Oriented x3, Normal Mood/Affect Skin: Warm/Dry Results Lab Laboratory Tests 11/30/16 05:01: White Blood Count 4.2L, Red Blood Count 2.96L, Hemoglobin 8.5L, Hematocrit 29L, Mean Corpuscular Volume 97, Mean Corpuscular Hemoglobin 29, Mean Corpuscular Hemoglobin Concent 30L, Red Cell Distribution Width 14.8H, Platelet Count 186, Mean Platelet Volume 10.1, Neutrophils (%) (Auto) 61, Lymphocytes (%) (Auto) 20 , Monocytes (%) (Auto) 10, Eosinophils (%) (Auto) 9, Basophils (%) (Auto) 1, Neutrophils # (Auto) 2.6, Lymphocytes # (Auto) 0.8L, Monocytes # (Auto) 0.4, Eosinophils # (Auto) 0.4H, Basophils # (Auto) 0.0, Sodium Level 140, Potassium Level 3.8, Chloride Level 96L, Carbon Dioxide Level 34H, Anion Gap 10, Blood Urea Nitrogen 28H, Creatinine 1.61H, Estimat Glomerular Filtration Rate 30, BUN/ Creatinine Ratio 17, Glucose Level 100, Calcium Level 8.2L Assessment/Plan Assessment/Plan Assessment/Plan Weakness/deconditioning due to comorbidities- Inpatient Rehab Acute on chronic systolic congestive heart failure- Dr. Gomez consulted- diuresing lasix 40mg BID ECHO 11/12/16 30-35% LVEF urinary tract infection without hematuria- due to klebsiella. 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 Gotti consulted doxycycline 100mg BID 11/30--> Paroxysmal Atrial fibrillation - NSR, continue eliquis Right pleural effusion- [facility]- Dr. Mckeon consulted Dispo: encourage po hydration- blood pressure needs to come back up. BP meds hold parameters placed by cardiology- recheck BMP in AM Problems: Clinical Quality Measures DVT/VTE Risk/Contraindication: Risk Factor Score Per Nursin RFS Level Per Nursing on Admit: 4+=Very High Contraindications-Mechi: Other *list below* Other: CELLULITIS OF RIGHT LEG BELKYS CUI MD Nov 30, 2016 18:48
[2016-11-30] MEDS: ATORVASTATIN 40 MG (LIPITOR) TABLET PO SCH (20:07)
[2016-11-30] MEDS: DOXYCYCLINE 100 MG (VIBRAMYCIN) TABLET PO SCH (20:07)
[2016-11-30] MEDS: busPIRone 5 MG (BUSPAR) TAB PO SCH (20:07)
[2016-11-30] MEDS: ACETAMINOPHEN 500 MG TAB (TYLENOL) PO PRN (21:23)
[2016-12-01 05:00] VITALS: BP 90/43
[2016-12-01] MEDS: FUROSEMIDE 40 MG (LASIX) TAB PO SCH ×2 (06:17→14:49)
[2016-12-01] MEDS: DOXYCYCLINE 100 MG (VIBRAMYCIN) TABLET PO SCH ×2 (06:17→16:16)
[2016-12-01] MEDS: MULTIVIT W/MINERALS TAB (THERAGRAN M) PO SCH (06:17)
[2016-12-01] MEDS: PANTOPRAZOLE 40 MG (PROTONIX) TAB PO SCH (06:17)
[2016-12-01 07:02] LABS: CREATININE SERUM 1.55 MG/DL (0.60-1.30)
[2016-12-01] MEDS: APIXABAN 2.5 MG (ELIQUIS) TABLET PO SCH ×2 (08:02→20:06)
[2016-12-01] MEDS: LACTOBACILLUS Acidoph/Bulgar (LACTINEX/FLORANEX) TAB PO SCH ×2 (08:02→20:07)
[2016-12-01] MEDS: OMEGA 3 (FISH OIL) 1000 MG CAP PO SCH (08:02)
[2016-12-01] MEDS: AMIODARONE 200 MG (CORDARONE) TAB PO SCH (08:03)
[2016-12-01] MEDS: meTOprolol TARTRATE 25 MG (LOPRESSOR) TABLET PO SCH ×2 (08:03→20:07)
[2016-12-01] MEDS: ASPIRIN 81 MG CHEW (CHILDREN'S ASA) PO SCH (08:03)
[2016-12-01] MEDS: lisINopril 5 MG (PRINIVIL) TABLET PO SCH (08:04)
[2016-12-01 08:07] VITALS: BP 103/52
--- NOTE | 2016-12-01 08:27 | PM & R (SOAP) Progress Note ---
Subjective Time Seen by Provider: 07:45 Subjective/Events-last exam Patient was seen in her roomthis AM Cellulitis rt leg much improved with decreased tenderness and erythema largely resolved Blister rt foot has gone down with fluid decreased Objective Exam Last Set of Vital Signs Vital Signs Date Time Temp Pulse Resp B/P (MAP) Pulse Ox O2 Delivery O2 Flow Rate FiO2 12/01/16 08:07 103/52 12/01/16 05:00 96.2 81 20 95 Nasal Cannula 2.50 Capillary Refill : I&O Intake and Output 12/02/16 00:00 Intake Total 400 ml Balance 400 ml Intake Oral 400 ml # Voids 10 General: Alert, Oriented X3, Mild Distress HEENT: Atraumatic, PERRLA Neck: Supple, No JVD, No Thyromegaly Lungs: Normal Air Movement, Other (decreased breath sounds bibasilar) Heart: Regular Rate, Normal S1, Normal S2, Gallops (bilateral rhonchi), Other ( systolic murmur at the left sternal border) Abdomen: Normal Bowel Sounds, Soft, No Tenderness, No Hepatosplenomegaly, No Masses Extremities: Other (cellulitis with warmth and erythema of the right calf extending from ankle to upper calf. No open area associated with this.) Skin: No Rashes, Other (Sacral wound0.7 x 0.4 x 0.3 cm. Base 100% slough. Drainage moderate serosanguineous.Clear blister dorsum right foot 3.8 x 6.8 cm. This is not ruptured.) Neuro: Normal Gait, Normal Speech, Strength at 5/5 X4 Ext, Normal Tone, Sensation Intact Psych/Mental Status: Mental Status NL, Mood NL Results Lab Laboratory Tests 11/29/16 05:30: White Blood Count 3.8L, Red Blood Count 2.81L, Hemoglobin 8.3L, Hematocrit 27L, Mean Corpuscular Volume 97, Mean Corpuscular Hemoglobin 30, Mean Corpuscular Hemoglobin Concent 30L, Red Cell Distribution Width 14.7H, Platelet Count 177, Mean Platelet Volume 10.1, Sodium Level 141, Potassium Level 3.8, Chloride Level 98, Carbon Dioxide Level 33H, Anion Gap 10, Blood Urea Nitrogen 28H, Creatinine 1.56H, Estimat Glomerular Filtration Rate 31, BUN/Creatinine Ratio 18 , Glucose Level 102, Calcium Level 7.9L, Magnesium Level 1.9 11/30/16 05:01: White Blood Count 4.2L, Red Blood Count 2.96L, Hemoglobin 8.5L, Hematocrit 29L, Mean Corpuscular Volume 97, Mean Corpuscular Hemoglobin 29, Mean Corpuscular Hemoglobin Concent 30L, Red Cell Distribution Width 14.8H, Platelet Count 186, Mean Platelet Volume 10.1, Sodium Level 140, Potassium Level 3.8, Chloride Level 96L, Carbon Dioxide Level 34H, Anion Gap 10, Blood Urea Nitrogen 28H, Creatinine 1.61H, Estimat Glomerular Filtration Rate 30, BUN/Creatinine Ratio 17 , Glucose Level 100, Calcium Level 8.2L, Neutrophils (%) (Auto) 61, Lymphocytes (%) (Auto) 20, Monocytes (%) (Auto) 10, Eosinophils (%) (Auto) 9, Basophils (%) (Auto) 1, Neutrophils # (Auto) 2.6, Lymphocytes # (Auto) 0.8L, Monocytes # (Auto ) 0.4, Eosinophils # (Auto) 0.4H, Basophils # (Auto) 0.0 12/01/16 06:17: Sodium Level 140, Potassium Level 4.0, Chloride Level 96L, Carbon Dioxide Level 33H, Anion Gap 11, Blood Urea Nitrogen 26H, Creatinine 1.55H, Estimat Glomerular Filtration Rate 31, BUN/Creatinine Ratio 17, Glucose Level 104, Calcium Level 8.0L Assessment/Plan Assessment 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 TREATED- BEING FOLLOWED BY cARDIOLOGY cELLULITIS RT LEG UNDER TREATMENT bLISTER dORSUM RT FOOT dr Alejo MANAGING sACRAL PRESSURE SORE dr Alejo MANAGING htn WITH hYPOTENSION AT THIS TIME cARDIOLOGY MANAGING a fib CONTROLLED WITH MEDS RESP INSUFFICIENCY dr Morocho pULM FOLLOWING Bilateral Pleural effusions Plan cONTINUE pt/ot/wOUND CARE cOMPLETE COURSE OF aNTIBIOTIC FOR CELLULITIS f/u WITH pcp dr david Cast AND dr Alejo AND dr Morocho AND CARDIOLOGY PER [facility] SCHEDULE aPPRECIATE cARDIOLOGY AND dr Cannon NOTES AND ORDERS Appreciate DR Hill notes and orders BUN/CR and H&H improving Current Labs reviewed Meds being adjusted. Team CONFERENCE held 11-29-16-See report for full functional update and POC and DORIS BURNETT MD Dec 01, 2016 08:27
--- NOTE | 2016-12-01 10:59 | Physical Therapy Daily Note ---
PT Daily Note-Current Subjective Pt. agrees to Rx and states she feels she is stronger and making improvement Pain Numeric Pain Scale: 2 Location: Right Location Body Site: Calf Pain Description: Heavy Mental Status Patient Orientation: Normal For Age Attachments: Oxygen (2L) unable to register O2 sat reading Transfers Functional [place] Measure 0=Not Assessed/NA 4=Minimal Assistance 1=Total Assistance 5=Supervision or Setup 2=Maximal Assistance 6=Modified [place] 3=Moderate Assistance 7=Complete IndependenceIRFPAI Quality Coding Scale 6 Independent with activity with or without an assistive device 5 Patient requires set up or clean up by helper. Patient completes activity by themselves 4 Supervision or touching assist (CGA). [place] provide cues , steadying assist 3 The helper provides less than half the effort to complete the activity 2 The helper provides more than half the effort to complete the activity 1 Dependent. The helper does all the effort to complete an activity 7 Patient refused to complete or attempt activity 9 The patient did not perform the activity before the current illness or injury 88 Not attempted due to Medical conditions or safety concerns Transfers (B, C, W/C) (FIM): 5 Scootin Rollin Supine to/from Sit: 5 (sit to sup requires much effort for pt.) Sit to/from Stand: 5 needs CGA to SBA and cues for sit to sup Gait Training Does the Patient Walk?: Yes Gait (FIM): 3 Distance (FIM): 3=150 ft (x2) Gait Level of Assist: 5 Gait Persons Needed: 1 Gait Assistive Device: FWW cues for alignment and position in FWW Stair Training Stair Training: Handrails/: 2 handrails Stairs (FIM): 2 #of Steps: 4 Stairs: Pattern: Step to Level of Assist: 4 Exercises Seated Therapy Exercises: Ankle pumps, Sit to stand, Long arc quads, Hip flexion, Hip abd/add Seated Reps: 10 Standing: Hip Abduction, Hamstring curls, Heel/toe raises, Marching, Mini squats Standing Reps: 10 Treatments toilets with SBA to mod I for all Assessment Current Status: Good Progress good progress noted all phases of Rx PT Short Term Goals Short Term Goals Time Frame: Dec 06, 2016 Gait (FIM): 4 Distance (FIM): 3=150 ft Gait Assistive Device: FWW PT Detention Goals Detention Goals PT Mold Washer Goals Time Frame: Dec 22, 2016 Transfers (B,C,W/C) (FIM): 6 Sit to Lying (QC): 6 Lying-Sitting on Side/Bed(QC): 6 Sit to Stand (QC): 6 Rollin Roll Left to Right (QC): 6 Chair/Afr-ib-Hlmtk Xfer(QC): 6 Car Transfer (QC): 5 Does the Patient Walk: Yes Gait (FIM): 6 Gait distance (FIM): 3=150 ft Walk 10 feet (QC): 6 Walk 10ft-Uneven Surface(QC): 6 Walk 50ft with 2 Turns (QC): 6 Walk 150 ft (QC): 6 Gait Level of Assist: 6 Gait Assistive Device: FWW Stairs (FIM): 2 # of Steps: 4 1 Step (curb) (QC): 4 4 Steps (QC): 4 12 Steps (QC): 88 Picking up an Object (QC): 88 PT Plan Treatment/Plan Treatment Plan: Continue Plan of Care Treatment Plan: Bed Mobility, Education, Functional Activity Florinda, Functional Strength, Group Therapy, Gait, Safety, Therapeutic Exercise, Transfers Treatment Duration: Dec 22, 2016 Frequency: At least 5 to 7 days/Wk (IRF) Estimated Hrs Per Day: 1.5 hours per day Patient and/or Family Agrees t: Yes Safety Risks/Education Patient Education: Gait Training, Transfer Techniques, Steps Teaching Recipient: Patient Teaching Methods: Demonstration, Discussion Response to Teaching: Verbalize Understanding, Return Demonstration, Reinforcement Needed Time/GCodes Time In: 1000 Time Out: 1100 Total Billed Treatment Time: 60 Total Billed Treatment 1,GT25m,FA20m,EX15m G Codes Necessary: RUFUS Garner TEST DESIGNER Dec 01, 2016 10:59
--- NOTE | 2016-12-01 10:59 | Occupational Ther Daily Note ---
OT Current Status-Daily Note Subjective Pt seen in room, up on toilet with nursing, agreeable to OT and would like to shower. "I'm feeling so much better". Appearance Alert, cooperative Mental Status/Objective Functional [place] Measure 0=Not Assessed/NA 4=Minimal Assistance 1=Total Assistance 5=Supervision or Setup 2=Maximal Assistance 6=Modified [place] 3=Moderate Assistance 7=Complete [place] ADL-Treatment Pt walked to and from bathroom with FWW and SBA for safety. O2 in place throughout except that she took it off to wash her face and hair and kept it off to complete her shower ("Hon, I don't think I need it right now"). Also had it off to dress upper body. O2 sat 95% and HR 65. Later pt became a little SOB and O2 put back on (she needs some cues on how to put it on). Unable to get sat reading due to cold hands. Functional [place] Measure 0=Not Assessed/NA 4=Minimal Assistance 1=Total Assistance 5=Supervision or Setup 2=Maximal Assistance 6=Modified [place] 3=Moderate Assistance 7=Complete IndependenceIRFPAI Quality Coding Scale 6 Independent with activity with or without an assistive device 5 Patient requires set up or clean up by helper. Patient completes activity by themselves 4 Supervision or touching assist (CGA). [place] provide cues , steadying assist 3 The helper provides less than half the effort to complete the activity 2 The helper provides more than half the effort to complete the activity 1 Dependent. The helper does all the effort to complete an activity 7 Patient refused to complete or attempt activity 9 The patient did not perform the activity before the current illness or injury 88 Not attempted due to Medical conditions or safety concerns Bathing (FIM): 5 (Washed and dried all parts with setup. SBA when standing to wash sean and bottom but no physical assist needed for balance or sit to stand. Able to reach to dry between toes. Shower bench, grab bars, hand held shower) Upper Body (FIM): 5 (Doffed and donned shirt with setup. Problem solved O2 tubing management) Lower Body Dressing (FIM): 5 (Doffed and donned Depends and pants. Used dressing stick to take socks off but was able to put socks on by herself. SBA to stand to pull pants up and down. FWW. No LOB observed) Shower Transfer(FIM): 4 (CGA getting in and out of shower. Shower bench, grab bars, FWW. Some skilled cues for hand placement) Pt was left up in recliner with legs elevated, O2 in place, all needs met. Education OT Patient Education: Modified ADL techniques, Progress toward Goal/Update tx plan, Purpose of tx/functional activities, Safety issues, Transfer techniques Teaching Recipient: Patient Teaching Methods: Demonstration, Discussion Response to Teaching: Verbalize Understanding, Return Demonstration, Reinforcement Needed OT Short Term Goals Short Term Goals Time Frame: Dec 08, 2016 Grooming(FIM): 5 Lower Body Dressing(FIM): 3 Toileting(FIM): 5 Toilet/Commode Transfer(FIM): 4 Additional Short Term Goals: 2-Verbalize Understanding, 3-ImproveStrength/Florinda 1=Demonstrate adherence to instructed precautions during ADL tasks. 2=Patient will verbalize/demonstrate understanding of assistive devices/ modifications for ADL. 3=Patient will improve strength/tolerance for activity to enable patient to perform ADL's. OT Usp Goals Usp Goals Time Frame: Dec 22, 2016 Eating (FIM): 6 Eating (QC): 6 Groomin Oral Hygiene (QC): 6 Bathing(FIM): 5 Shower/Bathe Self (QC): 5 Upper Body Dressing(FIM): 6 Upper Body Dressing (QC): 6 Lower Body Dressing(FIM): 6 Lower Body Dressing (QC): 6 On/Off Footwear (QC): 6 Toileting(FIM): 6 Toileting Hygiene (QC): 6 Toilet/Commode Transfer(FIM): 6 Toilet/Commode Transfer (QC): 6 Shower Transfer(FIM): 5 Additional Goals: 2-Verbalize Understanding, 3-ImproveStrength/Florinda 1=Demonstrate adherence to instructed precautions during ADL tasks. 2=Patient will verbalize/demonstrate understanding of assistive devices/ modifications for ADL. 3=Patient will improve strength/tolerance for activity to enable patient to perform ADL's. OT Education/Plan Problem List/Assessment Pt would benefit from skilled OT to increase her independence and activity tolerance for basic ADLs to allow her to return to an [facility]ENT[facility] or skilled care and to decrease caregiver burden Discharge Recommendations Plan/Recommendations: Continue POC Treatment Plan/Plan of Care Patient would benefit from OT for education, treatment and training to promote independence in ADL's, mobility, safety and/or upper extremity function for ADL' s. Plan of Care: ADL Retraining, Functional Mobility, Group Exercise/Act as Ind ( education, exercise, activty tolerance, funct mobility, socialization), UE Funct Exercise/Act, UE Neuromus Re-Ed/Coord Treatment Duration: Dec 22, 2016 Frequency: At least 5 to 7 days/Wk (IRF) Estimated Hrs Per Day: 1.5 hours per day Agreement: Yes Rehab Potential: Fair Time/GCodes Start Time: 08:30 Stop Time: 09:30 Total Time Billed (hr/min): 60 Billed Treatment Time visit, 60 minutes ADL SOPHIE WARE OT Dec 01, 2016 10:59
--- NOTE | 2016-12-01 15:00 | Therapy Group Daily Note ---
Therapy Daily Group Note Patient Education Topic Other List Below Other/Notes Pt ambulated to OT/PT group with CGA using FWW. OT/PT group consisted of introductions (name, place, first dollar made), socialization, education on ARU description/expectations, stair safety/demon, walker safety, pt led seated UE/ LE exercises and pt led conversations about medicare. Pt was able to introduce self appropriately. Pt contributed to conversations throughout group. Pt verbalized understanding of ARU description/expectations. Pt attentive to safety demonstrations and education. Pt was able to lead exercise and describe how to complete. After therapy, pt ambulated back to room then transferred into recliner. Call light/phone in reach. All needs met in room. Start Time: 13:00 Stop Time: 14:10 Total Billed Treatment Time: 70 Total Billed Treatment 1-GRP DARIANA PINA Dec 01, 2016 14:59
[2016-12-01 18:49] VITALS: BP 115/63
[2016-12-01 20:05] VITALS: BP 91/54
[2016-12-01] MEDS: ATORVASTATIN 40 MG (LIPITOR) TABLET PO SCH (20:06)
[2016-12-01] MEDS: busPIRone 5 MG (BUSPAR) TAB PO SCH (20:06)
[2016-12-02 05:25] VITALS: BP 98/57
[2016-12-02] MEDS: DOXYCYCLINE 100 MG (VIBRAMYCIN) TABLET PO SCH ×2 (06:17→17:09)
[2016-12-02] MEDS: MULTIVIT W/MINERALS TAB (THERAGRAN M) PO SCH (06:17)
[2016-12-02] MEDS: PANTOPRAZOLE 40 MG (PROTONIX) TAB PO SCH (06:17)
[2016-12-02] MEDS: FUROSEMIDE 40 MG (LASIX) TAB PO SCH ×2 (06:17→13:56)
[2016-12-02] MEDS: LACTOBACILLUS Acidoph/Bulgar (LACTINEX/FLORANEX) TAB PO SCH ×2 (08:24→20:58)
[2016-12-02] MEDS: meTOprolol TARTRATE 25 MG (LOPRESSOR) TABLET PO SCH ×2 (08:25→20:59)
[2016-12-02] MEDS: lisINopril 5 MG (PRINIVIL) TABLET PO SCH (08:26)
[2016-12-02] MEDS: OMEGA 3 (FISH OIL) 1000 MG CAP PO SCH (08:26)
[2016-12-02] MEDS: APIXABAN 2.5 MG (ELIQUIS) TABLET PO SCH ×2 (08:26→20:59)
[2016-12-02] MEDS: AMIODARONE 200 MG (CORDARONE) TAB PO SCH (08:27)
[2016-12-02] MEDS: ASPIRIN 81 MG CHEW (CHILDREN'S ASA) PO SCH (08:27)
[2016-12-02 08:34] VITALS: BP 99/57
--- NOTE | 2016-12-02 11:06 | Physical Therapy Daily Note ---
PT Daily Note-Current Subjective Pt in bed, agreeable. No c/o this date. "I feel like a new woman. That shortness of breath is something". Mental Status Patient Orientation: Person, Place, Time, Situation Attachments: Oxygen Transfers Functional [place] Measure 0=Not Assessed/NA 4=Minimal Assistance 1=Total Assistance 5=Supervision or Setup 2=Maximal Assistance 6=Modified [place] 3=Moderate Assistance 7=Complete IndependenceIRFPAI Quality Coding Scale 6 Independent with activity with or without an assistive device 5 Patient requires set up or clean up by helper. Patient completes activity by themselves 4 Supervision or touching assist (CGA). [place] provide cues , steadying assist 3 The helper provides less than half the effort to complete the activity 2 The helper provides more than half the effort to complete the activity 1 Dependent. The helper does all the effort to complete an activity 7 Patient refused to complete or attempt activity 9 The patient did not perform the activity before the current illness or injury 88 Not attempted due to Medical conditions or safety concerns Transfers (B, C, W/C) (FIM): 5 Scootin Supine to/from Sit: 5 Sit to/from Stand: 5 Sit to Lying (QC): 4 Sit to Stand (QC): 4 Weight Bearing Weight Bearing Restriction: Full Weight Bearing Location Restriction: LE Bilateral Gait Training Does the Patient Walk?: Yes Gait (FIM): 5 Distance (FIM): 3=150 ft Distance: 150 Walk 10 feet (QC): 4 Walk 50 ft with 2 Turns(QC): 4 Walk 150 ft (QC): 4 Gait Level of Assist: 5 Gait Persons Needed: 1 Gait Assistive Device: FWW Pt ambulates with FWW, flexed posture. Small steps but no LOB. SBA for safety. Wheelchair Training Does the Pt Use a Wheelchair?: No Exercises Seated Therapy Exercises: Ankle pumps, Long arc quads, Hip flexion Seated Reps: 15 NuStep Minutes: 3 NuStep Workload: 1 (Terminated due to Pt c/o heel pain on pedals) Treatments Gait training with FWW, LE functional strengthening. Returned to bed with O2 in situ, needs met. Assessment Current Status: Good Progress Pt tolerated well. No c/o SOB this date. PT Short Term Goals Short Term Goals Time Frame: Dec 06, 2016 Gait (FIM): 4 Distance (FIM): 3=150 ft Gait Assistive Device: FWW PT Retirement Goals Store Sales Leader Goals PT Store Sales Leader Goals Time Frame: Dec 22, 2016 Transfers (B,C,W/C) (FIM): 6 Sit to Lying (QC): 6 Lying-Sitting on Side/Bed(QC): 6 Sit to Stand (QC): 6 Rollin Roll Left to Right (QC): 6 Chair/Hrl-sr-Aclvy Xfer(QC): 6 Car Transfer (QC): 5 Does the Patient Walk: Yes Gait (FIM): 6 Gait distance (FIM): 3=150 ft Walk 10 feet (QC): 6 Walk 10ft-Uneven Surface(QC): 6 Walk 50ft with 2 Turns (QC): 6 Walk 150 ft (QC): 6 Gait Level of Assist: 6 Gait Assistive Device: FWW Stairs (FIM): 2 # of Steps: 4 1 Step (curb) (QC): 4 4 Steps (QC): 4 12 Steps (QC): 88 Picking up an Object (QC): 88 PT Plan Problem List Problem List: Activity Tolerance, Functional Strength, Safety, Balance, Gait, Transfer, Bed Mobility Treatment/Plan Treatment Plan: Continue Plan of Care Treatment Plan: Bed Mobility, Education, Functional Activity Florinda, Functional Strength, Group Therapy, Gait, Safety, Therapeutic Exercise, Transfers Treatment Duration: Dec 22, 2016 Frequency: At least 5 to 7 days/Wk (IRF) Estimated Hrs Per Day: 1.5 hours per day Patient and/or Family Agrees t: Yes Time/GCodes Time In: 1003 Time Out: 1030 Total Billed Treatment Time: 27 Total Billed Treatment 1, GT x 17', Ex x 10' G Codes Necessary: CHAPO Arroyo DPT Dec 02, 2016 11:06
[2016-12-02 18:03] VITALS: BP 92/54
[2016-12-02] MEDS: ACETAMINOPHEN 500 MG TAB (TYLENOL) PO PRN (20:58)
[2016-12-02] MEDS: ATORVASTATIN 40 MG (LIPITOR) TABLET PO SCH (20:58)
[2016-12-02] MEDS: busPIRone 5 MG (BUSPAR) TAB PO SCH (20:59)
[2016-12-03 06:00] VITALS: BP 106/66
[2016-12-03] MEDS: MULTIVIT W/MINERALS TAB (THERAGRAN M) PO SCH (06:06)
[2016-12-03] MEDS: PANTOPRAZOLE 40 MG (PROTONIX) TAB PO SCH (06:06)
[2016-12-03] MEDS: FUROSEMIDE 40 MG (LASIX) TAB PO SCH ×2 (06:06→14:24)
[2016-12-03] MEDS: DOXYCYCLINE 100 MG (VIBRAMYCIN) TABLET PO SCH ×2 (07:08→16:45)
[2016-12-03 08:48] VITALS: BP 105/57
[2016-12-03] MEDS: lisINopril 5 MG (PRINIVIL) TABLET PO SCH (08:49)
[2016-12-03] MEDS: LACTOBACILLUS Acidoph/Bulgar (LACTINEX/FLORANEX) TAB PO SCH ×2 (08:49→20:18)
[2016-12-03] MEDS: AMIODARONE 200 MG (CORDARONE) TAB PO SCH (08:50)
[2016-12-03] MEDS: OMEGA 3 (FISH OIL) 1000 MG CAP PO SCH (08:50)
[2016-12-03] MEDS: meTOprolol TARTRATE 25 MG (LOPRESSOR) TABLET PO SCH ×2 (08:50→20:18)
[2016-12-03] MEDS: ASPIRIN 81 MG CHEW (CHILDREN'S ASA) PO SCH (08:50)
[2016-12-03] MEDS: APIXABAN 2.5 MG (ELIQUIS) TABLET PO SCH ×2 (08:50→20:17)
[2016-12-03 10:58] LABS: BASOPHILS % (AUTO) 1 % (0-10); EOSINOPHILS # (AUTO) 0.4 10^3/uL (0.0-0.3); EOSINOPHILS % (AUTO) 6 % (0-10); LYMPHOCYTES # (AUTO) 1.8 X 10^3 (1.0-4.0); LYMPHOCYTES % (AUTO) 30 % (12-44); MEAN CORPUSCULAR HEMOGLOBIN 29 PG (25-34); MEAN CORPUSCULAR HGB CONC 30 G/DL (32-36); MEAN CORPUSCULAR VOLUME 96 FL (80-99); MONOCYTES # (AUTO) 0.6 X 10^3 (0.0-1.0); MONOCYTES % (AUTO) 10 % (0-12); NEUTROPHILS # (AUTO) 3.3 X 10^3 (1.8-7.8); NEUTROPHILS % (AUTO) 53 % (42-75); PLATELET COUNT 226 10^3/uL (130-400); RED BLOOD COUNT 3.12 10^6/uL (4.35-5.85); RED CELL DISTRIBUTION WIDTH 14.9 % (10.0-14.5); WHITE BLOOD COUNT 6.1 10^3/uL (4.3-11.0)
[2016-12-03 11:16] LABS: ALBUMIN 2.8 GM/DL (3.2-4.5); BILIRUBIN,TOTAL 0.7 MG/DL (0.1-1.0); CALCIUM 8.5 MG/DL (8.5-10.1); CREATININE SERUM 1.35 MG/DL (0.60-1.30); POTASSIUM 4.1 MMOL/L (3.6-5.0); TOTAL PROTEIN 5.5 GM/DL (6.4-8.2)
[2016-12-03] MEDS: ATORVASTATIN 40 MG (LIPITOR) TABLET PO SCH (20:18)
[2016-12-03] MEDS: busPIRone 5 MG (BUSPAR) TAB PO SCH (20:18)
[2016-12-04 05:19] VITALS: BP 104/58
[2016-12-04] MEDS: MULTIVIT W/MINERALS TAB (THERAGRAN M) PO SCH (06:22)
[2016-12-04] MEDS: PANTOPRAZOLE 40 MG (PROTONIX) TAB PO SCH (06:22)
[2016-12-04] MEDS: FUROSEMIDE 40 MG (LASIX) TAB PO SCH ×2 (06:22→14:13)
[2016-12-04] MEDS: DOXYCYCLINE 100 MG (VIBRAMYCIN) TABLET PO SCH ×2 (06:22→16:47)
[2016-12-04 08:07] VITALS: BP 96/56
[2016-12-04] MEDS: OMEGA 3 (FISH OIL) 1000 MG CAP PO SCH (08:08)
[2016-12-04] MEDS: LACTOBACILLUS Acidoph/Bulgar (LACTINEX/FLORANEX) TAB PO SCH ×2 (08:08→20:41)
[2016-12-04] MEDS: APIXABAN 2.5 MG (ELIQUIS) TABLET PO SCH ×2 (08:08→20:41)
[2016-12-04] MEDS: AMIODARONE 200 MG (CORDARONE) TAB PO SCH (08:08)
[2016-12-04] MEDS: ASPIRIN 81 MG CHEW (CHILDREN'S ASA) PO SCH (08:08)
[2016-12-04] MEDS: meTOprolol TARTRATE 25 MG (LOPRESSOR) TABLET PO SCH ×2 (08:11→19:28)
[2016-12-04] MEDS: lisINopril 5 MG (PRINIVIL) TABLET PO SCH (08:11)
--- NOTE | 2016-12-04 12:49 | Physical Therapy Daily Note ---
PT Daily Note-Current Subjective Pt denies pain and says "I am doing pretty good." Pt c/o she is unable to hear out of her R ear. "It is just an echo and it is really driving me crazy." Mental Status Patient Orientation: Person, Place, Situation Transfers Functional [place] Measure 0=Not Assessed/NA 4=Minimal Assistance 1=Total Assistance 5=Supervision or Setup 2=Maximal Assistance 6=Modified [place] 3=Moderate Assistance 7=Complete IndependenceIRFPAI Quality Coding Scale 6 Independent with activity with or without an assistive device 5 Patient requires set up or clean up by helper. Patient completes activity by themselves 4 Supervision or touching assist (CGA). [place] provide cues , steadying assist 3 The helper provides less than half the effort to complete the activity 2 The helper provides more than half the effort to complete the activity 1 Dependent. The helper does all the effort to complete an activity 7 Patient refused to complete or attempt activity 9 The patient did not perform the activity before the current illness or injury 88 Not attempted due to Medical conditions or safety concerns Pt SBA to CGA for transfers all levels. Min A to place R foot on pedal of Nu- step required Gait Training Gait Assistive Device: FWW Pt amb 2 x 150ft with rest break between, O2 at 1L/min Stair Training Practiced steps of 4 up/down with step to gait pattern and CGA. Pt practiced the steps twice with 2-3 min rest between. Exercises Seated Therapy Exercises: Ankle pumps, Long arc quads, Hip abd/add, Glut set Seated Reps: 20 Stood at table for UE activity: transfer of rings in arc motion R<->L NuStep Minutes: 3 NuStep Workload: 1 Treatments BR privileges upon return to room, SBA Assessment Current Status: Good Progress Pt pollo well with frequent rest breaks of 2-3 min. Pt back to EOB with lunch tray and all needs met. Call light in reach. PT Short Term Goals Short Term Goals Time Frame: Dec 06, 2016 Gait (FIM): 4 Distance (FIM): 3=150 ft Gait Assistive Device: FWW PT Fdc Goals Transaction Manager Goals PT Transaction Manager Goals Time Frame: Dec 22, 2016 Transfers (B,C,W/C) (FIM): 6 Sit to Lying (QC): 6 Lying-Sitting on Side/Bed(QC): 6 Sit to Stand (QC): 6 Rollin Roll Left to Right (QC): 6 Chair/Eps-in-Dhtpj Xfer(QC): 6 Car Transfer (QC): 5 Does the Patient Walk: Yes Gait (FIM): 6 Gait distance (FIM): 3=150 ft Walk 10 feet (QC): 6 Walk 10ft-Uneven Surface(QC): 6 Walk 50ft with 2 Turns (QC): 6 Walk 150 ft (QC): 6 Gait Level of Assist: 6 Gait Assistive Device: FWW Stairs (FIM): 2 # of Steps: 4 1 Step (curb) (QC): 4 4 Steps (QC): 4 12 Steps (QC): 88 Picking up an Object (QC): 88 PT Plan Treatment/Plan Treatment Plan: Continue Plan of Care Treatment Plan: Bed Mobility, Education, Functional Activity Florinda, Functional Strength, Group Therapy, Gait, Safety, Therapeutic Exercise, Transfers Treatment Duration: Dec 22, 2016 Frequency: At least 5 to 7 days/Wk (IRF) Estimated Hrs Per Day: 1.5 hours per day Patient and/or Family Agrees t: Yes Time/GCodes Time In: 1000 Time Out: 1100 Total Billed Treatment Time: 60 Total Billed Treatment 1, Gait 30min, Ther ex 25 min, FA 5 min PATRICIA SANTAMARIA CPTRufino Dec 04, 2016 12:49
--- NOTE | 2016-12-04 12:50 | Occupational Ther Daily Note ---
OT Current Status-Daily Note Subjective Pt seen in room, up in recliner, agreeable to OT. Pt stated that she feels so much better. No pain mentioned except sore R ear Appearance Alert, cooperative Mental Status/Objective Functional [place] Measure 0=Not Assessed/NA 4=Minimal Assistance 1=Total Assistance 5=Supervision or Setup 2=Maximal Assistance 6=Modified [place] 3=Moderate Assistance 7=Complete [place] ADL-Treatment Sit to stand with SBA, FWW. Pt walked to bathroom with SBA, FWW, with OT help managing O2 tubing. Functional [place] Measure 0=Not Assessed/NA 4=Minimal Assistance 1=Total Assistance 5=Supervision or Setup 2=Maximal Assistance 6=Modified [place] 3=Moderate Assistance 7=Complete IndependenceIRFPAI Quality Coding Scale 6 Independent with activity with or without an assistive device 5 Patient requires set up or clean up by helper. Patient completes activity by themselves 4 Supervision or touching assist (CGA). [place] provide cues , steadying assist 3 The helper provides less than half the effort to complete the activity 2 The helper provides more than half the effort to complete the activity 1 Dependent. The helper does all the effort to complete an activity 7 Patient refused to complete or attempt activity 9 The patient did not perform the activity before the current illness or injury 88 Not attempted due to Medical conditions or safety concerns Grooming (FIM): 5 (SBA at sink to clean teeth, brush hair, FWW for balance. Washed face and hands in shower. ) Bathing (FIM): 5 (Washed and dried all parts. SBA to stand to wash bottom. Shower bench, grab bars, hand held shower. pt had O2 off during shower - about 10 minutes- and declined to put it back on, stating, "I don't think I need it." No SOB) Upper Body (FIM): 5 (Undressed and dressed with setup. Reminder for managing oxygen tubing under clothing. ) Lower Body Dressing (FIM): 5 (Setup, SBA when standing, FWW to pull Depends and slacks up. Able to put slipper socks on without devices. ) Toileting (FIM): 5 (SBA for clothing management, hygiene, BSC over toilet, grab bar, FWW) Toilet/Commode Transfer (FIM): 5 (SBA getting on and off BSC over toilet. Grab bar, FWW) Shower Transfer(FIM): 5 (SBA getting in and out of shower, using grab bars, shower bench, FWW) O2 put back on after bathing and left on until removed briefly to put shirt on. O2 has been dropped from 2L/min to 1L/min. Pt left up in recliner, all needs met , O2 in place. Education OT Patient Education: Progress toward Goal/Update tx plan, Purpose of tx/ functional activities Teaching Recipient: Patient Teaching Methods: Discussion Response to Teaching: Verbalize Understanding OT Short Term Goals Short Term Goals Time Frame: Dec 08, 2016 Grooming(FIM): 5 Lower Body Dressing(FIM): 3 Toileting(FIM): 5 Toilet/Commode Transfer(FIM): 4 Additional Short Term Goals: 2-Verbalize Understanding, 3-ImproveStrength/Florinda 1=Demonstrate adherence to instructed precautions during ADL tasks. 2=Patient will verbalize/demonstrate understanding of assistive devices/ modifications for ADL. 3=Patient will improve strength/tolerance for activity to enable patient to perform ADL's. OT Funeral Home Director Goals Funeral Home Director Goals Time Frame: Dec 22, 2016 Eating (FIM): 6 Eating (QC): 6 Groomin Oral Hygiene (QC): 6 Bathing(FIM): 5 Shower/Bathe Self (QC): 5 Upper Body Dressing(FIM): 6 Upper Body Dressing (QC): 6 Lower Body Dressing(FIM): 6 Lower Body Dressing (QC): 6 On/Off Footwear (QC): 6 Toileting(FIM): 6 Toileting Hygiene (QC): 6 Toilet/Commode Transfer(FIM): 6 Toilet/Commode Transfer (QC): 6 Shower Transfer(FIM): 5 Additional Goals: 2-Verbalize Understanding, 3-ImproveStrength/Florinda 1=Demonstrate adherence to instructed precautions during ADL tasks. 2=Patient will verbalize/demonstrate understanding of assistive devices/ modifications for ADL. 3=Patient will improve strength/tolerance for activity to enable patient to perform ADL's. OT Education/Plan Problem List/Assessment Pt would benefit from skilled OT to increase her independence and activity tolerance for basic ADLs to allow her to return to an [facility] or skilled care and to decrease caregiver burden Discharge Recommendations Plan/Recommendations: Continue POC Treatment Plan/Plan of Care Patient would benefit from OT for education, treatment and training to promote independence in ADL's, mobility, safety and/or upper extremity function for ADL' s. Plan of Care: ADL Retraining, Functional Mobility, Group Exercise/Act as Ind ( education, exercise, activty tolerance, funct mobility, socialization), UE Funct Exercise/Act, UE Neuromus Re-Ed/Coord Treatment Duration: Dec 22, 2016 Frequency: At least 5 to 7 days/Wk (IRF) Estimated Hrs Per Day: 1.5 hours per day Agreement: Yes Rehab Potential: Fair Time/GCodes Start Time: 09:00 Stop Time: 10:00 Total Time Billed (hr/min): 60 Billed Treatment Time visit, 60 minutes ADL SOPHIE WARE OT Dec 04, 2016 12:50
--- NOTE | 2016-12-04 14:54 | Therapy Group Daily Note ---
Therapy Daily Group Note Patient Education Topic Exercises, Other List Below (Memory Strategies) Exercises LE Seated Exercise, UE Exercise Other/Notes Pt came to PT/OT Group in Therapy [facility] area via [facility] that staff assisted pt with managing both [facility] and O2 tank. Pt participated in Group which consisted of Introductions (Name, Where you are from & Favorite Labor Day Memory), education on Memory Strategies and how they can help your everyday life as well as a Memory Activity. Pt also participated in both LE & UE Exercise in a seated position. Pt participated by giving a Memory Strategy they use, completing Exercises as well as completing Memory Activity. Pt returned to room to rest Supine in bed at end of Group with all needs met. Start Time: 13:00 Stop Time: 14:15 Total Billed Treatment Time: 75 Total Billed Treatment 1, GRP LEANNA OZUNA INTERNET PROJECT MANAGER Dec 04, 2016 14:54
[2016-12-04 17:23] VITALS: BP 106/62
[2016-12-04] MEDS: busPIRone 5 MG (BUSPAR) TAB PO SCH (20:41)
[2016-12-04] MEDS: ATORVASTATIN 40 MG (LIPITOR) TABLET PO SCH (20:41)
[2016-12-04] MEDS: ACETAMINOPHEN 500 MG TAB (TYLENOL) PO PRN (23:36)
[2016-12-05 05:11] VITALS: BP 110/58
[2016-12-05] MEDS: PANTOPRAZOLE 40 MG (PROTONIX) TAB PO SCH (06:27)
[2016-12-05] MEDS: FUROSEMIDE 40 MG (LASIX) TAB PO SCH ×2 (06:27→15:05)
[2016-12-05] MEDS: MULTIVIT W/MINERALS TAB (THERAGRAN M) PO SCH (06:27)
[2016-12-05] MEDS: DOXYCYCLINE 100 MG (VIBRAMYCIN) TABLET PO SCH ×2 (06:27→17:50)
--- NOTE | 2016-12-05 08:24 | Cardiology Progress Note ---
Subjective Time Seen by Provider: 08:15 Subjective/Events-last exam Patient is sitting up in chair. Reports dyspnea has significantly improved. Denies any CP or dyspnea. Review of Systems General: No Night Sweats, No Fatigue, No Malaise HEENT: No Visual Changes, No Dysphasia, No Sore Throat Pulmonary: No Dyspnea, No Cough Cardiovascular: No: Chest Pain, Palpitations, Paroxysmal Noc. Dyspnea, Edema Gastrointestinal: No: Nausea, Vomiting, Abdominal Pain Genitourinary: No Dysuria, No Frequency Musculoskeletal: No: neck pain, back pain Neurological: No: Weakness, Numbness, Change in speech, Confusion Objective-Cardiology Exam Last Set of Vital Signs Vital Signs 12/05/16 05:11 Temp 97.3 Pulse 87 Resp 18 B/P (MAP) 110/58 Pulse Ox 95 O2 Delivery Nasal Cannula O2 Flow Rate 1.00 Capillary Refill : I&O Intake and Output 12/06/16 00:00 Intake Total 580 ml Balance 580 ml Intake Oral 580 ml # Voids 10 # Bowel Movements 1 General: Alert, Oriented X3, Mild Distress HEENT: Atraumatic, PERRLA Neck: Supple, No JVD, No Thyromegaly Lungs: Normal Air Movement, Other (decreased breath sounds bibasilar) Heart: Regular Rate, Normal S1, Normal S2, Gallops (bilateral rhonchi), Other ( systolic murmur at the left sternal border) Abdomen: Normal Bowel Sounds, Soft, No Tenderness, No Hepatosplenomegaly, No Masses Extremities: Other (cellulitis with warmth and erythema of the right calf extending from ankle to upper calf. No open area associated with this.) Skin: No Rashes, Other (Sacral wound0.7 x 0.4 x 0.3 cm. Base 100% slough. Drainage moderate serosanguineous.Clear blister dorsum right foot 3.8 x 6.8 cm. This is not ruptured.) Neuro: Normal Gait, Normal Speech, Strength at 5/5 X4 Ext, Normal Tone, Sensation Intact Psych/Mental Status: Mental Status NL, Mood NL A/P-Cardiology Admission Diagnosis CHF CAD HTN PAF Assessment/Plan Shortness of breath, pulmonary edema, reporting improvement. Continue to monitor. Cellulitis of the right lower extremity, started on doxycycline. Continue to monitr. CP, nonspecific etiology- had one episode of CP yesterday with dyspnea, relieved by SL nitro. Denies any further episode. Continue to monitor. Congestive heart failure, acute on chronic left ventricular systolic dysfunction , ischemic cardiomyopathy, peripheral edema, ejection fraction 30-35 percent per echocardiogram done earlier this month, continue with diuretics and monitor. Maintained on lisinopril, Lopressor. Continue to monitor. Paroxysmal atrial fibrillation, converted to sinus rhythm, mainly postoperatively, continue on amiodarone 200 mg daily and monitor [id number] score of 7, yearly risk of stroke without oral anticoagulation is 9.6 percent, tolerating Eliquis 2.5 mg twice daily well, anemia is slightly worse. Continue to monitor Coronary artery disease, had acute ST elevation myocardial infarction at [facility] required CABG 3, continue to monitor Acute renal insufficiency,continue to monitor closely. Hyperlipidemia, continue on Lipitor 40 mg and monitor. Hypertension, currently borderline hypotensive, I will add parameter to hold Lopressor and lisinopril for systolic blood pressure less than 100 Diabetes mellitus, patient was on insulin drip at [facility], management per PCP. Clinical Quality Measures DVT/VTE Risk/Contraindication: Risk Factor Score Per Nursin RFS Level Per Nursing on Admit: 4+=Very High Contraindications-Mechi: Other *list below* Other: CELLULITIS OF RIGHT LEG SERENA LEE Dec 05, 2016 08:24
--- NOTE | 2016-12-05 09:00 | Physical Therapy Daily Note ---
PT Daily Note-Current Subjective Pt. states she has been sick to her stomach since taking her meds earlier this morning. Feels it is b/c she took them on empty stomach. After weak tea and crackers pt. states she feels better. Pain Numeric Pain Scale: 0-No Pain Mental Status Patient Orientation: Normal For Age pt. off O2 when this SUPPLY TECH entered room. in bathroom with sats at 97%. Patricia UNDERWOOD states pt. OKd for O2 titration. Transfers Functional [place] Measure 0=Not Assessed/NA 4=Minimal Assistance 1=Total Assistance 5=Supervision or Setup 2=Maximal Assistance 6=Modified [place] 3=Moderate Assistance 7=Complete IndependenceIRFPAI Quality Coding Scale 6 Independent with activity with or without an assistive device 5 Patient requires set up or clean up by helper. Patient completes activity by themselves 4 Supervision or touching assist (CGA). [place] provide cues , steadying assist 3 The helper provides less than half the effort to complete the activity 2 The helper provides more than half the effort to complete the activity 1 Dependent. The helper does all the effort to complete an activity 7 Patient refused to complete or attempt activity 9 The patient did not perform the activity before the current illness or injury 88 Not attempted due to Medical conditions or safety concerns Transfers (B, C, W/C) (FIM): 6 Scootin Rollin Supine to/from Sit: 6 Sit to/from Stand: 6 Bed to/from Chair: 6 Gait Training Does the Patient Walk?: Yes Gait (FIM): 5 Distance (FIM): 3=150 ft (x3) Gait Level of Assist: 5 Gait Persons Needed: 1 Gait Assistive Device: FWW flexed posture with heavy wt bearing on FWW Stair Training Stair Training: Handrails/: 2 handrails Stairs (FIM): 2 #of Steps: 4 Stairs: Pattern: Step to Level of Assist: 4 Exercises Supine Ex: Bridging, Ankle pumps, Quad Set, Rolling, Glut sets, Heel Slides, Short Arc Quads, Scooting, Straight leg raise, Hip abd/add Supine Reps: 12 Seated Therapy Exercises: Ankle pumps, Sit to stand, Long arc quads, Hip flexion Seated Reps: 10 Treatments toileted x 2 with Mod I. Assessment Current Status: Good Progress O2 sats >94% throughout Rx. some nausea but increased functional mob generally improved PT Short Term Goals Short Term Goals Time Frame: Dec 06, 2016 Gait (FIM): 4 Distance (FIM): 3=150 ft Gait Assistive Device: FWW PT Custodial Goals Filter Press Pumper Goals PT Custodial Goals Time Frame: Dec 22, 2016 Transfers (B,C,W/C) (FIM): 6 Sit to Lying (QC): 6 Lying-Sitting on Side/Bed(QC): 6 Sit to Stand (QC): 6 Rollin Roll Left to Right (QC): 6 Chair/Xao-rz-Egxvy Xfer(QC): 6 Car Transfer (QC): 5 Does the Patient Walk: Yes Gait (FIM): 6 Gait distance (FIM): 3=150 ft Walk 10 feet (QC): 6 Walk 10ft-Uneven Surface(QC): 6 Walk 50ft with 2 Turns (QC): 6 Walk 150 ft (QC): 6 Gait Level of Assist: 6 Gait Assistive Device: FWW Stairs (FIM): 2 # of Steps: 4 1 Step (curb) (QC): 4 4 Steps (QC): 4 12 Steps (QC): 88 Picking up an Object (QC): 88 PT Plan Treatment/Plan Treatment Plan: Continue Plan of Care Treatment Plan: Bed Mobility, Education, Functional Activity Florinda, Functional Strength, Group Therapy, Gait, Safety, Therapeutic Exercise, Transfers Treatment Duration: Dec 22, 2016 Frequency: At least 5 to 7 days/Wk (IRF) Estimated Hrs Per Day: 1.5 hours per day Patient and/or Family Agrees t: Yes Safety Risks/Education Patient Education: Gait Training, Transfer Techniques, Steps, Correct Positioning, Safety Issues Teaching Recipient: Patient Teaching Methods: Demonstration, Discussion Response to Teaching: Verbalize Understanding, Return Demonstration, Reinforcement Needed (stair sequence reminders) Time/GCodes Time In: 800 Time Out: 900 Total Billed Treatment Time: 60 Total Billed Treatment 1,FA25m,EX20m,GT15m G Codes Necessary: RUFUS Garner PTA Dec 05, 2016 09:00
[2016-12-05 09:20] VITALS: BP 97/51
[2016-12-05] MEDS: LACTOBACILLUS Acidoph/Bulgar (LACTINEX/FLORANEX) TAB PO SCH ×2 (09:22→20:28)
[2016-12-05] MEDS: ASPIRIN 81 MG CHEW (CHILDREN'S ASA) PO SCH (09:22)
[2016-12-05] MEDS: OMEGA 3 (FISH OIL) 1000 MG CAP PO SCH (09:22)
[2016-12-05] MEDS: AMIODARONE 200 MG (CORDARONE) TAB PO SCH (09:22)
[2016-12-05] MEDS: meTOprolol TARTRATE 25 MG (LOPRESSOR) TABLET PO SCH ×2 (09:23→20:28)
[2016-12-05] MEDS: lisINopril 5 MG (PRINIVIL) TABLET PO SCH (09:23)
[2016-12-05] MEDS: APIXABAN 2.5 MG (ELIQUIS) TABLET PO SCH ×2 (09:23→20:28)
--- NOTE | 2016-12-05 10:28 | Occupational Ther Daily Note ---
OT Current Status-Daily Note Subjective Pt sitting in chair, agrees to treatment. Pt states she felt nauseated this morning, but is feeling a little better now. No c/o pain during session. Mental Status/Objective Functional [place] Measure 0=Not Assessed/NA 4=Minimal Assistance 1=Total Assistance 5=Supervision or Setup 2=Maximal Assistance 6=Modified [place] 3=Moderate Assistance 7=Complete [place] ADL-Treatment Pt declined shower, but would like a sponge bath this morning. Sponge bath completed seated in chair. Doff clothing with SBA. Uses FWW for balance during standing to doff pants. Pt able to wash/dry all areas with SBA and increased time. Don pullover shirt with set up. Pt donned Depends and pants with SBA for balance during standing for pant hike. Don bilateral socks with set up. Increased time required for dressing tasks. Pt combed hair without assistance while seated in chair. Sit to stand with supervision. Gait to restroom with FWW. [place] [facility] [place]. Pt able to complete toileting hygiene and clothing management with SBA. Stood at sink to wash hands with supervision. Pt removed dentures to soak without assistance. Pt sitting in chair with needs met after session. Functional [place] Measure 0=Not Assessed/NA 4=Minimal Assistance 1=Total Assistance 5=Supervision or Setup 2=Maximal Assistance 6=Modified [place] 3=Moderate Assistance 7=Complete IndependenceIRFPAI Quality Coding Scale 6 Independent with activity with or without an assistive device 5 Patient requires set up or clean up by helper. Patient completes activity by themselves 4 Supervision or touching assist (CGA). [place] provide cues , steadying assist 3 The helper provides less than half the effort to complete the activity 2 The helper provides more than half the effort to complete the activity 1 Dependent. The helper does all the effort to complete an activity 7 Patient refused to complete or attempt activity 9 The patient did not perform the activity before the current illness or injury 88 Not attempted due to Medical conditions or safety concerns Bathing (FIM): 5 Shower/Bathe Self (QC): 4 Upper Body (FIM): 5 Upper Body Dressing (QC): 5 Lower Body Dressing (FIM): 5 Lower Body Dressing (QC): 4 Toileting (FIM): 5 Toileting Hygiene (QC): 4 Toilet/Commode Transfer (FIM): 5 Toilet Transfer (QC): 4 OT Short Term Goals Short Term Goals Time Frame: Dec 08, 2016 Grooming(FIM): 5 Lower Body Dressing(FIM): 3 Toileting(FIM): 5 Toilet/Commode Transfer(FIM): 4 Additional Short Term Goals: 2-Verbalize Understanding, 3-ImproveStrength/Florinda 1=Demonstrate adherence to instructed precautions during ADL tasks. 2=Patient will verbalize/demonstrate understanding of assistive devices/ modifications for ADL. 3=Patient will improve strength/tolerance for activity to enable patient to perform ADL's. OT Bilingual Case Manager Goals Bilingual Case Manager Goals Time Frame: Dec 22, 2016 Eating (FIM): 6 Eating (QC): 6 Groomin Oral Hygiene (QC): 6 Bathing(FIM): 5 Shower/Bathe Self (QC): 5 Upper Body Dressing(FIM): 6 Upper Body Dressing (QC): 6 Lower Body Dressing(FIM): 6 Lower Body Dressing (QC): 6 On/Off Footwear (QC): 6 Toileting(FIM): 6 Toileting Hygiene (QC): 6 Toilet/Commode Transfer(FIM): 6 Toilet/Commode Transfer (QC): 6 Shower Transfer(FIM): 5 Additional Goals: 2-Verbalize Understanding, 3-ImproveStrength/Florinda 1=Demonstrate adherence to instructed precautions during ADL tasks. 2=Patient will verbalize/demonstrate understanding of assistive devices/ modifications for ADL. 3=Patient will improve strength/tolerance for activity to enable patient to perform ADL's. OT Education/Plan Problem List/Assessment Pt would benefit from skilled OT to increase her independence and activity tolerance for basic ADLs to allow her to return to an [place] or skilled care and to decrease caregiver burden Discharge Recommendations Plan/Recommendations: Continue POC Treatment Plan/Plan of Care Patient would benefit from OT for education, treatment and training to promote independence in ADL's, mobility, safety and/or upper extremity function for ADL' s. Plan of Care: ADL Retraining, Functional Mobility, Group Exercise/Act as Ind ( education, exercise, activty tolerance, funct mobility, socialization), UE Funct Exercise/Act, UE Neuromus Re-Ed/Coord Treatment Duration: Dec 22, 2016 Frequency: At least 5 to 7 days/Wk (IRF) Estimated Hrs Per Day: 1.5 hours per day Agreement: Yes Rehab Potential: Fair Time/GCodes Start Time: 09:15 Stop Time: 10:15 Total Time Billed (hr/min): 60 Billed Treatment Time 1 visit, ADLx4(60minutes) YARELI CHADWICK OT Dec 05, 2016 10:28
--- NOTE | 2016-12-05 14:37 | Therapy Group Daily Note ---
Therapy Daily Group Note Patient Education Topic Other List Below Exercises LE Seated Exercise, UE Exercise, Other Other/Notes Pt was an active participant in OT group. She contributed to discussion/ education, recalling memory strategies from group yesterday, then applying them in multisensory memory activities and exercises, including visual memory, tactile memory, muscle memory. She also led the group in an exercise that she recalled from therapy. She walked back to her room with SBA, FWW, was toileted and in bed with nursing checking vitals. She had her O2 off and O2 sats were 95 % after she walked from her room to the gym. Start Time: 13:00 Stop Time: 14:10 Total Billed Treatment Time: 70 Total Billed Treatment visit, 70 minutes group SOPHIE WARE OT Dec 05, 2016 14:37
[2016-12-05 14:44] VITALS: BP 138/65
--- NOTE | 2016-12-05 15:40 | Cardiology Progress Note ---
Subjective Date Seen by Provider: Dec 05, 2016 Time Seen by Provider: 15:39 Subjective/Events-last exam Patient is laying down in bed, feeling better today. Breathing better. Doing well. No chest pain, not using oxygen at this time. Review of Systems General: No Chills, No Night Sweats, No Fatigue, No Malaise, No Appetite, No Other HEENT: No Head Aches, No Visual Changes, No Eye Pain, No Ear Pain, No Dysphasia , No Sinus Congestion, No Post Nasal Drip, No Sore Throat, No Other Pulmonary: No Dyspnea, No Cough, No Pleuritic Chest Pain, No Other Cardiovascular: No: Chest Pain, Palpitations, Orthopnea, Paroxysmal Noc. Dyspnea, Edema, Lt Headedness, Other Objective-Cardiology Exam Last Set of Vital Signs Vital Signs 12/05/16 12/05/16 09:20 14:44 Temp 98.1 Pulse 93 Resp 18 B/P (MAP) 138/65 Pulse Ox 92 O2 Delivery Room Air O2 Flow Rate 1.00 Capillary Refill : I&O Intake and Output 12/06/16 00:00 Intake Total 580 ml Balance 580 ml Intake Oral 580 ml # Voids 10 # Bowel Movements 1 General: Alert, Oriented X3, Mild Distress HEENT: Atraumatic, PERRLA Neck: Supple, No JVD, No Thyromegaly Lungs: Clear to Auscultation, Normal Air Movement Heart: Regular Rate, Normal S1, Normal S2, Gallops (bilateral rhonchi), Other ( systolic murmur at the left sternal border) Abdomen: Normal Bowel Sounds, Soft, No Tenderness, No Hepatosplenomegaly, No Masses Extremities: Other (cellulitis with warmth and erythema of the right calf extending from ankle to upper calf. No open area associated with this.) Skin: No Rashes, Other (Sacral wound0.7 x 0.4 x 0.3 cm. Base 100% slough. Drainage moderate serosanguineous.Clear blister dorsum right foot 3.8 x 6.8 cm. This is not ruptured.) Neuro: Normal Gait, Normal Speech, Strength at 5/5 X4 Ext, Normal Tone, Sensation Intact Psych/Mental Status: Mental Status NL, Mood NL A/P-Cardiology Admission Diagnosis CHF CAD HTN PAF Assessment/Plan Shortness of breath, pulmonary edema, reporting improvement. Continue to monitor. Cellulitis of the right lower extremity, started on doxycycline. Continue to monitor. CP, nonspecific etiology- had one episode of CP yesterday with dyspnea, relieved by SL nitro. Denies any further episode. Continue to monitor. Congestive heart failure, acute on chronic left ventricular systolic dysfunction , ischemic cardiomyopathy, peripheral edema, ejection fraction 30-35 percent per echocardiogram done earlier this month, continue with diuretics and monitor. Maintained on lisinopril, Lopressor. Continue to monitor. Paroxysmal atrial fibrillation, converted to sinus rhythm, mainly postoperatively, continue on amiodarone 200 mg daily and monitor [id number] score of 7, yearly risk of stroke without oral anticoagulation is 9.6 percent, tolerating Eliquis 2.5 mg twice daily well, anemia is slightly worse. Continue to monitor Coronary artery disease, had acute ST elevation myocardial infarction at [facility] required CABG 3, continue to monitor Acute renal insufficiency,continue to monitor closely. Hyperlipidemia, continue on Lipitor 40 mg and monitor. Hypertension, currently borderline hypotensive, I will add parameter to hold Lopressor and lisinopril for systolic blood pressure less than 100 Diabetes mellitus, patient was on insulin drip at [facility], management per PCP. Clinical Quality Measures DVT/VTE Risk/Contraindication: Risk Factor Score Per Nursin RFS Level Per Nursing on Admit: 4+=Very High Contraindications-Mechi: Other *list below* Other: CELLULITIS OF RIGHT LEG CAROL DUDLEY MD Dec 05, 2016 15:40
[2016-12-05 18:08] VITALS: BP 103/57
--- NOTE | 2016-12-05 19:14 | PM & R (SOAP) Progress Note ---
Subjective Time Seen by Provider: 19:10 Subjective/Events-last exam Patient was seen in her room this evening Progressing welll with therapies Patient modified Independent for transfers Swelling down rt leg Patients family in to visit this evening . Objective Exam Last Set of Vital Signs Vital Signs Date Time Temp Pulse Resp B/P (MAP) Pulse Ox O2 Delivery O2 Flow Rate FiO2 12/05/16 18:08 97.9 94 14 103/57 95 12/05/16 14:44 Room Air 12/05/16 09:20 1.00 Capillary Refill : I&O Intake and Output 12/06/16 00:00 Intake Total 1510 ml Balance 1510 ml Intake Oral 1510 ml # Voids 16 # Bowel Movements 2 General: Alert, Oriented X3, Mild Distress HEENT: Atraumatic, PERRLA Neck: Supple, No JVD, No Thyromegaly Lungs: Clear to Auscultation, Normal Air Movement Heart: Regular Rate, Normal S1, Normal S2, Gallops (bilateral rhonchi), Other ( systolic murmur at the left sternal border) Abdomen: Normal Bowel Sounds, Soft, No Tenderness, No Hepatosplenomegaly, No Masses Extremities: Other (cellulitis with warmth and erythema of the right calf extending from ankle to upper calf. No open area associated with this.) Skin: No Rashes, Other (Sacral wound0.7 x 0.4 x 0.3 cm. Base 100% slough. Drainage moderate serosanguineous.Clear blister dorsum right foot 3.8 x 6.8 cm. This is not ruptured.) Neuro: Normal Gait, Normal Speech, Strength at 5/5 X4 Ext, Normal Tone, Sensation Intact Psych/Mental Status: Mental Status NL, Mood NL Results Lab Laboratory Tests 12/03/16 10:55: White Blood Count 6.1, Red Blood Count 3.12L, Hemoglobin 9.0L, Hematocrit 30L, Mean Corpuscular Volume 96, Mean Corpuscular Hemoglobin 29, Mean Corpuscular Hemoglobin Concent 30L, Red Cell Distribution Width 14.9H, Platelet Count 226, Mean Platelet Volume 10.0, Neutrophils (%) (Auto) 53, Lymphocytes (%) (Auto) 30 , Monocytes (%) (Auto) 10, Eosinophils (%) (Auto) 6, Basophils (%) (Auto) 1, Neutrophils # (Auto) 3.3, Lymphocytes # (Auto) 1.8, Monocytes # (Auto) 0.6, Eosinophils # (Auto) 0.4H, Basophils # (Auto) 0.0, Sodium Level 140, Potassium Level 4.1, Chloride Level 96L, Carbon Dioxide Level 33H, Anion Gap 11, Blood Urea Nitrogen 21H, Creatinine 1.35H, Estimat Glomerular Filtration Rate 37, BUN/ Creatinine Ratio 16, Glucose Level 97, Calcium Level 8.5, Total Bilirubin 0.7, Aspartate Amino Transf (AST/SGOT) 45H, Alanine Aminotransferase (ALT/SGPT) 29, Alkaline Phosphatase 102, Total Protein 5.5L, Albumin 2.8L Assessment/Plan Assessment 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 TREATED- BEING FOLLOWED BY cARDIOLOGY cELLULITIS RT LEG UNDER TREATMENT bLISTER dORSUM RT FOOT dr Alejo MANAGING sACRAL PRESSURE SORE dr Alejo MANAGING htn WITH hYPOTENSION AT THIS TIME cARDIOLOGY MANAGING a fib CONTROLLED WITH MEDS RESP INSUFFICIENCY dr Morocho pULM FOLLOWING Bilateral Pleural effusions Plan cONTINUE pt/ot/wOUND CARE cOMPLETE COURSE OF aNTIBIOTIC FOR CELLULITIS f/u WITH pcp dr david Cast AND dr Alejo AND dr Morocho AND CARDIOLOGY PER [facility] SCHEDULE aPPRECIATE cARDIOLOGY AND dr Cannon NOTES AND ORDERS Appreciate DR Hill notes and orders BUN/CR and H&H improving Current Labs reviewed Meds being adjusted. Discussed case with RN Patient with nausea this AM Patient relates to taking meds on a empty stomach -now resolved Appreciate DR Dumont note and Hospitalists orders and current labs Team Conference tomorrow 12-06-16 DORIS QUIGLEY MD Dec 05, 2016 19:14
[2016-12-05] MEDS: ATORVASTATIN 40 MG (LIPITOR) TABLET PO SCH (20:28)
[2016-12-05] MEDS: busPIRone 5 MG (BUSPAR) TAB PO SCH (20:28)
--- NOTE | 2016-12-05 23:54 | Progress Note (SOAP) ---
Subjective Subjective Date Seen by Provider: Dec 05, 2016 Time Seen by Provider: 08:00 Pt reports she is Breathing better- the PT/OT rehab has been good. Right leg continues to improve. Review of Systems General: No Chills, No Night Sweats HEENT: No Head Aches, No Visual Changes, No Eye Pain, No Dysphasia, Other ( right ear muffled sounds) Pulmonary: No Dyspnea, No Cough, No Pleuritic Chest Pain Cardiovascular: No: Chest Pain, Palpitations, Orthopnea Gastrointestinal: No: Nausea, Vomiting, Abdominal Pain, Diarrhea, Constipation Genitourinary: No Dysuria, No Frequency Musculoskeletal: No: neck pain, back pain Neurological: Weakness (improving), No: Numbness, Change in speech, Confusion Objective Exam Vital Signs 97.3F 87 pulse BP 110/58 1L NC 95% General Appearance: No Apparent Distress HEENT: PERRL/EOMI Neck: Supple Respiratory: Chest Non Tender, Lungs Clear, Normal Breath Sounds, No Accessory Muscle Use, No Respiratory Distress Cardiovascular: Regular Rate, Rhythm Gastrointestinal: Soft Rectal: Deferred Back: No CVA Tenderness Extremity: Pedal Edema, Other (RLE blister on dorsum of foot. Erythema of right lower extremity - much improved) Neurologic/Psychiatric: Alert, Oriented x3, Normal Mood/Affect Skin: Warm/Dry Assessment/Plan Assessment/Plan Assessment/Plan Weakness/deconditioning due to comorbidities- Inpatient Rehab Acute on chronic systolic congestive heart failure- Dr. Gomez consulted- continue lasix ECHO 11/12/16 30-35% LVEF urinary tract infection without hematuria- due to klebsiella. 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 Gotti consulted doxycycline 100mg BID 11/30 --> 12/10/16 Paroxysmal Atrial fibrillation - NSR, continue eliquis Right pleural effusion- continue lasix Dispo: encourage po hydration- Pt is doing well with rehab. Problems: Clinical Quality Measures DVT/VTE Risk/Contraindication: Risk Factor Score Per Nursin RFS Level Per Nursing on Admit: 4+=Very High Contraindications-Mechi: Other *list below* Other: CELLULITIS OF RIGHT LEG BELKYS CUI MD Dec 05, 2016 23:54
[2016-12-06 05:44] VITALS: BP 116/55
[2016-12-06] MEDS: MULTIVIT W/MINERALS TAB (THERAGRAN M) PO SCH (06:31)
[2016-12-06] MEDS: PANTOPRAZOLE 40 MG (PROTONIX) TAB PO SCH (06:31)
[2016-12-06] MEDS: FUROSEMIDE 40 MG (LASIX) TAB PO SCH ×2 (06:32→15:10)
[2016-12-06] MEDS: DOXYCYCLINE 100 MG (VIBRAMYCIN) TABLET PO SCH ×2 (06:32→16:18)
--- NOTE | 2016-12-06 08:13 | Cardiology Progress Note ---
Subjective Time Seen by Provider: 08:05 Subjective/Events-last exam Patient sitting up in bed, receiving physical therapy. Denies any CP or dyspnea. Was weaned of O2 yesterday. Review of Systems General: No Night Sweats, No Fatigue, No Malaise HEENT: No Visual Changes, No Dysphasia Pulmonary: No Dyspnea, No Cough Cardiovascular: Edema (RLE), No: Chest Pain, Palpitations, Paroxysmal Noc. Dyspnea Gastrointestinal: No: Nausea, Vomiting, Abdominal Pain Genitourinary: No Dysuria, No Frequency Musculoskeletal: No: neck pain, back pain Neurological: No: Weakness, Numbness, Change in speech, Confusion Objective-Cardiology Exam Last Set of Vital Signs Vital Signs 12/05/16 12/06/16 09:20 05:44 Temp 97.4 Pulse 96 Resp 18 B/P (MAP) 116/55 Pulse Ox 94 O2 Delivery Room Air O2 Flow Rate 1.00 Capillary Refill : I&O Intake and Output 12/07/16 00:00 Intake Total 450 ml Balance 450 ml Intake Oral 450 ml # Voids 7 # Bowel Movements 1 General: Alert, Oriented X3, Mild Distress HEENT: Atraumatic, PERRLA Neck: Supple, No JVD, No Thyromegaly Lungs: Clear to Auscultation, Normal Air Movement Heart: Regular Rate, Normal S1, Normal S2, Gallops (bilateral rhonchi), Other ( systolic murmur at the left sternal border) Abdomen: Normal Bowel Sounds, Soft, No Tenderness, No Hepatosplenomegaly, No Masses Extremities: Other (cellulitis to right calf) Skin: No Rashes, Other (Sacral wound0.7 x 0.4 x 0.3 cm. Base 100% slough. Drainage moderate serosanguineous.Clear blister dorsum right foot 3.8 x 6.8 cm. This is not ruptured.) Neuro: Normal Gait, Normal Speech, Strength at 5/5 X4 Ext, Normal Tone, Sensation Intact Psych/Mental Status: Mental Status NL, Mood NL A/P-Cardiology Admission Diagnosis CHF CAD HTN PAF Assessment/Plan Shortness of breath, pulmonary edema, reporting improvement. Continue to monitor. Cellulitis of the right lower extremity, started on doxycycline, improving. Continue to monitor. CP, nonspecific etiology- had one episode of CP yesterday with dyspnea, relieved by SL nitro. Denies any further episode. Continue to monitor. Congestive heart failure, acute on chronic left ventricular systolic dysfunction , ischemic cardiomyopathy, peripheral edema, ejection fraction 30-35 percent per echocardiogram done earlier this month, continue with diuretics and monitor. Maintained on lisinopril, Lopressor. Continue to monitor. Paroxysmal atrial fibrillation, converted to sinus rhythm, mainly postoperatively, continue on amiodarone 200 mg daily and monitor [id number] score of 7, yearly risk of stroke without oral anticoagulation is 9.6 percent, tolerating Eliquis 2.5 mg twice daily well, anemia is slightly worse. Continue to monitor Coronary artery disease, had acute ST elevation myocardial infarction at [facility] required CABG 3, continue to monitor Acute renal insufficiency,continue to monitor closely. Hyperlipidemia, continue on Lipitor 40 mg and monitor. Hypertension, currently borderline hypotensive, I will add parameter to hold Lopressor and lisinopril for systolic blood pressure less than 100 Diabetes mellitus, patient was on insulin drip at [facility], management per PCP. Clinical Quality Measures DVT/VTE Risk/Contraindication: Risk Factor Score Per Nursin RFS Level Per Nursing on Admit: 4+=Very High Contraindications-Mechi: Other *list below* Other: CELLULITIS OF RIGHT LEG SERENA LEE Dec 06, 2016 08:13
[2016-12-06 08:31] VITALS: BP_SYST 102; BP_SYST 113; BP_DIAS 65; BP_DIAS 71
--- NOTE | 2016-12-06 08:55 | Physical Therapy Daily Note ---
PT Daily Note-Current Subjective Pt. states she is feeling better and better everyday and has high hopes of DCing to assisted living from here. Pt. states her daughter will be here at 3 and hopes she can visit with SW and daughter at that time. Agrees to Rx. Pain Numeric Pain Scale: 0-No Pain Mental Status Patient Orientation: Normal For Age no O2, titrated off successfully yesterday. Sats with activity today 95% Transfers Functional [place] Measure 0=Not Assessed/NA 4=Minimal Assistance 1=Total Assistance 5=Supervision or Setup 2=Maximal Assistance 6=Modified [place] 3=Moderate Assistance 7=Complete IndependenceIRFPAI Quality Coding Scale 6 Independent with activity with or without an assistive device 5 Patient requires set up or clean up by helper. Patient completes activity by themselves 4 Supervision or touching assist (CGA). [place] provide cues , steadying assist 3 The helper provides less than half the effort to complete the activity 2 The helper provides more than half the effort to complete the activity 1 Dependent. The helper does all the effort to complete an activity 7 Patient refused to complete or attempt activity 9 The patient did not perform the activity before the current illness or injury 88 Not attempted due to Medical conditions or safety concerns Transfers (B, C, W/C) (FIM): 6 Scootin Rollin Supine to/from Sit: 6 Sit to/from Stand: 6 Gait Training Does the Patient Walk?: Yes Gait (FIM): 5 Distance (FIM): 3=150 ft (150,50x3) Gait Level of Assist: 5 Gait Persons Needed: 1 Gait Assistive Device: FWW kyphosis, has had for years per pt Stair Training Stair Training: Handrails/: 2 handrails Stairs (FIM): 2 #of Steps: 4 Stairs: Pattern: Step to Level of Assist: 4 Exercises Supine Ex: Ankle pumps, Quad Set, Rolling, Glut sets, Heel Slides, Short Arc Quads, Scooting, Straight leg raise, Hip abd/add Supine Reps: 15 Seated Therapy Exercises: Ankle pumps, Sit to stand, Long arc quads, Hip flexion Seated Reps: 8 Treatments toileted x 2 indep, washed hands, brushed teeth and put dentures in and combed hair indep Assessment Current Status: Good Progress steady progress in all phases PT Short Term Goals Short Term Goals Time Frame: Dec 06, 2016 Gait (FIM): 4 Distance (FIM): 3=150 ft Gait Assistive Device: FWW PT Production Manufacturing Worker Goals Skilled Nursing Goals PT Skilled Nursing Goals Time Frame: Dec 22, 2016 Transfers (B,C,W/C) (FIM): 6 Sit to Lying (QC): 6 Lying-Sitting on Side/Bed(QC): 6 Sit to Stand (QC): 6 Rollin Roll Left to Right (QC): 6 Chair/Hqz-bp-Npysh Xfer(QC): 6 Car Transfer (QC): 5 Does the Patient Walk: Yes Gait (FIM): 6 Gait distance (FIM): 3=150 ft Walk 10 feet (QC): 6 Walk 10ft-Uneven Surface(QC): 6 Walk 50ft with 2 Turns (QC): 6 Walk 150 ft (QC): 6 Gait Level of Assist: 6 Gait Assistive Device: FWW Stairs (FIM): 2 # of Steps: 4 1 Step (curb) (QC): 4 4 Steps (QC): 4 12 Steps (QC): 88 Picking up an Object (QC): 88 PT Plan Treatment/Plan Treatment Plan: Continue Plan of Care Treatment Plan: Bed Mobility, Education, Functional Activity Florinda, Functional Strength, Group Therapy, Gait, Safety, Therapeutic Exercise, Transfers Treatment Duration: Dec 22, 2016 Frequency: At least 5 to 7 days/Wk (IRF) Estimated Hrs Per Day: 1.5 hours per day Patient and/or Family Agrees t: Yes Safety Risks/Education Patient Education: Gait Training, Transfer Techniques, Steps, Correct Positioning, Disease Process, Safety Issues Teaching Recipient: Patient Teaching Methods: Demonstration, Discussion Response to Teaching: Verbalize Understanding, Return Demonstration, Reinforcement Needed Time/GCodes Time In: 800 Time Out: 900 Total Billed Treatment Time: 60 Total Billed Treatment 1,EX15m,FA 20m,GT25m G Codes Necessary: RUFUS Garner INFORMATICS MANAGER Dec 06, 2016 08:55
--- NOTE | 2016-12-06 08:58 | PM & R (SOAP) Progress Note ---
Subjective Time Seen by Provider: 08:00 Subjective/Events-last exam Patient was seen in her room this AM with RN Patient Modified Independent for transfers with walker Cellulitis rt leg much improved and weakness much improved as well Patient off supplemental 02. Objective Exam Last Set of Vital Signs Vital Signs Date Time Temp Pulse Resp B/P (MAP) Pulse Ox O2 Delivery O2 Flow Rate FiO2 12/06/16 08:31 96.9 74 18 102/65 97 Room Air 12/05/16 09:20 1.00 Capillary Refill : I&O Intake and Output 12/07/16 00:00 Intake Total 450 ml Balance 450 ml Intake Oral 450 ml # Voids 7 # Bowel Movements 1 General: Alert, Oriented X3, Mild Distress HEENT: Atraumatic, PERRLA Neck: Supple, No JVD, No Thyromegaly Lungs: Clear to Auscultation, Normal Air Movement Heart: Regular Rate, Normal S1, Normal S2, Gallops (bilateral rhonchi), Other ( systolic murmur at the left sternal border) Abdomen: Normal Bowel Sounds, Soft, No Tenderness, No Hepatosplenomegaly, No Masses Extremities: Other (cellulitis to right calf) Skin: No Rashes, Other (Sacral wound0.7 x 0.4 x 0.3 cm. Base 100% slough. Drainage moderate serosanguineous.Clear blister dorsum right foot 3.8 x 6.8 cm. This is not ruptured.) Neuro: Normal Gait, Normal Speech, Strength at 5/5 X4 Ext, Normal Tone, Sensation Intact Psych/Mental Status: Mental Status NL, Mood NL Results Lab Laboratory Tests 12/03/16 10:55: White Blood Count 6.1, Red Blood Count 3.12L, Hemoglobin 9.0L, Hematocrit 30L, Mean Corpuscular Volume 96, Mean Corpuscular Hemoglobin 29, Mean Corpuscular Hemoglobin Concent 30L, Red Cell Distribution Width 14.9H, Platelet Count 226, Mean Platelet Volume 10.0, Neutrophils (%) (Auto) 53, Lymphocytes (%) (Auto) 30 , Monocytes (%) (Auto) 10, Eosinophils (%) (Auto) 6, Basophils (%) (Auto) 1, Neutrophils # (Auto) 3.3, Lymphocytes # (Auto) 1.8, Monocytes # (Auto) 0.6, Eosinophils # (Auto) 0.4H, Basophils # (Auto) 0.0, Sodium Level 140, Potassium Level 4.1, Chloride Level 96L, Carbon Dioxide Level 33H, Anion Gap 11, Blood Urea Nitrogen 21H, Creatinine 1.35H, Estimat Glomerular Filtration Rate 37, BUN/ Creatinine Ratio 16, Glucose Level 97, Calcium Level 8.5, Total Bilirubin 0.7, Aspartate Amino Transf (AST/SGOT) 45H, Alanine Aminotransferase (ALT/SGPT) 29, Alkaline Phosphatase 102, Total Protein 5.5L, Albumin 2.8L Assessment/Plan Assessment 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 TREATED- BEING FOLLOWED BY cARDIOLOGY cELLULITIS RT LEG UNDER TREATMENT bLISTER dORSUM RT FOOT dr Alejo MANAGING sACRAL PRESSURE SORE dr Alejo MANAGING htn WITH hYPOTENSION AT THIS TIME cARDIOLOGY MANAGING a fib CONTROLLED WITH MEDS RESP INSUFFICIENCY dr Morocho pULM FOLLOWING-weaned from 02 Bilateral Pleural effusions Plan cONTINUE pt/ot/wOUND CARE cOMPLETE COURSE OF aNTIBIOTIC FOR CELLULITIS f/u WITH pcp dr david Cast AND dr Alejo AND dr Morocho AND CARDIOLOGY PER [facility] SCHEDULE aPPRECIATE cARDIOLOGY AND dr Cannon NOTES AND ORDERS Appreciate DR Hill notes and orders BUN/CR and H&H improving Current Labs reviewed Meds being adjusted. Nausea resolved Appreciate DR Dumont note and Hospitalists orders and current labs Team Conference later today -See report for full functional update and POC and DORIS BURNETT MD Dec 06, 2016 08:58
[2016-12-06] MEDS ORDERED: FLUTICASONE NASAL SPRAY (FLONASE) 16 GM BTL NS SCH (09:00)
[2016-12-06] MEDS: LACTOBACILLUS Acidoph/Bulgar (LACTINEX/FLORANEX) TAB PO SCH ×2 (09:18→20:50)
[2016-12-06] MEDS: lisINopril 5 MG (PRINIVIL) TABLET PO SCH (09:18)
[2016-12-06] MEDS: AMIODARONE 200 MG (CORDARONE) TAB PO SCH (09:18)
[2016-12-06] MEDS: ASPIRIN 81 MG CHEW (CHILDREN'S ASA) PO SCH (09:18)
[2016-12-06] MEDS: OMEGA 3 (FISH OIL) 1000 MG CAP PO SCH (09:19)
[2016-12-06] MEDS: meTOprolol TARTRATE 25 MG (LOPRESSOR) TABLET PO SCH ×2 (09:19→19:33)
[2016-12-06] MEDS: APIXABAN 2.5 MG (ELIQUIS) TABLET PO SCH ×2 (09:19→20:50)
--- NOTE | 2016-12-06 09:19 | Cardiology Progress Note ---
Subjective Date Seen by Provider: Dec 06, 2016 Time Seen by Provider: 09:18 Subjective/Events-last exam patient is sitting up in a chair, feeling better, breathing better, denied any chest pain Review of Systems General: No Chills, No Night Sweats, No Fatigue, No Malaise, No Appetite, No Other HEENT: No Head Aches, No Visual Changes, No Eye Pain, No Ear Pain, No Dysphasia , No Sinus Congestion, No Post Nasal Drip, No Sore Throat, No Other Pulmonary: No Dyspnea, No Cough, No Pleuritic Chest Pain, No Other Cardiovascular: No: Chest Pain, Palpitations, Orthopnea, Paroxysmal Noc. Dyspnea, Edema, Lt Headedness, Other Objective-Cardiology Exam Last Set of Vital Signs Vital Signs 12/05/16 12/06/16 09:20 08:31 Temp 98.1 Pulse 76 Resp 20 B/P (MAP) 113/71 Pulse Ox 97 O2 Delivery Room Air O2 Flow Rate 1.00 Capillary Refill : I&O Intake and Output 12/07/16 00:00 Intake Total 450 ml Balance 450 ml Intake Oral 450 ml # Voids 7 # Bowel Movements 1 General: Alert, Oriented X3, Mild Distress HEENT: Atraumatic, PERRLA Neck: Supple, No JVD, No Thyromegaly Lungs: Clear to Auscultation, Normal Air Movement Heart: Regular Rate, Normal S1, Normal S2, Gallops (bilateral rhonchi), Other ( systolic murmur at the left sternal border) Abdomen: Normal Bowel Sounds, Soft, No Tenderness, No Hepatosplenomegaly, No Masses Extremities: Other (cellulitis to right calf) Skin: No Rashes, Other (Sacral wound0.7 x 0.4 x 0.3 cm. Base 100% slough. Drainage moderate serosanguineous.Clear blister dorsum right foot 3.8 x 6.8 cm. This is not ruptured.) Neuro: Normal Gait, Normal Speech, Strength at 5/5 X4 Ext, Normal Tone, Sensation Intact Psych/Mental Status: Mental Status NL, Mood NL A/P-Cardiology Admission Diagnosis CHF CAD HTN PAF Assessment/Plan Shortness of breath, pulmonary edema, clinically better. Managed by primary care physician. Cellulitis of the right lower extremity, treated with doxycycline, improving. Continue to monitor. CP, nonspecific etiology, no further episodes were reported. Continue to monitor Congestive heart failure, acute on chronic left ventricular systolic dysfunction , ischemic cardiomyopathy, peripheral edema, ejection fraction 30-35 percent per echocardiogram done earlier this month, continue with diuretics and monitor. Maintained on lisinopril, Lopressor. Continue to monitor. Paroxysmal atrial fibrillation, converted to sinus rhythm, mainly postoperatively, continue on amiodarone 200 mg daily and monitor [id number] score of 7, yearly risk of stroke without oral anticoagulation is 9.6 percent, tolerating Eliquis 2.5 mg twice daily well, anemia is slightly worse. Continue to monitor Coronary artery disease, had acute ST elevation myocardial infarction at [facility] required CABG 3, continue to monitor Acute renal insufficiency,continue to monitor closely. Hyperlipidemia, continue on Lipitor 40 mg and monitor. Hypertension, currently borderline hypotensive, I will add parameter to hold Lopressor and lisinopril for systolic blood pressure less than 100 Diabetes mellitus, patient was on insulin drip at [facility], management per PCP. Clinical Quality Measures DVT/VTE Risk/Contraindication: Risk Factor Score Per Nursin RFS Level Per Nursing on Admit: 4+=Very High Contraindications-Mechi: Other *list below* Other: CELLULITIS OF RIGHT LEG CAROL DUDLEY MD Dec 06, 2016 09:19
--- NOTE | 2016-12-06 11:06 | Occupational Ther Daily Note ---
OT Current Status-Daily Note Subjective Pt seen in room, up in recliner, agreeable to OT. Pt did not want to shower today but agreed to sponge bath and changing clothes. No pain Appearance Alert, cooperative Mental Status/Objective Functional [place] Measure 0=Not Assessed/NA 4=Minimal Assistance 1=Total Assistance 5=Supervision or Setup 2=Maximal Assistance 6=Modified [place] 3=Moderate Assistance 7=Complete [place] ADL-Treatment Pt tx without O2 today. Fingers too cold to measure O2 sats but pt self- monitored and took recovery breaks when needed. No SOB observed. Functional [place] Measure 0=Not Assessed/NA 4=Minimal Assistance 1=Total Assistance 5=Supervision or Setup 2=Maximal Assistance 6=Modified [place] 3=Moderate Assistance 7=Complete IndependenceIRFPAI Quality Coding Scale 6 Independent with activity with or without an assistive device 5 Patient requires set up or clean up by helper. Patient completes activity by themselves 4 Supervision or touching assist (CGA). [place] provide cues , steadying assist 3 The helper provides less than half the effort to complete the activity 2 The helper provides more than half the effort to complete the activity 1 Dependent. The helper does all the effort to complete an activity 7 Patient refused to complete or attempt activity 9 The patient did not perform the activity before the current illness or injury 88 Not attempted due to Medical conditions or safety concerns Eating (FIM): 5 (Setup to open drink containers. Able to feed herself without help) Grooming (FIM): 5 (setup at sink to wash face and hands, comb hair. later stood SBA, FWW at sink to rinse teeth and wash hands) Bathing (FIM): 5 (Pt washed and dried all parts, sponge bath, with setup, seated at sink. SBA when standing to wash sean and bottom) Upper Body (FIM): 5 (Undressed and dressed upper body with setup) Lower Body Dressing (FIM): 5 (Undressed and dressed upper body with setup. SBA when standing to pull pants up or down, balancing at sink. Doffed/donned slipper socks without AD. ) Toileting (FIM): 5 (SBA when standing to manage clothing. Managed hygiene. BSC over toilet, FWW) Transfers (B, C, W/C) (FIM): 5 (SBA from chairs, EOB. Recalls hand placement. FWW) Toilet Transfer (QC): 5 (SBA, BSC over toilet, FWW) Other Treatment Pt walked to gym with SBA, FWW, taking no breaks. When she go to gym, sat in chair with arms without help and with no cues for hand placement. Pt stated she was fine oxygen-patel. Pt did 5:40 sec on arm bike set at 15W resistance. Unable to tolerate two full minutes without recovery break. Breaks getting closer together so activity ended. Pt educ to "listen to your body" for oxygen needs and pace yourself, with verbal understanding 9energy conservation). Pt did arc activity with short extension x 2 sets, taking recovery break between each arm and each set. Pt also did graded clothespins and needed recovery breaks between arms and each set. Pt walked back to room, SBA, FWW, toileted and sat EOB to eat lunch with setup. All needs met. Education OT Patient Education: Energy conservation, Progress toward Goal/Update tx plan , Purpose of tx/functional activities Teaching Recipient: Patient Teaching Methods: Discussion Response to Teaching: Verbalize Understanding, Reinforcement Needed OT Short Term Goals Short Term Goals Time Frame: Dec 08, 2016 Grooming(FIM): 5 Lower Body Dressing(FIM): 3 Toileting(FIM): 5 Toilet/Commode Transfer(FIM): 4 Additional Short Term Goals: 2-Verbalize Understanding, 3-ImproveStrength/Florinda 1=Demonstrate adherence to instructed precautions during ADL tasks. 2=Patient will verbalize/demonstrate understanding of assistive devices/ modifications for ADL. 3=Patient will improve strength/tolerance for activity to enable patient to perform ADL's. OT Health And Wellness Manager Goals Nursing Home Goals Time Frame: Dec 22, 2016 Eating (FIM): 6 Eating (QC): 6 Groomin Oral Hygiene (QC): 6 Bathing(FIM): 5 Shower/Bathe Self (QC): 5 Upper Body Dressing(FIM): 6 Upper Body Dressing (QC): 6 Lower Body Dressing(FIM): 6 Lower Body Dressing (QC): 6 On/Off Footwear (QC): 6 Toileting(FIM): 6 Toileting Hygiene (QC): 6 Toilet/Commode Transfer(FIM): 6 Toilet/Commode Transfer (QC): 6 Shower Transfer(FIM): 5 Additional Goals: 2-Verbalize Understanding, 3-ImproveStrength/Florinda 1=Demonstrate adherence to instructed precautions during ADL tasks. 2=Patient will verbalize/demonstrate understanding of assistive devices/ modifications for ADL. 3=Patient will improve strength/tolerance for activity to enable patient to perform ADL's. OT Education/Plan Problem List/Assessment Pt would benefit from skilled OT to increase her independence and activity tolerance for basic ADLs to allow her to return to an HALF-WAY or skilled care and to decrease caregiver burden Discharge Recommendations Plan/Recommendations: Continue POC Treatment Plan/Plan of Care Patient would benefit from OT for education, treatment and training to promote independence in ADL's, mobility, safety and/or upper extremity function for ADL' s. Plan of Care: ADL Retraining, Functional Mobility, Group Exercise/Act as Ind ( education, exercise, activty tolerance, funct mobility, socialization), UE Funct Exercise/Act, UE Neuromus Re-Ed/Coord Treatment Duration: Dec 22, 2016 Frequency: At least 5 to 7 days/Wk (IRF) Estimated Hrs Per Day: 1.5 hours per day Agreement: Yes Rehab Potential: Fair Time/GCodes Start Time: 09:20 Stop Time: 10:50 Total Time Billed (hr/min): 90 Billed Treatment Time visit, 50 minutes ADL, 40 minutes exercise SOPHIE WARE OT Dec 06, 2016 11:06
--- NOTE | 2016-12-06 11:33 | Physical Therapy Daily Note ---
PT Daily Note-Current Subjective Pt. states she sits up as long as she can but her bottom starts to hurt. Agrees to exercise and TRFs Pain Numeric Pain Scale: 0-No Pain Mental Status Patient Orientation: Normal For Age Transfers Functional [place] Measure 0=Not Assessed/NA 4=Minimal Assistance 1=Total Assistance 5=Supervision or Setup 2=Maximal Assistance 6=Modified [place] 3=Moderate Assistance 7=Complete IndependenceIRFPAI Quality Coding Scale 6 Independent with activity with or without an assistive device 5 Patient requires set up or clean up by helper. Patient completes activity by themselves 4 Supervision or touching assist (CGA). [place] provide cues , steadying assist 3 The helper provides less than half the effort to complete the activity 2 The helper provides more than half the effort to complete the activity 1 Dependent. The helper does all the effort to complete an activity 7 Patient refused to complete or attempt activity 9 The patient did not perform the activity before the current illness or injury 88 Not attempted due to Medical conditions or safety concerns TRFs in out bed indep using rails Gait Training short gait in room 10ft x2 FWW SBA Exercises Supine Ex: Ankle pumps, Quad Set, Rolling, Glut sets, Heel Slides, Short Arc Quads, Scooting, Straight leg raise, Hip abd/add Supine Reps: 15 Seated Therapy Exercises: Ankle pumps, Sit to stand, Long arc quads, Hip flexion Seated Reps: 15 Assessment Current Status: Good Progress PT Short Term Goals Short Term Goals Time Frame: Dec 06, 2016 Gait (FIM): 4 Distance (FIM): 3=150 ft Gait Assistive Device: FWW PT Residential Goals Patient Clerical Assistant Goals PT Residential Goals Time Frame: Dec 22, 2016 Transfers (B,C,W/C) (FIM): 6 Sit to Lying (QC): 6 Lying-Sitting on Side/Bed(QC): 6 Sit to Stand (QC): 6 Rollin Roll Left to Right (QC): 6 Chair/Poc-xy-Fjino Xfer(QC): 6 Car Transfer (QC): 5 Does the Patient Walk: Yes Gait (FIM): 6 Gait distance (FIM): 3=150 ft Walk 10 feet (QC): 6 Walk 10ft-Uneven Surface(QC): 6 Walk 50ft with 2 Turns (QC): 6 Walk 150 ft (QC): 6 Gait Level of Assist: 6 Gait Assistive Device: FWW Stairs (FIM): 2 # of Steps: 4 1 Step (curb) (QC): 4 4 Steps (QC): 4 12 Steps (QC): 88 Picking up an Object (QC): 88 PT Plan Treatment/Plan Treatment Plan: Continue Plan of Care Treatment Plan: Bed Mobility, Education, Functional Activity Florinda, Functional Strength, Group Therapy, Gait, Safety, Therapeutic Exercise, Transfers Treatment Duration: Dec 22, 2016 Frequency: At least 5 to 7 days/Wk (IRF) Estimated Hrs Per Day: 1.5 hours per day Patient and/or Family Agrees t: Yes Safety Risks/Education Patient Education: Transfer Techniques Time/GCodes Time In: 1100 Time Out: 1130 Total Billed Treatment Time: 30 Total Billed Treatment 1,FA10m,EX20m G Codes Necessary: RUFUS Garner PLANT MANAGER Dec 06, 2016 11:33
[2016-12-06 18:00] VITALS: BP 97/58
[2016-12-06] MEDS: FLUTICASONE NASAL SPRAY (FLONASE) 16 GM BTL NS SCH (20:49)
[2016-12-06] MEDS: ATORVASTATIN 40 MG (LIPITOR) TABLET PO SCH (20:50)
[2016-12-06] MEDS: busPIRone 5 MG (BUSPAR) TAB PO SCH (20:50)
[2016-12-07 05:43] VITALS: BP 110/57
[2016-12-07] MEDS: DOXYCYCLINE 100 MG (VIBRAMYCIN) TABLET PO SCH ×2 (06:19→17:22)
[2016-12-07] MEDS: MULTIVIT W/MINERALS TAB (THERAGRAN M) PO SCH (06:19)
[2016-12-07] MEDS: PANTOPRAZOLE 40 MG (PROTONIX) TAB PO SCH (06:19)
[2016-12-07] MEDS: FUROSEMIDE 40 MG (LASIX) TAB PO SCH ×2 (06:19→14:59)
[2016-12-07] MEDS: LACTOBACILLUS Acidoph/Bulgar (LACTINEX/FLORANEX) TAB PO SCH ×2 (08:18→21:37)
[2016-12-07] MEDS: lisINopril 5 MG (PRINIVIL) TABLET PO SCH (08:19)
[2016-12-07] MEDS: OMEGA 3 (FISH OIL) 1000 MG CAP PO SCH (08:19)
[2016-12-07] MEDS: LORATADINE (CLARITIN) 10 MG TAB PO SCH (08:19)
[2016-12-07] MEDS: AMIODARONE 200 MG (CORDARONE) TAB PO SCH (08:19)
[2016-12-07] MEDS: ASPIRIN 81 MG CHEW (CHILDREN'S ASA) PO SCH (08:19)
[2016-12-07] MEDS: APIXABAN 2.5 MG (ELIQUIS) TABLET PO SCH ×2 (08:21→21:38)
[2016-12-07] MEDS: meTOprolol TARTRATE 25 MG (LOPRESSOR) TABLET PO SCH ×2 (08:21→21:38)
[2016-12-07] MEDS: FLUTICASONE NASAL SPRAY (FLONASE) 16 GM BTL NS SCH ×2 (08:22→21:37)
--- NOTE | 2016-12-07 08:38 | PM & R (SOAP) Progress Note ---
Subjective Time Seen by Provider: 07:55 Subjective/Events-last exam Patient was seen in her room this AM Otolgia rt ear improving with RX of Claritin and Flonase Patient Modifeid Independent for transfers and SBA for gait with walker off 02-weaned. Objective Exam Last Set of Vital Signs Vital Signs Date Time Temp Pulse Resp B/P (MAP) Pulse Ox O2 Delivery O2 Flow Rate FiO2 12/07/16 05:43 98.4 93 18 110/57 92 Room Air 12/05/16 09:20 1.00 Capillary Refill : I&O Intake and Output 12/08/16 00:00 Intake Total 240 ml Balance 240 ml Intake Oral 240 ml # Voids 7 # Bowel Movements 1 General: Alert, Oriented X3, Mild Distress HEENT: Atraumatic, PERRLA, Other (RT TM clear) Neck: Supple, No JVD, No Thyromegaly Lungs: Clear to Auscultation, Normal Air Movement Heart: Regular Rate, Normal S1, Normal S2, Gallops (bilateral rhonchi), Other ( systolic murmur at the left sternal border) Abdomen: Normal Bowel Sounds, Soft, No Tenderness, No Hepatosplenomegaly, No Masses Extremities: Other (cellulitis to right calf) Skin: No Rashes, Other (Sacral wound0.7 x 0.4 x 0.3 cm. Base 100% slough. Drainage moderate serosanguineous.Clear blister dorsum right foot 3.8 x 6.8 cm. 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 TREATED- BEING FOLLOWED BY cARDIOLOGY cELLULITIS RT LEG UNDER TREATMENT bLISTER dORSUM RT FOOT dr Alejo MANAGING sACRAL PRESSURE SORE dr Alejo MANAGING htn WITH hYPOTENSION AT THIS TIME cARDIOLOGY MANAGING a fib CONTROLLED WITH MEDS RESP INSUFFICIENCY dr Morocho pULGolden FOLLOWING-weaned from Bilateral Pleural effusions Rt Otolgia improving Plan cONTINUE pt/ot/wOUND CARE cOMPLETE COURSE OF aNTIBIOTIC FOR CELLULITIS f/u WITH pcp dr david Cast AND dr Alejo AND dr Morocho AND CARDIOLOGY PER [facility] SCHEDULE aPPRECIATE cARDIOLOGY AND dr Cannon NOTES AND ORDERS Appreciate DR Hill notes and orders BUN/CR and H&H improving Current Labs reviewed Meds being adjusted. Nausea resolved Appreciate DR Dumont note and Hospitalists orders and current labs Team Conference held yesterday -See report for full functional update and POC and ELOS Dischar eset tentatively for next week 12/14/16 DORIS QUIGLEY MD Dec 07, 2016 08:38
--- NOTE | 2016-12-07 09:11 | Physical Therapy Daily Note ---
PT Daily Note-Current Subjective Pt laying Supine in bed upon arrival. Pt agrees to PT and feels that it has helped her get stronger quickly. Pain Location: No Pain Reported Mental Status Patient Orientation: Person, Place, Situation Transfers Functional [place] Measure 0=Not Assessed/NA 4=Minimal Assistance 1=Total Assistance 5=Supervision or Setup 2=Maximal Assistance 6=Modified [place] 3=Moderate Assistance 7=Complete IndependenceIRFPAI Quality Coding Scale 6 Independent with activity with or without an assistive device 5 Patient requires set up or clean up by helper. Patient completes activity by themselves 4 Supervision or touching assist (CGA). [place] provide cues , steadying assist 3 The helper provides less than half the effort to complete the activity 2 The helper provides more than half the effort to complete the activity 1 Dependent. The helper does all the effort to complete an activity 7 Patient refused to complete or attempt activity 9 The patient did not perform the activity before the current illness or injury 88 Not attempted due to Medical conditions or safety concerns Scootin Rollin Roll Left to Right (QC): 4 Supine to/from Sit: 5 Sit to/from Stand: 5 Sit to Lying (QC): 5 Sit to Stand (QC): 5 Weight Bearing Weight Bearing Restriction: Full Weight Bearing Location Restriction: LE Bilateral Gait Training Does the Patient Walk?: Yes Distance (FIM): 3=150 ft Distance: 200' Walk 10 feet (QC): 5 Walk 50 ft with 2 Turns(QC): 5 Walk 150 ft (QC): 5 Gait Level of Assist: 5 Gait Persons Needed: 1 Gait Assistive Device: FWW Pt has slow but steady gait, no LOB. Pt fatigues easy and needs short rest break to recover. Wheelchair Training Does the Pt Use a Wheelchair?: No Stair Training Stair Training: Handrails/: 2 handrails #of Steps: 4 1 Step (curb) (QC): 5 4 Steps (QC): 5 12 Steps (QC): 88 Stairs: Pattern: Step to Level of Assist: 5 Exercises Seated Therapy Exercises: Ankle pumps, Long arc quads, Hip flexion, Kicking activity, Hip abd/add Seated Reps: 20 Standing: Hip Abduction, Marching, Mini squats, Weight shifts Standing Reps: 15 NuStep Minutes: 10 NuStep Workload: 4 Treatments Pt transfers from Supine to EOB to standing using FWW at [facility]. Pt uses restroom before leaving room at start of tx. Pt ambulates using FWW at close SBA. Pt completes 1 set of 4 stairs before taking a short rest. Pt uses NuStep for 10m at Workload 4 followed by Seated Ex in chair. Pt then completes a few Standing Ex at //bars before starting tx with OT. Assessment Current Status: Good Progress Pt has improved with independence of transfers and mobility as well as balance with upright activities. PT Short Term Goals Short Term Goals Time Frame: Dec 06, 2016 Gait (FIM): 4 Distance (FIM): 3=150 ft Gait Assistive Device: FWW PT [facility] Goals Senior Living Goals PT [facility] Goals Time Frame: Dec 22, 2016 Transfers (B,C,W/C) (FIM): 6 Sit to Lying (QC): 6 Lying-Sitting on Side/Bed(QC): 6 Sit to Stand (QC): 6 Rollin Roll Left to Right (QC): 6 Chair/Ksh-ww-Tizrv Xfer(QC): 6 Car Transfer (QC): 5 Does the Patient Walk: Yes Gait (FIM): 6 Gait distance (FIM): 3=150 ft Walk 10 feet (QC): 6 Walk 10ft-Uneven Surface(QC): 6 Walk 50ft with 2 Turns (QC): 6 Walk 150 ft (QC): 6 Gait Level of Assist: 6 Gait Assistive Device: FWW Stairs (FIM): 2 # of Steps: 4 1 Step (curb) (QC): 4 4 Steps (QC): 4 12 Steps (QC): 88 Picking up an Object (QC): 88 PT Plan Problem List Problem List: Activity Tolerance, Functional Strength, Balance, Gait Treatment/Plan Treatment Plan: Continue Plan of Care Treatment Plan: Bed Mobility, Education, Functional Activity Florinda, Functional Strength, Group Therapy, Gait, Safety, Therapeutic Exercise, Transfers Treatment Duration: Dec 22, 2016 Frequency: At least 5 to 7 days/Wk (IRF) Estimated Hrs Per Day: 1.5 hours per day Patient and/or Family Agrees t: Yes Safety Risks/Education Patient Education: Gait Training, Transfer Techniques, Correct Positioning, Safety Issues Teaching Recipient: Patient Teaching Methods: Discussion Response to Teaching: Verbalize Understanding Time/GCodes Time In: 900 Time Out: 1000 Total Billed Treatment Time: 60 Total Billed Treatment visit, FA x2 (30m) & EX x2 (30m) LEANNA OZUNA PTA Dec 07, 2016 09:11
[2016-12-07 09:49] VITALS: BP 109/61
--- NOTE | 2016-12-07 11:45 | Occupational Ther Daily Note ---
OT Current Status-Daily Note Subjective Pt seen in gym after PT, agreeable to OT. No pain mentioned but pt reported she was really tired. Pt looking forward to discharge next week to [place] Appearance Alert, cooperative Mental Status/Objective Functional [place] Measure 0=Not Assessed/NA 4=Minimal Assistance 1=Total Assistance 5=Supervision or Setup 2=Maximal Assistance 6=Modified [place] 3=Moderate Assistance 7=Complete [place] ADL-Treatment After exercise, pt reported she was really tired. Pt walked back to room with SBA for safety, FWW. Pt did not want to bathe but wants to shower tomorrow. Toileted, groomed and dressed in room, then left up in recliner, all needs met. Treatment ended early due to fatigue. O2 sats were 95% on room air. Functional [place] Measure 0=Not Assessed/NA 4=Minimal Assistance 1=Total Assistance 5=Supervision or Setup 2=Maximal Assistance 6=Modified [place] 3=Moderate Assistance 7=Complete IndependenceIRFPAI Quality Coding Scale 6 Independent with activity with or without an assistive device 5 Patient requires set up or clean up by helper. Patient completes activity by themselves 4 Supervision or touching assist (CGA). [place] provide cues , steadying assist 3 The helper provides less than half the effort to complete the activity 2 The helper provides more than half the effort to complete the activity 1 Dependent. The helper does all the effort to complete an activity 7 Patient refused to complete or attempt activity 9 The patient did not perform the activity before the current illness or injury 88 Not attempted due to Medical conditions or safety concerns Grooming (FIM): 5 (Washed face and hands at sink, SBA, FWW. Cleaned dentures at sink) Upper Body (FIM): 5 (Doffed and donned clothing with setup) Lower Body Dressing (FIM): 5 (Doffed and donned clothing with setup, SBA for standing, FWW. No devices needed to socks.) Toileting (FIM): 6 (Mod I, BSC over toilet. managed clothing and hygiene without help) Toilet/Commode Transfer (FIM): 6 (On and off BSC over toilet, FWW grab bar) Other Treatment Pt did 7 minutes bilat UE exercise on arm bike set at 10W resistance, taking several brief recovery periods. Longest time before break was about 2 minutes. Increased time but decreased resistance due to fatigue and to accommodate cardio [pulmonary status. Education OT Patient Education: Energy conservation, Exercise program, Purpose of tx/ functional activities Teaching Recipient: Patient Teaching Methods: Discussion Response to Teaching: Verbalize Understanding OT Short Term Goals Short Term Goals Time Frame: Dec 08, 2016 Grooming(FIM): 5 Lower Body Dressing(FIM): 3 Toileting(FIM): 5 Toilet/Commode Transfer(FIM): 4 Additional Short Term Goals: 2-Verbalize Understanding, 3-ImproveStrength/Florinda 1=Demonstrate adherence to instructed precautions during ADL tasks. 2=Patient will verbalize/demonstrate understanding of assistive devices/ modifications for ADL. 3=Patient will improve strength/tolerance for activity to enable patient to perform ADL's. OT Floor Layer Tile Goals Skilled Nursing Goals Time Frame: Dec 22, 2016 Eating (FIM): 6 Eating (QC): 6 Groomin Oral Hygiene (QC): 6 Bathing(FIM): 5 Shower/Bathe Self (QC): 5 Upper Body Dressing(FIM): 6 Upper Body Dressing (QC): 6 Lower Body Dressing(FIM): 6 Lower Body Dressing (QC): 6 On/Off Footwear (QC): 6 Toileting(FIM): 6 Toileting Hygiene (QC): 6 Toilet/Commode Transfer(FIM): 6 Toilet/Commode Transfer (QC): 6 Shower Transfer(FIM): 5 Additional Goals: 2-Verbalize Understanding, 3-ImproveStrength/Florinda 1=Demonstrate adherence to instructed precautions during ADL tasks. 2=Patient will verbalize/demonstrate understanding of assistive devices/ modifications for ADL. 3=Patient will improve strength/tolerance for activity to enable patient to perform ADL's. OT Education/Plan Problem List/Assessment Pt would benefit from skilled OT to increase her independence and activity tolerance for basic ADLs to allow her to return to an [facility] or skilled care and to decrease caregiver burden Discharge Recommendations Plan/Recommendations: Continue POC Treatment Plan/Plan of Care Patient would benefit from OT for education, treatment and training to promote independence in ADL's, mobility, safety and/or upper extremity function for ADL' s. Plan of Care: ADL Retraining, Functional Mobility, Group Exercise/Act as Ind ( education, exercise, activty tolerance, funct mobility, socialization), UE Funct Exercise/Act, UE Neuromus Re-Ed/Coord Treatment Duration: Dec 22, 2016 Frequency: At least 5 of 7 days/Wk (IRF) Estimated Hrs Per Day: 1.5 hours per day Agreement: Yes Rehab Potential: Fair Time/GCodes Start Time: 10:00 Stop Time: 10:53 Total Time Billed (hr/min): 53 Billed Treatment Time visit, exercise 15 minutes, ADL 38 minutes SOPHIE WARE OT Dec 07, 2016 11:45
--- NOTE | 2016-12-07 13:07 | Physical Therapy Daily Note ---
PT Daily Note-Current Subjective Pt laying Supine in bed upon arrival. Pt agrees to walk with PT for tx. Pain Location: No Pain Reported Mental Status Patient Orientation: Person, Place, Situation Pt is [place] on R side. Transfers Functional [place] Measure 0=Not Assessed/NA 4=Minimal Assistance 1=Total Assistance 5=Supervision or Setup 2=Maximal Assistance 6=Modified [place] 3=Moderate Assistance 7=Complete IndependenceIRFPAI Quality Coding Scale 6 Independent with activity with or without an assistive device 5 Patient requires set up or clean up by helper. Patient completes activity by themselves 4 Supervision or touching assist (CGA). [place] provide cues , steadying assist 3 The helper provides less than half the effort to complete the activity 2 The helper provides more than half the effort to complete the activity 1 Dependent. The helper does all the effort to complete an activity 7 Patient refused to complete or attempt activity 9 The patient did not perform the activity before the current illness or injury 88 Not attempted due to Medical conditions or safety concerns Scootin Rollin Roll Left to Right (QC): 4 Supine to/from Sit: 5 Sit to/from Stand: 5 Sit to Lying (QC): 5 Sit to Stand (QC): 5 Weight Bearing Weight Bearing Restriction: Full Weight Bearing Location Restriction: LE Bilateral Gait Training Does the Patient Walk?: Yes Distance (FIM): 3=150 ft Distance: 250' Walk 10 feet (QC): 5 Walk 50 ft with 2 Turns(QC): 5 Walk 150 ft (QC): 5 Gait Level of Assist: 5 Gait Persons Needed: 1 Gait Assistive Device: FWW Pt fatigues easy and needs short rest break to recover. Wheelchair Training Does the Pt Use a Wheelchair?: No Treatments Pt transfers from sidelying to EOB to standing at [facility]. Pt ambulates using FWW at [facility]. Pt uses restroom before ambulating in [facility] with rest breaks. Pt returns to bed at end of tx with all needs met. Assessment Current Status: Good Progress Pt is making progress although still fatigues easy but is working on activity tolerance. PT Short Term Goals Short Term Goals Time Frame: Dec 06, 2016 Gait (FIM): 4 Distance (FIM): 3=150 ft Gait Assistive Device: FWW PT Senior Living Goals Smelting Engineer Goals PT Senior Living Goals Time Frame: Dec 22, 2016 Transfers (B,C,W/C) (FIM): 6 Sit to Lying (QC): 6 Lying-Sitting on Side/Bed(QC): 6 Sit to Stand (QC): 6 Rollin Roll Left to Right (QC): 6 Chair/Kya-cf-Oxqya Xfer(QC): 6 Car Transfer (QC): 5 Does the Patient Walk: Yes Gait (FIM): 6 Gait distance (FIM): 3=150 ft Walk 10 feet (QC): 6 Walk 10ft-Uneven Surface(QC): 6 Walk 50ft with 2 Turns (QC): 6 Walk 150 ft (QC): 6 Gait Level of Assist: 6 Gait Assistive Device: FWW Stairs (FIM): 2 # of Steps: 4 1 Step (curb) (QC): 4 4 Steps (QC): 4 12 Steps (QC): 88 Picking up an Object (QC): 88 PT Plan Problem List Problem List: Activity Tolerance, Functional Strength, Gait Treatment/Plan Treatment Plan: Continue Plan of Care Treatment Plan: Bed Mobility, Education, Functional Activity Florinda, Functional Strength, Group Therapy, Gait, Safety, Therapeutic Exercise, Transfers Treatment Duration: Dec 22, 2016 Frequency: At least 5 of 7 days/Wk (IRF) Estimated Hrs Per Day: 1.5 hours per day Patient and/or Family Agrees t: Yes Safety Risks/Education Patient Education: Gait Training, Transfer Techniques, Correct Positioning, Safety Issues Teaching Recipient: Patient Teaching Methods: Discussion Response to Teaching: Verbalize Understanding Time/GCodes Time In: 1150 Time Out: 1220 Total Billed Treatment Time: 30 Total Billed Treatment visit, FA (10m) & GT (20m) LEANNA OZUNA PTA Dec 07, 2016 13:07
--- NOTE | 2016-12-07 13:44 | Occupational Ther Daily Note ---
OT Current Status-Daily Note Subjective Pt seen in room, up in bed, agreeable to OT. No pain reported. she said she felt better after resting. Appearance Alert, cooperative Mental Status/Objective Functional [place] Measure 0=Not Assessed/NA 4=Minimal Assistance 1=Total Assistance 5=Supervision or Setup 2=Maximal Assistance 6=Modified [place] 3=Moderate Assistance 7=Complete [place] ADL-Treatment Pt was able to get up to EOB without help and sit to stand without assistance. Walked to bathroom with SBA for safety and FWW, no LOB, toileted mod I, washed hands at sink with SBA for safety, then walked to sit up in recliner. Pt education and good discussion on energy saving techniques and principals. Pt was able to identify different ways that she can conserve her energy for those things she wants to do, both here and after discharge when she is living in [place]. At end of tx, pt was in bed, scooting herself up to HOB, all needs met ( "conserving energy for my shower tomorrow"). Functional [place] Measure 0=Not Assessed/NA 4=Minimal Assistance 1=Total Assistance 5=Supervision or Setup 2=Maximal Assistance 6=Modified [place] 3=Moderate Assistance 7=Complete IndependenceIRFPAI Quality Coding Scale 6 Independent with activity with or without an assistive device 5 Patient requires set up or clean up by helper. Patient completes activity by themselves 4 Supervision or touching assist (CGA). [place] provide cues , steadying assist 3 The helper provides less than half the effort to complete the activity 2 The helper provides more than half the effort to complete the activity 1 Dependent. The helper does all the effort to complete an activity 7 Patient refused to complete or attempt activity 9 The patient did not perform the activity before the current illness or injury 88 Not attempted due to Medical conditions or safety concerns Education OT Patient Education: Energy conservation, Progress toward Goal/Update tx plan , Purpose of tx/functional activities Teaching Recipient: Patient Teaching Methods: Discussion Response to Teaching: Verbalize Understanding OT Short Term Goals Short Term Goals Time Frame: Dec 08, 2016 Grooming(FIM): 5 Lower Body Dressing(FIM): 3 Toileting(FIM): 5 Toilet/Commode Transfer(FIM): 4 Additional Short Term Goals: 2-Verbalize Understanding, 3-ImproveStrength/Flor[place] 1=Demonstrate adherence to instructed precautions during ADL tasks. 2=Patient will verbalize/demonstrate understanding of assistive devices/ modifications for ADL. 3=Patient will improve strength/tolerance for activity to enable patient to perform ADL's. OT Retirement Goals Medical Physiologist Goals Time Frame: Dec 22, 2016 Eating (FIM): 6 Eating (QC): 6 Groomin Oral Hygiene (QC): 6 Bathing(FIM): 5 Shower/Bathe Self (QC): 5 Upper Body Dressing(FIM): 6 Upper Body Dressing (QC): 6 Lower Body Dressing(FIM): 6 Lower Body Dressing (QC): 6 On/Off Footwear (QC): 6 Toileting(FIM): 6 Toileting Hygiene (QC): 6 Toilet/Commode Transfer(FIM): 6 Toilet/Commode Transfer (QC): 6 Shower Transfer(FIM): 5 Additional Goals: 2-Verbalize Understanding, 3-ImproveStrength/[place] 1=Demonstrate adherence to instructed precautions during ADL tasks. 2=Patient will verbalize/demonstrate understanding of assistive devices/ modifications for ADL. 3=Patient will improve strength/tolerance for activity to enable patient to perform ADL's. OT Education/Plan Problem List/Assessment Pt would benefit from skilled OT to increase her independence and activity tolerance for basic ADLs to allow her to return to an [place] or skilled care and to decrease caregiver burden Discharge Recommendations Plan/Recommendations: Continue POC Treatment Plan/Plan of Care Patient would benefit from OT for education, treatment and training to promote independence in ADL's, mobility, safety and/or upper extremity function for ADL' s. Plan of Care: ADL Retraining, Functional Mobility, Group Exercise/Act as Ind ( education, exercise, activty tolerance, funct mobility, socialization), UE Funct Exercise/Act, UE Neuromus Re-Ed/Coord Treatment Duration: Dec 22, 2016 Frequency: At least 5 of 7 days/Wk (IRF) Estimated Hrs Per Day: 1.5 hours per day Agreement: Yes Rehab Potential: Fair Time/GCodes Start Time: 12:50 Stop Time: 13:30 Total Time Billed (hr/min): 40 Billed Treatment Time visit, 40 minutes ADL SOPHIE WARE OT Dec 07, 2016 13:44
[2016-12-07 18:11] VITALS: BP 115/57
[2016-12-07 21:36] VITALS: BP 121/68
[2016-12-07] MEDS: busPIRone 5 MG (BUSPAR) TAB PO SCH (21:37)
[2016-12-07] MEDS: ATORVASTATIN 40 MG (LIPITOR) TABLET PO SCH (21:37)
[2016-12-08 05:00] VITALS: BP 102/45
[2016-12-08] MEDS: DOXYCYCLINE 100 MG (VIBRAMYCIN) TABLET PO SCH ×2 (06:06→16:56)
[2016-12-08] MEDS: PANTOPRAZOLE 40 MG (PROTONIX) TAB PO SCH (06:06)
[2016-12-08] MEDS: FUROSEMIDE 40 MG (LASIX) TAB PO SCH ×2 (06:06→14:39)
[2016-12-08] MEDS: MULTIVIT W/MINERALS TAB (THERAGRAN M) PO SCH (06:06)
[2016-12-08] MEDS: ASPIRIN 81 MG CHEW (CHILDREN'S ASA) PO SCH (08:28)
[2016-12-08] MEDS: AMIODARONE 200 MG (CORDARONE) TAB PO SCH (08:28)
[2016-12-08] MEDS: OMEGA 3 (FISH OIL) 1000 MG CAP PO SCH (08:28)
[2016-12-08] MEDS: LORATADINE (CLARITIN) 10 MG TAB PO SCH (08:29)
[2016-12-08] MEDS: LACTOBACILLUS Acidoph/Bulgar (LACTINEX/FLORANEX) TAB PO SCH ×2 (08:29→20:45)
[2016-12-08] MEDS: APIXABAN 2.5 MG (ELIQUIS) TABLET PO SCH ×2 (08:29→20:45)
[2016-12-08 09:00] VITALS: BP 113/62
--- NOTE | 2016-12-08 09:01 | Physical Therapy Daily Note ---
PT Daily Note-Current Subjective Pt. agrees to Rx. States she feels she has made significant progress. States her family are looking in to [facility] Living but she is not sure where. Pain Numeric Pain Scale: 0-No Pain Mental Status Patient Orientation: Normal For Age Transfers Functional [place] Measure 0=Not Assessed/NA 4=Minimal Assistance 1=Total Assistance 5=Supervision or Setup 2=Maximal Assistance 6=Modified [place] 3=Moderate Assistance 7=Complete IndependenceIRFPAI Quality Coding Scale 6 Independent with activity with or without an assistive device 5 Patient requires set up or clean up by helper. Patient completes activity by themselves 4 Supervision or touching assist (CGA). [place] provide cues , steadying assist 3 The helper provides less than half the effort to complete the activity 2 The helper provides more than half the effort to complete the activity 1 Dependent. The helper does all the effort to complete an activity 7 Patient refused to complete or attempt activity 9 The patient did not perform the activity before the current illness or injury 88 Not attempted due to Medical conditions or safety concerns Transfers (B, C, W/C) (FIM): 6 Scootin Rollin Supine to/from Sit: 6 Sit to/from Stand: 6 Gait Training Does the Patient Walk?: Yes Gait (FIM): 5 Distance (FIM): 3=150 ft (175x3) Gait Level of Assist: 5 Gait Persons Needed: 1 Gait Assistive Device: FWW kyphotic, states she cant stand taller, "been like that a long time" Stair Training Stair Training: Handrails/: 2 handrails Stairs (FIM): 5 #of Steps: 4 Stairs: Pattern: Step to Level of Assist: 5 Exercises Supine Ex: Ankle pumps, Quad Set, Rolling, Glut sets, Heel Slides, Short Arc Quads, Scooting, Straight leg raise, Hip abd/add Supine Reps: 15 Seated Therapy Exercises: Ankle pumps, Sit to stand, Long arc quads, Hip flexion Seated Reps: 12 Assessment Current Status: Good Progress progressing in all phases, recommended to pt. that she have her family consider putting a wedge at her head in her bed at [facility]. Pt. had this in her bed at home previously PT Short Term Goals Short Term Goals Time Frame: Dec 06, 2016 Gait (FIM): 4 Distance (FIM): 3=150 ft Gait Assistive Device: FWW PT Skilled Nursing Goals Skilled Nursing Goals PT Skilled Nursing Goals Time Frame: Dec 22, 2016 Transfers (B,C,W/C) (FIM): 6 Sit to Lying (QC): 6 Lying-Sitting on Side/Bed(QC): 6 Sit to Stand (QC): 6 Rollin Roll Left to Right (QC): 6 Chair/Nai-hl-Wxznt Xfer(QC): 6 Car Transfer (QC): 5 Does the Patient Walk: Yes Gait (FIM): 6 Gait distance (FIM): 3=150 ft Walk 10 feet (QC): 6 Walk 10ft-Uneven Surface(QC): 6 Walk 50ft with 2 Turns (QC): 6 Walk 150 ft (QC): 6 Gait Level of Assist: 6 Gait Assistive Device: FWW Stairs (FIM): 2 # of Steps: 4 1 Step (curb) (QC): 4 4 Steps (QC): 4 12 Steps (QC): 88 Picking up an Object (QC): 88 PT Plan Treatment/Plan Treatment Plan: Continue Plan of Care Treatment Plan: Bed Mobility, Education, Functional Activity Florinda, Functional Strength, Group Therapy, Gait, Safety, Therapeutic Exercise, Transfers Treatment Duration: Dec 22, 2016 Frequency: At least 5 of 7 days/Wk (IRF) Estimated Hrs Per Day: 1.5 hours per day Patient and/or Family Agrees t: Yes Safety Risks/Education Patient Education: Gait Training, Transfer Techniques, Steps, Correct Positioning, Disease Process, Safety Issues Teaching Recipient: Patient Teaching Methods: Demonstration, Discussion Response to Teaching: Verbalize Understanding, Return Demonstration, Reinforcement Needed Time/GCodes Time In: 800 Time Out: 900 Total Billed Treatment Time: 60 Total Billed Treatment 1,GT15,FA25,EX20 G Codes Necessary: RUFUS Garner RANGE ECOLOGIST Dec 08, 2016 09:01
[2016-12-08] MEDS: lisINopril 5 MG (PRINIVIL) TABLET PO SCH (09:04)
[2016-12-08] MEDS: meTOprolol TARTRATE 25 MG (LOPRESSOR) TABLET PO SCH ×2 (09:04→20:47)
[2016-12-08] MEDS: FLUTICASONE NASAL SPRAY (FLONASE) 16 GM BTL NS SCH ×2 (09:18→20:45)
--- NOTE | 2016-12-08 12:55 | Physical Therapy Daily Note ---
PT Daily Note-Current Subjective Pt. states she feels better, stronger , agrees to Rx but is so tired this afternoon and will be ready to lay down Pain Numeric Pain Scale: 0-No Pain Mental Status Patient Orientation: Normal For Age Transfers Functional [place] Measure 0=Not Assessed/NA 4=Minimal Assistance 1=Total Assistance 5=Supervision or Setup 2=Maximal Assistance 6=Modified [place] 3=Moderate Assistance 7=Complete IndependenceIRFPAI Quality Coding Scale 6 Independent with activity with or without an assistive device 5 Patient requires set up or clean up by helper. Patient completes activity by themselves 4 Supervision or touching assist (CGA). [place] provide cues , steadying assist 3 The helper provides less than half the effort to complete the activity 2 The helper provides more than half the effort to complete the activity 1 Dependent. The helper does all the effort to complete an activity 7 Patient refused to complete or attempt activity 9 The patient did not perform the activity before the current illness or injury 88 Not attempted due to Medical conditions or safety concerns all TRFs in out bed and chair Mod I Gait Training Gait Assistive Device: FWW gait 170ft x2 Mod to SBA, no LOB, kyphotic Exercises NuStep Minutes: 8 NuStep Workload: 1 Assessment Current Status: Good Progress PT Short Term Goals Short Term Goals Time Frame: Dec 06, 2016 Gait (FIM): 4 Distance (FIM): 3=150 ft Gait Assistive Device: FWW PT Usp Goals Usp Goals PT Usp Goals Time Frame: Dec 22, 2016 Transfers (B,C,W/C) (FIM): 6 Sit to Lying (QC): 6 Lying-Sitting on Side/Bed(QC): 6 Sit to Stand (QC): 6 Rollin Roll Left to Right (QC): 6 Chair/Kzz-fb-Snrkj Xfer(QC): 6 Car Transfer (QC): 5 Does the Patient Walk: Yes Gait (FIM): 6 Gait distance (FIM): 3=150 ft Walk 10 feet (QC): 6 Walk 10ft-Uneven Surface(QC): 6 Walk 50ft with 2 Turns (QC): 6 Walk 150 ft (QC): 6 Gait Level of Assist: 6 Gait Assistive Device: FWW Stairs (FIM): 2 # of Steps: 4 1 Step (curb) (QC): 4 4 Steps (QC): 4 12 Steps (QC): 88 Picking up an Object (QC): 88 PT Plan Treatment/Plan Treatment Plan: Continue Plan of Care Treatment Plan: Bed Mobility, Education, Functional Activity Florinda, Functional Strength, Group Therapy, Gait, Safety, Therapeutic Exercise, Transfers Treatment Duration: Dec 22, 2016 Frequency: At least 5 of 7 days/Wk (IRF) Estimated Hrs Per Day: 1.5 hours per day Patient and/or Family Agrees t: Yes Safety Risks/Education Patient Education: Gait Training, Correct Positioning, Safety Issues Teaching Recipient: Patient Teaching Methods: Demonstration, Discussion Response to Teaching: Verbalize Understanding, Return Demonstration, Reinforcement Needed Time/GCodes Time In: 1225 Time Out: 1255 Total Billed Treatment Time: 30 Total Billed Treatment 1,GT20m,EX10 G Codes Necessary: RUFUS Garner UTILITY MANAGER Dec 08, 2016 12:55
--- NOTE | 2016-12-08 13:40 | Occupational Ther Daily Note ---
OT Current Status-Daily Note Subjective Pt sitting up in recliner. Pt c/o of not being able to hear very well out of R ear then stated that it was all on the R side of her head. As she was talking pt stated that it was vibrating all over her head and that therapist voice were echoing in her head. Reported to nrsg, vital signs taken (see nrsg report). Pt agreed to continue therapy lying in bed. Mental Status/Objective Patient Orientation: Person, Place, Time, Situation Functional [place] Measure 0=Not Assessed/NA 4=Minimal Assistance 1=Total Assistance 5=Supervision or Setup 2=Maximal Assistance 6=Modified [place] 3=Moderate Assistance 7=Complete [place] ADL-Treatment Functional [place] Measure 0=Not Assessed/NA 4=Minimal Assistance 1=Total Assistance 5=Supervision or Setup 2=Maximal Assistance 6=Modified [place] 3=Moderate Assistance 7=Complete IndependenceIRFPAI Quality Coding Scale 6 Independent with activity with or without an assistive device 5 Patient requires set up or clean up by helper. Patient completes activity by themselves 4 Supervision or touching assist (CGA). [place] provide cues , steadying assist 3 The helper provides less than half the effort to complete the activity 2 The helper provides more than half the effort to complete the activity 1 Dependent. The helper does all the effort to complete an activity 7 Patient refused to complete or attempt activity 9 The patient did not perform the activity before the current illness or injury 88 Not attempted due to Medical conditions or safety concerns Other Treatment Pt ambulated to bed using FWW with SBA. Pt was able to sit on EOB by self then was able to lift LE's onto bed and lie down by self. Pt then completed UE exercises for strengthening and to increase activity tolerance. Pt was pursing lips to breath appearing to be SOA. After therapy, pt lying in bed with call light/phone in reach. All needs met in room. OT Short Term Goals Short Term Goals Time Frame: Dec 08, 2016 Grooming(FIM): 5 Lower Body Dressing(FIM): 3 Toileting(FIM): 5 Toilet/Commode Transfer(FIM): 4 Additional Short Term Goals: 2-Verbalize Understanding, 3-ImproveStrength/Florinda 1=Demonstrate adherence to instructed precautions during ADL tasks. 2=Patient will verbalize/demonstrate understanding of assistive devices/ modifications for ADL. 3=Patient will improve strength/tolerance for activity to enable patient to perform ADL's. OT Band Tumbler Goals Nursing Home Goals Time Frame: Dec 22, 2016 Eating (FIM): 6 Eating (QC): 6 Groomin Oral Hygiene (QC): 6 Bathing(FIM): 5 Shower/Bathe Self (QC): 5 Upper Body Dressing(FIM): 6 Upper Body Dressing (QC): 6 Lower Body Dressing(FIM): 6 Lower Body Dressing (QC): 6 On/Off Footwear (QC): 6 Toileting(FIM): 6 Toileting Hygiene (QC): 6 Toilet/Commode Transfer(FIM): 6 Toilet/Commode Transfer (QC): 6 Shower Transfer(FIM): 5 Additional Goals: 2-Verbalize Understanding, 3-ImproveStrength/Florinda 1=Demonstrate adherence to instructed precautions during ADL tasks. 2=Patient will verbalize/demonstrate understanding of assistive devices/ modifications for ADL. 3=Patient will improve strength/tolerance for activity to enable patient to perform ADL's. OT Education/Plan Problem List/Assessment Pt would benefit from skilled OT to increase her independence and activity tolerance for basic ADLs to allow her to return to an [facility] or skilled care and to decrease caregiver burden Discharge Recommendations Plan/Recommendations: Continue POC Treatment Plan/Plan of Care Patient would benefit from OT for education, treatment and training to promote independence in ADL's, mobility, safety and/or upper extremity function for ADL' s. Plan of Care: ADL Retraining, Functional Mobility, Group Exercise/Act as Ind ( education, exercise, activty tolerance, funct mobility, socialization), UE Funct Exercise/Act, UE Neuromus Re-Ed/Coord Treatment Duration: Dec 22, 2016 Frequency: At least 5 of 7 days/Wk (IRF) Estimated Hrs Per Day: 1.5 hours per day Agreement: Yes Rehab Potential: Fair Time/GCodes Start Time: 13:15 Stop Time: 13:45 Total Time Billed (hr/min): 30 Billed Treatment Time 1 visit-FA 2 (30 min) DARIANA PINA Dec 08, 2016 13:40
--- NOTE | 2016-12-08 14:02 | Occupational Ther Daily Note ---
OT Current Status-Daily Note Subjective Pt seen in room, up in bed, agreeable to OT and still wanting to take a shower and wash her hair. No pain reported Appearance Alert, cooperative Mental Status/Objective Functional [place] Measure 0=Not Assessed/NA 4=Minimal Assistance 1=Total Assistance 5=Supervision or Setup 2=Maximal Assistance 6=Modified [place] 3=Moderate Assistance 7=Complete [place] ADL-Treatment Pt did ADLs as if she were in her own apartment, with OT supervision for safety. Pt paced ADLs and demonstrated active use of energy conservation techniques. All ADLs took longer than usual. No SOB observed and pt did not request supplemental oxygen. Functional [place] Measure 0=Not Assessed/NA 4=Minimal Assistance 1=Total Assistance 5=Supervision or Setup 2=Maximal Assistance 6=Modified [place] 3=Moderate Assistance 7=Complete IndependenceIRFPAI Quality Coding Scale 6 Independent with activity with or without an assistive device 5 Patient requires set up or clean up by helper. Patient completes activity by themselves 4 Supervision or touching assist (CGA). [place] provide cues , steadying assist 3 The helper provides less than half the effort to complete the activity 2 The helper provides more than half the effort to complete the activity 1 Dependent. The helper does all the effort to complete an activity 7 Patient refused to complete or attempt activity 9 The patient did not perform the activity before the current illness or injury 88 Not attempted due to Medical conditions or safety concerns Grooming (FIM): 6 (Stood at sink to comb hair and brush teeth. FWW for balance. Washed face and hands in shower. ) Bathing (FIM): 6 (Pt turned water on and off and reached for towel on towel bar. Washed and dried all parts except back (said she has a back brush at home) , including washing hair. Shower bench, grab bar, FWW, hand held shower. Stood to wash sean and bottom with no LOB, using grab bars) Upper Body (FIM): 6 (Walked to closet and retrieved clean clothing, using FWW for balance. Doffed and donned shirt without help.) Lower Body Dressing (FIM): 6 (Pt retrieved clean clothes from closet, FWW for balance. Clothing draped over walker for transport. Pt doffed and donned clothing, including slipper socks, without assistance or LOB. ) Toileting (FIM): 6 (Pt was able to manage clothing and hygiene, BSC over toilet , with mod I. FWW, grab bars) Toilet/Commode Transfer (FIM): 6 (On/off BSC over toilet with mod I. FWW, grab bars. No LOB) Shower Transfer(FIM): 6 (Shower bench, grab bars, FWW. ) Pt was very pleased with how well she did today. Pt left up in recliner, lunch arrived, all needs met. Education OT Patient Education: Modified ADL techniques, Progress toward Goal/Update tx plan, Purpose of tx/functional activities Teaching Recipient: Patient Teaching Methods: Discussion Response to Teaching: Verbalize Understanding OT Short Term Goals Short Term Goals Time Frame: Dec 08, 2016 Grooming(FIM): 5 Lower Body Dressing(FIM): 3 Toileting(FIM): 5 Toilet/Commode Transfer(FIM): 4 Additional Short Term Goals: 2-Verbalize Understanding, 3-ImproveStrength/Folrinda 1=Demonstrate adherence to instructed precautions during ADL tasks. 2=Patient will verbalize/demonstrate understanding of assistive devices/ modifications for ADL. 3=Patient will improve strength/tolerance for activity to enable patient to perform ADL's. OT Skilled Nursing Goals Associate Director Of Sales Goals Time Frame: Dec 22, 2016 Eating (FIM): 6 Eating (QC): 6 Groomin Oral Hygiene (QC): 6 Bathing(FIM): 5 Shower/Bathe Self (QC): 5 Upper Body Dressing(FIM): 6 Upper Body Dressing (QC): 6 Lower Body Dressing(FIM): 6 Lower Body Dressing (QC): 6 On/Off Footwear (QC): 6 Toileting(FIM): 6 Toileting Hygiene (QC): 6 Toilet/Commode Transfer(FIM): 6 Toilet/Commode Transfer (QC): 6 Shower Transfer(FIM): 5 Additional Goals: 2-Verbalize Understanding, 3-ImproveStrength/Florinda 1=Demonstrate adherence to instructed precautions during ADL tasks. 2=Patient will verbalize/demonstrate understanding of assistive devices/ modifications for ADL. 3=Patient will improve strength/tolerance for activity to enable patient to perform ADL's. OT Education/Plan Problem List/Assessment Pt would benefit from skilled OT to increase her independence and activity tolerance for basic ADLs to allow her to return to an [place] or skilled care and to decrease caregiver burden Discharge Recommendations Plan/Recommendations: Continue POC Treatment Plan/Plan of Care Patient would benefit from OT for education, treatment and training to promote independence in ADL's, mobility, safety and/or upper extremity function for ADL' s. Plan of Care: ADL Retraining, Functional Mobility, Group Exercise/Act as Ind ( education, exercise, activty tolerance, funct mobility, socialization), UE Funct Exercise/Act, UE Neuromus Re-Ed/Coord Treatment Duration: Dec 22, 2016 Frequency: At least 5 of 7 days/Wk (IRF) Estimated Hrs Per Day: 1.5 hours per day Agreement: Yes Rehab Potential: Fair Time/GCodes Start Time: 10:05 Stop Time: 11:05 Total Time Billed (hr/min): 60 Billed Treatment Time visit, 60 minutes ADL SOPHIE WARE OT Dec 08, 2016 14:02
[2016-12-08 19:35] VITALS: BP 93/55
[2016-12-08] MEDS: ATORVASTATIN 40 MG (LIPITOR) TABLET PO SCH (20:45)
[2016-12-08] MEDS: busPIRone 5 MG (BUSPAR) TAB PO SCH (20:45)
[2016-12-09 05:00] VITALS: BP 110/60
[2016-12-09] MEDS: FUROSEMIDE 40 MG (LASIX) TAB PO SCH ×2 (06:26→13:07)
[2016-12-09] MEDS: MULTIVIT W/MINERALS TAB (THERAGRAN M) PO SCH (06:26)
[2016-12-09] MEDS: DOXYCYCLINE 100 MG (VIBRAMYCIN) TABLET PO SCH ×2 (06:26→16:12)
[2016-12-09] MEDS: PANTOPRAZOLE 40 MG (PROTONIX) TAB PO SCH (06:26)
[2016-12-09 08:37] VITALS: BP 99/68
[2016-12-09] MEDS: lisINopril 5 MG (PRINIVIL) TABLET PO SCH (08:38)
[2016-12-09] MEDS: meTOprolol TARTRATE 25 MG (LOPRESSOR) TABLET PO SCH ×2 (08:38→20:04)
[2016-12-09] MEDS: LACTOBACILLUS Acidoph/Bulgar (LACTINEX/FLORANEX) TAB PO SCH ×2 (08:39→20:04)
[2016-12-09] MEDS: ASPIRIN 81 MG CHEW (CHILDREN'S ASA) PO SCH (08:39)
[2016-12-09] MEDS: LORATADINE (CLARITIN) 10 MG TAB PO SCH (08:39)
[2016-12-09] MEDS: FLUTICASONE NASAL SPRAY (FLONASE) 16 GM BTL NS SCH ×2 (08:40→20:05)
[2016-12-09] MEDS: OMEGA 3 (FISH OIL) 1000 MG CAP PO SCH (08:40)
[2016-12-09] MEDS: APIXABAN 2.5 MG (ELIQUIS) TABLET PO SCH ×2 (08:40→20:04)
[2016-12-09] MEDS: AMIODARONE 200 MG (CORDARONE) TAB PO SCH (08:40)
--- NOTE | 2016-12-09 10:39 | Physical Therapy Daily Note ---
PT Daily Note-Current Subjective Pt. states she continues to feel better every day and improve in strength and function Pain Numeric Pain Scale: 0-No Pain Mental Status Patient Orientation: Normal For Age Transfers Functional [place] Measure 0=Not Assessed/NA 4=Minimal Assistance 1=Total Assistance 5=Supervision or Setup 2=Maximal Assistance 6=Modified [place] 3=Moderate Assistance 7=Complete IndependenceIRFPAI Quality Coding Scale 6 Independent with activity with or without an assistive device 5 Patient requires set up or clean up by helper. Patient completes activity by themselves 4 Supervision or touching assist (CGA). [place] provide cues , steadying assist 3 The helper provides less than half the effort to complete the activity 2 The helper provides more than half the effort to complete the activity 1 Dependent. The helper does all the effort to complete an activity 7 Patient refused to complete or attempt activity 9 The patient did not perform the activity before the current illness or injury 88 Not attempted due to Medical conditions or safety concerns Transfers (B, C, W/C) (FIM): 6 Scootin Rollin Supine to/from Sit: 6 Sit to/from Stand: 6 Gait Training Does the Patient Walk?: Yes Gait (FIM): 6 Distance (FIM): 3=150 ft (x3) Gait Level of Assist: 6 Gait Persons Needed: 0 Gait Assistive Device: FWW near up ad sanna status, slow with kyphotic posture Exercises Standing: Hip Abduction, Hamstring curls, Heel/toe raises, Marching, Mini squats Standing Reps: 15 Assessment Current Status: Excellent Progress progressing in all aspects PT Short Term Goals Short Term Goals Time Frame: Dec 06, 2016 Gait (FIM): 4 Distance (FIM): 3=150 ft Gait Assistive Device: FWW PT Header Boss Goals Header Boss Goals PT Header Boss Goals Time Frame: Dec 22, 2016 Transfers (B,C,W/C) (FIM): 6 Sit to Lying (QC): 6 Lying-Sitting on Side/Bed(QC): 6 Sit to Stand (QC): 6 Rollin Roll Left to Right (QC): 6 Chair/Tzg-jg-Fpwzv Xfer(QC): 6 Car Transfer (QC): 5 Does the Patient Walk: Yes Gait (FIM): 6 Gait distance (FIM): 3=150 ft Walk 10 feet (QC): 6 Walk 10ft-Uneven Surface(QC): 6 Walk 50ft with 2 Turns (QC): 6 Walk 150 ft (QC): 6 Gait Level of Assist: 6 Gait Assistive Device: FWW Stairs (FIM): 2 # of Steps: 4 1 Step (curb) (QC): 4 4 Steps (QC): 4 12 Steps (QC): 88 Picking up an Object (QC): 88 PT Plan Treatment/Plan Treatment Plan: Continue Plan of Care Treatment Plan: Bed Mobility, Education, Functional Activity Florinda, Functional Strength, Group Therapy, Gait, Safety, Therapeutic Exercise, Transfers Treatment Duration: Dec 22, 2016 Frequency: At least 5 of 7 days/Wk (IRF) Estimated Hrs Per Day: 1.5 hours per day Patient and/or Family Agrees t: Yes Safety Risks/Education Patient Education: Gait Training, Transfer Techniques, Correct Positioning, Disease Process, Safety Issues Teaching Recipient: Patient Teaching Methods: Demonstration, Discussion Response to Teaching: Verbalize Understanding, Return Demonstration, Reinforcement Needed Time/GCodes Time In: 805 Time Out: 830 Total Billed Treatment Time: 25 Total Billed Treatment 1,FA15, EX10 G Codes Necessary: RUFUS Garner PTA Dec 09, 2016 10:39
[2016-12-09 17:23] VITALS: BP 110/68
[2016-12-09] MEDS: busPIRone 5 MG (BUSPAR) TAB PO SCH (20:04)
[2016-12-09] MEDS: ATORVASTATIN 40 MG (LIPITOR) TABLET PO SCH (20:04)
[2016-12-10] MEDS: FUROSEMIDE 40 MG (LASIX) TAB PO SCH ×2 (05:48→14:17)
[2016-12-10] MEDS: PANTOPRAZOLE 40 MG (PROTONIX) TAB PO SCH (05:48)
[2016-12-10] MEDS: DOXYCYCLINE 100 MG (VIBRAMYCIN) TABLET PO SCH ×2 (05:48→16:35)
[2016-12-10] MEDS: MULTIVIT W/MINERALS TAB (THERAGRAN M) PO SCH (05:48)
[2016-12-10 06:00] VITALS: BP 106/62
[2016-12-10 08:04] VITALS: BP 105/67
[2016-12-10] MEDS: APIXABAN 2.5 MG (ELIQUIS) TABLET PO SCH ×2 (08:06→20:22)
[2016-12-10] MEDS: lisINopril 5 MG (PRINIVIL) TABLET PO SCH (08:06)
[2016-12-10] MEDS: ASPIRIN 81 MG CHEW (CHILDREN'S ASA) PO SCH (08:06)
[2016-12-10] MEDS: AMIODARONE 200 MG (CORDARONE) TAB PO SCH (08:06)
[2016-12-10] MEDS: LACTOBACILLUS Acidoph/Bulgar (LACTINEX/FLORANEX) TAB PO SCH ×2 (08:06→20:21)
[2016-12-10] MEDS: LORATADINE (CLARITIN) 10 MG TAB PO SCH (08:07)
[2016-12-10] MEDS: OMEGA 3 (FISH OIL) 1000 MG CAP PO SCH (08:07)
[2016-12-10] MEDS: meTOprolol TARTRATE 25 MG (LOPRESSOR) TABLET PO SCH ×2 (08:07→20:22)
[2016-12-10] MEDS: FLUTICASONE NASAL SPRAY (FLONASE) 16 GM BTL NS SCH ×2 (08:16→20:21)
[2016-12-10 17:34] VITALS: BP 122/73
[2016-12-10] MEDS: busPIRone 5 MG (BUSPAR) TAB PO SCH (20:21)
[2016-12-10] MEDS: ATORVASTATIN 40 MG (LIPITOR) TABLET PO SCH (20:21)
--- NOTE | 2016-12-11 02:22 | Progress Note (SOAP) ---
Subjective Subjective Date Seen by Provider: Dec 08, 2016 Time Seen by Provider: 08:00 Pt reports she is doing much better- only issue remaining is her right ear has decreased hearing. Nasal congestion improved with fluticasone nasal spray. She is happy with rehab. Right leg continues to improve. Tolerating doxycycline. Review of Systems General: No Chills, No Night Sweats HEENT: No Head Aches, No Visual Changes, No Eye Pain, No Dysphasia, Other ( right ear muffled sounds) Pulmonary: No Dyspnea, No Cough, No Pleuritic Chest Pain Cardiovascular: No: Chest Pain, Palpitations, Orthopnea Gastrointestinal: No: Nausea, Vomiting, Abdominal Pain, Diarrhea, Constipation Genitourinary: No Dysuria, No Frequency Musculoskeletal: No: neck pain, back pain Neurological: Weakness (improving), No: Numbness, Change in speech, Confusion Objective Exam Vital Signs Vital Sign - Last 12Hours 12/08/16 05:11 Temp 97 Pulse 83 Resp 18 B/P (MAP) 113/62 Pulse Ox 100 O2 Delivery room air O2 Flow Rate Capillary Refill : General Appearance: No Apparent Distress HEENT: PERRL/EOMI Neck: Supple Respiratory: Chest Non Tender, Lungs Clear, Normal Breath Sounds, No Accessory Muscle Use, No Respiratory Distress Cardiovascular: Regular Rate, Rhythm Gastrointestinal: Soft Rectal: Deferred Back: No CVA Tenderness Extremity: Pedal Edema, Other (RLE blister on dorsum of foot. Erythema of right lower extremity - much improved) Neurologic/Psychiatric: Alert, Oriented x3, Normal Mood/Affect Skin: Warm/Dry Assessment/Plan Assessment/Plan Assessment/Plan Weakness/deconditioning due to comorbidities- Inpatient Rehab Acute on chronic systolic congestive heart failure- Dr. Gomez consulted- continue lasix ECHO 11/12/16 30-35% LVEF urinary tract infection without hematuria- due to klebsiella. 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 Gotti consulted doxycycline 100mg BID 11/30 --> 12/10/16 Paroxysmal Atrial fibrillation - NSR, continue eliquis Right pleural effusion- continue lasix Dispo: encourage po hydration- Pt is doing well with rehab. will recheck labs on 12/11/16 Problems: Clinical Quality Measures DVT/VTE Risk/Contraindication: Risk Factor Score Per Nursin RFS Level Per Nursing on Admit: 4+=Very High Contraindications-Mechi: Other *list below* Other: CELLULITIS OF RIGHT LEG BELKYS CUI MD Dec 11, 2016 02:22
[2016-12-11 05:44] VITALS: BP 113/64
[2016-12-11] MEDS: FUROSEMIDE 40 MG (LASIX) TAB PO SCH ×2 (06:37→13:35)
[2016-12-11] MEDS: MULTIVIT W/MINERALS TAB (THERAGRAN M) PO SCH (06:38)
[2016-12-11] MEDS: PANTOPRAZOLE 40 MG (PROTONIX) TAB PO SCH (06:38)
[2016-12-11 06:43] LABS: BASOPHILS # (AUTO) 0.1 10^3/uL (0.0-0.1); BASOPHILS % (AUTO) 1 % (0-10); EOSINOPHILS # (AUTO) 0.2 10^3/uL (0.0-0.3); EOSINOPHILS % (AUTO) 4 % (0-10); LYMPHOCYTES % (AUTO) 38 % (12-44); MEAN CORPUSCULAR HEMOGLOBIN 29 PG (25-34); MEAN CORPUSCULAR HGB CONC 30 G/DL (32-36); MEAN CORPUSCULAR VOLUME 95 FL (80-99); MEAN PLATELET VOLUME 10.2 FL (7.4-10.4); MONOCYTES # (AUTO) 0.6 X 10^3 (0.0-1.0); MONOCYTES % (AUTO) 11 % (0-12); NEUTROPHILS # (AUTO) 2.3 X 10^3 (1.8-7.8); NEUTROPHILS % (AUTO) 45 % (42-75); PLATELET COUNT 200 10^3/uL (130-400); RED BLOOD COUNT 3.42 10^6/uL (4.35-5.85); WHITE BLOOD COUNT 5.1 10^3/uL (4.3-11.0)
[2016-12-11 07:07] LABS: BILIRUBIN,TOTAL 0.9 MG/DL (0.1-1.0); CALCIUM 8.7 MG/DL (8.5-10.1); CREATININE SERUM 1.68 MG/DL (0.60-1.30)
[2016-12-11] MEDS: APIXABAN 2.5 MG (ELIQUIS) TABLET PO SCH ×2 (07:49→21:42)
[2016-12-11] MEDS: OMEGA 3 (FISH OIL) 1000 MG CAP PO SCH (07:49)
[2016-12-11] MEDS: LACTOBACILLUS Acidoph/Bulgar (LACTINEX/FLORANEX) TAB PO SCH ×2 (07:49→21:42)
[2016-12-11] MEDS: LORATADINE (CLARITIN) 10 MG TAB PO SCH (07:49)
[2016-12-11] MEDS: ASPIRIN 81 MG CHEW (CHILDREN'S ASA) PO SCH (07:49)
[2016-12-11] MEDS: AMIODARONE 200 MG (CORDARONE) TAB PO SCH (07:49)
[2016-12-11 07:54] VITALS: BP 95/59
[2016-12-11] MEDS: FLUTICASONE NASAL SPRAY (FLONASE) 16 GM BTL NS SCH ×2 (07:54→21:42)
[2016-12-11] MEDS: lisINopril 5 MG (PRINIVIL) TABLET PO SCH (07:54)
[2016-12-11] MEDS: meTOprolol TARTRATE 25 MG (LOPRESSOR) TABLET PO SCH ×2 (07:54→21:42)
--- NOTE | 2016-12-11 09:00 | Physical Therapy Daily Note ---
PT Daily Note-Current Subjective Pt. state she is so glad she is making such progress. States she will DC Thurs to [facility] Pain Numeric Pain Scale: 0-No Pain Appearance RLE and foot with marked less edema, now able to jessica shoes Mental Status Patient Orientation: Normal For Age Transfers Functional [place] Measure 0=Not Assessed/NA 4=Minimal Assistance 1=Total Assistance 5=Supervision or Setup 2=Maximal Assistance 6=Modified [place] 3=Moderate Assistance 7=Complete IndependenceIRFPAI Quality Coding Scale 6 Independent with activity with or without an assistive device 5 Patient requires set up or clean up by helper. Patient completes activity by themselves 4 Supervision or touching assist (CGA). [place] provide cues , steadying assist 3 The helper provides less than half the effort to complete the activity 2 The helper provides more than half the effort to complete the activity 1 Dependent. The helper does all the effort to complete an activity 7 Patient refused to complete or attempt activity 9 The patient did not perform the activity before the current illness or injury 88 Not attempted due to Medical conditions or safety concerns Transfers (B, C, W/C) (FIM): 6 Scootin Rollin Roll Left to Right (QC): 6 Supine to/from Sit: 6 Sit to/from Stand: 6 Sit to Lying (QC): 6 Sit to Stand (QC): 6 Chair/Fad-do-Vraek Xfer(QC): 6 Bed to/from Chair: 6 Gait Training Does the Patient Walk?: Yes Gait (FIM): 6 Distance (FIM): 3=150 ft (x2) Walk 10 feet (QC): 6 Walk 50 ft with 2 Turns(QC): 6 Walk 150 ft (QC): 6 Walking 10ft/uneven surface-QC: 6 Gait Level of Assist: 6 Gait Persons Needed: 0 Gait Assistive Device: FWW kyphotic and slow , no LOB Stair Training Stair Training: Handrails/: 2 handrails Stairs (FIM): 5 #of Steps: 4 1 Step (curb) (QC): 5 4 Steps (QC): 5 Stairs: Pattern: Step to Level of Assist: 5 Exercises Supine Ex: Bridging, Ankle pumps, Quad Set, Rolling, Glut sets, Lower trunk rotation, Heel Slides, Short Arc Quads, Scooting, Straight leg raise, Hip abd/ add Supine Reps: 15 NuStep Minutes: 10 NuStep Workload: 2 Assessment Current Status: Good Progress close to up ad sanna to prep for asst living status at DC PT Short Term Goals Short Term Goals Time Frame: Dec 06, 2016 Gait (FIM): 4 Distance (FIM): 3=150 ft Gait Assistive Device: FWW PT [facility] Goals Nursing Staff Development Coordinator Goals PT [facility] Goals Time Frame: Dec 22, 2016 Transfers (B,C,W/C) (FIM): 6 Sit to Lying (QC): 6 Lying-Sitting on Side/Bed(QC): 6 Sit to Stand (QC): 6 Rollin Roll Left to Right (QC): 6 Chair/Rcm-xy-Jlrge Xfer(QC): 6 Car Transfer (QC): 5 Does the Patient Walk: Yes Gait (FIM): 6 Gait distance (FIM): 3=150 ft Walk 10 feet (QC): 6 Walk 10ft-Uneven Surface(QC): 6 Walk 50ft with 2 Turns (QC): 6 Walk 150 ft (QC): 6 Gait Level of Assist: 6 Gait Assistive Device: FWW Stairs (FIM): 2 # of Steps: 4 1 Step (curb) (QC): 4 4 Steps (QC): 4 12 Steps (QC): 88 Picking up an Object (QC): 88 PT Plan Treatment/Plan Treatment Plan: Continue Plan of Care Treatment Plan: Bed Mobility, Education, Functional Activity Florinda, Functional Strength, Group Therapy, Gait, Safety, Therapeutic Exercise, Transfers Treatment Duration: Dec 22, 2016 Frequency: At least 5 of 7 days/Wk (IRF) Estimated Hrs Per Day: 1.5 hours per day Patient and/or Family Agrees t: Yes Safety Risks/Education Patient Education: Gait Training, Transfer Techniques, Steps, Correct Positioning, Disease Process, Safety Issues Teaching Recipient: Patient Teaching Methods: Demonstration, Discussion Response to Teaching: Verbalize Understanding, Return Demonstration, Reinforcement Needed Time/GCodes Time In: 800 Time Out: 900 Total Billed Treatment Time: 60 Total Billed Treatment 1,EX25m,FA15m,GT20m G Codes Necessary: RUFUS Garner MUSICAL THERAPIST Dec 11, 2016 09:00
--- NOTE | 2016-12-11 11:17 | Occupational Ther Daily Note ---
OT Current Status-Daily Note Subjective Pt seen in room, up in bed, agreeable to OT. No pain reported Appearance Alert, cooperative Mental Status/Objective Functional [place] Measure 0=Not Assessed/NA 4=Minimal Assistance 1=Total Assistance 5=Supervision or Setup 2=Maximal Assistance 6=Modified [place] 3=Moderate Assistance 7=Complete [place] ADL-Treatment Pt was in bed and encouraged to get up out of bed without elevating headrest because "you won't have that at [facility]." Pt agreed to shower on Sunday and to do sponge bath today. Pt got up out of bed and walked to closet SBA, FWW to get clothes out of closet. Pt educ to get closer to closet, for safety. Pt walked to bathroom and toileted, bathed, groomed, dressed, using FWW, BSC over toilet, chair with arms. No O2 per nc and no SOB, At end of ADLs, pt sat in recliner for exercise. Functional [place] Measure 0=Not Assessed/NA 4=Minimal Assistance 1=Total Assistance 5=Supervision or Setup 2=Maximal Assistance 6=Modified [place] 3=Moderate Assistance 7=Complete IndependenceIRFPAI Quality Coding Scale 6 Independent with activity with or without an assistive device 5 Patient requires set up or clean up by helper. Patient completes activity by themselves 4 Supervision or touching assist (CGA). [place] provide cues , steadying assist 3 The helper provides less than half the effort to complete the activity 2 The helper provides more than half the effort to complete the activity 1 Dependent. The helper does all the effort to complete an activity 7 Patient refused to complete or attempt activity 9 The patient did not perform the activity before the current illness or injury 88 Not attempted due to Medical conditions or safety concerns Grooming (FIM): 6 (Standing at sink, FWW for balance. Washed face and hands, brushed hair and teeth) Bathing (FIM): 6 (Pt ran bath water into funk, washed and dried all parts except back, sitting in chair with arms for most of bath. Safely stood to wash sean and bottom) Upper Body (FIM): 6 (Pt retrieved clean clothes from closet, FWW and put dirty ones away. Used FWW for balance. ) Lower Body Dressing (FIM): 6 (Doffed and donned pants and socks without help. FWW for balance. ) Toileting (FIM): 6 (Managed clothing and hygiene, BSC over toilet, FWW for balance) Toilet/Commode Transfer (FIM): 6 (On/off BSC over toilet. grab bar, FWW.) Other Treatment Pt did 15 reps bilat UE exercise with yellow theraband, recalling two different exercises of 4. She reported that she had done these on her own over the weekend as well. Pt educ on two different exercises. These are to increase overall activity tolerance to allow her to safely do ADLs on discharge. Pt left up in recliner, all needs met. Education OT Patient Education: Exercise program, Purpose of tx/functional activities, Safety issues, Transfer techniques Teaching Recipient: Patient Teaching Methods: Demonstration, Discussion Response to Teaching: Return Demonstration OT Short Term Goals Short Term Goals Time Frame: Dec 08, 2016 Grooming(FIM): 5 Lower Body Dressing(FIM): 3 Toileting(FIM): 5 Toilet/Commode Transfer(FIM): 4 Additional Short Term Goals: 2-Verbalize Understanding, 3-ImproveStrength/Florinda 1=Demonstrate adherence to instructed precautions during ADL tasks. 2=Patient will verbalize/demonstrate understanding of assistive devices/ modifications for ADL. 3=Patient will improve strength/tolerance for activity to enable patient to perform ADL's. OT Shelter Goals Program Admin Goals Time Frame: Dec 22, 2016 Eating (FIM): 6 Eating (QC): 6 Groomin Oral Hygiene (QC): 6 Bathing(FIM): 5 Shower/Bathe Self (QC): 5 Upper Body Dressing(FIM): 6 Upper Body Dressing (QC): 6 Lower Body Dressing(FIM): 6 Lower Body Dressing (QC): 6 On/Off Footwear (QC): 6 Toileting(FIM): 6 Toileting Hygiene (QC): 6 Toilet/Commode Transfer(FIM): 6 Toilet/Commode Transfer (QC): 6 Shower Transfer(FIM): 5 Additional Goals: 2-Verbalize Understanding, 3-ImproveStrength/Florinda 1=Demonstrate adherence to instructed precautions during ADL tasks. 2=Patient will verbalize/demonstrate understanding of assistive devices/ modifications for ADL. 3=Patient will improve strength/tolerance for activity to enable patient to perform ADL's. OT Education/Plan Problem List/Assessment Pt would benefit from skilled OT to increase her independence and activity tolerance for basic ADLs to allow her to return to an [place] or skilled care and to decrease caregiver burden Discharge Recommendations Plan/Recommendations: Continue POC Treatment Plan/Plan of Care Patient would benefit from OT for education, treatment and training to promote independence in ADL's, mobility, safety and/or upper extremity function for ADL' s. Plan of Care: ADL Retraining, Functional Mobility, Group Exercise/Act as Ind ( education, exercise, activty tolerance, funct mobility, socialization), UE Funct Exercise/Act, UE Neuromus Re-Ed/Coord Treatment Duration: Dec 22, 2016 Frequency: At least 5 of 7 days/Wk (IRF) Estimated Hrs Per Day: 1.5 hours per day Agreement: Yes Rehab Potential: Fair Time/GCodes Start Time: 10:00 Stop Time: 11:00 Total Time Billed (hr/min): 60 Billed Treatment Time visit, 50 minutes ADL, 10 minutes exercise SOPHIE WARE OT Dec 11, 2016 11:17
--- NOTE | 2016-12-11 12:05 | Physical Therapy Daily Note ---
PT Daily Note-Current Subjective Pt. wants to try to be up ad sanna. Willing to do a trial of this during Rx. Pain Numeric Pain Scale: 0-No Pain Mental Status Patient Orientation: Normal For Age Transfers Functional [place] Measure 0=Not Assessed/NA 4=Minimal Assistance 1=Total Assistance 5=Supervision or Setup 2=Maximal Assistance 6=Modified [place] 3=Moderate Assistance 7=Complete IndependenceIRFPAI Quality Coding Scale 6 Independent with activity with or without an assistive device 5 Patient requires set up or clean up by helper. Patient completes activity by themselves 4 Supervision or touching assist (CGA). [place] provide cues , steadying assist 3 The helper provides less than half the effort to complete the activity 2 The helper provides more than half the effort to complete the activity 1 Dependent. The helper does all the effort to complete an activity 7 Patient refused to complete or attempt activity 9 The patient did not perform the activity before the current illness or injury 88 Not attempted due to Medical conditions or safety concerns in out bed and chair and toilet all Mod I. Gait Training Gait Assistive Device: FWW 200ft plus as well as fig 8s and turns and side left and right and retro, all SBA to Mod I, no LOB Balance Special Test Comments fig 8s around tables in dining area x3 trials Treatments pt. toileted, managed dentures out, got in bed pulling covers up as well as fixing table in position that she could access everything in bed. Assessment Current Status: Good Progress PT Short Term Goals Short Term Goals Time Frame: Dec 06, 2016 Gait (FIM): 4 Distance (FIM): 3=150 ft Gait Assistive Device: FWW PT Scrap Hooker Goals Alf Goals PT Alf Goals Time Frame: Dec 22, 2016 Transfers (B,C,W/C) (FIM): 6 Sit to Lying (QC): 6 Lying-Sitting on Side/Bed(QC): 6 Sit to Stand (QC): 6 Rollin Roll Left to Right (QC): 6 Chair/Fym-ks-Omfyi Xfer(QC): 6 Car Transfer (QC): 5 Does the Patient Walk: Yes Gait (FIM): 6 Gait distance (FIM): 3=150 ft Walk 10 feet (QC): 6 Walk 10ft-Uneven Surface(QC): 6 Walk 50ft with 2 Turns (QC): 6 Walk 150 ft (QC): 6 Gait Level of Assist: 6 Gait Assistive Device: FWW Stairs (FIM): 2 # of Steps: 4 1 Step (curb) (QC): 4 4 Steps (QC): 4 12 Steps (QC): 88 Picking up an Object (QC): 88 PT Plan Treatment/Plan Treatment Plan: Continue Plan of Care Treatment Plan: Bed Mobility, Education, Functional Activity [place], Functional Strength, Group Therapy, Gait, Safety, Therapeutic Exercise, Transfers Treatment Duration: Dec 22, 2016 Frequency: At least 5 of 7 days/Wk (IRF) Estimated Hrs Per Day: 1.5 hours per day Patient and/or Family Agrees t: Yes Safety Risks/Education Patient Education: Gait Training, Transfer Techniques Teaching Recipient: Patient Teaching Methods: Demonstration, Discussion Response to Teaching: Verbalize Understanding, Return Demonstration, Reinforcement Needed instructed to trial up ad sanna but call if needed Time/GCodes Time In: 1130 Time Out: 1200 Total Billed Treatment Time: 30 Total Billed Treatment 1,FA30m G Codes Necessary: RUFUS Garner LEATHER SCRAPER Dec 11, 2016 12:05
--- NOTE | 2016-12-11 13:35 | Occupational Ther Daily Note ---
OT Current Status-Daily Note Subjective Pt seen in room, up in bed, agreeable to OT, Appearance Alert, cooperative Mental Status/Objective Functional [place] Measure 0=Not Assessed/NA 4=Minimal Assistance 1=Total Assistance 5=Supervision or Setup 2=Maximal Assistance 6=Modified [place] 3=Moderate Assistance 7=Complete [place] ADL-Treatment Pt took all covers off her feet and sat EOB without help. She walked to bathroom and toileted herself without help (BSC, grab bars) and then to gym, FWW. She did 8 minutes bilat UE exercise on arm bike set at 10-15W resistance ( increased time), with just a brief break at the middle to recover breath. She walked back to her room, adjusted the bedside table and walker herself, covered herself with blanket. All needs met. Functional [place] Measure 0=Not Assessed/NA 4=Minimal Assistance 1=Total Assistance 5=Supervision or Setup 2=Maximal Assistance 6=Modified [place] 3=Moderate Assistance 7=Complete IndependenceIRFPAI Quality Coding Scale 6 Independent with activity with or without an assistive device 5 Patient requires set up or clean up by helper. Patient completes activity by themselves 4 Supervision or touching assist (CGA). [place] provide cues , steadying assist 3 The helper provides less than half the effort to complete the activity 2 The helper provides more than half the effort to complete the activity 1 Dependent. The helper does all the effort to complete an activity 7 Patient refused to complete or attempt activity 9 The patient did not perform the activity before the current illness or injury 88 Not attempted due to Medical conditions or safety concerns Education OT Patient Education: Purpose of tx/functional activities, Transfer techniques Teaching Recipient: Patient Teaching Methods: Discussion Response to Teaching: Verbalize Understanding, Reinforcement Needed OT Short Term Goals Short Term Goals Time Frame: Dec 08, 2016 Grooming(FIM): 5 Lower Body Dressing(FIM): 3 Toileting(FIM): 5 Toilet/Commode Transfer(FIM): 4 Additional Short Term Goals: 2-Verbalize Understanding, 3-ImproveStrength/Flor[place] 1=Demonstrate adherence to instructed precautions during ADL tasks. 2=Patient will verbalize/demonstrate understanding of assistive devices/ modifications for ADL. 3=Patient will improve strength/tolerance for activity to enable patient to perform ADL's. OT Retirement Goals Pharmacy Billing Adjudicator Goals Time Frame: Dec 22, 2016 Eating (FIM): 6 Eating (QC): 6 Groomin Oral Hygiene (QC): 6 Bathing(FIM): 5 Shower/Bathe Self (QC): 5 Upper Body Dressing(FIM): 6 Upper Body Dressing (QC): 6 Lower Body Dressing(FIM): 6 Lower Body Dressing (QC): 6 On/Off Footwear (QC): 6 Toileting(FIM): 6 Toileting Hygiene (QC): 6 Toilet/Commode Transfer(FIM): 6 Toilet/Commode Transfer (QC): 6 Shower Transfer(FIM): 5 Additional Goals: 2-Verbalize Understanding, 3-ImproveStrength/[place] 1=Demonstrate adherence to instructed precautions during ADL tasks. 2=Patient will verbalize/demonstrate understanding of assistive devices/ modifications for ADL. 3=Patient will improve strength/tolerance for activity to enable patient to perform ADL's. OT Education/Plan Problem List/Assessment Pt would benefit from skilled OT to increase her independence and activity tolerance for basic ADLs to allow her to return to an [facility] or skilled care and to decrease caregiver burden Discharge Recommendations Plan/Recommendations: Continue POC Treatment Plan/Plan of Care Patient would benefit from OT for education, treatment and training to promote independence in ADL's, mobility, safety and/or upper extremity function for ADL' s. Plan of Care: ADL Retraining, Functional Mobility, Group Exercise/Act as Ind ( education, exercise, activty tolerance, funct mobility, socialization), UE Funct Exercise/Act, UE Neuromus Re-Ed/Coord Treatment Duration: Dec 22, 2016 Frequency: At least 5 of 7 days/Wk (IRF) Estimated Hrs Per Day: 1.5 hours per day Agreement: Yes Rehab Potential: Fair Time/GCodes Start Time: 13:00 Stop Time: 13:30 Total Time Billed (hr/min): 30 Billed Treatment Time visit, 25 minutes exercise, 5 minutes ADL SOPHIE WARE OT Dec 11, 2016 13:35
[2016-12-11 17:33] VITALS: BP 104/56
--- NOTE | 2016-12-11 21:13 | PM & R (SOAP) Progress Note ---
Subjective Time Seen by Provider: 19:50 Subjective/Events-last exam Patient was seen in her room this evening Discussed case with RN Patient SBA for transfers Patient of supplemental 02 Objective Exam Last Set of Vital Signs Vital Signs Date Time Temp Pulse Resp B/P (MAP) Pulse Ox O2 Delivery O2 Flow Rate FiO2 12/11/16 17:33 98.0 78 18 104/56 97 Room Air 12/05/16 09:20 1.00 Capillary Refill : I&O Intake and Output 12/12/16 00:00 Intake Total 1010 ml Balance 1010 ml Intake Oral 1010 ml # Voids 12 # Bowel Movements 2 General: Alert, Oriented X3, Mild Distress HEENT: Atraumatic, PERRLA, Other (RT TM clear) Neck: Supple, No JVD, No Thyromegaly Lungs: Clear to Auscultation, Normal Air Movement Heart: Regular Rate, Normal S1, Normal S2, Gallops (bilateral rhonchi), Other ( systolic murmur at the left sternal border) Abdomen: Normal Bowel Sounds, Soft, No Tenderness, No Hepatosplenomegaly, No Masses Extremities: Other (cellulitis to right calf) Skin: No Rashes, Other (Sacral wound0.7 x 0.4 x 0.3 cm. Base 100% slough. Drainage moderate serosanguineous.Clear blister dorsum right foot 3.8 x 6.8 cm. This is not ruptured.) Neuro: Normal Gait, Normal Speech, Strength at 5/5 X4 Ext, Normal Tone, Sensation Intact Psych/Mental Status: Mental Status NL, Mood NL Results Lab Laboratory Tests 12/11/16 06:30: White Blood Count 5.1, Red Blood Count 3.42L, Hemoglobin 9.8L, Hematocrit 33L, Mean Corpuscular Volume 95, Mean Corpuscular Hemoglobin 29, Mean Corpuscular Hemoglobin Concent 30L, Red Cell Distribution Width 16.0H, Platelet Count 200, Mean Platelet Volume 10.2, Neutrophils (%) (Auto) 45, Lymphocytes (%) (Auto) 38 , Monocytes (%) (Auto) 11, Eosinophils (%) (Auto) 4, Basophils (%) (Auto) 1, Neutrophils # (Auto) 2.3, Lymphocytes # (Auto) 2.0, Monocytes # (Auto) 0.6, Eosinophils # (Auto) 0.2, Basophils # (Auto) 0.1, Sodium Level 142, Potassium Level 4.0, Chloride Level 100, Carbon Dioxide Level 31, Anion Gap 11, Blood Urea Nitrogen 25H, Creatinine 1.68H, Estimat Glomerular Filtration Rate 29, BUN/ Creatinine Ratio 15, Glucose Level 94, Calcium Level 8.7, Magnesium Level 2.0, Total Bilirubin 0.9, Aspartate Amino Transf (AST/SGOT) 51H, Alanine Aminotransferase (ALT/SGPT) 27, Alkaline Phosphatase 127, Total Protein 6.0L, Albumin 3.0L Assessment/Plan Assessment 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 TREATED- BEING FOLLOWED BY cARDIOLOGY cELLULITIS RT LEG UNDER TREATMENT bLISTER dORSUM RT FOOT dr Alejo MANAGING sACRAL PRESSURE SORE dr Alejo MANAGING htn WITH hYPOTENSION AT THIS TIME cARDIOLOGY MANAGING a fib CONTROLLED WITH MEDS RESP INSUFFICIENCY dr Morocho pULM FOLLOWING-weaned from Bilateral Pleural effusions Rt Otolgia improving Plan cONTINUE pt/ot/wOUND CARE cOMPLETE COURSE OF aNTIBIOTIC FOR CELLULITIS f/u WITH pcp dr david Cast AND dr Alejo AND dr Morocho AND CARDIOLOGY PER [facility] SCHEDULE aPPRECIATE cARDIOLOGY AND dr Cannon NOTES AND ORDERS Appreciate DR Hill notes and orders BUN/CR and H&H improving Current Labs reviewed Meds being adjusted. Nausea resolved Appreciate DR Dumont note and Hospitalists orders and current labs Next Team Conference 12/13/16 Discharge remains set tentatively for 12/14/16 DORIS QUIGLEY MD Dec 11, 2016 21:13
[2016-12-11] MEDS: ATORVASTATIN 40 MG (LIPITOR) TABLET PO SCH (21:42)
[2016-12-11] MEDS: busPIRone 5 MG (BUSPAR) TAB PO SCH (21:42)
[2016-12-12 06:00] VITALS: BP 106/58
[2016-12-12] MEDS: MULTIVIT W/MINERALS TAB (THERAGRAN M) PO SCH (06:41)
[2016-12-12] MEDS: FUROSEMIDE 40 MG (LASIX) TAB PO SCH (06:41)
[2016-12-12] MEDS: PANTOPRAZOLE 40 MG (PROTONIX) TAB PO SCH (06:41)
[2016-12-12] MEDS: OMEGA 3 (FISH OIL) 1000 MG CAP PO SCH (08:28)
[2016-12-12] MEDS: LORATADINE (CLARITIN) 10 MG TAB PO SCH (08:28)
[2016-12-12] MEDS: LACTOBACILLUS Acidoph/Bulgar (LACTINEX/FLORANEX) TAB PO SCH ×2 (08:28→20:55)
[2016-12-12] MEDS: APIXABAN 2.5 MG (ELIQUIS) TABLET PO SCH ×2 (08:28→20:55)
[2016-12-12] MEDS: AMIODARONE 200 MG (CORDARONE) TAB PO SCH (08:28)
[2016-12-12] MEDS: ASPIRIN 81 MG CHEW (CHILDREN'S ASA) PO SCH (08:28)
[2016-12-12] MEDS: meTOprolol TARTRATE 25 MG (LOPRESSOR) TABLET PO SCH ×2 (08:31→20:55)
[2016-12-12] MEDS: lisINopril 5 MG (PRINIVIL) TABLET PO SCH (08:31)
[2016-12-12 08:32] VITALS: BP 98/57
[2016-12-12] MEDS: FLUTICASONE NASAL SPRAY (FLONASE) 16 GM BTL NS SCH ×2 (08:32→20:55)
--- NOTE | 2016-12-12 09:05 | Physical Therapy Daily Note ---
PT Daily Note-Current Subjective Pt asleep R sidelying upon arrival. Pt agrees to PT before needs to use restroom before leaving for tx. Pain Numeric Pain Scale: 0-No Pain Location: No Pain Reported Mental Status Patient Orientation: Person, Place, Time, Situation Transfers Functional [place] Measure 0=Not Assessed/NA 4=Minimal Assistance 1=Total Assistance 5=Supervision or Setup 2=Maximal Assistance 6=Modified [place] 3=Moderate Assistance 7=Complete IndependenceIRFPAI Quality Coding Scale 6 Independent with activity with or without an assistive device 5 Patient requires set up or clean up by helper. Patient completes activity by themselves 4 Supervision or touching assist (CGA). [place] provide cues , steadying assist 3 The helper provides less than half the effort to complete the activity 2 The helper provides more than half the effort to complete the activity 1 Dependent. The helper does all the effort to complete an activity 7 Patient refused to complete or attempt activity 9 The patient did not perform the activity before the current illness or injury 88 Not attempted due to Medical conditions or safety concerns Scootin Rollin Roll Left to Right (QC): 5 Supine to/from Sit: 5 Sit to/from Stand: 5 Sit to Lying (QC): 5 Sit to Stand (QC): 5 Weight Bearing Weight Bearing Restriction: Full Weight Bearing Location Restriction: LE Bilateral Gait Training Does the Patient Walk?: Yes Distance (FIM): 3=150 ft Distance: 150' Walk 10 feet (QC): 5 Walk 50 ft with 2 Turns(QC): 5 Walk 150 ft (QC): 5 Gait Level of Assist: 5 Gait Persons Needed: 1 Gait Assistive Device: FWW Pt walks with slow but steady gait, no LOB. Pt occasional needs VC to stay closer to FWW while ambulating. Pt fatigues easy. Wheelchair Training Does the Pt Use a Wheelchair?: No Stair Training Stair Training: Handrails/: 2 handrails #of Steps: 4 1 Step (curb) (QC): 5 4 Steps (QC): 5 12 Steps (QC): 88 Level of Assist: 5 Exercises Seated Therapy Exercises: Ankle pumps, Long arc quads, Hip flexion, Kicking activity Seated Reps: 15 NuStep Minutes: 10 NuStep Workload: 4 Treatments Pt transfers from Sidelying to EOB to Standing at A using FWW. Pt ambulates using FWW at SBA. Pt uses NuStep for 10m at Workload 4 followed by Seated Ex. Pt completes 1 set of 4 stairs. Pt returns to room at end of tx to rest in bed with all needs met. Assessment Current Status: Good Progress Pt completes tasks more independently and safely but still fatigues quickly and needs rest breaks. PT Short Term Goals Short Term Goals Time Frame: Dec 06, 2016 Gait (FIM): 4 Distance (FIM): 3=150 ft Gait Assistive Device: FWW PT Detention Goals Life Insurance Actuary Goals PT Life Insurance Actuary Goals Time Frame: Dec 22, 2016 Transfers (B,C,W/C) (FIM): 6 Sit to Lying (QC): 6 Lying-Sitting on Side/Bed(QC): 6 Sit to Stand (QC): 6 Rollin Roll Left to Right (QC): 6 Chair/Eob-qn-Rsacu Xfer(QC): 6 Car Transfer (QC): 5 Does the Patient Walk: Yes Gait (FIM): 6 Gait distance (FIM): 3=150 ft Walk 10 feet (QC): 6 Walk 10ft-Uneven Surface(QC): 6 Walk 50ft with 2 Turns (QC): 6 Walk 150 ft (QC): 6 Gait Level of Assist: 6 Gait Assistive Device: FWW Stairs (FIM): 2 # of Steps: 4 1 Step (curb) (QC): 4 4 Steps (QC): 4 12 Steps (QC): 88 Picking up an Object (QC): 88 PT Plan Problem List Problem List: Activity Tolerance, Functional Strength Treatment/Plan Treatment Plan: Continue Plan of Care Treatment Plan: Bed Mobility, Education, Functional Activity [place], Functional Strength, Group Therapy, Gait, Safety, Therapeutic Exercise, Transfers Treatment Duration: Dec 22, 2016 Frequency: At least 5 of 7 days/Wk (IRF) Estimated Hrs Per Day: 1.5 hours per day Patient and/or Family Agrees t: Yes Safety Risks/Education Patient Education: Gait Training, Transfer Techniques, Correct Positioning, Safety Issues Teaching Recipient: Patient Teaching Methods: Discussion Response to Teaching: Verbalize Understanding Time/GCodes Time In: 805 Time Out: 905 Total Billed Treatment Time: 60 Total Billed Treatment visit,GT (15m), FA (15m) & EX x2 (30m) LEANNA OZUNA PACKER OPERATOR AUTOMATIC Dec 12, 2016 09:05
--- NOTE | 2016-12-12 11:13 | Occupational Ther Daily Note ---
OT Current Status-Daily Note Subjective Pt seen in room, up in bed, agreeable to OT. Feels like she's just getting stronger and stronger but still concerned about stopped up R ear. Appearance Alert, cooperative Mental Status/Objective Functional [place] Measure 0=Not Assessed/NA 4=Minimal Assistance 1=Total Assistance 5=Supervision or Setup 2=Maximal Assistance 6=Modified [place] 3=Moderate Assistance 7=Complete [place] ADL-Treatment Pt wants to do spongebath today and shower tomorrow, in preparation for discharge to [facility] on . She did these ADLs "as if" OT wasn't in the room, to be as independent as possible. Functional [place] Measure 0=Not Assessed/NA 4=Minimal Assistance 1=Total Assistance 5=Supervision or Setup 2=Maximal Assistance 6=Modified [place] 3=Moderate Assistance 7=Complete IndependenceIRFPAI Quality Coding Scale 6 Independent with activity with or without an assistive device 5 Patient requires set up or clean up by helper. Patient completes activity by themselves 4 Supervision or touching assist (CGA). [place] provide cues , steadying assist 3 The helper provides less than half the effort to complete the activity 2 The helper provides more than half the effort to complete the activity 1 Dependent. The helper does all the effort to complete an activity 7 Patient refused to complete or attempt activity 9 The patient did not perform the activity before the current illness or injury 88 Not attempted due to Medical conditions or safety concerns Eating (FIM): 6 (Pt can open packages and feed herself without help. Uses dentures) Grooming (FIM): 6 (Stood at sink to clean dentures and brush hair. Washed face and hands. No makeup. FWW for balance) Bathing (FIM): 6 (Washed and dried all parts with spongebath, seated or standing at sink, except back. Set up own water and emptied funk afterwards. ) Upper Body (FIM): 6 (Retrieved clothes from closet, getting close enough for safety. Picked dirty ones up off floor and put them in bag in closet. ) Lower Body Dressing (FIM): 6 (Retrieved clothes from closet, getting close enough for safety. Picked dirty ones up off floor and put them in bag in closet. Put on regular socks and slip on shoes) Toileting (FIM): 6 (Managed clothing and hygiene, BSC over toilet. Grab bar, FWW) Toilet/Commode Transfer (FIM): 6 (On and off BSC over toilet, grab bar, FWW. No LOB) Other Treatment After pt completed ADLs and put dirty clothes away, she was breathing harder and doig pursed lip breathing. Pt educ that this is a sign to stop and rest until she is not having trouble breathing any more. Pt verbalized understanding. Pt walked to [facility] area and did table top activity with 1# weight on each arm. Pt said that she enjoyed "clip dominoes" and had no difficulties following directions on a new activity. To strengthen arms and overall activity tolerance. Pt returned to room and sat EOB to eat lunch, requiring no setup. All needs met. Education OT Patient Education: Progress toward Goal/Update tx plan, Purpose of tx/ functional activities Teaching Recipient: Patient Teaching Methods: Discussion Response to Teaching: Verbalize Understanding OT Short Term Goals Short Term Goals Time Frame: Dec 08, 2016 Grooming(FIM): 5 Lower Body Dressing(FIM): 3 Toileting(FIM): 5 Toilet/Commode Transfer(FIM): 4 Additional Short Term Goals: 2-Verbalize Understanding, 3-ImproveStrength/Florinda 1=Demonstrate adherence to instructed precautions during ADL tasks. 2=Patient will verbalize/demonstrate understanding of assistive devices/ modifications for ADL. 3=Patient will improve strength/tolerance for activity to enable patient to perform ADL's. OT Half-Way Goals Half-Way Goals Time Frame: Dec 22, 2016 Eating (FIM): 6 Eating (QC): 6 Groomin Oral Hygiene (QC): 6 Bathing(FIM): 5 Shower/Bathe Self (QC): 5 Upper Body Dressing(FIM): 6 Upper Body Dressing (QC): 6 Lower Body Dressing(FIM): 6 Lower Body Dressing (QC): 6 On/Off Footwear (QC): 6 Toileting(FIM): 6 Toileting Hygiene (QC): 6 Toilet/Commode Transfer(FIM): 6 Toilet/Commode Transfer (QC): 6 Shower Transfer(FIM): 5 Additional Goals: 2-Verbalize Understanding, 3-ImproveStrength/Florinda 1=Demonstrate adherence to instructed precautions during ADL tasks. 2=Patient will verbalize/demonstrate understanding of assistive devices/ modifications for ADL. 3=Patient will improve strength/tolerance for activity to enable patient to perform ADL's. OT Education/Plan Problem List/Assessment Pt would benefit from skilled OT to increase her independence and activity tolerance for basic ADLs to allow her to return to an [place] or skilled care and to decrease caregiver burden Discharge Recommendations Plan/Recommendations: Continue POC Treatment Plan/Plan of Care Patient would benefit from OT for education, treatment and training to promote independence in ADL's, mobility, safety and/or upper extremity function for ADL' s. Plan of Care: ADL Retraining, Functional Mobility, Group Exercise/Act as Ind ( education, exercise, activty tolerance, funct mobility, socialization), UE Funct Exercise/Act, UE Neuromus Re-Ed/Coord Treatment Duration: Dec 22, 2016 Frequency: At least 5 of 7 days/Wk (IRF) Estimated Hrs Per Day: 1.5 hours per day Agreement: Yes Rehab Potential: Fair Time/GCodes Start Time: 10:00 Stop Time: 11:00 Total Time Billed (hr/min): 60 Billed Treatment Time visit, 40 minutes ADL, 20 minutes exercise SOPHIE WARE OT Dec 12, 2016 11:13
--- NOTE | 2016-12-12 12:01 | PM & R (SOAP) Progress Note ---
Subjective Time Seen by Provider: 07:55 Subjective/Events-last exam Patient was seen in her room this AM Patient SBA for gait with WW Objective Exam Last Set of Vital Signs Vital Signs Date Time Temp Pulse Resp B/P (MAP) Pulse Ox O2 Delivery O2 Flow Rate FiO2 12/12/16 09:44 Room Air 12/12/16 08:32 88 98/57 12/12/16 06:00 97.6 20 97 Capillary Refill : I&O Intake and Output 12/13/16 00:00 Intake Total 250 ml Balance 250 ml Intake Oral 250 ml # Voids 4 General: Alert, Oriented X3, Mild Distress HEENT: Atraumatic, PERRLA, Other (RT TM clear) Neck: Supple, No JVD, No Thyromegaly Lungs: Clear to Auscultation, Normal Air Movement Heart: Regular Rate, Normal S1, Normal S2, Gallops (bilateral rhonchi), Other ( systolic murmur at the left sternal border) Abdomen: Normal Bowel Sounds, Soft, No Tenderness, No Hepatosplenomegaly, No Masses Extremities: Other (cellulitis to right calf) Skin: No Rashes, Other (Sacral wound0.7 x 0.4 x 0.3 cm. Base 100% slough. Drainage moderate serosanguineous.Clear blister dorsum right foot 3.8 x 6.8 cm. This is not ruptured.) Neuro: Normal Gait, Normal Speech, Strength at 5/5 X4 Ext, Normal Tone, Sensation Intact Psych/Mental Status: Mental Status NL, Mood NL Results Lab Laboratory Tests 12/11/16 06:30: White Blood Count 5.1, Red Blood Count 3.42L, Hemoglobin 9.8L, Hematocrit 33L, Mean Corpuscular Volume 95, Mean Corpuscular Hemoglobin 29, Mean Corpuscular Hemoglobin Concent 30L, Red Cell Distribution Width 16.0H, Platelet Count 200, Mean Platelet Volume 10.2, Neutrophils (%) (Auto) 45, Lymphocytes (%) (Auto) 38 , Monocytes (%) (Auto) 11, Eosinophils (%) (Auto) 4, Basophils (%) (Auto) 1, Neutrophils # (Auto) 2.3, Lymphocytes # (Auto) 2.0, Monocytes # (Auto) 0.6, Eosinophils # (Auto) 0.2, Basophils # (Auto) 0.1, Sodium Level 142, Potassium Level 4.0, Chloride Level 100, Carbon Dioxide Level 31, Anion Gap 11, Blood Urea Nitrogen 25H, Creatinine 1.68H, Estimat Glomerular Filtration Rate 29, BUN/ Creatinine Ratio 15, Glucose Level 94, Calcium Level 8.7, Magnesium Level 2.0, Total Bilirubin 0.9, Aspartate Amino Transf (AST/SGOT) 51H, Alanine Aminotransferase (ALT/SGPT) 27, Alkaline Phosphatase 127, Total Protein 6.0L, Albumin 3.0L Assessment/Plan Assessment 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 TREATED- BEING FOLLOWED BY cARDIOLOGY cELLULITIS RT LEG UNDER TREATMENT bLISTER dORSUM RT FOOT dr Alejo MANAGING sACRAL PRESSURE SORE dr Alejo MANAGING htn WITH hYPOTENSION AT THIS TIME cARDIOLOGY MANAGING a fib CONTROLLED WITH MEDS RESP INSUFFICIENCY dr Morocho pULM FOLLOWING-weaned from Bilateral Pleural effusions Rt Otolgia improving Plan cONTINUE pt/ot/wOUND CARE cOMPLETE COURSE OF aNTIBIOTIC FOR CELLULITIS f/u WITH pcp dr david Cast AND dr Alejo AND dr Morocho AND CARDIOLOGY PER [facility] SCHEDULE aPPRECIATE cARDIOLOGY AND dr Cannon NOTES AND ORDERS Appreciate DR Hill notes and orders BUN/CR and H&H improving Current Labs reviewed Meds being adjusted. Nausea resolved Appreciate DR Dumont note and Hospitalists orders and current labs Next Team Conference tomorrow 12/13/16 Discharge remains set tentatively for 12/14/16 ODRIS QUIGLEY MD Dec 12, 2016 12:01
--- NOTE | 2016-12-12 13:01 | Physical Therapy Daily Note ---
PT Daily Note-Current Subjective Pt Side-lying in bed upon arrival. Pt agrees to PT. Pain Numeric Pain Scale: 0-No Pain Location: No Pain Reported Mental Status Patient Orientation: Person, Place, Time, Situation Transfers Functional [place] Measure 0=Not Assessed/NA 4=Minimal Assistance 1=Total Assistance 5=Supervision or Setup 2=Maximal Assistance 6=Modified [place] 3=Moderate Assistance 7=Complete IndependenceIRFPAI Quality Coding Scale 6 Independent with activity with or without an assistive device 5 Patient requires set up or clean up by helper. Patient completes activity by themselves 4 Supervision or touching assist (CGA). [place] provide cues , steadying assist 3 The helper provides less than half the effort to complete the activity 2 The helper provides more than half the effort to complete the activity 1 Dependent. The helper does all the effort to complete an activity 7 Patient refused to complete or attempt activity 9 The patient did not perform the activity before the current illness or injury 88 Not attempted due to Medical conditions or safety concerns Scootin Rollin Roll Left to Right (QC): 5 Supine to/from Sit: 5 Sit to/from Stand: 5 Sit to Lying (QC): 5 Sit to Stand (QC): 5 Weight Bearing Weight Bearing Restriction: Full Weight Bearing Location Restriction: LE Bilateral Gait Training Does the Patient Walk?: Yes Distance (FIM): 3=150 ft Distance: 150' Walk 10 feet (QC): 5 Walk 50 ft with 2 Turns(QC): 5 Walk 150 ft (QC): 5 Gait Level of Assist: 5 Gait Persons Needed: 1 Gait Assistive Device: FWW Pt walks with slow but steady gait, no LOB. Wheelchair Training Does the Pt Use a Wheelchair?: No Stair Training Stair Training: Handrails/: 2 handrails #of Steps: 4 1 Step (curb) (QC): 5 4 Steps (QC): 5 12 Steps (QC): 88 Stairs: Pattern: Step to Level of Assist: 5 Exercises Standing: Hip Abduction, Marching Standing Reps: 15 Treatments Pt transfers from R sidelying to EOB to Standing at SBA using FWW. Pt ambulates using FWW at SBA. Pt completes Standing Ex at //bars before returning to room to rest. Pt rests Sidelying in bed with all needs met at end of tx. Assessment Current Status: Good Progress Pt has improved with independence and safety of transfers and mobility. After visiting with OT, may try to make pt Ad sanna in room tomorrow to test before discharging . PT Short Term Goals Short Term Goals Time Frame: Dec 06, 2016 Gait (FIM): 4 Distance (FIM): 3=150 ft Gait Assistive Device: FWW PT Healthcare Facility Administrator Goals Healthcare Facility Administrator Goals PT Healthcare Facility Administrator Goals Time Frame: Dec 22, 2016 Transfers (B,C,W/C) (FIM): 6 Sit to Lying (QC): 6 Lying-Sitting on Side/Bed(QC): 6 Sit to Stand (QC): 6 Rollin Roll Left to Right (QC): 6 Chair/[id number]-[id number] Xfer(QC): 6 Car Transfer (QC): 5 Does the Patient Walk: Yes Gait (FIM): 6 Gait distance (FIM): 3=150 ft Walk 10 feet (QC): 6 Walk 10ft-Uneven Surface(QC): 6 Walk 50ft with 2 Turns (QC): 6 Walk 150 ft (QC): 6 Gait Level of Assist: 6 Gait Assistive Device: FWW Stairs (FIM): 2 # of Steps: 4 1 Step (curb) (QC): 4 4 Steps (QC): 4 12 Steps (QC): 88 Picking up an Object (QC): 88 PT Plan Problem List Problem List: Activity Tolerance, Functional Strength Treatment/Plan Treatment Plan: Continue Plan of Care Treatment Plan: Bed Mobility, Education, Functional Activity Florinda, Functional Strength, Group Therapy, Gait, Safety, Therapeutic Exercise, Transfers Treatment Duration: Dec 22, 2016 Frequency: At least 5 of 7 days/Wk (IRF) Estimated Hrs Per Day: 1.5 hours per day Patient and/or Family Agrees t: Yes Safety Risks/Education Patient Education: Gait Training, Transfer Techniques, Correct Positioning, Safety Issues Teaching Recipient: Patient Teaching Methods: Discussion Response to Teaching: Verbalize Understanding Time/GCodes Time In: 1130 Time Out: 1200 Total Billed Treatment Time: 30 Total Billed Treatment visit, GT (15m) & EX (15m) LEANNA OZUNA [employer] Dec 12, 2016 13:01
--- NOTE | 2016-12-12 13:53 | Occupational Ther Daily Note ---
OT Current Status-Daily Note Subjective Pt seen in room, sitting up in w/c, agreeable to OT. She said that the w/c, with a pillow, was softer on her bottom than recliner. Mental Status/Objective Functional [place] Measure 0=Not Assessed/NA 4=Minimal Assistance 1=Total Assistance 5=Supervision or Setup 2=Maximal Assistance 6=Modified [place] 3=Moderate Assistance 7=Complete [place] ADL-Treatment Pt walked to commons area to look at and discuss several different styles walker bags, walker trays, and walker baskets. She is most interested in a basket to go on the front of her walker. Pt will talk about this with her daughter who she said would be comfortable ordering this on line. Pt walked back to room and sat in w/c to do bilat UE exercises. She did 18 reps 4 different exercises with yellow theraband, with minimal cueing. Pt educ that she could do stretches (various styles) on her own after discharge to continue getting stronger in her arms. Pt verbalizes understanding. Pt left up in w/c, bedside table and call light present. Functional [place] Measure 0=Not Assessed/NA 4=Minimal Assistance 1=Total Assistance 5=Supervision or Setup 2=Maximal Assistance 6=Modified [place] 3=Moderate Assistance 7=Complete IndependenceIRFPAI Quality Coding Scale 6 Independent with activity with or without an assistive device 5 Patient requires set up or clean up by helper. Patient completes activity by themselves 4 Supervision or touching assist (CGA). [place] provide cues , steadying assist 3 The helper provides less than half the effort to complete the activity 2 The helper provides more than half the effort to complete the activity 1 Dependent. The helper does all the effort to complete an activity 7 Patient refused to complete or attempt activity 9 The patient did not perform the activity before the current illness or injury 88 Not attempted due to Medical conditions or safety concerns Education OT Patient Education: Exercise program, Progress toward Goal/Update tx plan, Purpose of tx/functional activities Teaching Recipient: Patient Teaching Methods: Discussion Response to Teaching: Verbalize Understanding OT Short Term Goals Short Term Goals Time Frame: Dec 08, 2016 Grooming(FIM): 5 Lower Body Dressing(FIM): 3 Toileting(FIM): 5 Toilet/Commode Transfer(FIM): 4 Additional Short Term Goals: 2-Verbalize Understanding, 3-ImproveStrength/Florinda 1=Demonstrate adherence to instructed precautions during ADL tasks. 2=Patient will verbalize/demonstrate understanding of assistive devices/ modifications for ADL. 3=Patient will improve strength/tolerance for activity to enable patient to perform ADL's. OT Snf Goals Snf Goals Time Frame: Dec 22, 2016 Eating (FIM): 6 Eating (QC): 6 Groomin Oral Hygiene (QC): 6 Bathing(FIM): 5 Shower/Bathe Self (QC): 5 Upper Body Dressing(FIM): 6 Upper Body Dressing (QC): 6 Lower Body Dressing(FIM): 6 Lower Body Dressing (QC): 6 On/Off Footwear (QC): 6 Toileting(FIM): 6 Toileting Hygiene (QC): 6 Toilet/Commode Transfer(FIM): 6 Toilet/Commode Transfer (QC): 6 Shower Transfer(FIM): 5 Additional Goals: 2-Verbalize Understanding, 3-ImproveStrength/Florinda 1=Demonstrate adherence to instructed precautions during ADL tasks. 2=Patient will verbalize/demonstrate understanding of assistive devices/ modifications for ADL. 3=Patient will improve strength/tolerance for activity to enable patient to perform ADL's. OT Education/Plan Problem List/Assessment Pt would benefit from skilled OT to increase her independence and activity tolerance for basic ADLs to allow her to return to an ASSISTED or skilled care and to decrease caregiver burden Discharge Recommendations Plan/Recommendations: Continue POC Treatment Plan/Plan of Care Patient would benefit from OT for education, treatment and training to promote independence in ADL's, mobility, safety and/or upper extremity function for ADL' s. Plan of Care: ADL Retraining, Functional Mobility, Group Exercise/Act as Ind ( education, exercise, activty tolerance, funct mobility, socialization), UE Funct Exercise/Act, UE Neuromus Re-Ed/Coord Treatment Duration: Dec 22, 2016 Frequency: At least 5 of 7 days/Wk (IRF) Estimated Hrs Per Day: 1.5 hours per day Agreement: Yes Rehab Potential: Fair Time/GCodes Start Time: 13:00 Stop Time: 13:30 Total Time Billed (hr/min): 30 Billed Treatment Time visit, ADL 20 minutes, exercise 10 minutes SOPHIE WARE OT Dec 12, 2016 13:53
[2016-12-12] MEDS ORDERED: NITROGLYCERIN 0.4 MG SL TABS BTL 25'S SL PRN (14:15)
[2016-12-12 17:56] VITALS: BP 94/54
[2016-12-12] MEDS: ATORVASTATIN 40 MG (LIPITOR) TABLET PO SCH (20:55)
[2016-12-12] MEDS: busPIRone 5 MG (BUSPAR) TAB PO SCH (20:56)
--- NOTE | 2016-12-12 22:53 | Wound Care Progress Note ---
Subjective Subjective Subjective/Events-last exam 89 year old female with healed wounds of R calf and foot, s/p CABG with harvesting of vein from R leg. She has residual area of hematoma of R calf and an area of compromised skin on the dorsum of the R foot. She is to be discharged soon for Rehab, and will be followed -up in Wound Care to check on compromised areas of R leg. PMH: CAD, Home O2 FH: hs of CAD and CA. Review of Systems Date Seen by Provider: Dec 12, 2016 Time Seen by Provider: 17:15 General: No Chills Pulmonary: No Dyspnea Cardiovascular: No: Chest Pain Musculoskeletal: leg pain Objective Exam Last Set of Vital Signs Vital Signs Date Time Temp Pulse Resp B/P (MAP) Pulse Ox O2 Delivery O2 Flow Rate FiO2 12/12/16 17:56 98.1 83 18 94/54 94 Room Air Capillary Refill : I&O Intake and Output 12/13/16 00:00 Intake Total 930 ml Balance 930 ml Intake Oral 930 ml # Voids 9 # Bowel Movements 1 General: Alert, No Acute Distress Lungs: Normal Air Movement Extremities: Other (4 x 5 cm Purplish mass R medial calf in area of previous vein harvest incision. No open area.) Skin: Other (Dorsum R foot, 6 x 6 cm area of thickened, ecchymotic skin, but intact.) Assessment/Plan Assessment/Plan Assessment/Plan 1. Hematoma of R calf, s/p vein harvest for CABG. 2. Debility Plan: No dressings. Will follow-up in Wound Clinic. BELINDA BURNHAM MD Dec 12, 2016 22:52
[2016-12-13 05:35] VITALS: BP 108/56
[2016-12-13] MEDS: PANTOPRAZOLE 40 MG (PROTONIX) TAB PO SCH (06:36)
[2016-12-13] MEDS: MULTIVIT W/MINERALS TAB (THERAGRAN M) PO SCH (06:36)
[2016-12-13 06:44] LABS: BASOPHILS % (AUTO) 1 % (0-10); EOSINOPHILS # (AUTO) 0.2 10^3/uL (0.0-0.3); EOSINOPHILS % (AUTO) 4 % (0-10); LYMPHOCYTES # (AUTO) 1.8 X 10^3 (1.0-4.0); LYMPHOCYTES % (AUTO) 39 % (12-44); MEAN CORPUSCULAR HEMOGLOBIN 29 PG (25-34); MEAN CORPUSCULAR HGB CONC 31 G/DL (32-36); MEAN CORPUSCULAR VOLUME 95 FL (80-99); MEAN PLATELET VOLUME 9.9 FL (7.4-10.4); MONOCYTES # (AUTO) 0.5 X 10^3 (0.0-1.0); MONOCYTES % (AUTO) 10 % (0-12); NEUTROPHILS # (AUTO) 2.2 X 10^3 (1.8-7.8); NEUTROPHILS % (AUTO) 46 % (42-75); PLATELET COUNT 191 10^3/uL (130-400); RED BLOOD COUNT 3.19 10^6/uL (4.35-5.85); RED CELL DISTRIBUTION WIDTH 15.7 % (10.0-14.5); WHITE BLOOD COUNT 4.7 10^3/uL (4.3-11.0)
[2016-12-13 07:04] LABS: CALCIUM 8.4 MG/DL (8.5-10.1); CREATININE SERUM 1.54 MG/DL (0.60-1.30); POTASSIUM 3.8 MMOL/L (3.6-5.0)
[2016-12-13] MEDS: OMEGA 3 (FISH OIL) 1000 MG CAP PO SCH (08:22)
[2016-12-13] MEDS: LACTOBACILLUS Acidoph/Bulgar (LACTINEX/FLORANEX) TAB PO SCH ×2 (08:22→20:19)
[2016-12-13] MEDS: lisINopril 5 MG (PRINIVIL) TABLET PO SCH (08:22)
[2016-12-13] MEDS: APIXABAN 2.5 MG (ELIQUIS) TABLET PO SCH ×2 (08:22→20:19)
[2016-12-13 08:23] VITALS: BP 111/58
[2016-12-13] MEDS: meTOprolol TARTRATE 25 MG (LOPRESSOR) TABLET PO SCH ×2 (08:23→20:19)
[2016-12-13] MEDS: AMIODARONE 200 MG (CORDARONE) TAB PO SCH (08:23)
[2016-12-13] MEDS: ASPIRIN 81 MG CHEW (CHILDREN'S ASA) PO SCH (08:23)
[2016-12-13] MEDS: LORATADINE (CLARITIN) 10 MG TAB PO SCH (08:23)
[2016-12-13] MEDS: FLUTICASONE NASAL SPRAY (FLONASE) 16 GM BTL NS SCH ×2 (08:26→20:19)
--- NOTE | 2016-12-13 08:26 | Progress Note (SOAP) ---
Subjective Subjective Date Seen by Provider: Dec 13, 2016 Time Seen by Provider: 09:25 Pt reports she is continuing to improve. Her right ear fullness/decreased hearing is improved with lying down- but not sitting up. Pt is excited to be d/c'd tomorrow to [facility]. I held yesterdays evening dose of lasix- reduced pt's lasix to 40mg daily instead of BID- as her creatinine was rising. Review of Systems General: No Chills HEENT: No Head Aches, No Visual Changes, No Eye Pain, No Dysphasia, Other ( right ear muffled sounds) Pulmonary: No Dyspnea Cardiovascular: No: Chest Pain Gastrointestinal: No: Nausea, Vomiting, Abdominal Pain, Diarrhea, Constipation Genitourinary: No Dysuria, No Frequency Musculoskeletal: leg pain Neurological: Weakness (improving), No: Numbness, Change in speech, Confusion Objective Exam Vital Signs Vital Signs Date Time Temp Pulse Resp B/P (MAP) Pulse Ox O2 Delivery O2 Flow Rate FiO2 12/13/16 05:35 97.0 82 18 108/56 96 Room Air 12/12/16 21:00 Room Air 12/12/16 17:56 98.1 83 18 94/54 94 Room Air 12/12/16 09:44 Room Air 12/12/16 08:32 88 98/57 General Appearance: No Apparent Distress HEENT: PERRL/EOMI Neck: Supple Respiratory: Chest Non Tender, Lungs Clear, Normal Breath Sounds, No Accessory Muscle Use, No Respiratory Distress Cardiovascular: Regular Rate, Rhythm Gastrointestinal: Soft Rectal: Deferred Back: No CVA Tenderness Extremity: Pedal Edema (trace) Neurologic/Psychiatric: Alert, Oriented x3, Normal Mood/Affect Skin: Warm/Dry Results Lab Laboratory Tests 12/13/16 06:35: White Blood Count 4.7, Red Blood Count 3.19L, Hemoglobin 9.3L, Hematocrit 30L, Mean Corpuscular Volume 95, Mean Corpuscular Hemoglobin 29, Mean Corpuscular Hemoglobin Concent 31L, Red Cell Distribution Width 15.7H, Platelet Count 191, Mean Platelet Volume 9.9, Neutrophils (%) (Auto) 46, Lymphocytes (%) (Auto) 39, Monocytes (%) (Auto) 10, Eosinophils (%) (Auto) 4, Basophils (%) (Auto) 1, Neutrophils # (Auto) 2.2, Lymphocytes # (Auto) 1.8, Monocytes # (Auto) 0.5, Eosinophils # (Auto) 0.2, Basophils # (Auto) 0.0, Sodium Level 140, Potassium Level 3.8, Chloride Level 101, Carbon Dioxide Level 31, Anion Gap 8, Blood Urea Nitrogen 24H, Creatinine 1.54H, Estimat Glomerular Filtration Rate 32, BUN/ Creatinine Ratio 16, Glucose Level 90, Calcium Level 8.4L Assessment/Plan Assessment/Plan Assessment/Plan Weakness/deconditioning due to comorbidities- Inpatient Rehab- plan to d/c to assisted living [facility] 12/14/16 Acute on chronic systolic congestive heart failure- Dr. Gomez consulted- continue lasix changed to 40mg daily 12/13/16 ECHO 11/12/16 30-35% LVEF urinary tract infection without hematuria- due to klebsiella. 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 Gotti consulted doxycycline 100mg BID 11/30 --> 12/10/16 Paroxysmal Atrial fibrillation - NSR, continue eliquis Right pleural effusion- continue lasix Dispo: encourage po hydration- Pt is doing well with rehab. will recheck BMP in 1 week. Problems: Clinical Quality Measures DVT/VTE Risk/Contraindication: Risk Factor Score Per Nursin RFS Level Per Nursing on Admit: 4+=Very High Contraindications-Mechi: Other *list below* Other: CELLULITIS OF RIGHT LEG BELKYS CUI MD Dec 13, 2016 8:26 am
--- NOTE | 2016-12-13 09:45 | PM & R (SOAP) Progress Note ---
Subjective Time Seen by Provider: 08:10 Subjective/Events-last exam Patient was seen in her room this AM Patient looking forward to discharge tomorrow to [facility] Patient stll having some difficulty with RT Ear Recommended that she f/u with PCP DR Matheus singleton possible outpatient f/u with ENT re this Review of Systems HEENT: Ear Pain Objective Exam Last Set of Vital Signs Vital Signs Date Time Temp Pulse Resp B/P (MAP) Pulse Ox O2 Delivery O2 Flow Rate FiO2 12/13/16 08:23 88 18 111/58 98 Room Air 12/13/16 05:35 97.0 Capillary Refill : I&O Intake and Output 12/14/16 00:00 Intake Total 450 ml Balance 450 ml Intake Oral 450 ml # Voids 4 General: Alert, No Acute Distress HEENT: Atraumatic, PERRLA, Other (RT TM clear) Neck: Supple, No JVD, No Thyromegaly Lungs: Normal Air Movement Heart: Regular Rate, Normal S1, Normal S2, Gallops (bilateral rhonchi), Other ( systolic murmur at the left sternal border) Abdomen: Normal Bowel Sounds, Soft, No Tenderness, No Hepatosplenomegaly, No Masses Extremities: Other (4 x 5 cm Purplish mass R medial calf in area of previous vein harvest incision. No open area.) Skin: Other (Dorsum R foot, 6 x 6 cm area of thickened, ecchymotic skin, but intact.) Neuro: Normal Gait, Normal Speech, Strength at 5/5 X4 Ext, Normal Tone, Sensation Intact Psych/Mental Status: Mental Status NL, Mood NL Results Lab Laboratory Tests 12/11/16 06:30: White Blood Count 5.1, Red Blood Count 3.42L, Hemoglobin 9.8L, Hematocrit 33L, Mean Corpuscular Volume 95, Mean Corpuscular Hemoglobin 29, Mean Corpuscular Hemoglobin Concent 30L, Red Cell Distribution Width 16.0H, Platelet Count 200, Mean Platelet Volume 10.2, Neutrophils (%) (Auto) 45, Lymphocytes (%) (Auto) 38 , Monocytes (%) (Auto) 11, Eosinophils (%) (Auto) 4, Basophils (%) (Auto) 1, Neutrophils # (Auto) 2.3, Lymphocytes # (Auto) 2.0, Monocytes # (Auto) 0.6, Eosinophils # (Auto) 0.2, Basophils # (Auto) 0.1, Sodium Level 142, Potassium Level 4.0, Chloride Level 100, Carbon Dioxide Level 31, Anion Gap 11, Blood Urea Nitrogen 25H, Creatinine 1.68H, Estimat Glomerular Filtration Rate 29, BUN/ Creatinine Ratio 15, Glucose Level 94, Calcium Level 8.7, Magnesium Level 2.0, Total Bilirubin 0.9, Aspartate Amino Transf (AST/SGOT) 51H, Alanine Aminotransferase (ALT/SGPT) 27, Alkaline Phosphatase 127, Total Protein 6.0L, Albumin 3.0L 12/13/16 06:35: White Blood Count 4.7, Red Blood Count 3.19L, Hemoglobin 9.3L, Hematocrit 30L, Mean Corpuscular Volume 95, Mean Corpuscular Hemoglobin 29, Mean Corpuscular Hemoglobin Concent 31L, Red Cell Distribution Width 15.7H, Platelet Count 191, Mean Platelet Volume 9.9, Neutrophils (%) (Auto) 46, Lymphocytes (%) (Auto) 39, Monocytes (%) (Auto) 10, Eosinophils (%) (Auto) 4, Basophils (%) (Auto) 1, Neutrophils # (Auto) 2.2, Lymphocytes # (Auto) 1.8, Monocytes # (Auto) 0.5, Eosinophils # (Auto) 0.2, Basophils # (Auto) 0.0, Sodium Level 140, Potassium Level 3.8, Chloride Level 101, Carbon Dioxide Level 31, Anion Gap 8, Blood Urea Nitrogen 24H, Creatinine 1.54H, Estimat Glomerular Filtration Rate 32, BUN/ Creatinine Ratio 16, Glucose Level 90, Calcium Level 8.4L Assessment/Plan Assessment 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 TREATED- BEING FOLLOWED BY cARDIOLOGY cELLULITIS RT LEG UNDER TREATMENT bLISTER dORSUM RT FOOT dr Alejo MANAGING sACRAL PRESSURE SORE dr Alejo MANAGING htn WITH hYPOTENSION AT THIS TIME cARDIOLOGY MANAGING a fib CONTROLLED WITH MEDS RESP INSUFFICIENCY dr Morocho pULGolden FOLLOWING-weaned from 02 Bilateral Pleural effusions Rt Otolgia improving Plan cONTINUE pt/ot/wOUND CARE cOMPLETE COURSE OF aNTIBIOTIC FOR CELLULITIS-done rt leg much improved with resolution of Swelling and erythema and tenderness f/u WITH pcp dr david Cast AND dr Alejo AND dr Morocho AND CARDIOLOGY PER [facility] SCHEDULE aPPRECIATE cARDIOLOGY AND dr Cannon NOTES AND ORDERS Appreciate DR Hill notes and orders BUN/CR and H&H improving Current Labs reviewed Meds being adjusted. Nausea resolved Appreciate DR Dumont note and Hospitalists orders and current labs Next Team Conference later today 12/13/16-See report for full functional update and POC and ELOS Discharge remains set tentatively for tomorrow- 12/14/16 DORIS QUIGLEY MD Dec 13, 2016 09:45
[2016-12-13] MEDS: FUROSEMIDE 40 MG (LASIX) TAB PO SCH (09:50)
--- NOTE | 2016-12-13 10:39 | Occupational Ther Daily Note ---
OT Current Status-Daily Note Subjective Pt seen in room, up at EOB, agreeable to OT. Pain reported 0/10. Looking forward to shower today. Appearance Alert, cooperative Mental Status/Objective Patient Orientation: Person, Place, Time, Situation Functional [place] Measure 0=Not Assessed/NA 4=Minimal Assistance 1=Total Assistance 5=Supervision or Setup 2=Maximal Assistance 6=Modified [place] 3=Moderate Assistance 7=Complete [place] ADL-Treatment All ADLs took longer than usual due to pacing and rest (recovery) breaks Functional [place] Measure 0=Not Assessed/NA 4=Minimal Assistance 1=Total Assistance 5=Supervision or Setup 2=Maximal Assistance 6=Modified [place] 3=Moderate Assistance 7=Complete IndependenceIRFPAI Quality Coding Scale 6 Independent with activity with or without an assistive device 5 Patient requires set up or clean up by helper. Patient completes activity by themselves 4 Supervision or touching assist (CGA). [place] provide cues , steadying assist 3 The helper provides less than half the effort to complete the activity 2 The helper provides more than half the effort to complete the activity 1 Dependent. The helper does all the effort to complete an activity 7 Patient refused to complete or attempt activity 9 The patient did not perform the activity before the current illness or injury 88 Not attempted due to Medical conditions or safety concerns Eating (FIM): 6 (Can open packags and cut up food. Has dentures and needs them to eat.) Eating (QC): 6 Grooming (FIM): 6 (Stood at sink with FWW for balance to clean teeth and comb hair. Washed face and hands in shower. No makeup) Oral Hygiene (QC): 6 Bathing (FIM): 6 (Washed and dried all parts except back. Stood safety to wash sean and bottom. Shower bench, grab bars, hand held shower. Retrieved towel from bar and turned water on and off.) Shower/Bathe Self (QC): 6 Upper Body (FIM): 6 (Retrieved clean clothes form closet and put dirty ones away, FWW for balance. ) Upper Body Dressing (QC): 6 Lower Body Dressing (FIM): 6 (Retrieved clean clothes from closet and put dirty ones away. FWW for balance. Donned regular socks and shoes without help) Lower Body Dressing (QC): 6 On/Off Footwear (QC): 6 Toileting (FIM): 6 (Managed clothing and hygiene without help. BSC over toilet , grab bar, FWW. Uses Depends and able to change them but is not incontinent) Toileting Hygiene (QC): 6 Toilet/Commode Transfer (FIM): 6 (On and off BSC over toilet, grab bar, FWW) Toilet Transfer (QC): 6 Shower Transfer(FIM): 6 (Shower bench, grab bars, FWW) Pt moved safely during all ADLs except attempted to step into her shoes while standing with FWW and was encouraged to sit to don shoes, for safety. Pt also indicated that she has a BSC that she will put over her toilet at [facility] and that she has been using that for the past 2-3 years at her home. Pt left sitting up in chair, all needs met. Education OT Patient Education: Energy conservation, Instructions don/doff splint/brace, Modified ADL techniques, Progress toward Goal/Update tx plan, Purpose of tx/ functional activities Teaching Methods: Discussion Response to Teaching: Verbalize Understanding OT Short Term Goals Short Term Goals Time Frame: Dec 08, 2016 Grooming(FIM): 5 Lower Body Dressing(FIM): 3 Toileting(FIM): 5 Toilet/Commode Transfer(FIM): 4 Additional Short Term Goals: 2-Verbalize Understanding, 3-ImproveStrength/Florinda 1=Demonstrate adherence to instructed precautions during ADL tasks. 2=Patient will verbalize/demonstrate understanding of assistive devices/ modifications for ADL. 3=Patient will improve strength/tolerance for activity to enable patient to perform ADL's. OT Primary Care Physician Goals Primary Care Physician Goals Time Frame: Dec 22, 2016 Eating (FIM): 6 (goal met 12-13-16) Eating (QC): 6 (goal met 12-13-16) Groomin (goal met 12-13-16) Oral Hygiene (QC): 6 (goal met 12-13-16) Bathing(FIM): 5 (goal met 12-13-16) Shower/Bathe Self (QC): 5 (goal met 12-13-16) Upper Body Dressing(FIM): 6 (goal met 12-13-16) Upper Body Dressing (QC): 6 (goal met 12-13-16) Lower Body Dressing(FIM): 6 (goal met 12-13-16) Lower Body Dressing (QC): 6 (goal met 12-13-16) On/Off Footwear (QC): 6 (goal met 12-13-16) Toileting(FIM): 6 (goal met 12-13-16) Toileting Hygiene (QC): 6 (goal met 12-13-16) Toilet/Commode Transfer(FIM): 6 (goal met 12-13-16) Toilet/Commode Transfer (QC): 6 (goal met 12-13-16) Shower Transfer(FIM): 5 (goal met 12-13-16) Additional Goals: 2-Verbalize Understanding, 3-ImproveStrength/Florinda 1=Demonstrate adherence to instructed precautions during ADL tasks. 2=Patient will verbalize/demonstrate understanding of assistive devices/ modifications for ADL. 3=Patient will improve strength/tolerance for activity to enable patient to perform ADL's. OT Education/Plan Problem List/Assessment Pt would benefit from skilled OT to increase her independence and activity tolerance for basic ADLs to allow her to return to an [facility] or skilled care and to decrease caregiver burden Discharge Recommendations Plan/Recommendations: Continue POC Treatment Plan/Plan of Care Patient would benefit from OT for education, treatment and training to promote independence in ADL's, mobility, safety and/or upper extremity function for ADL' s. Plan of Care: ADL Retraining, Functional Mobility, Group Exercise/Act as Ind ( education, exercise, activty tolerance, funct mobility, socialization), UE Funct Exercise/Act, UE Neuromus Re-Ed/Coord Treatment Duration: Dec 22, 2016 Frequency: At least 5 of 7 days/Wk (IRF) Estimated Hrs Per Day: 1.5 hours per day Agreement: Yes Rehab Potential: Fair Time/GCodes Start Time: 09:30 Stop Time: 10:30 Total Time Billed (hr/min): 60 Billed Treatment Time visit, 60 minutes ADL SOPHIE WARE OT Dec 13, 2016 10:39
--- NOTE | 2016-12-13 11:53 | Physical Therapy Daily Note ---
PT Daily Note-Current Subjective Pt was sitting in chair prior to tx and agreeable to PT. Pt was sitting on bed with nurse call, tray, phone, all needs in reach post tx. Pain Numeric Pain Scale: 0-No Pain Location: No Pain Reported Mental Status Patient Orientation: Normal For Age Transfers Functional [place] Measure 0=Not Assessed/NA 4=Minimal Assistance 1=Total Assistance 5=Supervision or Setup 2=Maximal Assistance 6=Modified [place] 3=Moderate Assistance 7=Complete IndependenceIRFPAI Quality Coding Scale 6 Independent with activity with or without an assistive device 5 Patient requires set up or clean up by helper. Patient completes activity by themselves 4 Supervision or touching assist (CGA). [place] provide cues , steadying assist 3 The helper provides less than half the effort to complete the activity 2 The helper provides more than half the effort to complete the activity 1 Dependent. The helper does all the effort to complete an activity 7 Patient refused to complete or attempt activity 9 The patient did not perform the activity before the current illness or injury 88 Not attempted due to Medical conditions or safety concerns Transfers (B, C, W/C) (FIM): 6 Scootin Rollin Roll Left to Right (QC): 6 Supine to/from Sit: 6 Sit to/from Stand: 6 Sit to Lying (QC): 6 Sit to Stand (QC): 6 Chair/Zgu-fd-Ekmzp Xfer(QC): 6 Bed to/from Chair: 6 Pt is mod I with all bed mobility and transfers. Gait Training Does the Patient Walk?: Yes Gait (FIM): 6 Distance (FIM): 3=150 ft Distance: 200'x2 Walk 10 feet (QC): 6 Walk 50 ft with 2 Turns(QC): 6 Walk 150 ft (QC): 6 Walking 10ft/uneven surface-QC: 6 Gait Level of Assist: 6 Gait Persons Needed: 0 Gait Assistive Device: FWW Pt ambulates 200' with FWW with hunched posture. Pt is mod I with ambulation but requires frequent rest breaks due to shortness of breath. Wheelchair Training Does the Pt Use a Wheelchair?: No Stair Training Stair Training: Handrails/: 2 handrails Stairs (FIM): 2 #of Steps: 8 1 Step (curb) (QC): 4 4 Steps (QC): 4 12 Steps (QC): 88 Stairs: Pattern: Step to Level of Assist: 5 Pt completes 8 steps with supervision for safety. Pt uses two handrails and step to pattern. Pt is unable to complete more steps due to fatigue. Balance Picking up an Object (QC): 4 Exercises Supine Ex: Bridging, Ankle pumps, Quad Set, Heel Slides, Straight leg raise, Hip abd/add Seated Therapy Exercises: Long arc quads, Hip flexion, Hamstring Curls Seated Reps: 20 NuStep Minutes: 10 NuStep Workload: 4 Treatments Pt completes gait training, stair training, and bed mobility to increase functional mobility and independence. Pt completes tx on Nustep to increase endurance. Pt also completes seated exercises using theraband for resistance and supine exercises to increase functional LE strengthening. Assessment Current Status: Good Progress Pt ambulation, endurance and stair mobility has improved. PT Short Term Goals Short Term Goals Time Frame: Dec 06, 2016 Gait (FIM): 4 Distance (FIM): 3=150 ft Gait Assistive Device: FWW PT Employee [employer] Rn Goals Shelter Goals PT Shelter Goals Time Frame: Dec 22, 2016 Transfers (B,C,W/C) (FIM): 6 (met) Sit to Lying (QC): 6 (met) Lying-Sitting on Side/Bed(QC): 6 (met) Sit to Stand (QC): 6 (met) Rollin (met) Roll Left to Right (QC): 6 Chair/Hst-nw-Laizd Xfer(QC): 6 (met) Car Transfer (QC): 5 Does the Patient Walk: Yes Gait (FIM): 6 Gait distance (FIM): 3=150 ft Walk 10 feet (QC): 6 (met) Walk 10ft-Uneven Surface(QC): 6 (mt) Walk 50ft with 2 Turns (QC): 6 (met) Walk 150 ft (QC): 6 (met) Gait Level of Assist: 6 Gait Assistive Device: FWW Stairs (FIM): 2 (met) # of Steps: 4 (met) 1 Step (curb) (QC): 4 (met) 4 Steps (QC): 4 (met) 12 Steps (QC): 88 Picking up an Object (QC): 88 PT Plan Problem List Problem List: Activity Tolerance, Functional Strength, Safety, Balance, Gait, Transfer, Bed Mobility Treatment/Plan Treatment Plan: Continue Plan of Care Treatment Plan: Bed Mobility, Education, Functional Activity Florinda, Functional Strength, Group Therapy, Gait, Safety, Therapeutic Exercise, Transfers Treatment Duration: Dec 22, 2016 Frequency: At least 5 of 7 days/Wk (IRF) Estimated Hrs Per Day: 1.5 hours per day Patient and/or Family Agrees t: Yes Safety Risks/Education Patient Education: Gait Training, Transfer Techniques, Steps, Reviewed Precautions, Correct Positioning, Safety Issues Teaching Recipient: Patient Teaching Methods: Demonstration, Discussion Response to Teaching: Verbalize Understanding, Reinforcement Needed Time/GCodes Time In: 1045 Time Out: 1145 Total Billed Treatment Time: 60 Total Billed Treatment 1 visit 20 GT 40 EX JOSELITO PERRIN PT Dec 13, 2016 11:52
--- NOTE | 2016-12-13 14:20 | Occupational Ther Daily Note ---
OT Current Status-Daily Note Subjective Pt seen in room, up in bed, agreeable to OT. No pain mentioned. Appearance Alert, cooperative Mental Status/Objective Functional [place] Measure 0=Not Assessed/NA 4=Minimal Assistance 1=Total Assistance 5=Supervision or Setup 2=Maximal Assistance 6=Modified [place] 3=Moderate Assistance 7=Complete [place] ADL-Treatment Pt had help to drop the bedrail on bed but otherwise was able to get her self up. Helpful safety hint to not stand up in stocking feet on tile floors, was able to don shoes without help. Pt toileted mod I, toilet transfer mod I, washed hands mod I, then walked without assistance to gym. Pt was able to get in /out of chair with arms without help. Pt did 10 minutes bilat UE exercise with 20W resistance on arm bike and did not take any breaks - she was even able to talk during exercise. Increased time and resistance, with no rest breaks. Also provided pt with handouts on energy conservation and theraband exercises she has done and verbalized understanding. Care transferred to PT. Functional [place] Measure 0=Not Assessed/NA 4=Minimal Assistance 1=Total Assistance 5=Supervision or Setup 2=Maximal Assistance 6=Modified [place] 3=Moderate Assistance 7=Complete IndependenceIRFPAI Quality Coding Scale 6 Independent with activity with or without an assistive device 5 Patient requires set up or clean up by helper. Patient completes activity by themselves 4 Supervision or touching assist (CGA). [place] provide cues , steadying assist 3 The helper provides less than half the effort to complete the activity 2 The helper provides more than half the effort to complete the activity 1 Dependent. The helper does all the effort to complete an activity 7 Patient refused to complete or attempt activity 9 The patient did not perform the activity before the current illness or injury 88 Not attempted due to Medical conditions or safety concerns Education OT Patient Education: Energy conservation, Exercise program, Progress toward Goal/Update tx plan, Purpose of tx/functional activities Teaching Recipient: Patient Teaching Methods: Discussion Response to Teaching: Verbalize Understanding OT Short Term Goals Short Term Goals Time Frame: Dec 08, 2016 Grooming(FIM): 5 Lower Body Dressing(FIM): 3 Toileting(FIM): 5 Toilet/Commode Transfer(FIM): 4 Additional Short Term Goals: 2-Verbalize Understanding, 3-ImproveStrength/Florinda 1=Demonstrate adherence to instructed precautions during ADL tasks. 2=Patient will verbalize/demonstrate understanding of assistive devices/ modifications for ADL. 3=Patient will improve strength/tolerance for activity to enable patient to perform ADL's. OT Care Home Goals Hairmasters Manager Goals Time Frame: Dec 22, 2016 Eating (FIM): 6 (goal met 12-13-16) Eating (QC): 6 (goal met 12-13-16) Groomin (goal met 12-13-16) Oral Hygiene (QC): 6 (goal met 12-13-16) Bathing(FIM): 5 (goal met 12-13-16) Shower/Bathe Self (QC): 5 (goal met 12-13-16) Upper Body Dressing(FIM): 6 (goal met 12-13-16) Upper Body Dressing (QC): 6 (goal met 12-13-16) Lower Body Dressing(FIM): 6 (goal met 12-13-16) Lower Body Dressing (QC): 6 (goal met 12-13-16) On/Off Footwear (QC): 6 (goal met 12-13-16) Toileting(FIM): 6 (goal met 12-13-16) Toileting Hygiene (QC): 6 (goal met 12-13-16) Toilet/Commode Transfer(FIM): 6 (goal met 12-13-16) Toilet/Commode Transfer (QC): 6 (goal met 12-13-16) Shower Transfer(FIM): 5 (goal met 12-13-16) Additional Goals: 2-Verbalize Understanding, 3-ImproveStrength/Florinda 1=Demonstrate adherence to instructed precautions during ADL tasks. 2=Patient will verbalize/demonstrate understanding of assistive devices/ modifications for ADL. 3=Patient will improve strength/tolerance for activity to enable patient to perform ADL's. OT Education/Plan Problem List/Assessment Pt would benefit from skilled OT to increase her independence and activity tolerance for basic ADLs to allow her to return to an [facility] or skilled care and to decrease caregiver burden Discharge Recommendations Plan/Recommendations: Continue POC (anticipate discharge tomorow) Treatment Plan/Plan of Care Patient would benefit from OT for education, treatment and training to promote independence in ADL's, mobility, safety and/or upper extremity function for ADL' s. Plan of Care: ADL Retraining, Functional Mobility, Group Exercise/Act as Ind ( education, exercise, activty tolerance, funct mobility, socialization), UE Funct Exercise/Act, UE Neuromus Re-Ed/Coord Treatment Duration: Dec 22, 2016 Frequency: At least 5 of 7 days/Wk (IRF) Estimated Hrs Per Day: 1.5 hours per day Agreement: Yes Rehab Potential: Fair Time/GCodes Start Time: 13:00 Stop Time: 13:30 Total Time Billed (hr/min): 30 Billed Treatment Time visit, ADL 10 minutes, exercise 20 minutes SOPHIE WARE OT Dec 13, 2016 14:20
--- NOTE | 2016-12-13 15:29 | Physical Therapy Daily Note ---
PT Daily Note-Current Subjective Pt sitting in chair in Therapy Gym just finishing with OT upon arrival. Pt agrees to PT. Pain Location: No Pain Reported Mental Status Patient Orientation: Person, Place, Time, Situation Transfers Functional [place] Measure 0=Not Assessed/NA 4=Minimal Assistance 1=Total Assistance 5=Supervision or Setup 2=Maximal Assistance 6=Modified [place] 3=Moderate Assistance 7=Complete IndependenceIRFPAI Quality Coding Scale 6 Independent with activity with or without an assistive device 5 Patient requires set up or clean up by helper. Patient completes activity by themselves 4 Supervision or touching assist (CGA). [place] provide cues , steadying assist 3 The helper provides less than half the effort to complete the activity 2 The helper provides more than half the effort to complete the activity 1 Dependent. The helper does all the effort to complete an activity 7 Patient refused to complete or attempt activity 9 The patient did not perform the activity before the current illness or injury 88 Not attempted due to Medical conditions or safety concerns Scootin Rollin Roll Left to Right (QC): 5 Supine to/from Sit: 6 Sit to/from Stand: 6 Sit to Lying (QC): 6 Sit to Stand (QC): 6 Weight Bearing Weight Bearing Restriction: Full Weight Bearing Location Restriction: LE Bilateral Gait Training Does the Patient Walk?: Yes Distance (FIM): 3=150 ft Distance: 200' Walk 10 feet (QC): 6 Walk 50 ft with 2 Turns(QC): 6 Walk 150 ft (QC): 5 Gait Level of Assist: 5 Gait Persons Needed: 1 Gait Assistive Device: FWW Pt walks with slow but steady gait, no LOB. After talking to OT & Nurse, PT made pt up Ad sanna in room. Wheelchair Training Does the Pt Use a Wheelchair?: No Exercises Seated Therapy Exercises: Ankle pumps, Long arc quads, Hip flexion, Kicking activity, Hip abd/add Seated Reps: 20 Treatments Pt completed Seated Ex in chair then transferred to standing using FWW at Mod I. Pt ambulated back towards room using FWW at Mod I. Pt transferred back to Sidelying in bed to rest. Pt is resting with all needs met at end of tx. Assessment Current Status: Good Progress Pt has improved with safety and independence of transfers and mobility. Pt has been made Ad sanna in room. Pt to discharge tomorrow. PT Short Term Goals Short Term Goals Time Frame: Dec 06, 2016 Gait (FIM): 4 Distance (FIM): 3=150 ft Gait Assistive Device: FWW PT Skilled Nursing Goals Blueprint Clerk Goals PT Skilled Nursing Goals Time Frame: Dec 22, 2016 Transfers (B,C,W/C) (FIM): 6 (met) Sit to Lying (QC): 6 (met) Lying-Sitting on Side/Bed(QC): 6 (met) Sit to Stand (QC): 6 (met) Rollin (met) Roll Left to Right (QC): 6 Chair/Uwr-lc-Avdnw Xfer(QC): 6 (met) Car Transfer (QC): 5 Does the Patient Walk: Yes Gait (FIM): 6 Gait distance (FIM): 3=150 ft Walk 10 feet (QC): 6 (met) Walk 10ft-Uneven Surface(QC): 6 (mt) Walk 50ft with 2 Turns (QC): 6 (met) Walk 150 ft (QC): 6 (met) Gait Level of Assist: 6 Gait Assistive Device: FWW Stairs (FIM): 2 (met) # of Steps: 4 (met) 1 Step (curb) (QC): 4 (met) 4 Steps (QC): 4 (met) 12 Steps (QC): 88 Picking up an Object (QC): 88 PT Plan Problem List Problem List: Activity Tolerance, Functional Strength Treatment/Plan Treatment Plan: Continue Plan of Care Treatment Plan: Bed Mobility, Education, Functional Activity Florinda, Functional Strength, Group Therapy, Gait, Safety, Therapeutic Exercise, Transfers Treatment Duration: Dec 22, 2016 Frequency: At least 5 of 7 days/Wk (IRF) Estimated Hrs Per Day: 1.5 hours per day Patient and/or Family Agrees t: Yes Safety Risks/Education Patient Education: Correct Positioning, Safety Issues Teaching Recipient: Patient Teaching Methods: Discussion Response to Teaching: Verbalize Understanding Time/GCodes Time In: 1330 Time Out: 1400 Total Billed Treatment Time: 30 Total Billed Treatment visit, GT (15m) & EX (15m) LEANNA OZUNA INCOME TAX ADVISOR Dec 13, 2016 15:29
[2016-12-13 17:55] VITALS: BP 103/61
[2016-12-13] MEDS ORDERED: ACID1TAB PO (19:52)
[2016-12-13] MEDS ORDERED: BUSP5TAB59 PO (19:52)
[2016-12-13] MEDS ORDERED: FURO40TA4 PO (19:52)
[2016-12-13] MEDS ORDERED: LISI2.5T PO (19:52)
[2016-12-13] MEDS ORDERED: LORA10TA7 PO (19:52)
[2016-12-13] MEDS ORDERED: FLUT16SP22 NS (19:52)
[2016-12-13] MEDS ORDERED: PANT40TA3 PO (19:52)
[2016-12-13] MEDS ORDERED: ATOR40TA70 PO (19:52)
[2016-12-13] MEDS ORDERED: AMIO200T2 PO (19:52)
[2016-12-13] MEDS ORDERED: METO-333 PO (19:52)
[2016-12-13] MEDS ORDERED: APIX2.5T PO (19:52)
[2016-12-13] MEDS: busPIRone 5 MG (BUSPAR) TAB PO SCH (20:19)
[2016-12-13] MEDS: ATORVASTATIN 40 MG (LIPITOR) TABLET PO SCH (20:19)
[2016-12-13 20:21] VITALS: BP 105/64
[2016-12-14 05:35] VITALS: BP 115/63
[2016-12-14] MEDS: PANTOPRAZOLE 40 MG (PROTONIX) TAB PO SCH (06:07)
[2016-12-14] MEDS: MULTIVIT W/MINERALS TAB (THERAGRAN M) PO SCH (06:07)
--- NOTE | 2016-12-14 08:18 | PM & R (SOAP) Progress Note ---
Subjective Time Seen by Provider: 07:50 Subjective/Events-last exam Patient was seen in her room this AM Has progressed well Current meds reviewed Objective Exam Last Set of Vital Signs Vital Signs Date Time Temp Pulse Resp B/P (MAP) Pulse Ox O2 Delivery O2 Flow Rate FiO2 12/14/16 05:35 97.8 80 16 115/63 95 Room Air Capillary Refill : I&O Intake and Output 12/15/16 00:00 Intake Total 840 ml Balance 840 ml Intake Oral 840 ml # Voids 6 General: Alert, No Acute Distress HEENT: Atraumatic, PERRLA, Other (RT TM clear) Neck: Supple, No JVD, No Thyromegaly Lungs: Normal Air Movement Heart: Regular Rate, Normal S1, Normal S2, Gallops (bilateral rhonchi), Other ( systolic murmur at the left sternal border) Abdomen: Normal Bowel Sounds, Soft, No Tenderness, No Hepatosplenomegaly, No Masses Extremities: Other (4 x 5 cm Purplish mass R medial calf in area of previous vein harvest incision. No open area.) Skin: Other (Dorsum R foot, 6 x 6 cm area of thickened, ecchymotic skin, but intact.) Neuro: Normal Gait, Normal Speech, Strength at 5/5 X4 Ext, Normal Tone, Sensation Intact Psych/Mental Status: Mental Status NL, Mood NL Results Lab Laboratory Tests 12/13/16 06:35: White Blood Count 4.7, Red Blood Count 3.19L, Hemoglobin 9.3L, Hematocrit 30L, Mean Corpuscular Volume 95, Mean Corpuscular Hemoglobin 29, Mean Corpuscular Hemoglobin Concent 31L, Red Cell Distribution Width 15.7H, Platelet Count 191, Mean Platelet Volume 9.9, Neutrophils (%) (Auto) 46, Lymphocytes (%) (Auto) 39, Monocytes (%) (Auto) 10, Eosinophils (%) (Auto) 4, Basophils (%) (Auto) 1, Neutrophils # (Auto) 2.2, Lymphocytes # (Auto) 1.8, Monocytes # (Auto) 0.5, Eosinophils # (Auto) 0.2, Basophils # (Auto) 0.0, Sodium Level 140, Potassium Level 3.8, Chloride Level 101, Carbon Dioxide Level 31, Anion Gap 8, Blood Urea Nitrogen 24H, Creatinine 1.54H, Estimat Glomerular Filtration Rate 32, BUN/ Creatinine Ratio 16, Glucose Level 90, Calcium Level 8.4L Assessment/Plan Assessment 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 DORIS QUIGLEY MD Dec 14, 2016 08:18
--- NOTE | 2016-12-14 08:26 | Therapy Team Discharge Summary ---
Therapy Discharge Summary Discharge Recommendations Date of Discharge Physical Therapy Patient came to rehab for CHF exacerbation. Upon admission patient performed bed mobility with mod to max assist and transfers with min assist, ambulated 50 ' with a rolling walker with min assist, and could go up and down 1 step with a walker with min assist. Patient has been performing bed mobility and transfer training, balance and endurance training, functional strengthening, stair training, gait training, and education. Patient has made good progress and has met all of her assisted goals except for car transfer. Now, patient is mod I with bed mobility and transfers, ambulates 200' with a rolling walker with mod I (including 50' with at least 2 turns of 90 degrees and 10' over an uneven surface), and can go up and down 8 steps using 2 handrails with CGA. Patient is leaving this facility today and will be discharged from PT at this time. PT Alf Goals Project Architect Goals PT Alf Goals Time Frame: Dec 22, 2016 Transfers (B,C,W/C) (FIM): 6 (met) Roll Left to Right (QC): 6 Sit to Lying (QC): 6 (met) Lying-Sitting on Side/Bed(QC): 6 (met) Sit to Stand (QC): 6 (met) Chair/Cej-tj-Oquvl Xfer(QC): 6 (met) Car Transfer (QC): 5 Does the Patient Walk: Yes Gait (FIM): 6 Gait distance (FIM): 3=150 ft Walk 10 feet (QC): 6 (met) Walk 10ft-Uneven Surface(QC): 6 (mt) Walk 50ft with 2 Turns (QC): 6 (met) Walk 150 ft (QC): 6 (met) Gait Level of Assist: 6 Gait Assistive Device: FWW Stairs (FIM): 2 (met) # of Steps: 4 (met) 1 Step (curb) (QC): 4 (met) 4 Steps (QC): 4 (met) 12 Steps (QC): 88 Picking up an Object (QC): 88 OT Project Architect Goals Alf Goals Time Frame: Dec 22, 2016 Eating (FIM): 6 (goal met 12-13-16) Eating (QC): 6 (goal met 12-13-16) Oral Hygiene (QC): 6 (goal met 12-13-16) Grooming(FIM): 6 (goal met 12-13-16) Bathing(FIM): 5 (goal met 12-13-16) Shower/Bathe Self (QC): 5 (goal met 12-13-16) Upper Body Dressing(FIM): 6 (goal met 12-13-16) Upper Body Dressing (QC): 6 (goal met 12-13-16) Lower Body Dressing(FIM): 6 (goal met 12-13-16) Lower Body Dressing (QC): 6 (goal met 12-13-16) On/Off Footwear (QC): 6 (goal met 12-13-16) Toileting(FIM): 6 (goal met 12-13-16) Toileting Hygiene (QC): 6 (goal met 12-13-16) Toilet/Commode Transfer(FIM): 6 (goal met 12-13-16) Toilet/Commode Transfer (QC): 6 (goal met 12-13-16) Shower Transfer(FIM): 5 (goal met 12-13-16) Additional Goals: 2-Verbalize Understanding, 3-ImproveStrength/Florinda 1=Demonstrate adherence to instructed precautions during ADL tasks. 2=Patient will verbalize/demonstrate understanding of assistive devices/ modifications for ADL. 3=Patient will improve strength/tolerance for activity to enable patient to perform ADL's. JOSELITO PERRIN PT Dec 14, 2016 08:26
[2016-12-14] MEDS: LORATADINE (CLARITIN) 10 MG TAB PO SCH (08:40)
[2016-12-14] MEDS: OMEGA 3 (FISH OIL) 1000 MG CAP PO SCH (08:40)
[2016-12-14] MEDS: AMIODARONE 200 MG (CORDARONE) TAB PO SCH (08:40)
[2016-12-14] MEDS: ASPIRIN 81 MG CHEW (CHILDREN'S ASA) PO SCH (08:40)
[2016-12-14] MEDS: LACTOBACILLUS Acidoph/Bulgar (LACTINEX/FLORANEX) TAB PO SCH (08:40)
[2016-12-14] MEDS: FUROSEMIDE 40 MG (LASIX) TAB PO SCH (08:40)
[2016-12-14] MEDS: meTOprolol TARTRATE 25 MG (LOPRESSOR) TABLET PO SCH (08:40)
[2016-12-14] MEDS: FLUTICASONE NASAL SPRAY (FLONASE) 16 GM BTL NS SCH (08:41)
[2016-12-14] MEDS: APIXABAN 2.5 MG (ELIQUIS) TABLET PO SCH (08:41)
[2016-12-14] MEDS: lisINopril 5 MG (PRINIVIL) TABLET PO SCH (08:41)
--- NOTE | 2016-12-14 10:07 | Therapy Team Discharge Summary ---
Therapy Discharge Summary Discharge Recommendations Date of Discharge Therapy D/C Recommendations: Occupational Therapy Home Care Occupational Therapy Pt was seen for skilled OT to increase her independence in basic self care after CABG and CO. On admission she needed setup for eating: SBA for grooming: min assist/CGA for bathing, upper body dressing, toileting; mod assist toilet transfer; and max assist lower body dressing. She needed help to manage oxygen and tubing. By discharge she was modified independent with all basic ADLs and didn't need supplemental oxygen. Equipment used at discharge included FWW, BSC over toilet, grab bars, shower chair, hand held shower. Pt also followed energy conservation principles and paced herself. See tx plan for goals met. Pt to be discharged today to [facility] and recommend home health OT. She also has an exercise program with rodrick, with written instructions. DC OT PT Senior Care Goals Bowling Pin Setters Installer Goals PT Senior Care Goals Time Frame: Dec 22, 2016 Transfers (B,C,W/C) (FIM): 6 (met) Sit to Lying (QC): 6 (met) Lying-Sitting on Side/Bed(QC): 6 (met) Sit to Stand (QC): 6 (met) Rollin Chair/Kvr-hr-Nooxb Xfer(QC): 6 (met) Does the Patient Walk: Yes Gait (FIM): 6 Gait distance (FIM): 3=150 ft Walk 50ft with 2 Turns (QC): 6 (met) Walk 150 ft (QC): 6 (met) Gait Level of Assist: 6 Gait Assistive Device: FWW Stairs (FIM): 2 (met) # of Steps: 4 (met) OT Senior Care Goals Senior Care Goals Time Frame: Dec 22, 2016 Eating (FIM): 6 (goal met 12-13-16) Eating (QC): 6 (goal met 12-13-16) Groomin (goal met 12-13-16) Oral Hygiene (QC): 6 (goal met 12-13-16) Bathing(FIM): 5 (goal met 12-13-16) Upper Body Dressing(FIM): 6 (goal met 12-13-16) Lower Body Dressing(FIM): 6 (goal met 12-13-16) Toileting(FIM): 6 (goal met 12-13-16) Toileting Hygiene (QC): 6 (goal met 12-13-16) Toilet/Commode Transfer(FIM): 6 (goal met 12-13-16) Toilet/Commode Transfer (QC): 6 (goal met 12-13-16) Shower Transfer(FIM): 5 (goal met 12-13-16) Additional Goals: 2-Verbalize Understanding, 3-ImproveStrength/Florinda 1=Demonstrate adherence to instructed precautions during ADL tasks. 2=Patient will verbalize/demonstrate understanding of assistive devices/ modifications for ADL. 3=Patient will improve strength/tolerance for activity to enable patient to perform ADL's. SOPHIE WARE OT Dec 14, 2016 10:07
[2016-12-14 11:15] VITALS: BP 113/67
== END 2016-12-14 11:15 | disposition home health service (06) | DRG 91 ==
PROVIDERS: ADMIT Physical Medicine & Rehabilitation; ATTEND Physical Medicine & Rehabilitation
DX: G72.81 Critical illness myopathy (principal); I50.23 Acute on chronic systolic (congestive) heart failure; I25.5 Ischemic cardiomyopathy; I21.3 ST elevation (STEMI) myocardial infarction of unspecified site; I25.10 Atherosclerotic heart disease of native coronary artery without angina pectoris; I48.0 Paroxysmal atrial fibrillation; L03.115 Cellulitis of right lower limb; N39.0 Urinary tract infection, site not specified; Z66 Do not resuscitate; N17.9 Acute kidney failure, unspecified; N28.9 Disorder of kidney and ureter, unspecified; I95.9 Hypotension, unspecified; I10 Essential (primary) hypertension; E78.5 Hyperlipidemia, unspecified; E11.9 Type 2 diabetes mellitus without complications; L89.150 Pressure ulcer of sacral region, unstageable; B96.1 Klebsiella pneumoniae [K. pneumoniae] as the cause of diseases classified elsewhere; R06.89 Other abnormalities of breathing; R07.9 Chest pain, unspecified; R09.81 Nasal congestion; D64.9 Anemia, unspecified; Z95.1 Presence of aortocoronary bypass graft; Z79.01 Long term (current) use of anticoagulants
CPT/HCPCS: 36415; 71020; 80048; 80053; 83735; 85025; 85027

== ENCOUNTER → 2016-12-20 | Outpatient (CLI) | payer MEDICARE, BC ==
[~2016-12-20] MED LIST changes: +ACID1TAB PO; +CEFD300C3 PO; +FLUT16SP22 NS; +FURO10VI IV; +LORA10TA7 PO; +PANT40TA3 PO
== END ==
LOC: WOUNDCARE 09:03
PROVIDERS: ATTEND Surgery
DX: L89.159 Pressure ulcer of sacral region, unspecified stage (principal)
CPT/HCPCS: 99213